=== PATIENT | female | born 1950 | race Caucasian/White ===

== ENCOUNTER 2022-01-10 15:55 | Outpatient (CLI) | payer MEDICARE, OTHER | END 2022-01-10 23:59 | disposition left against medical advice (07) | LOC: EMS 15:55 | DX: R07.81 Pleurodynia (principal); W18.30XA Fall on same level, unspecified, initial encounter; Y92.009 Unspecified place in unspecified non-institutional (private) residence as the place of occurrence of the external cause; Z72.89 Other problems related to lifestyle ==

== ENCOUNTER 2022-01-13 14:35 | Outpatient (CLI) | payer MEDICARE, OTHER ==
--- NOTE | 2022-01-13 16:19 | XRAY Report ---
PROCEDURE: Ribs w/PA Chest LT INDICATIONS: CHEST PAIN TECHNIQUE: 2 views of the left ribs were acquired, along with a single view chest. COMPARISON: None FINDINGS: Surgical changes and devices: None. Bones and chest wall: There may be a minimal displaced fracture of the posterior left eighth rib. No other displaced fractures visualized. Lungs and pleura: Ending at the left costophrenic sulcus suggests small pleural effusion. No pneumoth orax. Lungs appear clear. Mediastinum: Mediastinal contours appear normal. Heart size is normal. IMPRESSION: Questionable displaced posterior left eighth rib fracture. Questionable small left pleural effusion. Reviewed by: Cece Dela Cruz MD on 01/13/2022 4:18 PM PST Approved by: Cece Dela Cruz MD on 01/13/2022 4:18 PM PST Station ID: [id number]
== END 2022-01-13 14:36 | disposition home or self-care (01) ==
LOC: DI 14:35
PROVIDERS: ATTEND Internal Medicine
DX: R07.9 Chest pain, unspecified (principal)

== ENCOUNTER 2023-01-29 22:50 | Outpatient (CLI) | payer MEDICARE, OTHER | END 2023-01-29 23:59 | disposition critical access hospital (66) | LOC: EMS 22:50 | DX: R06.02 Shortness of breath (principal); R53.1 Weakness; R50.9 Fever, unspecified; R53.83 Other fatigue; R41.0 Disorientation, unspecified | CPT/HCPCS: A0425; A0427 ==

== ENCOUNTER 2023-01-29 23:05 | Inpatient (IN) | payer MEDICARE, OTHER ==
--- NOTE | 2023-01-29 23:13 | ED Physician Documentation ---
PD HPI DYSPNEA - Stated complaint Stated Complaint: SOA - History obtained from History obtained from: Patient, Family, EMS - Additional information Additional information: BIBA. Patient complains of dyspnea, coughing, malaise x 5 days. She also c/o midline upper back pain but denies chest pain. Denies injury. She says she had (+) COVID test approximately 2 weeks ago. She also says her LLE has been swollen for nearly a week although she feels this has improved over the past 1-2 days. She denies h/o similar symptoms and she does not have any pulmonary diagnoses such as COPD. Given duoneb en route by EMS. Review of Systems Constitutional: denies: Fever, Chills, Sweats Cardiac: reports: Pedal edema. denies: Chest pain / pressure, Palpitations Respiratory: reports: Dyspnea, Cough. denies: Hemoptysis, Wheezing GI: reports: Reviewed and negative Musculoskeletal: reports: Extremity swelling (LLE) PD PAST MEDICAL HISTORY - Past Medical History Past Medical History: Yes Cardiovascular: Hypertension - Present Medications Home Medications: Ambulatory Orders Medication Instructions Recorded Confirmed No Known Home Medications 01/29/23 01/29/23 - Allergies Allergies/Adverse Reactions: Allergies Allergy/AdvReac Type Severity Reaction Status Date / Time No Known Drug Allergies Allergy Verified 01/29/23 23:09 PD ED PE NORMAL - Vitals Vital signs reviewed: Yes - General General: Alert and oriented X 3, No acute distress, Well developed/nourished - Neck Neck: Supple, no meningeal sign, No JVD - Cardiac Cardiac: No murmur - Respiratory Respiratory: No respiratory distress, Clear bilaterally - Abdomen Abdomen: Soft, Non tender - Back Back: No spinal TTP - Derm Derm: Normal color, Warm and dry PD ED PE EXPANDED - Cardiac Cardiac: Tachy, Regular Rhythm - Extremities Extremities: Swelling, Pedal edema L (circumferential LLE edema from toes to mid/upper thigh) Results - Vitals Vitals: Vital Signs - 24 hr 01/29/23 01/29/23 01/30/23 23:09 23:30 00:00 Temperature 36.8 C Heart Rate 115 H 119 H 121 H Respiratory 24 32 H 26 H Rate Blood Pressure 162/94 H 156/76 H O2 Saturation 100 95 96 If not protocol 2 : Oxygen Flow, liters/minute 01/30/23 01/30/2323 00:13 00:30 01:00 Temperature Heart Rate 113 H 114 H 113 H Respiratory 27 H 30 H 25 H Rate Blood Pressure 146/84 H 156/83 H O2 Saturation 100 96 98 If not protocol 2 2 : Oxygen Flow, liters/minute 01/30/23 01/30/23 01/30/23 01:30 02:00 03:30 Temperature Heart Rate 111 H 113 H 105 H Respiratory 29 H 22 29 H Rate Blood Pressure 157/89 H 149/76 H 147/78 H O2 Saturation 95 99 98 If not protocol 2 2 2 : Oxygen Flow, liters/minute 01/30/23 01/30/23 01/30/23 04:00 04:30 05:00 Temperature Heart Rate 106 H 102 H 106 H Respiratory 27 H 20 25 H Rate Blood Pressure 157/80 H 157/85 H 143/76 H O2 Saturation 98 98 99 If not protocol 2 2 2 : Oxygen Flow, liters/minute 01/30/23 01/30/23 01/30/23 05:30 06:00 06:30 Temperature Heart Rate 103 H 104 H 100 Respiratory 26 H 23 31 H Rate Blood Pressure 158/90 H 152/79 H 153/79 H O2 Saturation 99 98 99 If not protocol 2 2 2 : Oxygen Flow, liters/minute 01/30/23 01/30/23 01/30/23 07:00 07:30 08:00 Temperature Heart Rate 96 98 95 Respiratory 23 23 22 Rate Blood Pressure 150/67 H 148/65 H 155/68 H O2 Saturation 95 97 95 If not protocol 2 2 2 : Oxygen Flow, liters/minute 01/30/23 01/30/23 01/30/23 08:30 09:00 09:30 Temperature Heart Rate 96 93 95 Respiratory 23 20 Rate Blood Pressure 150/67 H 152/65 H 155/68 H O2 Saturation 100 100 98 If not protocol 2 2 2 : Oxygen Flow, liters/minute 01/30/23 01/30/23 01/30/23 10:00 10:30 11:00 Temperature Heart Rate 88 98 92 Respiratory 22 20 Rate Blood Pressure 150/62 H 145/66 H 152/66 H O2 Saturation 100 85 L 95 If not protocol 2 2 : Oxygen Flow, liters/minute 01/30/23 01/30/23 01/30/23 11:29 12:00 12:30 Temperature 36.8 C Heart Rate 87 89 88 Respiratory 21 22 20 Rate Blood Pressure 150/68 H 150/64 H 148/62 H O2 Saturation 97 96 98 If not protocol 2 3 3 : Oxygen Flow, liters/minute 01/30/23 01/30/23 01/30/23 13:00 13:30 14:00 Temperature Heart Rate 86 88 86 Respiratory 22 20 22 Rate Blood Pressure 157/68 H 155/82 H 151/86 H O2 Saturation 97 98 100 If not protocol 2 2 2 : Oxygen Flow, liters/minute 01/30/23 01/30/23 01/30/23 14:30 15:00 15:30 Temperature Heart Rate 88 91 86 Respiratory 22 22 29 H Rate Blood Pressure 147/84 H 173/78 H 170/72 H O2 Saturation 98 93 99 If not protocol 2 2 : Oxygen Flow, liters/minute Oxygen O2 Source Nasal cannula Oxygen Flow Rate 2 - EKG (time done) No standard instances EKG releavant findings:: EKG personally interpreted by author of this note. Relevant findings are: Rate: Rate (enter#) (120), Tachy Rhythm: Sinus tachycardia [place]: RAD Intervals: Normal OR QRS: LVH Ischemia: Normal ST segments - Labs Labs: Laboratory Tests 01/30/23 01/30/23 01/30/23 00:01 00:01 00:01 WBC 14.4 H RBC 4.11 L Hgb 11.3 L Hct 36.3 L MCV 88.3 MCH 27.5 MCHC 31.1 L RDW 14.4 Plt Count 341 MPV 10.9 H Neut # (Auto) 11.4 H Lymph # (Auto) 2.0 [place] # (Auto) 0.9 Eos # (Auto) 0.1 Baso # (Auto) 0.0 Absolute Nucleated RBC 0.00 Nucleated RBC % 0.0 PT 16.8 H INR 1.6 H APTT 31.3 Sodium 139 Potassium 2.6 L Chloride 94 L Carbon Dioxide 29 Anion Gap 16.0 H BUN 16 Creatinine 0.6 Estimated GFR (MDRD) 98 Glucose 143 H Calcium 11.2 H Magnesium Total Bilirubin 1.5 H AST 22 ALT 7 L Alkaline Phosphatase 228 H Troponin I High Sens 65.7 H* B-Natriuretic Peptide Total Protein 7.0 Albumin 3.3 Globulin 3.7 Albumin/Globulin Ratio 0.9 L Lipase 23 Nasal Adenovirus (PCR) Nasal B. parapertussis DNA (PCR) Nasal Coronavir 229E PCR Nasal Coronavir HKU1 PCR Nasal Coronavir NL63 PCR Nasal Coronavir OC43 PCR Nasal Enterovir/Rhinovir PCR Nasal Influenza B PCR Nasal Influenza A PCR Nasal Parainfluen 1 PCR Nasal Parainfluen 2 PCR Nasal Parainfluen 3 PCR Nasal Parainfluen 4 PCR Nasal RSV (PCR) Nasal B.pertussis DNA PCR Nasal C.pneumoniae (PCR) Song Human Metapneumo PCR Nasal M.pneumoniae (PCR) Nasal SARS-CoV-2 (PCR) 01/30/23 01/30/23 01/30/23 03:34 07:36 07:36 WBC RBC Hgb Hct MCV MCH MCHC RDW Plt Count MPV Neut # (Auto) Lymph # (Auto) [place] # (Auto) Eos # (Auto) Baso # (Auto) Absolute Nucleated RBC Nucleated RBC % PT INR APTT Sodium Potassium Chloride Carbon Dioxide Anion Gap BUN Creatinine Estimated GFR (MDRD) Glucose Calcium Magnesium 1.4 L Total Bilirubin AST ALT Alkaline Phosphatase Troponin I High Sens B-Natriuretic Peptide 75 Total Protein Albumin Globulin Albumin/Globulin Ratio Lipase Nasal Adenovirus (PCR) NOT DETECTED Nasal B. parapertussis DNA (PCR) NOT DETECTED Nasal Coronavir 229E PCR NOT DETECTED Nasal Coronavir HKU1 PCR NOT DETECTED Nasal Coronavir NL63 PCR NOT DETECTED Nasal Coronavir OC43 PCR NOT DETECTED Nasal Enterovir/Rhinovir PCR NOT DETECTED Nasal Influenza B PCR NOT DETECTED Nasal Influenza A PCR NOT DETECTED Nasal Parainfluen 1 PCR NOT DETECTED Nasal Parainfluen 2 PCR NOT DETECTED Nasal Parainfluen 3 PCR NOT DETECTED Nasal Parainfluen 4 PCR NOT DETECTED Nasal RSV (PCR) NOT DETECTED Nasal B.pertussis DNA PCR NOT DETECTED Nasal C.pneumoniae (PCR) NOT DETECTED Song Human Metapneumo PCR NOT DETECTED Nasal M.pneumoniae (PCR) NOT DETECTED Nasal SARS-CoV-2 (PCR) DETECTED A 01/30/23 11:17 WBC RBC Hgb Hct MCV MCH MCHC RDW Plt Count MPV Neut # (Auto) Lymph # (Auto) [place] # (Auto) Eos # (Auto) Baso # (Auto) Absolute Nucleated RBC Nucleated RBC % PT INR APTT 102.0 H* Sodium Potassium Chloride Carbon Dioxide Anion Gap BUN Creatinine Estimated GFR (MDRD) Glucose Calcium Magnesium Total Bilirubin AST ALT Alkaline Phosphatase Troponin I High Sens B-Natriuretic Peptide Total Protein Albumin Globulin Albumin/Globulin Ratio Lipase Nasal Adenovirus (PCR) Nasal B. parapertussis DNA (PCR) Nasal Coronavir 229E PCR Nasal Coronavir HKU1 PCR Nasal Coronavir NL63 PCR Nasal Coronavir OC43 PCR Nasal Enterovir/Rhinovir PCR Nasal Influenza B PCR Nasal Influenza A PCR Nasal Parainfluen 1 PCR Nasal Parainfluen 2 PCR Nasal Parainfluen 3 PCR Nasal Parainfluen 4 PCR Nasal RSV (PCR) Nasal B.pertussis DNA PCR Nasal C.pneumoniae (PCR) Song Human Metapneumo PCR Nasal M.pneumoniae (PCR) Nasal SARS-CoV-2 (PCR) - Rads (name of study) CTA chest Relevant Findings:: Prelim report reviewed, Critical result, See rad report PD Medical Decision Making - ED course Complexity details: reviewed results, re-evaluated patient, considered differential, d/w patient, d/w family ED course: H&P are highly suggestive of pulmonary embolism and CTA of the chest confirms this diagnosis (bilateral pulmonary emboli with equivocal CT signs of right heart strain); also noted are "pulmonary nodules/masses, largest at the right costophrenic angle, and multiple liver masses. These are concerning for metastatic disease" (per radiologist's interpretation). She is hemodynamically stable during ED stay. Heparin bolus/drip per VTE protocol. I discussed these results with the patient and plan is to admit to appropriate facility with bed availability. No beds available at [facility] and, unfortunately, [facility] was unable to find any available beds at regional facilities. [facility] notified. Care of patient is turned over to oncoming ED physician (Dr. Titus). Patient is COVID positive on respiratory PCR panel. - Critical Care Time(min): 60 Time Includes: Direct patient care, Review records, Reassess patient, Document care, See progress note Data interpretation: See progress note Procedures included in critical care time: See progress note Procedures excluded from critical care time: See progress note Departure - Departure Disposition: 66 [facility] DC/Xfer Clinical Impression: Pulmonary embolism Qualifiers: Pulmonary embolism type: single subsegmental (without acute cor pulmonale) Qualified Code(s): I26.93 - Single subsegmental pulmonary embolism without acute cor pulmonale Condition: Stable Discharge Date/Time: 01/30/23 16:22
[2023-01-30 00:07] LABS: BASOPHILS % (AUTO) 0.3 %; EOSINOPHILS # (AUTO) 0.1 10^3/uL (0.0-0.7); EOSINOPHILS % (AUTO) 0.6 %; HCT - HEMATOCRIT 36.3 % (37.0-47.0); HGB - HEMOGLOBIN 11.3 g/dL (12.0-16.0); LYMPHOCYTES % (AUTO) 13.7 %; MEAN CORPUSCULAR HEMOGLOBIN 27.5 pg (27.0-31.0); MEAN CORPUSCULAR HGB CONC 31.1 g/dL (32.0-36.0); MEAN CORPUSCULAR VOLUME 88.3 fL (81.0-99.0); MEAN PLATELET VOLUME 10.9 fL (7.9-10.8); MONOCYTES # (AUTO) 0.9 10^3/uL (0.0-1.0); MONOCYTES % (AUTO) 6.2 %; NEUTROPHILS # (AUTO) 11.4 10^3/uL (1.5-6.6); NEUTROPHILS % (AUTO) 78.8 %; PLT - PLATELET COUNT 341 10^3/uL (130-450); RED BLOOD COUNT 4.11 10^6/uL (4.20-5.40); RED CELL DISTRIBUTION WIDTH 14.4 % (12.0-15.0); WHITE BLOOD COUNT 14.4 x10^3/uL (4.8-10.8)
[2023-01-30 00:17] LABS: PARTIAL THROMBOPLASTIN TIME 31.3 secs (24.9-33.3)
[2023-01-30 00:22] LABS: INR 1.6 (0.8-1.2); PT - PROTHROMBIN TIME 16.8 secs (9.9-12.6)
[2023-01-30 00:25] LABS: ALBUMIN 3.3 g/dL (3.2-5.5)
[2023-01-30 00:27] LABS: ALBUMIN/GLOBULIN RATIO 0.9 (1.0-2.2); BILIRUBIN,TOTAL 1.5 mg/dL (0.2-1.0); CALCIUM 11.2 mg/dL (8.5-10.3); CREATININE 0.6 mg/dL (0.6-1.3); POTASSIUM 2.6 mmol/L (3.5-4.5)
[2023-01-30 01:06] LABS: TROPONIN I HIGH SENSITIVITY 65.7 ng/L (2.3-14.8)
[2023-01-30] MEDS ORDERED: iohexoL-300 100 ML VIAL IVP ONE (03:37)
[2023-01-30 04:49] LABS: CORONAVIRUS 229E-RESP PCR NOT DETECTED; CORONAVIRUS HKU1-RESP PCR NOT DETECTED; CORONAVIRUS NL63-RESP PCR NOT DETECTED; CORONAVIRUS OC43-RESP PCR NOT DETECTED
[2023-01-30 04:57] LABS: B. PARAPERTUSSIS- RESP PCR PAN NOT DETECTED; B. PERTUSSIS- RESP PCR PANEL NOT DETECTED; C. PNEUMONIAE- RESP PCR PANEL NOT DETECTED; HUMAN METAPNEUMOVIRUS NOT DETECTED; INFLUENZA A- RESP PCR PANEL NOT DETECTED; INFLUENZA B - RESP PCR PANEL NOT DETECTED; M. PNEUMONIAE- RESP PCR PANEL NOT DETECTED; PARAINFLUENZA VIRUS 1 NOT DETECTED; PARAINFLUENZA VIRUS 2 NOT DETECTED; PARAINFLUENZA VIRUS 3 NOT DETECTED; PARAINFLUENZA VIRUS 4 NOT DETECTED; RHINOVIRUS/ENTEROVIRUS NOT DETECTED; RSV- RESP PCR PANEL NOT DETECTED; SARS-CoV-2 -RESP PCR PANEL DETECTED
[2023-01-30] MEDS ORDERED: HEPARIN 25000UNITS/500ML (D5W) 25,000 UNIT/500 ML BAG IV SCH (05:00)
[2023-01-30] MEDS ORDERED: POTASSIUM CHLOR 10 MEQ/100 ML 10 MEQ/100 ML BAG IV STA (07:23)
[2023-01-30] MEDS ORDERED: SODIUM CHLORIDE 0.9% 1,000 ML IV STA ×2 (07:25→14:11)
--- NOTE | 2023-01-30 08:03 | CT Report ---
PROCEDURE: ANGIO CHEST W/WO INDICATIONS: dyspnea, tachycardia, leg swelling CONTRAST: 100 ML OMNI 300 TECHNIQUE: After the administration of intravenous contrast, 2 mm axial images were acquired from the pulmonary apices to the posterior costophrenic angles during the arterial phase. In addition, 1 mm lung kernel and 5 mm soft tissue kernel reconstructions were performed. 3-dimensional coronal oblique maximum int ensity projection (MIP) reformats, 8 mm axial MIP, and 5 mm coronal and sagittal MPR reformats were t hen performed through the thorax. For radiation dose reduction, the following was used: automated exp osure control, adjustment of mA and/or kV according to patient size. COMPARISON: None FINDINGS: Image quality: Mildly motion degraded Lungs and pleura:Scattered areas of scarring and atelectasis. Multiple nodules are seen, most notably in the right costophrenic angle measuring up to 3.2 cm on series 4 image 201. No pleural effusions. No dense airspace disease otherwise. Mediastinum, heart, and esophagus: Bilateral pulmonary emboli, involving the interlobar artery on the right and multiple segmental vessels.. Equivocal CT evidence of right heart strain, consider correla tion with echocardiogram. No hiatal hernia. Coronary calcifications are present. Normal heart size. No pathologic lymph nodes b y size criteria. Chest wall and thyroid: No actionable thyroid nodule identified. Chest wall is unremarkable. Upper abdomen: Multiple liver masses are partially seen on this arterial phase CT. Bones: Degenerative changes are present. Nonacute appearing rib fractures are present. IMPRESSION: Bilateral pulmonary emboli. Equivocal CT signs of right heart strain. Pulmonary nodules/masses, largest at the right costophrenic angle, and multiple liver masses. These a re concerning for metastatic disease. Other findings as above. Agree with preliminary report. Reviewed by: Russell Hickman MD on 01/30/2023 8:02 AM PST Approved by: Russell Hickman MD on 01/30/2023 8:02 AM PST Station ID: [id number]
--- NOTE | 2023-01-30 13:13 | ED Physician Documentation ---
ED Addendum - Addendum Addendum: 01/30/23 13:11 The patient has maintained good oxygenation on nasal cannula. She was trialed off of oxygen approximately 1030 and went down to 85%.. She remains on just low flow nasal cannula with good oxygenation again. Her BNP was not elevated and her lung sounds are clear at the bases. No obvious heart strain or CHF. She remains on the heparin drip at this point but could certainly change to DOAC or Lovenox. Given the persisting hypoxia, she will presumably still need to be hospitalized initially for assessment and further treatment. At this point we are waiting for bed availability for him discharges in our hospital. They are anticipating several and I will talk with the hospitalist as soon as 1 freeze up. Diagnoses: 1. Acute hypoxia and dyspnea 2. Pulmonary emboli 3. Hypoxia Disposition: Patient is placed in the hospital for further care.
[2023-01-30] MEDS ORDERED: ACETAMINOPHEN 325 MG TABLET PO STA (13:14)
[2023-01-30] MEDS ORDERED: KETOROLAC 15 MG/ML VIAL IVP STA (13:14)
--- NOTE | 2023-01-30 15:50 | HISTORY & PHYSICAL EXAMINATION ---
Chief Complaint - Chief Complaint Chief Complaint: SOA History of Present Illness - Admitted From Admitted From:: ED - History Obtained From History obtained from: ED provider - History of Present Illness HPI Comment/Other: This is a 72-year-old female with an essentially negative past medical history who takes no medicines. She tested positive for COVID 2 weeks ago. She presents to the ER today with worsening shortness of breath and cough. She was found to have O2 saturation of 85% on room air. Her COVID test is positive. She also had complaints of chest pain in her mid back and underwent CT angio and was found to have bilateral pulmonary emboli and probable right heart strain. Also on chest CT findings, there are several lung nodules/masses. Patient was started on IV heparin drip in the ER. There were no hospital beds available until this afternoon and the ED provider spoke to me about this patient. She will be admitted for treating hypoxia, bilateral pulmonary emboli with possible right heart strain and also positive COVID. Code status was not discussed, as she was seen remotely. History - Past Medical History Cardiovascular: reports: Hypertension MRSA Hx?: No - Family & Social History Living arrangement: At home Meds/Allgy - Home Medications Home Medications: Ambulatory Orders Medication Instructions Recorded Confirmed No Known Home Medications 01/29/23 01/29/23 - Allergies Allergies/Adverse Reactions: Allergies Allergy/AdvReac Type Severity Reaction Status Date / Time No Known Drug Allergies Allergy Verified 01/29/23 23:09 Review of Systems - Cardiovascular Cariovascular: reports: Chest pain (in mid-back) - Respiratory Respiratory: reports: Cough, SOB at rest, SOB with exertion Exam - Vital Signs Vital Signs: Vital Signs x48h Temp Pulse Resp BP Pulse Ox O2 Flow Rate 01/30/23 15:00 91 22 173/78 H 93 01/30/23 14:30 88 22 147/84 H 98 2 01/30/23 14:00 86 22 151/86 H 100 2 01/30/23 13:30 88 20 155/82 H 98 2 01/30/23 13:00 86 22 157/68 H 97 2 01/30/23 12:30 36.8 C 88 20 148/62 H 98 3 01/30/23 12:00 89 22 150/64 H 96 3 01/30/23 11:29 87 21 150/68 H 97 2 01/30/23 11:00 92 20 152/66 H 95 2 01/30/23 10:30 98 22 145/66 H 85 L 01/30/23 10:00 88 150/62 H 100 2 01/30/23 09:30 95 155/68 H 98 2 01/30/23 09:00 93 20 152/65 H 100 2 01/30/23 08:30 96 23 150/67 H 100 2 01/30/23 08:00 95 22 155/68 H 95 2 - Physical Exam General Appearance: positive: Alert (Patient seen remotely) ENT: positive: No signs of dehydration Respiratory: positive: Rhonchi Cardiovascular: positive: Regular rate & rhythm Abdomen: positive: Non-tender Skin: positive: Warm, Dry Conclusion/Plan - Problem List (1) Acute respiratory failure with hypoxia Conclusion/Plan: This patient has 2 reasons to be hypoxic: COVID infection and pulmonary emboli Plan: Give supplemental O2 with target saturation 92% or above Treat the underlying abnormal findings (2) COVID-19 Conclusion/Plan: Plan: Order respiratory isolation She qualifies for Remdesivir. This was reviewed with our pharmacist. Will order Mucinex as expectorant (3) Bilateral pulmonary embolism Conclusion/Plan: COVID may give this patient risk for clots as well as possible cancer may give her risk of hypercoagulability. Plan: Order Eliquis 10 mg p.o. twice daily starting this evening, this would be her dose for 7 days Run the IV heparin drip until receiving her first Eliquis dose Following that 1st week, then Eliquis 5 mg po BID for at least 3 ms, unless no provokable cause is found then poss lifelong anticoag (4) Right heart enlargement Conclusion/Plan: Her CT chest was read as having probable right heart strain. Her EKG is also abnormal showing right axis deviation and tachycardia consistent with cor pulmonale Plan: Obtain Echo (we have no Echo service here today, Monday, not until tomorrow, ) Start treating the underlying COVID, the pulmonary emboli and administer supplemental O2 for hypoxia (5) Lung mass Conclusion/Plan: Several lung masses are seen on CT chest. These could be reactive nodes from possibly 2 weeks of a COVID infection or could be malignant Plan: She will need outpatient workup after discharge (6) Hypokalemia Conclusion/Plan: Plan: Will replace with K riders Follow BMP daily (7) Hypomagnesemia Conclusion/Plan: Plan: Will replace with Mg rider Follow Mg daily - Lab Results Fish Bones: 01/30/23 00:01 01/30/23 00:01 - Diagnostic Imaging Results Diagnostic Imaging Results: positive: Final report reviewed - EKG Results EKG Interpreted Independently: Yes EKG Findings: Sinus tachycardia, right axis deviation, late R wave progression, diffuse ST segment depressions. - Other Other Results/Comments: Attestation: This patient is expected to be hospitalized for greater than 2 midnights and is expected to be discharged or transferred to another facility within 96 hours: Yes.
[2023-01-30] MEDS ORDERED: REMDESIVIR 200 MG in SODIUM CHLORIDE 0.9% 250 ML IV ONE (18:00)
[2023-01-30] MEDS: SODIUM CHLORIDE FLUSH 0.9% 10 ML SYRINGE IVP SCH ×2 (21:09→23:50)
[2023-01-30] MEDS: guaiFENesin 600 MG TABLET PO SCH (21:09)
[2023-01-30] MEDS: APIXABAN 5 MG TABLET PO SCH (21:09)
[2023-01-30] MEDS ORDERED: MAGNESIUM SULFATE 2 GRAM 2 GM/50 ML BAG IV ONE (22:08)
[2023-01-30] MEDS: ACETAMINOPHEN 325 MG TABLET PO PRN (23:53)
[2023-01-31 05:33] LABS: BASOPHILS # (AUTO) 0.1 10^3/uL (0.0-0.1); BASOPHILS % (AUTO) 0.4 %; EOSINOPHILS # (AUTO) 0.2 10^3/uL (0.0-0.7); EOSINOPHILS % (AUTO) 1.4 %; HCT - HEMATOCRIT 30.5 % (37.0-47.0); HGB - HEMOGLOBIN 9.6 g/dL (12.0-16.0); LYMPHOCYTES # (AUTO) 1.7 10^3/uL (1.5-3.5); LYMPHOCYTES % (AUTO) 9.8 %; MEAN CORPUSCULAR HEMOGLOBIN 27.9 pg (27.0-31.0); MEAN CORPUSCULAR HGB CONC 31.5 g/dL (32.0-36.0); MEAN CORPUSCULAR VOLUME 88.7 fL (81.0-99.0); MEAN PLATELET VOLUME 11.8 fL (7.9-10.8); MONOCYTES # (AUTO) 0.9 10^3/uL (0.0-1.0); MONOCYTES % (AUTO) 5.6 %; NEUTROPHILS # (AUTO) 13.9 10^3/uL (1.5-6.6); NEUTROPHILS % (AUTO) 82.4 %; PLT - PLATELET COUNT 292 10^3/uL (130-450); RED BLOOD COUNT 3.44 10^6/uL (4.20-5.40); RED CELL DISTRIBUTION WIDTH 14.6 % (12.0-15.0); WHITE BLOOD COUNT 16.9 x10^3/uL (4.8-10.8)
[2023-01-31 05:52] LABS: ALBUMIN 3.1 g/dL (3.2-5.5); BILIRUBIN,DIRECT 0.77 mg/dL (0.03-0.18); BILIRUBIN,TOTAL 1.5 mg/dL (0.2-1.0); CALCIUM 9.8 mg/dL (8.5-10.3); CREATININE 0.7 mg/dL (0.6-1.3); MAGNESIUM 2.2 mg/dL (1.7-2.3); POTASSIUM 2.6 mmol/L (3.5-4.5); TOTAL PROTEIN 6.6 g/dL (6.4-8.9)
[2023-01-31 06:10] LABS: TROPONIN I HIGH SENSITIVITY 28.5 ng/L (2.3-14.8)
[2023-01-31] MEDS ORDERED: REMDESIVIR 100 MG in SODIUM CHLORIDE 0.9% 100ML 100 ML IV SCH (09:00)
[2023-01-31] MEDS: guaiFENesin 600 MG TABLET PO SCH ×2 (10:56→20:18)
[2023-01-31] MEDS: APIXABAN 5 MG TABLET PO SCH ×2 (10:56→20:18)
[2023-01-31] MEDS: dexAMETHasone 4 MG TABLET PO SCH (10:56)
[2023-01-31] MEDS: SODIUM CHLORIDE FLUSH 0.9% 10 ML SYRINGE IVP SCH ×2 (10:56→17:15)
--- NOTE | 2023-01-31 11:06 | PHARMACY PROGRESS NOTE ---
- Best Possible Medication History Admit Date and Time: 01/30/23 1556 Processed by: Pharmacy Medication History completed: Yes Secondary Source(s): Pharmacy records As the person ultimately responsible for medication therapy, providers are able to order a medication from an existing home medication list in [facility] via the "Reconcile Routine" prior to Confirmation of that medication by desktop support consultant. Such practice is discouraged except when the physician, in their clinical judgment, deems that a medical need exists for a medication without regard to previous use.
[2023-01-31] MEDS: POTASSIUM CHLOR 10 MEQ/100 ML 10 MEQ/100 ML BAG IV SCH ×4 (11:12→17:14)
[2023-01-31] MEDS: ACETAMINOPHEN 325 MG TABLET PO PRN (12:25)
[2023-01-31] MEDS: POTASSIUM CHLORIDE 20 MEQ TABLET PO SCH (12:51)
--- NOTE | 2023-01-31 14:23 | PROVIDER PROGRESS NOTE ---
Assessment/Plan - Problem List (1) Acute respiratory failure with hypoxia Assessment/Plan: (1) Acute respiratory failure with hypoxia Conclusion/Plan: -- Hypoxia secondary to COVID-19 pneumonia and pulmonary embolus. -- Continue supplemental oxygen. She is currently on 1 L via nasal cannula. (2) COVID-19 Conclusion/Plan: -- Patient does not want remdesivir. This was discontinued. --Started on dexamethasone 6 mg daily for 10 days. (3) Bilateral pulmonary embolism Conclusion/Plan: -- Possibly provoked by COVID-19 or underlying malignancy. --Continue Eliquis 10 mg twice daily for 7 days followed by Eliquis 5 mg p.o. twice daily for 3 to 6 months. --Concern for right ventricular strain. A TTE is currently pending. (4) Right heart enlargement Conclusion/Plan: -- TTE as above. -- Troponin is elevated however downtrending. (5) Lung mass Conclusion/Plan: -- Several lung masses seen on CT chest. This will need outpatient follow-up. --Multiple liver masses. (6) Hypokalemia Conclusion/Plan: Plan: Will replace with K riders Follow BMP daily (7) Hypomagnesemia Conclusion/Plan: Plan: Will replace with Mg rider Follow Mg daily (4) Pulmonary embolism Qualifiers: Pulmonary embolism type: single subsegmental (without acute cor pulmonale) Qualified Code(s): I26.93 - Single subsegmental pulmonary embolism without acute cor pulmonale - Current Meds Current Meds: Current Medications Generic Name Dose Route Start Last Admin Trade Name Freq PRN Reason Stop Dose Admin Acetaminophen 650 mg 01/30/23 15:42 01/30/23 23:53 Acetaminophen 325 Mg Tablet PO 650 mg Q4HR PRN Administration Pain 1 to 4, or Fever Apixaban 10 mg 01/30/23 21:00 01/31/23 10:56 Apixaban 5 Mg Tablet PO 02/06/23 09:01 10 mg BID BRANDY Administration Dexamethasone 6 mg 01/31/23 09:00 01/31/23 10:56 Dexamethasone 4 Mg Tablet PO 02/09/23 09:01 6 mg DAILY BRANDY Administration Guaifenesin 600 mg 01/30/23 21:00 01/31/23 10:56 Guaifenesin 600 Mg Tablet PO 600 mg BID BRANDY Administration Potassium Chloride 10 meq in 100 mls @ 100 mls/hr 01/31/23 11:00 01/31/23 14:01 Potassium Chloride IV 01/31/23 14:59 100 mls/hr Q1H BRANDY Administration Potassium Chloride 20 meq 01/31/23 09:00 01/31/23 12:51 Potassium Chloride 20 Meq Tablet PO Not Given DAILYWM BRANDY Sodium Chloride 10 ml 01/30/23 17:00 01/31/23 10:56 Sodium Chloride Flush 0.9% 10 Ml Syringe IVP 10 ml 0100,0900,1700 BRANDY Administration - Lab Result Fish Bone Diagrams: 01/31/23 05:09 01/31/23 05:09 - Additional Planning My Orders: My Active Orders 01/31/23 08:21 Echo Transthoracic Complete [ECHO] Routine 01/31/23 09:00 Potassium Chloride [K-Dur] 20 meq PO DAILYWM dexAMETHasone [Decadron] 6 mg PO DAILY 01/31/23 11:00 Potassium Chlor 10 Meq/100 ml [Potassium Chloride] 10 meq in 100 ml IV Q1H 02/01/23 05:00 BMP - BASIC METABOLIC PANEL [CHEM] DAILYLAB CBC [CBC - COMP BLD CT W/AUTO DIFF] [HEME] DAILYLAB 02/02/23 05:00 BMP - BASIC METABOLIC PANEL [CHEM] DAILYLAB CBC [CBC - COMP BLD CT W/AUTO DIFF] [HEME] DAILYLAB 02/03/23 05:00 BMP - BASIC METABOLIC PANEL [CHEM] DAILYLAB CBC [CBC - COMP BLD CT W/AUTO DIFF] [HEME] DAILYLAB 02/04/23 05:00 BMP - BASIC METABOLIC PANEL [CHEM] DAILYLAB CBC [CBC - COMP BLD CT W/AUTO DIFF] [HEME] DAILYLAB Subjective - Subjective Patient Reports: Feeling Better (Family is at bedside. Reports that she has been more confused lately. She is on 1L via NC.) Objective Vital Signs: Vital Signs - 24 hr 01/30/23 01/30/23 01/30/23 14:30 15:00 15:30 Temperature Heart Rate 88 91 86 Heart Rate [ Brachial] Respiratory 22 22 29 H Rate Blood Pressure 147/84 H 173/78 H 170/72 H Blood Pressure [Brachial artery] Blood Pressure [Left Brachial artery] O2 Saturation 98 93 99 If not protocol 2 2 : Oxygen Flow, liters/minute 01/30/23 01/30/23 01/30/23 16:30 16:51 22:00 Temperature 36.3 C L 36.7 C Heart Rate 85 Heart Rate [ 87 97 Brachial] Respiratory 20 20 Rate Blood Pressure 170/72 H Blood Pressure [Brachial artery] Blood Pressure 159/90 H 176/81 H [Left Brachial artery] O2 Saturation 97 95 If not protocol 2 2 2 : Oxygen Flow, liters/minute 01/30/23 01/31/23 01/31/23 22:15 00:07 03:00 Temperature 36.2 C L Heart Rate Heart Rate [ 94 73 Brachial] Respiratory 18 16 Rate Blood Pressure Blood Pressure 159/96 H [Brachial artery] Blood Pressure [Left Brachial artery] O2 Saturation 94 96 If not protocol 2 3 2 : Oxygen Flow, liters/minute 01/31/23 01/31/23 01/31/23 03:49 05:15 06:12 Temperature 36.7 C Heart Rate Heart Rate [ 76 70 70 Brachial] Respiratory 20 20 16 Rate Blood Pressure Blood Pressure 169/82 H [Brachial artery] Blood Pressure [Left Brachial artery] O2 Saturation 96 93 99 If not protocol 2 3 1 : Oxygen Flow, liters/minute 01/31/23 01/31/23 07:00 11:15 Temperature Heart Rate Heart Rate [ Brachial] Respiratory 18 Rate Blood Pressure Blood Pressure [Brachial artery] Blood Pressure [Left Brachial artery] O2 Saturation 92 If not protocol 1 3 : Oxygen Flow, liters/minute Oxygen O2 Source Nasal cannula Oxygen Flow Rate 2 I&O (Last 24 Hrs): Intake and Output Totals x24h 01/29/23 01/30/23 01/31/23 23:59 23:59 23:59 Intake Total 3688.151 7026.000 Output Total 100 Balance 7260.899 2238.000 General: Alert, Oriented x3 Neuro: Alert Cardiovascular: Regular rate, Normal S1 Respiratory: Chest non-tender - Results Results: Laboratory Results WBC 16.9 x10^3/uL (4.8-10.8) H 01/31/23 05:09 RBC 3.44 10^6/uL (4.20-5.40) L 01/31/23 05:09 Hgb 9.6 g/dL (12.0-16.0) L 01/31/23 05:09 Hct 30.5 % (37.0-47.0) L 01/31/23 05:09 MCV 88.7 fL (81.0-99.0) 01/31/23 05:09 MCH 27.9 pg (27.0-31.0) 01/31/23 05:09 MCHC 31.5 g/dL (32.0-36.0) L 01/31/23 05:09 RDW 14.6 % (12.0-15.0) 01/31/23 05:09 Plt Count 292 10^3/uL (130-450) 01/31/23 05:09 MPV 11.8 fL (7.9-10.8) H 01/31/23 05:09 Neut # (Auto) 13.9 10^3/uL (1.5-6.6) H 01/31/23 05:09 Lymph # (Auto) 1.7 10^3/uL (1.5-3.5) 01/31/23 05:09 [place] # (Auto) 0.9 10^3/uL (0.0-1.0) 01/31/23 05:09 Eos # (Auto) 0.2 10^3/uL (0.0-0.7) 01/31/23 05:09 Baso # (Auto) 0.1 10^3/uL (0.0-0.1) 01/31/23 05:09 Absolute Nucleated RBC 0.00 x10^3/uL 01/31/23 05:09 Nucleated RBC % 0.0 /100WBC 01/31/23 05:09 PT 16.8 secs (9.9-12.6) H 01/30/23 00:01 INR 1.6 (0.8-1.2) H 01/30/23 00:01 APTT 102.0 secs (24.9-33.3) H* 01/30/23 11:17 Sodium 140 mmol/L (135-145) 01/31/23 05:09 Potassium 2.6 mmol/L (3.5-4.5) L 01/31/23 05:09 Chloride 99 mmol/L (101-111) L 01/31/23 05:09 Carbon Dioxide 31 mmol/L (21-32) 01/31/23 05:09 Anion Gap 10.0 (6-13) 01/31/23 05:09 BUN 21 mg/dL (6-20) H 01/31/23 05:09 Creatinine 0.7 mg/dL (0.6-1.3) 01/31/23 05:09 Estimated GFR (MDRD) 82 (>89) L 01/31/23 05:09 Glucose 127 mg/dL (74-104) H 01/31/23 05:09 Calcium 9.8 mg/dL (8.5-10.3) 01/31/23 05:09 Magnesium 2.2 mg/dL (1.7-2.3) 01/31/23 05:09 Total Bilirubin 1.5 mg/dL (0.2-1.0) H 01/31/23 05:09 Direct Bilirubin 0.77 mg/dL (0.03-0.18) H 01/31/23 05:09 AST 29 IU/L (10-42) 01/31/23 05:09 ALT 6 IU/L (10-60) L 01/31/23 05:09 Alkaline Phosphatase 233 IU/L (42-121) H 01/31/23 05:09 Troponin I High Sens 28.5 ng/L (2.3-14.8) H* 01/31/23 05:09 B-Natriuretic Peptide 75 pg/mL (5-100) 01/30/23 07:36 Total Protein 6.6 g/dL (6.4-8.9) 01/31/23 05:09 Albumin 3.1 g/dL (3.2-5.5) L 01/31/23 05:09 Globulin 3.5 g/dL (2.1-4.2) 01/31/23 05:09 Albumin/Globulin Ratio 0.9 (1.0-2.2) L 01/30/23 00:01 Lipase 23 U/L (11-82) 01/30/23 00:01 Nasal Adenovirus (PCR) NOT DETECTED 01/30/23 03:34 Nasal B. parapertussis DNA (PCR) NOT DETECTED 01/30/23 03:34 Nasal Coronavir 229E PCR NOT DETECTED 01/30/23 03:34 Nasal Coronavir HKU1 PCR NOT DETECTED 01/30/23 03:34 Nasal Coronavir NL63 PCR NOT DETECTED 01/30/23 03:34 Nasal Coronavir OC43 PCR NOT DETECTED 01/30/23 03:34 Nasal Enterovir/Rhinovir PCR NOT DETECTED 01/30/23 03:34 Nasal Influenza B PCR NOT DETECTED 01/30/23 03:34 Nasal Influenza A PCR NOT DETECTED 01/30/23 03:34 Nasal Parainfluen 1 PCR NOT DETECTED 01/30/23 03:34 Nasal Parainfluen 2 PCR NOT DETECTED 01/30/23 03:34 Nasal Parainfluen 3 PCR NOT DETECTED 01/30/23 03:34 Nasal Parainfluen 4 PCR NOT DETECTED 01/30/23 03:34 Nasal RSV (PCR) NOT DETECTED 01/30/23 03:34 Nasal B.pertussis DNA PCR NOT DETECTED 01/30/23 03:34 Nasal C.pneumoniae (PCR) NOT DETECTED 01/30/23 03:34 Song Human Metapneumo PCR NOT DETECTED 01/30/23 03:34 Nasal M.pneumoniae (PCR) NOT DETECTED 01/30/23 03:34 Nasal SARS-CoV-2 (PCR) DETECTED A 01/30/23 03:34 Current Medications - Current Medications Current Medications: Active Medications Generic Name Dose Route Start Last Admin Trade Name Freq PRN Reason Stop Dose Admin Acetaminophen 650 mg 01/30/23 15:42 01/30/23 23:53 Acetaminophen 325 Mg Tablet PO 650 mg Q4HR PRN Administration Pain 1 to 4, or Fever Apixaban 10 mg 01/30/23 21:00 01/31/23 10:56 Apixaban 5 Mg Tablet PO 02/06/23 09:01 10 mg BID BRANDY Administration Dexamethasone 6 mg 01/31/23 09:00 01/31/23 10:56 Dexamethasone 4 Mg Tablet PO 02/09/23 09:01 6 mg DAILY BRANDY Administration Guaifenesin 600 mg 01/30/23 21:00 01/31/23 10:56 Guaifenesin 600 Mg Tablet PO 600 mg BID BRANDY Administration Potassium Chloride 10 meq in 100 mls @ 100 mls/hr 01/31/23 11:00 01/31/23 14:01 Potassium Chloride IV 01/31/23 14:59 100 mls/hr Q1H BRANDY Administration Ondansetron HCl 4 mg 01/30/23 15:42 Ondansetron 4 Mg/2 Ml Vial IVP Q6HR PRN Nausea / Vomiting Potassium Chloride 20 meq 01/31/23 09:00 01/31/23 12:51 Potassium Chloride 20 Meq Tablet PO Not Given DAILYWM BRANDY Sodium Chloride 10 ml 01/30/23 15:42 Sodium Chloride Flush 0.9% 10 Ml Syringe IVP PRN PRN NEEDED PER PROVIDER ORDERS Sodium Chloride 10 ml 01/30/23 17:00 01/31/23 10:56 Sodium Chloride Flush 0.9% 10 Ml Syringe IVP 10 ml 0100,0900,1700 [facility] Administration No Known Home Medications 01/29/23
[2023-02-01] MEDS: SODIUM CHLORIDE FLUSH 0.9% 10 ML SYRINGE IVP SCH ×3 (02:14→16:17)
[2023-02-01 05:58] LABS: BASOPHILS % (AUTO) 0.1 %; EOSINOPHILS % (AUTO) 0.1 %; HCT - HEMATOCRIT 36.6 % (37.0-47.0); HGB - HEMOGLOBIN 11.6 g/dL (12.0-16.0); LYMPHOCYTES # (AUTO) 1.4 10^3/uL (1.5-3.5); LYMPHOCYTES % (AUTO) 7.5 %; MEAN CORPUSCULAR HGB CONC 31.7 g/dL (32.0-36.0); MEAN CORPUSCULAR VOLUME 88.2 fL (81.0-99.0); MEAN PLATELET VOLUME 11.2 fL (7.9-10.8); MONOCYTES # (AUTO) 0.7 10^3/uL (0.0-1.0); MONOCYTES % (AUTO) 3.9 %; NEUTROPHILS # (AUTO) 16.3 10^3/uL (1.5-6.6); PLT - PLATELET COUNT 337 10^3/uL (130-450); RED BLOOD COUNT 4.15 10^6/uL (4.20-5.40); RED CELL DISTRIBUTION WIDTH 14.6 % (12.0-15.0); WHITE BLOOD COUNT 18.5 x10^3/uL (4.8-10.8)
[2023-02-01 06:09] LABS: CALCIUM 9.6 mg/dL (8.5-10.3); CREATININE 0.6 mg/dL (0.6-1.3); POTASSIUM 3.5 mmol/L (3.5-4.5)
[2023-02-01] MEDS ORDERED: amLODIPine 5 MG TABLET PO SCH (09:00)
[2023-02-01] MEDS: APIXABAN 5 MG TABLET PO SCH ×2 (11:05→20:27)
[2023-02-01] MEDS: POTASSIUM CHLORIDE 20 MEQ TABLET PO SCH (11:05)
[2023-02-01] MEDS: guaiFENesin 600 MG TABLET PO SCH ×2 (11:05→20:27)
[2023-02-01] MEDS: dexAMETHasone 4 MG TABLET PO SCH (11:06)
[2023-02-01] MEDS: INSULIN LISPRO 300 UNIT/3 ML PEN SUBQ SCH ×3 (12:45→20:27)
[2023-02-01] MEDS: SENNA 8.6 MG TABLET PO SCH (13:45)
[2023-02-01] MEDS: DOCUSATE SODIUM 250 MG CAPSULE PO SCH (13:45)
[2023-02-01] MEDS ORDERED: BISACODYL 10 MG SUPP PR ONE (14:00)
--- NOTE | 2023-02-01 15:39 | PROVIDER PROGRESS NOTE ---
Assessment/Plan - Problem List (1) Acute respiratory failure with hypoxia Assessment/Plan: (1) Acute respiratory failure with hypoxia Conclusion/Plan: -- Hypoxia secondary to COVID-19 pneumonia and pulmonary embolus. -- Continue supplemental oxygen. She is currently on 1 L via nasal cannula. (2) COVID-19 Conclusion/Plan: -- Patient does not want remdesivir. This was discontinued. --Started on dexamethasone 6 mg daily for 10 days. (3) Bilateral pulmonary embolism Conclusion/Plan: -- Possibly provoked by COVID-19 or underlying malignancy. --Continue Eliquis 10 mg twice daily for 7 days followed by Eliquis 5 mg p.o. twice daily for 3 to 6 months. (4) Right heart enlargement Conclusion/Plan: -- TTE showing no evidence of RHS or enlargement. (5) Lung mass Conclusion/Plan: -- Several lung masses seen on CT chest. This will need outpatient follow-up. --Multiple liver masses. (6) Hypokalemia Conclusion/Plan: Plan: Will replace with K riders Follow BMP daily (7) Hypomagnesemia Conclusion/Plan: Plan: Will replace with Mg rider Follow Mg daily (4) Pulmonary embolism Qualifiers: Pulmonary embolism type: single subsegmental (without acute cor pulmonale) Qualified Code(s): I26.93 - Single subsegmental pulmonary embolism without acute cor pulmonale - Current Meds Current Meds: Current Medications Generic Name Dose Route Start Last Admin Trade Name Freq PRN Reason Stop Dose Admin Acetaminophen 650 mg 01/30/23 15:42 01/31/23 12:25 Acetaminophen 325 Mg Tablet PO 650 mg Q4HR PRN Administration Pain 1 to 4, or Fever Amlodipine Besylate 5 mg 02/01/23 09:00 02/01/23 11:05 Amlodipine 5 Mg Tablet PO 5 mg DAILY BRANDY Administration Apixaban 10 mg 01/30/23 21:00 02/01/23 11:05 Apixaban 5 Mg Tablet PO 02/06/23 09:01 10 mg BID BRANDY Administration Dexamethasone 6 mg 01/31/23 09:00 02/01/23 11:06 Dexamethasone 4 Mg Tablet PO 02/09/23 09:01 6 mg DAILY BRANDY Administration Docusate Sodium 250 - 500 mg 02/01/23 13:00 02/01/23 13:45 Docusate Sodium 250 Mg Capsule PO 500 mg DAILY BRANDY Administration Guaifenesin 600 mg 01/30/23 21:00 02/01/23 11:05 Guaifenesin 600 Mg Tablet PO 600 mg BID BRANDY Administration Insulin Human Lispro 1 - 5 unit 02/01/23 12:00 02/01/23 12:45 Insulin Lispro 300 Unit/3 Ml Pen SUBQ 2 unit 0800,1200,1700,2100 BRANDY Administration Protocol Potassium Chloride 20 meq 01/31/23 09:00 02/01/23 11:05 Potassium Chloride 20 Meq Tablet PO 20 meq DAILYWM BRANDY Administration Senna 8.6 - 17.2 mg 02/01/23 13:00 02/01/23 13:45 Senna 8.6 Mg Tablet PO 17.2 mg DAILY BRANDY Administration Sodium Chloride 10 ml 01/30/23 17:00 02/01/23 11:06 Sodium Chloride Flush 0.9% 10 Ml Syringe IVP 10 ml 0100,0900,1700 BRANDY Administration - Lab Result Fish Bone Diagrams: 02/01/23 05:50 02/01/23 05:50 - Additional Planning My Orders: My Active Orders 02/01/23 Evaluate and Treat OT [OT] Routine Evaluate and Treat PT [PT] Routine 02/01/23 09:00 amLODIPine [Norvasc] 5 mg PO DAILY 02/01/23 09:56 Blood Glucose Checks - Eating [RC] 0800,1200,1700,2100 Initiate Hypoglycemia Protocol [RC] .protocol 02/01/23 12:00 Insulin Lispro [Humalog Kwikpen U-100] 1 - 5 unit SUBQ 0800,1200,1700,2100 02/01/23 13:00 Docusate Sodium 250Mg Capsule [Colace 250Mg Capsule] 250 - 500 mg PO DAILY Senna [Senokot] 8.6 - 17.2 mg PO DAILY 02/02/23 05:00 BMP - BASIC METABOLIC PANEL [CHEM] DAILYLAB CBC [CBC - COMP BLD CT W/AUTO DIFF] [HEME] DAILYLAB 02/02/23 09:00 polyethylene glycoL 3350 [Miralax] 17 gm PO DAILY 02/03/23 05:00 BMP - BASIC METABOLIC PANEL [CHEM] DAILYLAB CBC [CBC - COMP BLD CT W/AUTO DIFF] [HEME] DAILYLAB 02/04/23 05:00 BMP - BASIC METABOLIC PANEL [CHEM] DAILYLAB CBC [CBC - COMP BLD CT W/AUTO DIFF] [HEME] DAILYLAB Subjective - Subjective Patient Reports: Feeling Better, Resting Comfortably, No Complaints Objective Vital Signs: Vital Signs - 24 hr 01/31/23 01/31/23 01/31/23 16:57 19:55 20:04 Temperature 37.5 C Heart Rate [ Activity] Heart Rate [ 103 H Brachial] Heart Rate [ Sitting] Heart Rate [ Supine] Respiratory 24 Rate Blood Pressure [Activity] Blood Pressure 170/85 H [Brachial artery] Blood Pressure [Sitting] Blood Pressure [Supine] O2 Saturation 93 90 L 93 If not protocol 3 3 5 : Oxygen Flow, liters/minute 01/31/23 01/31/23 02/01/23 20:14 20:24 02:15 Temperature 36.5 C 36.5 C Heart Rate [ Activity] Heart Rate [ 85 71 Brachial] Heart Rate [ Sitting] Heart Rate [ Supine] Respiratory 18 16 Rate Blood Pressure [Activity] Blood Pressure 167/89 H 165/92 H 175/90 H [Brachial artery] Blood Pressure [Sitting] Blood Pressure [Supine] O2 Saturation 93 98 If not protocol 3 2 : Oxygen Flow, liters/minute 02/01/23 02/01/23 02/01/23 05:14 08:00 09:00 Temperature 36.5 C 37.1 C Heart Rate [ Activity] Heart Rate [ 73 91 Brachial] Heart Rate [ Sitting] Heart Rate [ Supine] Respiratory 16 16 Rate Blood Pressure [Activity] Blood Pressure 172/90 H 153/94 H [Brachial artery] Blood Pressure [Sitting] Blood Pressure [Supine] O2 Saturation 99 95 If not protocol 2 2 3 : Oxygen Flow, liters/minute 02/01/23 02/01/23 12:07 13:20 Temperature 36.8 C Heart Rate [ 116 H Activity] Heart Rate [ 94 Brachial] Heart Rate [ 108 H Sitting] Heart Rate [ 94 Supine] Respiratory 18 Rate Blood Pressure 152/100 H [Activity] Blood Pressure 158/89 H [Brachial artery] Blood Pressure 149/89 H [Sitting] Blood Pressure 152/83 H [Supine] O2 Saturation 91 L If not protocol 3 : Oxygen Flow, liters/minute Oxygen O2 Source Nasal cannula Oxygen Flow Rate 2 I&O (Last 24 Hrs): Intake and Output Totals x24h 1201/31/23 02/01/23 23:59 23:59 23:59 Intake Total 1902.842 4028.000 880 Output Total 100 250 450 Balance 7167.639 9809.000 430 General: Alert, Cooperative, No acute distress Neuro: Alert, CN 2-12 Grossly Intact, Oriented Times 3 Cardiovascular: Regular rate, Normal S1, Normal S2, No murmurs Respiratory: Chest non-tender, No respiratory distress, Breath sounds nml Abdomen: Normal bowel sounds, Soft - Results Results: Laboratory Results WBC 18.5 x10^3/uL (4.8-10.8) H 02/01/23 05:50 RBC 4.15 10^6/uL (4.20-5.40) L 02/01/23 05:50 Hgb 11.6 g/dL (12.0-16.0) L 02/01/23 05:50 Hct 36.6 % (37.0-47.0) L 02/01/23 05:50 MCV 88.2 fL (81.0-99.0) 02/01/23 05:50 MCH 28.0 pg (27.0-31.0) 02/01/23 05:50 MCHC 31.7 g/dL (32.0-36.0) L 02/01/23 05:50 RDW 14.6 % (12.0-15.0) 02/01/23 05:50 Plt Count 337 10^3/uL (130-450) 02/01/23 05:50 MPV 11.2 fL (7.9-10.8) H 02/01/23 05:50 Neut # (Auto) 16.3 10^3/uL (1.5-6.6) H 02/01/23 05:50 Lymph # (Auto) 1.4 10^3/uL (1.5-3.5) L 02/01/23 05:50 [place] # (Auto) 0.7 10^3/uL (0.0-1.0) 02/01/23 05:50 Eos # (Auto) 0.0 10^3/uL (0.0-0.7) 02/01/23 05:50 Baso # (Auto) 0.0 10^3/uL (0.0-0.1) 02/01/23 05:50 Absolute Nucleated RBC 0.00 x10^3/uL 02/01/23 05:50 Nucleated RBC % 0.0 /100WBC 02/01/23 05:50 PT 16.8 secs (9.9-12.6) H 01/30/23 00:01 INR 1.6 (0.8-1.2) H 01/30/23 00:01 APTT 102.0 secs (24.9-33.3) H* 01/30/23 11:17 Sodium 136 mmol/L (135-145) 02/01/23 05:50 Potassium 3.5 mmol/L (3.5-4.5) 02/01/23 05:50 Chloride 99 mmol/L (101-111) L 02/01/23 05:50 Carbon Dioxide 28 mmol/L (21-32) 02/01/23 05:50 Anion Gap 9.0 (6-13) 02/01/23 05:50 BUN 20 mg/dL (6-20) 02/01/23 05:50 Creatinine 0.6 mg/dL (0.6-1.3) 02/01/23 05:50 Estimated GFR (MDRD) 98 (>89) 02/01/23 05:50 Glucose 209 mg/dL (74-104) H 02/01/23 05:50 POC Whole Bld Glucose 216 mg/dL (70 - 100) H 02/01/23 11:59 Calcium 9.6 mg/dL (8.5-10.3) 02/01/23 05:50 Magnesium 2.2 mg/dL (1.7-2.3) 01/31/23 05:09 Total Bilirubin 1.5 mg/dL (0.2-1.0) H 01/31/23 05:09 Direct Bilirubin 0.77 mg/dL (0.03-0.18) H 01/31/23 05:09 AST 29 IU/L (10-42) 01/31/23 05:09 ALT 6 IU/L (10-60) L 01/31/23 05:09 Alkaline Phosphatase 233 IU/L (42-121) H 01/31/23 05:09 Troponin I High Sens 28.5 ng/L (2.3-14.8) H* 01/31/23 05:09 B-Natriuretic Peptide 75 pg/mL (5-100) 01/30/23 07:36 Total Protein 6.6 g/dL (6.4-8.9) 01/31/23 05:09 Albumin 3.1 g/dL (3.2-5.5) L 01/31/23 05:09 Globulin 3.5 g/dL (2.1-4.2) 01/31/23 05:09 Albumin/Globulin Ratio 0.9 (1.0-2.2) L 01/30/23 00:01 Lipase 23 U/L (11-82) 01/30/23 00:01 Nasal Adenovirus (PCR) NOT DETECTED 01/30/23 03:34 Nasal B. parapertussis DNA (PCR) NOT DETECTED 01/30/23 03:34 Nasal Coronavir 229E PCR NOT DETECTED 01/30/23 03:34 Nasal Coronavir HKU1 PCR NOT DETECTED 01/30/23 03:34 Nasal Coronavir NL63 PCR NOT DETECTED 01/30/23 03:34 Nasal Coronavir OC43 PCR NOT DETECTED 01/30/23 03:34 Nasal Enterovir/Rhinovir PCR NOT DETECTED 01/30/23 03:34 Nasal Influenza B PCR NOT DETECTED 01/30/23 03:34 Nasal Influenza A PCR NOT DETECTED 01/30/23 03:34 Nasal Parainfluen 1 PCR NOT DETECTED 01/30/23 03:34 Nasal Parainfluen 2 PCR NOT DETECTED 01/30/23 03:34 Nasal Parainfluen 3 PCR NOT DETECTED 01/30/23 03:34 Nasal Parainfluen 4 PCR NOT DETECTED 01/30/23 03:34 Nasal RSV (PCR) NOT DETECTED 01/30/23 03:34 Nasal B.pertussis DNA PCR NOT DETECTED 01/30/23 03:34 Nasal C.pneumoniae (PCR) NOT DETECTED 01/30/23 03:34 Song Human Metapneumo PCR NOT DETECTED 01/30/23 03:34 Nasal M.pneumoniae (PCR) NOT DETECTED 01/30/23 03:34 Nasal SARS-CoV-2 (PCR) DETECTED A 01/30/23 03:34 Current Medications - Current Medications Current Medications: Active Medications Generic Name Dose Route Start Last Admin Trade Name Freq PRN Reason Stop Dose Admin Acetaminophen 650 mg 01/30/23 15:42 01/31/23 12:25 Acetaminophen 325 Mg Tablet PO 650 mg Q4HR PRN Administration Pain 1 to 4, or Fever Amlodipine Besylate 5 mg 02/01/23 09:00 02/01/23 11:05 Amlodipine 5 Mg Tablet PO 5 mg DAILY BRANDY Administration Apixaban 10 mg 01/30/23 21:00 02/01/23 11:05 Apixaban 5 Mg Tablet PO 02/06/23 09:01 10 mg BID BRANDY Administration Dexamethasone 6 mg 01/31/23 09:00 02/01/23 11:06 Dexamethasone 4 Mg Tablet PO 02/09/23 09:01 6 mg DAILY BRANDY Administration Docusate Sodium 250 - 500 mg 02/01/23 13:00 02/01/23 13:45 Docusate Sodium 250 Mg Capsule PO 500 mg DAILY BRANDY Administration Guaifenesin 600 mg 01/30/23 21:00 02/01/23 11:05 Guaifenesin 600 Mg Tablet PO 600 mg BID BRANDY Administration Insulin Human Lispro 1 - 5 unit 02/01/23 12:00 02/01/23 12:45 Insulin Lispro 300 Unit/3 Ml Pen SUBQ 2 unit 0800,1200,1700,2100 [facility] Administration Protocol Ondansetron HCl 4 mg 01/30/23 15:42 Ondansetron 4 Mg/2 Ml Vial IVP Q6HR PRN Nausea / Vomiting Polyethylene Glycol 17 gm 02/02/23 09:00 Polyethylene Glycol 3350 17 Gm Packet PO DAILY [facility] Potassium Chloride 20 meq 01/31/23 09:00 02/01/23 11:05 Potassium Chloride 20 Meq Tablet PO 20 meq DAILYWM BRANDY Administration Senna 8.6 - 17.2 mg 02/01/23 13:00 02/01/23 13:45 Senna 8.6 Mg Tablet PO 17.2 mg DAILY BRANDY Administration Sodium Chloride 10 ml 01/30/23 15:42 Sodium Chloride Flush 0.9% 10 Ml Syringe IVP PRN PRN NEEDED PER PROVIDER ORDERS Sodium Chloride 10 ml 01/30/23 17:00 02/01/23 11:06 Sodium Chloride Flush 0.9% 10 Ml Syringe IVP 10 ml 0100,0900,1700 [facility] Administration No Known Home Medications 01/29/23
[2023-02-01] MEDS: ACETAMINOPHEN 325 MG TABLET PO PRN (20:27)
[2023-02-02] MEDS: SODIUM CHLORIDE FLUSH 0.9% 10 ML SYRINGE IVP SCH ×3 (01:00→17:17)
[2023-02-02 05:30] LABS: BASOPHILS % (AUTO) 0.1 %; HCT - HEMATOCRIT 32.7 % (37.0-47.0); HGB - HEMOGLOBIN 10.2 g/dL (12.0-16.0); LYMPHOCYTES # (AUTO) 1.3 10^3/uL (1.5-3.5); LYMPHOCYTES % (AUTO) 6.6 %; MEAN CORPUSCULAR HEMOGLOBIN 28.3 pg (27.0-31.0); MEAN CORPUSCULAR HGB CONC 31.2 g/dL (32.0-36.0); MEAN CORPUSCULAR VOLUME 90.6 fL (81.0-99.0); MEAN PLATELET VOLUME 11.2 fL (7.9-10.8); MONOCYTES # (AUTO) 0.8 10^3/uL (0.0-1.0); MONOCYTES % (AUTO) 4.2 %; NEUTROPHILS # (AUTO) 16.9 10^3/uL (1.5-6.6); NEUTROPHILS % (AUTO) 88.5 %; PLT - PLATELET COUNT 378 10^3/uL (130-450); RED BLOOD COUNT 3.61 10^6/uL (4.20-5.40); RED CELL DISTRIBUTION WIDTH 15.1 % (12.0-15.0); WHITE BLOOD COUNT 19.1 x10^3/uL (4.8-10.8)
[2023-02-02 05:48] LABS: CREATININE 0.6 mg/dL (0.6-1.3); POTASSIUM 3.1 mmol/L (3.5-4.5)
[2023-02-02] MEDS ORDERED: POTASSIUM CHLOR 10 MEQ/100 ML 10 MEQ/100 ML BAG IV ONE (07:17)
[2023-02-02] MEDS: INSULIN GLARGINE-YFGN 300 UNIT/3 ML PEN SUBQ SCH (09:23)
[2023-02-02] MEDS: INSULIN LISPRO 300 UNIT/3 ML PEN SUBQ SCH ×4 (09:24→21:09)
[2023-02-02] MEDS: CHOLECALCIFEROL 25 MCG TABLET PO SCH (09:30)
[2023-02-02] MEDS: dexAMETHasone 4 MG TABLET PO SCH (09:31)
[2023-02-02] MEDS: APIXABAN 5 MG TABLET PO SCH ×2 (09:31→21:08)
[2023-02-02] MEDS: POTASSIUM CHLORIDE 20 MEQ TABLET PO SCH (09:34)
[2023-02-02] MEDS: guaiFENesin 600 MG TABLET PO SCH ×2 (09:34→21:08)
[2023-02-02] MEDS: SENNA 8.6 MG TABLET PO SCH (09:34)
[2023-02-02] MEDS: DOCUSATE SODIUM 250 MG CAPSULE PO SCH (09:34)
[2023-02-02] MEDS: amLODIPine 5 MG TABLET PO SCH (09:35)
[2023-02-02] MEDS: polyethylene glycoL 3350 17 GM PACKET PO SCH (09:35)
--- NOTE | 2023-02-02 11:56 | PROVIDER PROGRESS NOTE ---
Assessment/Plan - Problem List (1) Acute respiratory failure with hypoxia Assessment/Plan: (1) Acute respiratory failure with hypoxia Conclusion/Plan: -- Hypoxia secondary to COVID-19 pneumonia and pulmonary embolus. -- Continue supplemental oxygen. She is currently on 1 L via nasal cannula. (2) COVID-19 Conclusion/Plan: -- Patient does not want remdesivir. This was discontinued. --Started on dexamethasone 6 mg daily for 10 days. (3) Bilateral pulmonary embolism Conclusion/Plan: -- Possibly provoked by COVID-19 or underlying malignancy. --Continue Eliquis 10 mg twice daily for 7 days followed by Eliquis 5 mg p.o. twice daily for 3 to 6 months. (4) Right heart enlargement Conclusion/Plan: -- TTE showing no evidence of RHS or enlargement. (5) Lung mass Conclusion/Plan: -- Several lung masses seen on CT chest. This will need outpatient follow-up. --Multiple liver masses. (6) Hypokalemia Conclusion/Plan: Plan: Will replace with K riders Follow BMP daily (7) Hypomagnesemia Conclusion/Plan: Plan: Will replace with Mg rider Follow Mg daily Dispo: PT/OT recommending SNF. Anticipate she can discharge in next 24-48 hours. (4) Pulmonary embolism Qualifiers: Pulmonary embolism type: single subsegmental (without acute cor pulmonale) Qualified Code(s): I26.93 - Single subsegmental pulmonary embolism without acute cor pulmonale - Current Meds Current Meds: Current Medications Generic Name Dose Route Start Last Admin Trade Name Freq PRN Reason Stop Dose Admin Acetaminophen 650 mg 01/30/23 15:42 02/01/23 20:27 Acetaminophen 325 Mg Tablet PO 650 mg Q4HR PRN Administration Pain 1 to 4, or Fever Amlodipine Besylate 10 mg 02/02/23 09:00 02/02/23 09:35 Amlodipine 5 Mg Tablet PO 10 mg DAILY BRANDY Administration Apixaban 10 mg 01/30/23 21:00 02/02/23 09:31 Apixaban 5 Mg Tablet PO 02/06/23 09:01 10 mg BID BRANDY Administration Cholecalciferol 50 mcg 02/02/23 09:00 02/02/23 09:30 Cholecalciferol 25 Mcg Tablet PO 50 mcg DAILY BRANDY Administration Dexamethasone 6 mg 01/31/23 09:00 02/02/23 09:31 Dexamethasone 4 Mg Tablet PO 02/09/23 09:01 6 mg DAILY BRANDY Administration Docusate Sodium 250 - 500 mg 02/01/23 13:00 02/02/23 09:34 Docusate Sodium 250 Mg Capsule PO 250 mg DAILY BRANDY Administration Guaifenesin 600 mg 01/30/23 21:00 02/02/23 09:34 Guaifenesin 600 Mg Tablet PO 600 mg BID BRANDY Administration Insulin Glargine-yfgn 10 unit 02/02/23 09:00 02/02/23 09:23 Insulin Glargine-Yfgn 300 Unit/3 Ml Pen SUBQ 10 unit DAILY BRANDY Administration Insulin Human Lispro 1 - 5 unit 02/01/23 12:00 02/02/23 09:24 Insulin Lispro 300 Unit/3 Ml Pen SUBQ 2 unit 0800,1200,1700,2100 BRANDY Administration Protocol Polyethylene Glycol 17 gm 02/02/23 09:00 02/02/23 09:35 Polyethylene Glycol 3350 17 Gm Packet PO Not Given DAILY BRANDY Potassium Chloride 20 meq 01/31/23 09:00 02/02/23 09:34 Potassium Chloride 20 Meq Tablet PO 20 meq DAILYWM BRANDY Administration Senna 8.6 - 17.2 mg 02/01/23 13:00 02/02/23 09:34 Senna 8.6 Mg Tablet PO 17.2 mg DAILY BRANDY Administration Sodium Chloride 10 ml 01/30/23 17:00 02/02/23 09:23 Sodium Chloride Flush 0.9% 10 Ml Syringe IVP 10 ml 0100,0900,1700 BRANDY Administration - Lab Result Fish Bone Diagrams: 02/02/23 05:16 02/02/23 05:16 - Additional Planning My Orders: My Active Orders 02/01/23 12:00 Insulin Lispro [Humalog Kwikpen U-100] 1 - 5 unit SUBQ 0800,1200,1700,2100 02/01/23 13:00 Docusate Sodium 250Mg Capsule [Colace 250Mg Capsule] 250 - 500 mg PO DAILY Senna [Senokot] 8.6 - 17.2 mg PO DAILY 02/02/23 09:00 Cholecalciferol [Vitamin D3] 50 mcg PO DAILY Insulin Glargine-Yfgn [Semglee] 10 unit SUBQ DAILY amLODIPine [Norvasc] 10 mg PO DAILY polyethylene glycoL 3350 [Miralax] 17 gm PO DAILY 02/02/23 21:00 traZODone [Desyrel] 50 mg PO QPM 02/03/23 05:00 BMP - BASIC METABOLIC PANEL [CHEM] DAILYLAB CBC [CBC - COMP BLD CT W/AUTO DIFF] [HEME] DAILYLAB 02/04/23 05:00 BMP - BASIC METABOLIC PANEL [CHEM] DAILYLAB CBC [CBC - COMP BLD CT W/AUTO DIFF] [HEME] DAILYLAB Subjective - Subjective Patient Reports: Feeling Better, Resting Comfortably, No Complaints Objective Vital Signs: Vital Signs - 24 hr 02/01/23 02/01/23 02/01/23 12:07 13:20 13:25 Temperature 36.8 C Heart Rate [ 116 H 116 H Activity] Heart Rate [ 94 Brachial] Heart Rate [ 108 H 108 H Sitting] Heart Rate [ 94 94 Supine] Respiratory 18 Rate Blood Pressure 152/100 H 152/100 H [Activity] Blood Pressure 158/89 H [Brachial artery] Blood Pressure 149/89 H 149/89 H [Sitting] Blood Pressure 152/83 H 152/83 H [Supine] O2 Saturation 91 L If not protocol 3 : Oxygen Flow, liters/minute 02/01/23 02/01/23 02/01/23 16:42 19:15 20:29 Temperature 36.7 C 98.1 C H Heart Rate [ Activity] Heart Rate [ 96 91 Brachial] Heart Rate [ Sitting] Heart Rate [ Supine] Respiratory 24 20 Rate Blood Pressure [Activity] Blood Pressure 134/88 H 158/89 H [Brachial artery] Blood Pressure [Sitting] Blood Pressure [Supine] O2 Saturation 98 99 If not protocol 2 2 2 : Oxygen Flow, liters/minute 02/02/23 02/02/23 02/02/23 00:29 00:40 00:45 Temperature 36.7 C Heart Rate [ Activity] Heart Rate [ 91 Brachial] Heart Rate [ Sitting] Heart Rate [ Supine] Respiratory 18 18 19 Rate Blood Pressure [Activity] Blood Pressure 155/87 H [Brachial artery] Blood Pressure [Sitting] Blood Pressure [Supine] O2 Saturation 95 89 L 94 If not protocol 1 1 : Oxygen Flow, liters/minute 02/02/23 02/02/23 02/02/23 02:13 03:50 04:32 Temperature Heart Rate [ Activity] Heart Rate [ 81 78 80 Brachial] Heart Rate [ Sitting] Heart Rate [ Supine] Respiratory 18 96 H Rate Blood Pressure [Activity] Blood Pressure [Brachial artery] Blood Pressure [Sitting] Blood Pressure [Supine] O2 Saturation 96 96 If not protocol 1 1 1 : Oxygen Flow, liters/minute 02/02/23 02/02/23 02/02/23 05:58 08:09 10:35 Temperature 36.2 C L 36.6 C Heart Rate [ Activity] Heart Rate [ 89 85 Brachial] Heart Rate [ Sitting] Heart Rate [ Supine] Respiratory 18 24 Rate Blood Pressure [Activity] Blood Pressure 160/84 H 162/81 H [Brachial artery] Blood Pressure [Sitting] Blood Pressure [Supine] O2 Saturation 98 98 If not protocol 1 1 1 : Oxygen Flow, liters/minute Oxygen O2 Source Nasal cannula Oxygen Flow Rate 2 I&O (Last 24 Hrs): Intake and Output Totals x24h 01/31/23 02/01/23 02/02/23 23:59 23:59 23:59 Intake Total 2030.000 1236 540 Output Total 250 450 Balance 1780.000 786 540 General: Alert, Oriented x3, Cooperative, No acute distress Cardiovascular: Regular rate, Normal S1, Normal S2, No murmurs Respiratory: Chest non-tender, No respiratory distress, Breath sounds nml Abdomen: Normal bowel sounds, Soft, No tenderness, No hepatospenomegaly, No masses - Results Results: Laboratory Results WBC 19.1 x10^3/uL (4.8-10.8) H 02/02/23 05:16 RBC 3.61 10^6/uL (4.20-5.40) L 02/02/23 05:16 Hgb 10.2 g/dL (12.0-16.0) L 02/02/23 05:16 Hct 32.7 % (37.0-47.0) L 02/02/23 05:16 MCV 90.6 fL (81.0-99.0) 02/02/23 05:16 MCH 28.3 pg (27.0-31.0) 02/02/23 05:16 MCHC 31.2 g/dL (32.0-36.0) L 02/02/23 05:16 RDW 15.1 % (12.0-15.0) H 02/02/23 05:16 Plt Count 378 10^3/uL (130-450) 02/02/23 05:16 MPV 11.2 fL (7.9-10.8) H 02/02/23 05:16 Neut # (Auto) 16.9 10^3/uL (1.5-6.6) H 02/02/23 05:16 Lymph # (Auto) 1.3 10^3/uL (1.5-3.5) L 02/02/23 05:16 [place] # (Auto) 0.8 10^3/uL (0.0-1.0) 02/02/23 05:16 Eos # (Auto) 0.0 10^3/uL (0.0-0.7) 02/02/23 05:16 Baso # (Auto) 0.0 10^3/uL (0.0-0.1) 02/02/23 05:16 Absolute Nucleated RBC 0.00 x10^3/uL 02/02/23 05:16 Nucleated RBC % 0.0 /100WBC 02/02/23 05:16 PT 16.8 secs (9.9-12.6) H 01/30/23 00:01 INR 1.6 (0.8-1.2) H 01/30/23 00:01 APTT 102.0 secs (24.9-33.3) H* 01/30/23 11:17 Sodium 136 mmol/L (135-145) 02/02/23 05:16 Potassium 3.1 mmol/L (3.5-4.5) L 02/02/23 05:16 Chloride 97 mmol/L (101-111) L 02/02/23 05:16 Carbon Dioxide 29 mmol/L (21-32) 02/02/23 05:16 Anion Gap 10.0 (6-13) 02/02/23 05:16 BUN 23 mg/dL (6-20) H 02/02/23 05:16 Creatinine 0.6 mg/dL (0.6-1.3) 02/02/23 05:16 Estimated GFR (MDRD) 98 (>89) 02/02/23 05:16 Glucose 242 mg/dL (74-104) H 02/02/23 05:16 POC Whole Bld Glucose 215 mg/dL (70 - 100) H 02/02/23 07:56 Calcium 9.0 mg/dL (8.5-10.3) 02/02/23 05:16 Magnesium 2.2 mg/dL (1.7-2.3) 01/31/23 05:09 Total Bilirubin 1.5 mg/dL (0.2-1.0) H 01/31/23 05:09 Direct Bilirubin 0.77 mg/dL (0.03-0.18) H 01/31/23 05:09 AST 29 IU/L (10-42) 01/31/23 05:09 ALT 6 IU/L (10-60) L 01/31/23 05:09 Alkaline Phosphatase 233 IU/L (42-121) H 01/31/23 05:09 Troponin I High Sens 28.5 ng/L (2.3-14.8) H* 01/31/23 05:09 B-Natriuretic Peptide 75 pg/mL (5-100) 01/30/23 07:36 Total Protein 6.6 g/dL (6.4-8.9) 01/31/23 05:09 Albumin 3.1 g/dL (3.2-5.5) L 01/31/23 05:09 Globulin 3.5 g/dL (2.1-4.2) 01/31/23 05:09 Albumin/Globulin Ratio 0.9 (1.0-2.2) L 01/30/23 00:01 Lipase 23 U/L (11-82) 01/30/23 00:01 Nasal Adenovirus (PCR) NOT DETECTED 01/30/23 03:34 Nasal B. parapertussis DNA (PCR) NOT DETECTED 01/30/23 03:34 Nasal Coronavir 229E PCR NOT DETECTED 01/30/23 03:34 Nasal Coronavir HKU1 PCR NOT DETECTED 01/30/23 03:34 Nasal Coronavir NL63 PCR NOT DETECTED 01/30/23 03:34 Nasal Coronavir OC43 PCR NOT DETECTED 01/30/23 03:34 Nasal Enterovir/Rhinovir PCR NOT DETECTED 01/30/23 03:34 Nasal Influenza B PCR NOT DETECTED 01/30/23 03:34 Nasal Influenza A PCR NOT DETECTED 01/30/23 03:34 Nasal Parainfluen 1 PCR NOT DETECTED 01/30/23 03:34 Nasal Parainfluen 2 PCR NOT DETECTED 01/30/23 03:34 Nasal Parainfluen 3 PCR NOT DETECTED 01/30/23 03:34 Nasal Parainfluen 4 PCR NOT DETECTED 01/30/23 03:34 Nasal RSV (PCR) NOT DETECTED 01/30/23 03:34 Nasal B.pertussis DNA PCR NOT DETECTED 01/30/23 03:34 Nasal C.pneumoniae (PCR) NOT DETECTED 01/30/23 03:34 Song Human Metapneumo PCR NOT DETECTED 01/30/23 03:34 Nasal M.pneumoniae (PCR) NOT DETECTED 01/30/23 03:34 Nasal SARS-CoV-2 (PCR) DETECTED A 01/30/23 03:34 Current Medications - Current Medications Current Medications: Active Medications Generic Name Dose Route Start Last Admin Trade Name Freq PRN Reason Stop Dose Admin Acetaminophen 650 mg 01/30/23 15:42 02/01/23 20:27 Acetaminophen 325 Mg Tablet PO 650 mg Q4HR PRN Administration Pain 1 to 4, or Fever Amlodipine Besylate 10 mg 02/02/23 09:00 02/02/23 09:35 Amlodipine 5 Mg Tablet PO 10 mg DAILY BRANDY Administration Apixaban 10 mg 01/30/23 21:00 02/02/23 09:31 Apixaban 5 Mg Tablet PO 02/06/23 09:01 10 mg BID BRANDY Administration Apixaban 5 mg 02/06/23 21:00 Apixaban 5 Mg Tablet PO BID BRANDY Cholecalciferol 50 mcg 02/02/23 09:00 02/02/23 09:30 Cholecalciferol 25 Mcg Tablet PO 50 mcg DAILY BRANDY Administration Dexamethasone 6 mg 01/31/23 09:00 02/02/23 09:31 Dexamethasone 4 Mg Tablet PO 02/09/23 09:01 6 mg DAILY BRANDY Administration Docusate Sodium 250 - 500 mg 02/01/23 13:00 02/02/23 09:34 Docusate Sodium 250 Mg Capsule PO 250 mg DAILY BRANDY Administration Guaifenesin 600 mg 01/30/23 21:00 02/02/23 09:34 Guaifenesin 600 Mg Tablet PO 600 mg BID BRANDY Administration Insulin Glargine-yfgn 10 unit 02/02/23 09:00 02/02/23 09:23 Insulin Glargine-Yfgn 300 Unit/3 Ml Pen SUBQ 10 unit DAILY BRANDY Administration Insulin Human Lispro 1 - 5 unit 02/01/23 12:00 02/02/23 09:24 Insulin Lispro 300 Unit/3 Ml Pen SUBQ 2 unit 0800,1200,1700,2100 BRANDY Administration Protocol Ondansetron HCl 4 mg 01/30/23 15:42 Ondansetron 4 Mg/2 Ml Vial IVP Q6HR PRN Nausea / Vomiting Polyethylene Glycol 17 gm 02/02/23 09:00 02/02/23 09:35 Polyethylene Glycol 3350 17 Gm Packet PO Not Given DAILY BRANDY Potassium Chloride 20 meq 01/31/23 09:00 02/02/23 09:34 Potassium Chloride 20 Meq Tablet PO 20 meq DAILYWM BRANDY Administration Senna 8.6 - 17.2 mg 02/01/23 13:00 02/02/23 09:34 Senna 8.6 Mg Tablet PO 17.2 mg DAILY BRANDY Administration Sodium Chloride 10 ml 01/30/23 15:42 Sodium Chloride Flush 0.9% 10 Ml Syringe IVP PRN PRN NEEDED PER PROVIDER ORDERS Sodium Chloride 10 ml 01/30/23 17:00 02/02/23 09:23 Sodium Chloride Flush 0.9% 10 Ml Syringe IVP 10 ml 0100,0900,1700 BRANDY Administration Trazodone HCl 50 mg 02/02/23 21:00 Trazodone 50 Mg Tablet PO QPM BRANDY No Known Home Medications 01/29/23
[2023-02-02] MEDS: traZODone 50 MG TABLET PO SCH (21:08)
[2023-02-03] MEDS: SODIUM CHLORIDE FLUSH 0.9% 10 ML SYRINGE IVP SCH ×3 (01:14→16:31)
[2023-02-03] MEDS: ONDANSETRON 4 MG/2 ML VIAL IVP PRN ×2 (01:34→08:41)
[2023-02-03] MEDS: SODIUM CHLORIDE FLUSH 0.9% 10 ML SYRINGE IVP PRN (01:35)
[2023-02-03] MEDS ORDERED: hydrALAZINE INJ 20 MG/ML VIAL IVP PRN (03:21)
[2023-02-03 06:24] LABS: BASOPHILS % (AUTO) 0.1 %; EOSINOPHILS % (AUTO) 0.1 %; HCT - HEMATOCRIT 32.4 % (37.0-47.0); HGB - HEMOGLOBIN 9.9 g/dL (12.0-16.0); LYMPHOCYTES % (AUTO) 7.4 %; MEAN CORPUSCULAR HEMOGLOBIN 27.3 pg (27.0-31.0); MEAN CORPUSCULAR HGB CONC 30.6 g/dL (32.0-36.0); MEAN CORPUSCULAR VOLUME 89.3 fL (81.0-99.0); MONOCYTES % (AUTO) 6.1 %; NEUTROPHILS % (AUTO) 85.4 %; PLT - PLATELET COUNT 407 10^3/uL (130-450); RED BLOOD COUNT 3.63 10^6/uL (4.20-5.40); RED CELL DISTRIBUTION WIDTH 14.8 % (12.0-15.0); WHITE BLOOD COUNT 20.2 x10^3/uL (4.8-10.8)
[2023-02-03 06:30] LABS: ABNORMAL LYMPHS % (MANUAL) 0 %
[2023-02-03 06:40] LABS: CALCIUM 8.9 mg/dL (8.5-10.3); CREATININE 0.6 mg/dL (0.6-1.3); POTASSIUM 3.1 mmol/L (3.5-4.5)
[2023-02-03 06:50] LABS: BAND NEUTROPHILS % (MANUAL) 2 %; LYMPHOCYTES # (MANUAL) 3.4 10^3/uL (1.5-3.5); LYMPHOCYTES % (MANUAL) 17 %; MONOCYTES # (MANUAL) 1.6 10^3/uL (0.0-1.0); NEUTROPHILS # (MANUAL) 15.2 10^3/uL (1.5-6.6); PLATELET ESTIMATE, MANUAL NORMAL (130-450,000) (NORMAL); RBC MORPHOLOGY (MULTIPLE) NORMAL APPEARANCE (NORMAL)
[2023-02-03 06:51] LABS: DIFFERENTIAL COMMENT MANUAL DIFFERENTIAL
[2023-02-03] MEDS: DOCUSATE SODIUM 250 MG CAPSULE PO SCH (08:30)
[2023-02-03] MEDS: POTASSIUM CHLORIDE 20 MEQ TABLET PO SCH ×2 (08:30→11:48)
[2023-02-03] MEDS: amLODIPine 5 MG TABLET PO SCH (08:30)
[2023-02-03] MEDS: guaiFENesin 600 MG TABLET PO SCH ×2 (08:30→21:03)
[2023-02-03] MEDS: polyethylene glycoL 3350 17 GM PACKET PO SCH (08:31)
[2023-02-03] MEDS: SENNA 8.6 MG TABLET PO SCH (08:31)
[2023-02-03] MEDS: APIXABAN 5 MG TABLET PO SCH ×2 (08:31→21:03)
[2023-02-03] MEDS: dexAMETHasone 4 MG TABLET PO SCH (08:31)
[2023-02-03] MEDS: CHOLECALCIFEROL 25 MCG TABLET PO SCH (08:33)
[2023-02-03] MEDS: INSULIN GLARGINE-YFGN 300 UNIT/3 ML PEN SUBQ SCH (08:33)
[2023-02-03] MEDS: INSULIN LISPRO 300 UNIT/3 ML PEN SUBQ SCH ×4 (08:34→21:03)
--- NOTE | 2023-02-03 12:21 | PROVIDER PROGRESS NOTE ---
Assessment/Plan - Problem List (1) Acute respiratory failure with hypoxia Assessment/Plan: (1) Acute respiratory failure with hypoxia Conclusion/Plan: -- Hypoxia secondary to COVID-19 pneumonia and pulmonary embolus. -- Continue supplemental oxygen. She is currently on 1 L via nasal cannula. (2) COVID-19 Conclusion/Plan: -- Patient does not want remdesivir. This was discontinued. --Started on dexamethasone 6 mg daily for 10 days. --COVID encephalopathy is improving. (3) Bilateral pulmonary embolism Conclusion/Plan: -- Possibly provoked by COVID-19 or underlying malignancy. --Continue Eliquis 10 mg twice daily for 7 days followed by Eliquis 5 mg p.o. twice daily for 3 to 6 months. (4) Right heart enlargement Conclusion/Plan: -- TTE showing no evidence of RHS or enlargement. (5) Lung mass Conclusion/Plan: -- Several lung masses seen on CT chest. This will need outpatient follow-up. --Multiple liver masses. (6) Hypokalemia Conclusion/Plan: --Replacing potassium as needed. (7) Hypomagnesemia Conclusion/Plan: --Replacing as needed. Dispo: Medically stable. Requires 10 days for COVID-19 isolation. Can discharge on February 09. (4) Pulmonary embolism Qualifiers: Pulmonary embolism type: single subsegmental (without acute cor pulmonale) Qualified Code(s): I26.93 - Single subsegmental pulmonary embolism without acute cor pulmonale - Current Meds Current Meds: Current Medications Generic Name Dose Route Start Last Admin Trade Name Freq PRN Reason Stop Dose Admin Acetaminophen 650 mg 01/30/23 15:42 02/01/23 20:27 Acetaminophen 325 Mg Tablet PO 650 mg Q4HR PRN Administration Pain 1 to 4, or Fever Amlodipine Besylate 10 mg 02/02/23 09:00 02/03/23 08:30 Amlodipine 5 Mg Tablet PO 10 mg DAILY BRANDY Administration Apixaban 10 mg 01/30/23 21:00 02/03/23 08:31 Apixaban 5 Mg Tablet PO 02/06/23 09:01 10 mg BID BRANDY Administration Cholecalciferol 50 mcg 02/02/23 09:00 02/03/23 08:33 Cholecalciferol 25 Mcg Tablet PO 50 mcg DAILY BRANDY Administration Dexamethasone 6 mg 01/31/23 09:00 02/03/23 08:31 Dexamethasone 4 Mg Tablet PO 02/09/23 09:01 6 mg DAILY BRANDY Administration Docusate Sodium 250 - 500 mg 02/01/23 13:00 02/03/23 08:30 Docusate Sodium 250 Mg Capsule PO 250 mg DAILY BRANDY Administration Guaifenesin 600 mg 01/30/23 21:00 02/03/23 08:30 Guaifenesin 600 Mg Tablet PO 600 mg BID BRANDY Administration Insulin Human Lispro 1 - 9 unit 02/03/23 08:00 02/03/23 11:48 Insulin Lispro 300 Unit/3 Ml Pen SUBQ Not Given 0800,1200,1700,2100 [facility] Protocol Ondansetron HCl 4 mg 01/30/23 15:42 02/03/23 08:41 Ondansetron 4 Mg/2 Ml Vial IVP 4 mg Q6HR PRN Administration Nausea / Vomiting Polyethylene Glycol 17 gm 02/02/23 09:00 02/03/23 08:31 Polyethylene Glycol 3350 17 Gm Packet PO Not Given DAILY BRANDY Potassium Chloride 40 meq 02/03/23 11:00 02/03/23 11:48 Potassium Chloride 20 Meq Tablet PO Not Given DAILYWM BRANDY Senna 8.6 - 17.2 mg 02/01/23 13:00 02/03/23 08:31 Senna 8.6 Mg Tablet PO 17.2 mg DAILY BRANDY Administration Sodium Chloride 10 ml 01/30/23 15:42 02/03/23 01:35 Sodium Chloride Flush 0.9% 10 Ml Syringe IVP 10 ml PRN PRN Administration NEEDED PER PROVIDER ORDERS Sodium Chloride 10 ml 01/30/23 17:00 02/03/23 08:30 Sodium Chloride Flush 0.9% 10 Ml Syringe IVP 10 ml 0100,0900,1700 BRANDY Administration Trazodone HCl 50 mg 02/02/23 21:00 02/02/23 21:08 Trazodone 50 Mg Tablet PO 50 mg QPM BRANDY Administration - Lab Result Fish Bone Diagrams: 02/03/23 06:14 02/03/23 06:14 - Additional Planning My Orders: My Active Orders 02/02/23 21:00 traZODone [Desyrel] 50 mg PO QPM 02/03/23 08:00 Insulin Lispro [Humalog Kwikpen U-100] 1 - 9 unit SUBQ 0800,1200,1700,2100 02/03/23 11:00 Potassium Chloride [K-Dur] 40 meq PO DAILYWM 02/04/23 05:00 BMP - BASIC METABOLIC PANEL [CHEM] DAILYLAB CBC [CBC - COMP BLD CT W/AUTO DIFF] [HEME] DAILYLAB 02/04/23 09:00 Insulin Glargine-Yfgn [Semglee] 15 unit SUBQ DAILY Subjective - Subjective Patient Reports: Feeling Better, Resting Comfortably Objective Vital Signs: Vital Signs - 24 hr 02/02/23 02/02/23 02/02/23 16:29 19:00 20:53 Temperature 36.8 C 37.2 C Heart Rate [ 103 H 93 Brachial] Respiratory 20 24 Rate Blood Pressure 146/82 H 173/94 H [Brachial artery] Blood Pressure [Left Brachial artery] O2 Saturation 96 96 If not protocol 0.5 2 2 : Oxygen Flow, liters/minute 02/03/23 02/03/23 02/03/23 01:00 03:49 08:01 Temperature 36.9 C 37.1 C 36.8 C Heart Rate [ 84 89 89 Brachial] Respiratory 16 17 18 Rate Blood Pressure 152/81 H [Brachial artery] Blood Pressure 176/83 H 163/88 H [Left Brachial artery] O2 Saturation 98 97 99 If not protocol 1 1 1 : Oxygen Flow, liters/minute Oxygen O2 Source Nasal cannula Oxygen Flow Rate 2 I&O (Last 24 Hrs): Intake and Output Totals x24h 02/01/23 02/02/23 02/03/23 23:59 23:59 23:59 Intake Total 1236 1080 Output Total 450 550 200 Balance 786 530 -200 General: Alert, Oriented x3, Cooperative, No acute distress Cardiovascular: Regular rate, Normal S1, Normal S2, No murmurs Respiratory: Chest non-tender, No respiratory distress, Breath sounds nml Abdomen: Normal bowel sounds, Soft, No tenderness, No hepatospenomegaly, No masses - Results Results: Laboratory Results WBC 20.2 x10^3/uL (4.8-10.8) H 02/03/23 06:14 RBC 3.63 10^6/uL (4.20-5.40) L 02/03/23 06:14 Hgb 9.9 g/dL (12.0-16.0) L 02/03/23 06:14 Hct 32.4 % (37.0-47.0) L 02/03/23 06:14 MCV 89.3 fL (81.0-99.0) 02/03/23 06:14 MCH 27.3 pg (27.0-31.0) 02/03/23 06:14 MCHC 30.6 g/dL (32.0-36.0) L 02/03/23 06:14 RDW 14.8 % (12.0-15.0) 02/03/23 06:14 Plt Count 407 10^3/uL (130-450) 02/03/23 06:14 MPV 11.0 fL (7.9-10.8) H 02/03/23 06:14 Neut # (Auto) Not Reportable 02/03/23 06:14 Lymph # (Auto) Not Reportable 02/03/23 06:14 [place] # (Auto) Not Reportable 02/03/23 06:14 Eos # (Auto) Not Reportable 02/03/23 06:14 Baso # (Auto) Not Reportable 02/03/23 06:14 Absolute Nucleated RBC Not Reportable 02/03/23 06:14 Total Counted 100 02/03/23 06:14 Band Neuts % (Manual) 2 % (0-10) 02/03/23 06:14 Abnorm Lymph % (Manual) 0 % 02/03/23 06:14 Nucleated RBC % Not Reportable 02/03/23 06:14 Neutrophils # (Manual) 15.2 10^3/uL (1.5-6.6) H 02/03/23 06:14 Lymphocytes # (Manual) 3.4 10^3/uL (1.5-3.5) 02/03/23 06:14 Monocytes # (Manual) 1.6 10^3/uL (0.0-1.0) H 02/03/23 06:14 Eosinophils # (Manual) 0.0 10^3/uL (0-0.7) 02/03/23 06:14 Basophils # (Manual) 0.0 10^3/uL (0-0.1) 02/03/23 06:14 Differential Comment MANUAL DIFFERENTIAL 02/03/23 06:14 Platelet Estimate NORMAL (130-450,000) (NORMAL) 02/03/23 06:14 RBC Morph Micro Appear NORMAL APPEARANCE (NORMAL) 02/03/23 06:14 PT 16.8 secs (9.9-12.6) H 01/30/23 00:01 INR 1.6 (0.8-1.2) H 01/30/23 00:01 APTT 102.0 secs (24.9-33.3) H* 01/30/23 11:17 Sodium 137 mmol/L (135-145) 02/03/23 06:14 Potassium 3.1 mmol/L (3.5-4.5) L 02/03/23 06:14 Chloride 99 mmol/L (101-111) L 02/03/23 06:14 Carbon Dioxide 25 mmol/L (21-32) 02/03/23 06:14 Anion Gap 13.0 (6-13) 02/03/23 06:14 BUN 18 mg/dL (6-20) 02/03/23 06:14 Creatinine 0.6 mg/dL (0.6-1.3) 02/03/23 06:14 Estimated GFR (MDRD) 98 (>89) 02/03/23 06:14 Glucose 173 mg/dL (74-104) H 02/03/23 06:14 POC Whole Bld Glucose 143 mg/dL (70 - 100) H 02/03/23 11:28 Calcium 8.9 mg/dL (8.5-10.3) 02/03/23 06:14 Magnesium 2.2 mg/dL (1.7-2.3) 01/31/23 05:09 Total Bilirubin 1.5 mg/dL (0.2-1.0) H 01/31/23 05:09 Direct Bilirubin 0.77 mg/dL (0.03-0.18) H 01/31/23 05:09 AST 29 IU/L (10-42) 01/31/23 05:09 ALT 6 IU/L (10-60) L 01/31/23 05:09 Alkaline Phosphatase 233 IU/L (42-121) H 01/31/23 05:09 Troponin I High Sens 28.5 ng/L (2.3-14.8) H* 01/31/23 05:09 B-Natriuretic Peptide 75 pg/mL (5-100) 01/30/23 07:36 Total Protein 6.6 g/dL (6.4-8.9) 01/31/23 05:09 Albumin 3.1 g/dL (3.2-5.5) L 01/31/23 05:09 Globulin 3.5 g/dL (2.1-4.2) 01/31/23 05:09 Albumin/Globulin Ratio 0.9 (1.0-2.2) L 01/30/23 00:01 Lipase 23 U/L (11-82) 01/30/23 00:01 Nasal Adenovirus (PCR) NOT DETECTED 01/30/23 03:34 Nasal B. parapertussis DNA (PCR) NOT DETECTED 01/30/23 03:34 Nasal Coronavir 229E PCR NOT DETECTED 01/30/23 03:34 Nasal Coronavir HKU1 PCR NOT DETECTED 01/30/23 03:34 Nasal Coronavir NL63 PCR NOT DETECTED 01/30/23 03:34 Nasal Coronavir OC43 PCR NOT DETECTED 01/30/23 03:34 Nasal Enterovir/Rhinovir PCR NOT DETECTED 01/30/23 03:34 Nasal Influenza B PCR NOT DETECTED 01/30/23 03:34 Nasal Influenza A PCR NOT DETECTED 01/30/23 03:34 Nasal Parainfluen 1 PCR NOT DETECTED 01/30/23 03:34 Nasal Parainfluen 2 PCR NOT DETECTED 01/30/23 03:34 Nasal Parainfluen 3 PCR NOT DETECTED 01/30/23 03:34 Nasal Parainfluen 4 PCR NOT DETECTED 01/30/23 03:34 Nasal RSV (PCR) NOT DETECTED 01/30/23 03:34 Nasal B.pertussis DNA PCR NOT DETECTED 01/30/23 03:34 Nasal C.pneumoniae (PCR) NOT DETECTED 01/30/23 03:34 Song Human Metapneumo PCR NOT DETECTED 01/30/23 03:34 Nasal M.pneumoniae (PCR) NOT DETECTED 01/30/23 03:34 Nasal SARS-CoV-2 (PCR) DETECTED A 01/30/23 03:34
[2023-02-03] MEDS: traZODone 50 MG TABLET PO SCH (21:03)
[2023-02-04] MEDS: SODIUM CHLORIDE FLUSH 0.9% 10 ML SYRINGE IVP SCH ×3 (00:18→17:21)
[2023-02-04 06:21] LABS: BASOPHILS % (AUTO) 0.1 %; EOSINOPHILS % (AUTO) 0.1 %; HGB - HEMOGLOBIN 10.7 g/dL (12.0-16.0); LYMPHOCYTES # (AUTO) 1.2 10^3/uL (1.5-3.5); LYMPHOCYTES % (AUTO) 6.2 %; MEAN CORPUSCULAR HEMOGLOBIN 27.9 pg (27.0-31.0); MEAN CORPUSCULAR HGB CONC 30.6 g/dL (32.0-36.0); MEAN CORPUSCULAR VOLUME 91.1 fL (81.0-99.0); MEAN PLATELET VOLUME 10.9 fL (7.9-10.8); MONOCYTES # (AUTO) 1.2 10^3/uL (0.0-1.0); NEUTROPHILS # (AUTO) 17.3 10^3/uL (1.5-6.6); NEUTROPHILS % (AUTO) 86.9 %; PLT - PLATELET COUNT 376 10^3/uL (130-450); RED BLOOD COUNT 3.84 10^6/uL (4.20-5.40); RED CELL DISTRIBUTION WIDTH 15.3 % (12.0-15.0); WHITE BLOOD COUNT 19.9 x10^3/uL (4.8-10.8)
[2023-02-04 06:36] LABS: CALCIUM 8.9 mg/dL (8.5-10.3); CREATININE 0.5 mg/dL (0.6-1.3); POTASSIUM 3.9 mmol/L (3.5-4.5)
[2023-02-04] MEDS: INSULIN GLARGINE-YFGN 300 UNIT/3 ML PEN SUBQ SCH (08:23)
[2023-02-04] MEDS: INSULIN LISPRO 300 UNIT/3 ML PEN SUBQ SCH ×4 (08:24→20:55)
[2023-02-04] MEDS: POTASSIUM CHLORIDE 20 MEQ TABLET PO SCH (08:25)
[2023-02-04] MEDS: amLODIPine 5 MG TABLET PO SCH (08:25)
[2023-02-04] MEDS: dexAMETHasone 4 MG TABLET PO SCH (08:26)
[2023-02-04] MEDS: CHOLECALCIFEROL 25 MCG TABLET PO SCH (08:26)
[2023-02-04] MEDS: APIXABAN 5 MG TABLET PO SCH ×2 (08:26→20:54)
[2023-02-04] MEDS: polyethylene glycoL 3350 17 GM PACKET PO SCH (08:27)
[2023-02-04] MEDS: DOCUSATE SODIUM 250 MG CAPSULE PO SCH (08:27)
[2023-02-04] MEDS: guaiFENesin 600 MG TABLET PO SCH ×2 (08:27→20:55)
[2023-02-04] MEDS: SENNA 8.6 MG TABLET PO SCH (08:27)
--- NOTE | 2023-02-04 11:16 | PROVIDER PROGRESS NOTE ---
Assessment/Plan - Problem List (1) Acute respiratory failure with hypoxia Assessment/Plan: (1) Acute respiratory failure with hypoxia Conclusion/Plan: -- Hypoxia secondary to COVID-19 pneumonia and pulmonary embolus. -- Continue supplemental oxygen. She is currently on 1 L via nasal cannula. --Increased work of breathing, will obtain CXR. RT will place her on HFNC temporarily. (2) COVID-19 Conclusion/Plan: -- Patient does not want remdesivir. This was discontinued. --Started on dexamethasone 6 mg daily for 10 days. --COVID encephalopathy is improving. (3) Bilateral pulmonary embolism Conclusion/Plan: -- Possibly provoked by COVID-19 or underlying malignancy. --Continue Eliquis 10 mg twice daily for 7 days followed by Eliquis 5 mg p.o. twice daily for 3 to 6 months. (4) Right heart enlargement Conclusion/Plan: -- TTE showing no evidence of RHS or enlargement. (5) Lung mass Conclusion/Plan: -- Several lung masses seen on CT chest. This will need outpatient follow-up. --Multiple liver masses. (6) Hypokalemia Conclusion/Plan: --Replacing potassium as needed. (7) Hypomagnesemia Conclusion/Plan: --Replacing as needed. Dispo: Medically stable. Requires 10 days for COVID-19 isolation. Can discharge on February 09. (4) Pulmonary embolism Qualifiers: Pulmonary embolism type: single subsegmental (without acute cor pulmonale) Qualified Code(s): I26.93 - Single subsegmental pulmonary embolism without acute cor pulmonale - Current Meds Current Meds: Current Medications Generic Name Dose Route Start Last Admin Trade Name Freq PRN Reason Stop Dose Admin Acetaminophen 650 mg 01/30/23 15:42 02/01/23 20:27 Acetaminophen 325 Mg Tablet PO 650 mg Q4HR PRN Administration Pain 1 to 4, or Fever Amlodipine Besylate 10 mg 02/02/23 09:00 02/04/23 08:25 Amlodipine 5 Mg Tablet PO 10 mg DAILY BRANDY Administration Apixaban 10 mg 01/30/23 21:00 02/04/23 08:26 Apixaban 5 Mg Tablet PO 02/06/23 09:01 10 mg BID BRANDY Administration Cholecalciferol 50 mcg 02/02/23 09:00 02/04/23 08:26 Cholecalciferol 25 Mcg Tablet PO 50 mcg DAILY BRANDY Administration Dexamethasone 6 mg 01/31/23 09:00 02/04/23 08:26 Dexamethasone 4 Mg Tablet PO 02/09/23 09:01 6 mg DAILY BRANDY Administration Docusate Sodium 250 - 500 mg 02/01/23 13:00 02/04/23 08:27 Docusate Sodium 250 Mg Capsule PO 250 mg DAILY BRANDY Administration Guaifenesin 600 mg 01/30/23 21:00 02/04/23 08:27 Guaifenesin 600 Mg Tablet PO 600 mg BID BRANDY Administration Insulin Glargine-yfgn 15 unit 02/04/23 09:00 02/04/23 08:23 Insulin Glargine-Yfgn 300 Unit/3 Ml Pen SUBQ 15 unit DAILY BRANDY Administration Insulin Human Lispro 1 - 9 unit 02/03/23 08:00 02/04/23 08:24 Insulin Lispro 300 Unit/3 Ml Pen SUBQ 1 unit 0800,1200,1700,2100 BRANDY Administration Protocol Ondansetron HCl 4 mg 01/30/23 15:42 02/03/23 08:41 Ondansetron 4 Mg/2 Ml Vial IVP 4 mg Q6HR PRN Administration Nausea / Vomiting Polyethylene Glycol 17 gm 02/02/23 09:00 02/04/23 08:27 Polyethylene Glycol 3350 17 Gm Packet PO 17 gm DAILY BRANDY Administration Potassium Chloride 40 meq 02/03/23 11:00 02/04/23 08:25 Potassium Chloride 20 Meq Tablet PO 40 meq DAILYWM BRANDY Administration Senna 8.6 - 17.2 mg 02/01/23 13:00 02/04/23 08:27 Senna 8.6 Mg Tablet PO 8.6 mg DAILY BRANDY Administration Sodium Chloride 10 ml 01/30/23 15:42 02/03/23 01:35 Sodium Chloride Flush 0.9% 10 Ml Syringe IVP 10 ml PRN PRN Administration NEEDED PER PROVIDER ORDERS Sodium Chloride 10 ml 01/30/23 17:00 02/04/23 08:27 Sodium Chloride Flush 0.9% 10 Ml Syringe IVP 10 ml 0100,0900,1700 BRANDY Administration Trazodone HCl 50 mg 02/02/23 21:00 02/03/23 21:03 Trazodone 50 Mg Tablet PO 50 mg QPM BRANDY Administration - Lab Result Fish Bone Diagrams: 02/04/23 05:27 02/04/23 05:27 - Additional Planning My Orders: My Active Orders 02/03/23 11:00 Potassium Chloride [K-Dur] 40 meq PO DAILYWM 02/04/23 09:00 Insulin Glargine-Yfgn [Semglee] 15 unit SUBQ DAILY 02/05/23 09:00 hydroCHLOROthiazide [Hydrodiuril] 25 mg PO DAILY Subjective - Subjective Patient Reports: Resting Comfortably, No Complaints Objective Vital Signs: Vital Signs - 24 hr 02/03/23 02/03/23 02/03/23 12:49 15:36 19:00 Temperature 37.1 C 37.0 C Heart Rate [ 92 105 H Brachial] Respiratory 16 22 Rate Blood Pressure 143/73 H [Brachial artery] Blood Pressure 152/84 H [Left Brachial artery] O2 Saturation 94 95 If not protocol 1 1 : Oxygen Flow, liters/minute 02/03/23 02/04/23 02/04/23 20:40 01:00 04:45 Temperature 37.0 C 37.2 C 37.2 C Heart Rate [ 98 96 101 H Brachial] Respiratory 22 16 16 Rate Blood Pressure 167/92 H 168/94 H [Brachial artery] Blood Pressure 162/84 H [Left Brachial artery] O2 Saturation 92 96 95 If not protocol 1 1 1 : Oxygen Flow, liters/minute 02/04/23 02/04/23 08:17 11:00 Temperature 36.5 C Heart Rate [ 98 Brachial] Respiratory 18 Rate Blood Pressure 157/80 H [Brachial artery] Blood Pressure [Left Brachial artery] O2 Saturation 93 If not protocol 1 35 : Oxygen Flow, liters/minute Oxygen O2 Source Nasal cannula Oxygen Flow Rate 2 I&O (Last 24 Hrs): Intake and Output Totals x24h 02/02/23 02/03/23 02/04/23 23:59 23:59 23:59 Intake Total 1080 250 480 Output Total 550 800 225 Balance 530 -550 255 General: Alert, Oriented x3 HEENT: Atraumatic Cardiovascular: Regular rate, Normal S1, Normal S2 Respiratory: Chest non-tender, No respiratory distress, Breath sounds nml Abdomen: Normal bowel sounds, Soft - Results Results: Laboratory Results WBC 19.9 x10^3/uL (4.8-10.8) H 02/04/23 05:27 RBC 3.84 10^6/uL (4.20-5.40) L 02/04/23 05:27 Hgb 10.7 g/dL (12.0-16.0) L 02/04/23 05:27 Hct 35.0 % (37.0-47.0) L 02/04/23 05:27 MCV 91.1 fL (81.0-99.0) 02/04/23 05:27 MCH 27.9 pg (27.0-31.0) 02/04/23 05:27 MCHC 30.6 g/dL (32.0-36.0) L 02/04/23 05:27 RDW 15.3 % (12.0-15.0) H 02/04/23 05:27 Plt Count 376 10^3/uL (130-450) 02/04/23 05:27 MPV 10.9 fL (7.9-10.8) H 02/04/23 05:27 Neut # (Auto) 17.3 10^3/uL (1.5-6.6) H 02/04/23 05:27 Lymph # (Auto) 1.2 10^3/uL (1.5-3.5) L 02/04/23 05:27 [place] # (Auto) 1.2 10^3/uL (0.0-1.0) H 02/04/23 05:27 Eos # (Auto) 0.0 10^3/uL (0.0-0.7) 02/04/23 05:27 Baso # (Auto) 0.0 10^3/uL (0.0-0.1) 02/04/23 05:27 Absolute Nucleated RBC 0.00 x10^3/uL 02/04/23 05:27 Total Counted 100 02/03/23 06:14 Band Neuts % (Manual) 2 % (0-10) 02/03/23 06:14 Abnorm Lymph % (Manual) 0 % 02/03/23 06:14 Nucleated RBC % 0.0 /100WBC 02/04/23 05:27 Neutrophils # (Manual) 15.2 10^3/uL (1.5-6.6) H 02/03/23 06:14 Lymphocytes # (Manual) 3.4 10^3/uL (1.5-3.5) 02/03/23 06:14 Monocytes # (Manual) 1.6 10^3/uL (0.0-1.0) H 02/03/23 06:14 Eosinophils # (Manual) 0.0 10^3/uL (0-0.7) 02/03/23 06:14 Basophils # (Manual) 0.0 10^3/uL (0-0.1) 02/03/23 06:14 Differential Comment MANUAL DIFFERENTIAL 02/03/23 06:14 Platelet Estimate NORMAL (130-450,000) (NORMAL) 02/03/23 06:14 RBC Morph Micro Appear NORMAL APPEARANCE (NORMAL) 02/03/23 06:14 PT 16.8 secs (9.9-12.6) H 01/30/23 00:01 INR 1.6 (0.8-1.2) H 01/30/23 00:01 APTT 102.0 secs (24.9-33.3) H* 01/30/23 11:17 Sodium 138 mmol/L (135-145) 02/04/23 05:27 Potassium 3.9 mmol/L (3.5-4.5) 02/04/23 05:27 Chloride 98 mmol/L (101-111) L 02/04/23 05:27 Carbon Dioxide 31 mmol/L (21-32) 02/04/23 05:27 Anion Gap 9.0 (6-13) 02/04/23 05:27 BUN 21 mg/dL (6-20) H 02/04/23 05:27 Creatinine 0.5 mg/dL (0.6-1.3) L 02/04/23 05:27 Estimated GFR (MDRD) 121 (>89) 02/04/23 05:27 Glucose 161 mg/dL (74-104) H 02/04/23 05:27 POC Whole Bld Glucose 142 mg/dL (70 - 100) H 02/04/23 07:39 Calcium 8.9 mg/dL (8.5-10.3) 02/04/23 05:27 Magnesium 2.2 mg/dL (1.7-2.3) 01/31/23 05:09 Total Bilirubin 1.5 mg/dL (0.2-1.0) H 01/31/23 05:09 Direct Bilirubin 0.77 mg/dL (0.03-0.18) H 01/31/23 05:09 AST 29 IU/L (10-42) 01/31/23 05:09 ALT 6 IU/L (10-60) L 01/31/23 05:09 Alkaline Phosphatase 233 IU/L (42-121) H 01/31/23 05:09 Troponin I High Sens 28.5 ng/L (2.3-14.8) H* 01/31/23 05:09 B-Natriuretic Peptide 75 pg/mL (5-100) 01/30/23 07:36 Total Protein 6.6 g/dL (6.4-8.9) 01/31/23 05:09 Albumin 3.1 g/dL (3.2-5.5) L 01/31/23 05:09 Globulin 3.5 g/dL (2.1-4.2) 01/31/23 05:09 Albumin/Globulin Ratio 0.9 (1.0-2.2) L 01/30/23 00:01 Lipase 23 U/L (11-82) 01/30/23 00:01 Nasal Adenovirus (PCR) NOT DETECTED 01/30/23 03:34 Nasal B. parapertussis DNA (PCR) NOT DETECTED 01/30/23 03:34 Nasal Coronavir 229E PCR NOT DETECTED 01/30/23 03:34 Nasal Coronavir HKU1 PCR NOT DETECTED 01/30/23 03:34 Nasal Coronavir NL63 PCR NOT DETECTED 01/30/23 03:34 Nasal Coronavir OC43 PCR NOT DETECTED 01/30/23 03:34 Nasal Enterovir/Rhinovir PCR NOT DETECTED 01/30/23 03:34 Nasal Influenza B PCR NOT DETECTED 01/30/23 03:34 Nasal Influenza A PCR NOT DETECTED 01/30/23 03:34 Nasal Parainfluen 1 PCR NOT DETECTED 01/30/23 03:34 Nasal Parainfluen 2 PCR NOT DETECTED 01/30/23 03:34 Nasal Parainfluen 3 PCR NOT DETECTED 01/30/23 03:34 Nasal Parainfluen 4 PCR NOT DETECTED 01/30/23 03:34 Nasal RSV (PCR) NOT DETECTED 01/30/23 03:34 Nasal B.pertussis DNA PCR NOT DETECTED 01/30/23 03:34 Nasal C.pneumoniae (PCR) NOT DETECTED 01/30/23 03:34 Song Human Metapneumo PCR NOT DETECTED 01/30/23 03:34 Nasal M.pneumoniae (PCR) NOT DETECTED 01/30/23 03:34 Nasal SARS-CoV-2 (PCR) DETECTED A 01/30/23 03:34
--- NOTE | 2023-02-04 11:27 | XRAY Report ---
PROCEDURE: Chest 1V INDICATIONS: Increased work of breathing, COVID-19 TECHNIQUE: One view of the chest was acquired. COMPARISON: None. FINDINGS: Surgical changes and devices: None. Lungs and pleura: No pleural effusions or pneumothorax. Lungs are clear. Mediastinum: Mediastinal contours appear normal. Heart size is normal. Bones and chest wall: No suspicious bony lesions. Overlying soft tissues appear unremarkable. IMPRESSION: No acute cardiopulmonary process. Reviewed by: Amandeep Wolfe MD on 02/04/2023 11:26 AM [facility] Approved by: Amandeep Wolfe MD on 02/04/2023 11:26 AM [facility] Station ID: [id number]
[2023-02-04] MEDS: traZODone 50 MG TABLET PO SCH (20:55)
[2023-02-05] MEDS: SODIUM CHLORIDE FLUSH 0.9% 10 ML SYRINGE IVP SCH ×3 (01:51→17:25)
[2023-02-05] MEDS ORDERED: hydrALAZINE INJ 20 MG/ML VIAL IVP PRN (02:45)
[2023-02-05] MEDS: SODIUM CHLORIDE FLUSH 0.9% 10 ML SYRINGE IVP PRN (03:16)
[2023-02-05] MEDS ORDERED: iohexoL-300 100 ML VIAL IVP ONE (08:00)
--- NOTE | 2023-02-05 08:53 | CT Report ---
PROCEDURE: Head W/O Stroke Protocol INDICATIONS: left sided weakness TECHNIQUE: Noncontrast 4.5 mm thick angled axial sections acquired from the foramen magnum to the vertex, with c oronal reformats. For radiation dose reduction, the following was used: automated exposure control, adjustment of mA and/or kV according to patient size. COMPARISON: None. FINDINGS: Image quality: Diagnostic CSF spaces: Basal cisterns are patent. Lateral ventricles are symmetric. Volume: Vascular calcifications. Periventricular white matter disease is commonly seen with chronic m icroangiopathy. Volume loss is present. These findings are moderate. Brain: No intracranial hemorrhage. Davis-white differentiation is grossly maintained. Craniofacial structures: Partially seen partial opacification of the paranasal sinuses. IMPRESSION: No acute intracranial hemorrhage. Report called at time of signing. This study fulfills neurological imaging criteria for inclusion or exclusion of acute stroke therapie s based on available published neurological imaging guidelines. Reviewed by: Russell Hickman MD on 02/05/2023 8:52 AM PST Approved by: Russell Hickman MD on 02/05/2023 8:52 AM PST Station ID: [id number]
[2023-02-05] MEDS: INSULIN LISPRO 300 UNIT/3 ML PEN SUBQ SCH ×4 (08:59→20:59)
[2023-02-05] MEDS: POTASSIUM CHLORIDE 20 MEQ TABLET PO SCH (09:00)
[2023-02-05] MEDS: APIXABAN 5 MG TABLET PO SCH ×2 (09:02→20:58)
[2023-02-05] MEDS: amLODIPine 5 MG TABLET PO SCH (09:02)
--- NOTE | 2023-02-05 09:02 | CT Report ---
PROCEDURE: CT Angio Head/Neck INDICATIONS: left sided weakness TECHNIQUE: CT angiogram was obtained of the head and neck. Multiplanar reformats and maximum intensit y projection images were obtained. Contrast was used. IV contrast was used. COMPARISON: Same-day CT head stroke protocol CT chest 01/30/2023. FINDINGS: Image quality: Diagnostic Head angiography Anterior circulation: ICAs: Moderate bilateral cavernous carotid calcifications. ACAs: normal and symmetric MCAs: normal and symmetric AComm: no aneurysm Venous sinuses: Posterior circulation: Dominance: equal Vertebral arteries: no stenosis, occlusion, or aneurysm Basilar artery: unremarkable PComms: no aneurysm sharepoint trainer: normal and symmetric Neck angiography Aortic arch and subclavian arteries: Pulmonary emboli again seen No high-grade narrowing in the aortic arch CCAs: Incidentally noted suspicious ICA origins (by NASCET criteria): No significant narrowing ICAs: no stenosis, occlusion or aneurysm. ECAs: origins are patent. Vertebral arteries: Moderate narrowing of the right origin. Soft tissues: no significant mass, aneurysm, or lymphadenopathy Lung apices: Peripheral lung opacities may represent infarcts or infectious/inflammatory foci. Bones: no acute or suspicious abnormality. Degenerative changes. Partially seen paranasal sinus partial opacification. IMPRESSION: No large vessel occlusion or high-grade stenosis. Moderate narrowing is seen in the bilateral caverno us ICAs, right vertebral origin. If there is high concern for infarct consider MRI evaluation. Partially seen pulmonary emboli and possible small pulmonary infarcts versus infectious/inflammatory foci. Pulmonary emboli were seen on CT from 01/30/2023. Reviewed by: Russell Hickman MD on 02/05/2023 9:01 AM PST Approved by: Russell Hickman MD on 02/05/2023 9:01 AM PST Station ID: [id number]
[2023-02-05] MEDS: CHOLECALCIFEROL 25 MCG TABLET PO SCH (09:03)
[2023-02-05] MEDS: dexAMETHasone 4 MG TABLET PO SCH (09:04)
[2023-02-05] MEDS: guaiFENesin 600 MG TABLET PO SCH ×2 (09:04→20:58)
[2023-02-05] MEDS: polyethylene glycoL 3350 17 GM PACKET PO SCH (09:06)
[2023-02-05] MEDS: SENNA 8.6 MG TABLET PO SCH (09:06)
[2023-02-05] MEDS: DOCUSATE SODIUM 250 MG CAPSULE PO SCH (09:06)
[2023-02-05] MEDS: hydroCHLOROthiazide 25 MG TABLET PO SCH (09:20)
[2023-02-05] MEDS: INSULIN GLARGINE-YFGN 300 UNIT/3 ML PEN SUBQ SCH (09:21)
--- NOTE | 2023-02-05 09:26 | PROVIDER PROGRESS NOTE ---
Assessment/Plan - Problem List (1) Acute respiratory failure with hypoxia Assessment/Plan: (1) Acute respiratory failure with hypoxia Conclusion/Plan: -- Hypoxia secondary to COVID-19 pneumonia and pulmonary embolus. -- Continue supplemental oxygen. She is currently on 1 L via nasal cannula. --Increased work of breathing, will obtain CXR. RT will place her on HFNC temporarily. --Family would like to stop the dexamethasone. (2) COVID-19 Conclusion/Plan: -- Patient does not want remdesivir. This was discontinued. --Discontinue dexamethasone. --COVID encephalopathy is improving. (3) Bilateral pulmonary embolism Conclusion/Plan: -- Possibly provoked by COVID-19 or underlying malignancy. --Continue Eliquis 10 mg twice daily for 7 days followed by Eliquis 5 mg p.o. t wice daily for 3 to 6 months. (4) Right heart enlargement Conclusion/Plan: -- TTE showing no evidence of RHS or enlargement. (5) Lung mass Conclusion/Plan: -- Several lung masses seen on CT chest. This will need outpatient follow-up. --Multiple liver masses. (6) Hypokalemia Conclusion/Plan: --Replacing potassium as needed. (7) Hypomagnesemia Conclusion/Plan: --Replacing as needed. Dispo: Medically stable. Requires 10 days for COVID-19 isolation. Can discharge on February 09. (4) Pulmonary embolism Qualifiers: Pulmonary embolism type: single subsegmental (without acute cor pulmonale) Qualified Code(s): I26.93 - Single subsegmental pulmonary embolism without acute cor pulmonale (5) Left-sided weakness Assessment/Plan: --Left sided weakness noted this morning on my exam. --Stroke called and she was sent for a stat CTH. Imaging studies were negative. --She does not qualify for thrombolytics given unknown time of onset and she is on Eliquis. --Will order an MRI with and without contrast to rule out ischemia or metastatic disease. --NIHSS is 9. - Current Meds Current Meds: Current Medications Generic Name Dose Route Start Last Admin Trade Name Freq PRN Reason Stop Dose Admin Acetaminophen 650 mg 01/30/23 15:42 02/01/23 20:27 Acetaminophen 325 Mg Tablet PO 650 mg Q4HR PRN Administration Pain 1 to 4, or Fever Amlodipine Besylate 10 mg 02/02/23 09:00 02/05/23 09:02 Amlodipine 5 Mg Tablet PO 10 mg DAILY BRANDY Administration Apixaban 10 mg 01/30/23 21:00 02/05/23 09:02 Apixaban 5 Mg Tablet PO 02/06/23 09:01 10 mg BID BRANDY Administration Cholecalciferol 50 mcg 02/02/23 09:00 02/05/23 09:03 Cholecalciferol 25 Mcg Tablet PO 50 mcg DAILY BRANDY Administration Dexamethasone 6 mg 01/31/23 09:00 02/05/23 09:04 Dexamethasone 4 Mg Tablet PO 02/09/23 09:01 Not Given DAILY [facility] Docusate Sodium 250 - 500 mg 02/01/23 13:00 02/05/23 09:06 Docusate Sodium 250 Mg Capsule PO Not Given DAILY [facility] Guaifenesin 600 mg 01/30/23 21:00 02/05/23 09:04 Guaifenesin 600 Mg Tablet PO Not Given BID [facility] Hydralazine HCl 5 mg 02/05/23 02:45 02/05/23 03:15 Hydralazine Inj 20 Mg/Ml Vial IVP 5 mg Q6H PRN Administration hypertension sbp>170 Hydrochlorothiazide 25 mg 02/05/23 09:00 02/05/23 09:20 Hydrochlorothiazide 25 Mg Tablet PO Not Given DAILY [facility] Insulin Glargine-yfgn 15 unit 02/04/23 09:00 02/05/23 09:21 Insulin Glargine-Yfgn 300 Unit/3 Ml Pen SUBQ Not Given DAILY [facility] Insulin Human Lispro 1 - 9 unit 02/03/23 08:00 02/05/23 08:59 Insulin Lispro 300 Unit/3 Ml Pen SUBQ Not Given 0800,1200,1700,2100 [facility] Protocol Ondansetron HCl 4 mg 01/30/23 15:42 02/03/23 08:41 Ondansetron 4 Mg/2 Ml Vial IVP 4 mg Q6HR PRN Administration Nausea / Vomiting Polyethylene Glycol 17 gm 02/02/23 09:00 02/05/23 09:06 Polyethylene Glycol 3350 17 Gm Packet PO Not Given DAILY [facility] Potassium Chloride 40 meq 02/03/23 11:00 02/05/23 09:00 Potassium Chloride 20 Meq Tablet PO 40 meq DAILYWM [facility] Administration Senna 8.6 - 17.2 mg 02/01/23 13:00 02/05/23 09:06 Senna 8.6 Mg Tablet PO Not Given DAILY BRANDY Sodium Chloride 10 ml 01/30/23 15:42 02/05/23 03:16 Sodium Chloride Flush 0.9% 10 Ml Syringe IVP 10 ml PRN PRN Administration NEEDED PER PROVIDER ORDERS Sodium Chloride 10 ml 01/30/23 17:00 02/05/23 09:06 Sodium Chloride Flush 0.9% 10 Ml Syringe IVP 10 ml 0100,0900,1700 BRANDY Administration Trazodone HCl 50 mg 02/02/23 21:00 02/04/23 20:55 Trazodone 50 Mg Tablet PO 50 mg QPM BRANDY Administration - Lab Result Fish Bone Diagrams: 02/04/23 05:27 02/04/23 05:27 - Additional Planning My Orders: My Active Orders 02/04/23 09:00 Insulin Glargine-Yfgn [Semglee] 15 unit SUBQ DAILY 02/05/23 07:59 NPO [DIET] 02/05/23 09:00 hydroCHLOROthiazide [Hydrodiuril] 25 mg PO DAILY 02/05/23 09:18 BRAIN W/WO [MRI] Routine 02/05/23 09:20 RN MRI Screening [RC] .ONCE 02/05/23 09:22 ED Telestroke ONCE Subjective - Subjective Patient Reports: No Complaints (Left sided flaccid paralysis. Unknown time of onset.) Objective Vital Signs: Vital Signs - 24 hr 02/04/23 02/04/23 02/04/23 11:00 13:00 16:45 Temperature 37.2 C 36.7 C Heart Rate [ 97 94 Brachial] Respiratory 20 20 Rate Blood Pressure Blood Pressure 149/78 H 153/87 H [Brachial artery] O2 Saturation 99 98 If not protocol 35 : Oxygen Flow, liters/minute 02/04/23 02/04/23 02/05/23 20:49 22:50 01:47 Temperature 36.8 C 36.5 C Heart Rate [ 98 94 Brachial] Respiratory 24 24 Rate Blood Pressure Blood Pressure 165/93 H 173/92 H [Brachial artery] O2 Saturation 98 98 If not protocol 35 35 : Oxygen Flow, liters/minute 02/05/23 02/05/23 02/05/23 03:16 03:21 03:24 Temperature 36.3 C L Heart Rate [ 97 95 100 Brachial] Respiratory 20 Rate Blood Pressure Blood Pressure 176/89 H 158/84 H 156/84 H [Brachial artery] O2 Saturation 99 If not protocol 35 : Oxygen Flow, liters/minute 02/05/23 02/05/23 02/05/23 03:45 04:13 08:08 Temperature 36.9 C Heart Rate [ 95 116 H Brachial] Respiratory 20 Rate Blood Pressure 152/82 H Blood Pressure 151/80 H 150/77 H [Brachial artery] O2 Saturation 98 If not protocol 35 : Oxygen Flow, liters/minute 02/05/23 02/05/23 08:19 08:48 Temperature Heart Rate [ Brachial] Respiratory Rate Blood Pressure Blood Pressure [Brachial artery] O2 Saturation 99 If not protocol 35 35 : Oxygen Flow, liters/minute Oxygen O2 Source HHFNC Oxygen Flow Rate 2 I&O (Last 24 Hrs): Intake and Output Totals x24h 02/03/23 02/04/23 02/05/23 23:59 23:59 23:59 Intake Total 250 1160 Output Total 800 525 100 Balance -550 635 -100 General: Alert, Oriented x3, No acute distress Neuro: Alert, Focal Deficits (Left upper and lower extremity flaccid paralysis) Respiratory: No respiratory distress, Breath sounds nml Abdomen: Normal bowel sounds, No tenderness - Results Results: Laboratory Results WBC 19.9 x10^3/uL (4.8-10.8) H 02/04/23 05:27 RBC 3.84 10^6/uL (4.20-5.40) L 02/04/23 05:27 Hgb 10.7 g/dL (12.0-16.0) L 02/04/23 05:27 Hct 35.0 % (37.0-47.0) L 02/04/23 05:27 MCV 91.1 fL (81.0-99.0) 02/04/23 05:27 MCH 27.9 pg (27.0-31.0) 02/04/23 05:27 MCHC 30.6 g/dL (32.0-36.0) L 02/04/23 05:27 RDW 15.3 % (12.0-15.0) H 02/04/23 05:27 Plt Count 376 10^3/uL (130-450) 02/04/23 05:27 MPV 10.9 fL (7.9-10.8) H 02/04/23 05:27 Neut # (Auto) 17.3 10^3/uL (1.5-6.6) H 02/04/23 05:27 Lymph # (Auto) 1.2 10^3/uL (1.5-3.5) L 02/04/23 05:27 [place] # (Auto) 1.2 10^3/uL (0.0-1.0) H 02/04/23 05:27 Eos # (Auto) 0.0 10^3/uL (0.0-0.7) 02/04/23 05:27 Baso # (Auto) 0.0 10^3/uL (0.0-0.1) 02/04/23 05:27 Absolute Nucleated RBC 0.00 x10^3/uL 02/04/23 05:27 Total Counted 100 02/03/23 06:14 Band Neuts % (Manual) 2 % (0-10) 02/03/23 06:14 Abnorm Lymph % (Manual) 0 % 02/03/23 06:14 Nucleated RBC % 0.0 /100WBC 02/04/23 05:27 Neutrophils # (Manual) 15.2 10^3/uL (1.5-6.6) H 02/03/23 06:14 Lymphocytes # (Manual) 3.4 10^3/uL (1.5-3.5) 02/03/23 06:14 Monocytes # (Manual) 1.6 10^3/uL (0.0-1.0) H 02/03/23 06:14 Eosinophils # (Manual) 0.0 10^3/uL (0-0.7) 02/03/23 06:14 Basophils # (Manual) 0.0 10^3/uL (0-0.1) 02/03/23 06:14 Differential Comment MANUAL DIFFERENTIAL 02/03/23 06:14 Platelet Estimate NORMAL (130-450,000) (NORMAL) 02/03/23 06:14 RBC Morph Micro Appear NORMAL APPEARANCE (NORMAL) 02/03/23 06:14 PT 16.8 secs (9.9-12.6) H 01/30/23 00:01 INR 1.6 (0.8-1.2) H 01/30/23 00:01 APTT 102.0 secs (24.9-33.3) H* 01/30/23 11:17 Sodium 138 mmol/L (135-145) 02/04/23 05:27 Potassium 3.9 mmol/L (3.5-4.5) 02/04/23 05:27 Chloride 98 mmol/L (101-111) L 02/04/23 05:27 Carbon Dioxide 31 mmol/L (21-32) 02/04/23 05:27 Anion Gap 9.0 (6-13) 02/04/23 05:27 BUN 21 mg/dL (6-20) H 02/04/23 05:27 Creatinine 0.5 mg/dL (0.6-1.3) L 02/04/23 05:27 Estimated GFR (MDRD) 121 (>89) 02/04/23 05:27 Glucose 161 mg/dL (74-104) H 02/04/23 05:27 POC Whole Bld Glucose 137 mg/dL (70 - 100) H 02/05/23 08:01 Calcium 8.9 mg/dL (8.5-10.3) 02/04/23 05:27 Magnesium 2.2 mg/dL (1.7-2.3) 01/31/23 05:09 Total Bilirubin 1.5 mg/dL (0.2-1.0) H 01/31/23 05:09 Direct Bilirubin 0.77 mg/dL (0.03-0.18) H 01/31/23 05:09 AST 29 IU/L (10-42) 01/31/23 05:09 ALT 6 IU/L (10-60) L 01/31/23 05:09 Alkaline Phosphatase 233 IU/L (42-121) H 01/31/23 05:09 Troponin I High Sens 28.5 ng/L (2.3-14.8) H* 01/31/23 05:09 B-Natriuretic Peptide 75 pg/mL (5-100) 01/30/23 07:36 Total Protein 6.6 g/dL (6.4-8.9) 01/31/23 05:09 Albumin 3.1 g/dL (3.2-5.5) L 01/31/23 05:09 Globulin 3.5 g/dL (2.1-4.2) 01/31/23 05:09 Albumin/Globulin Ratio 0.9 (1.0-2.2) L 01/30/23 00:01 Lipase 23 U/L (11-82) 01/30/23 00:01 Nasal Adenovirus (PCR) NOT DETECTED 01/30/23 03:34 Nasal B. parapertussis DNA (PCR) NOT DETECTED 01/30/23 03:34 Nasal Coronavir 229E PCR NOT DETECTED 01/30/23 03:34 Nasal Coronavir HKU1 PCR NOT DETECTED 01/30/23 03:34 Nasal Coronavir NL63 PCR NOT DETECTED 01/30/23 03:34 Nasal Coronavir OC43 PCR NOT DETECTED 01/30/23 03:34 Nasal Enterovir/Rhinovir PCR NOT DETECTED 01/30/23 03:34 Nasal Influenza B PCR NOT DETECTED 01/30/23 03:34 Nasal Influenza A PCR NOT DETECTED 01/30/23 03:34 Nasal Parainfluen 1 PCR NOT DETECTED 01/30/23 03:34 Nasal Parainfluen 2 PCR NOT DETECTED 01/30/23 03:34 Nasal Parainfluen 3 PCR NOT DETECTED 01/30/23 03:34 Nasal Parainfluen 4 PCR NOT DETECTED 01/30/23 03:34 Nasal RSV (PCR) NOT DETECTED 01/30/23 03:34 Nasal B.pertussis DNA PCR NOT DETECTED 01/30/23 03:34 Nasal C.pneumoniae (PCR) NOT DETECTED 01/30/23 03:34 Song Human Metapneumo PCR NOT DETECTED 01/30/23 03:34 Nasal M.pneumoniae (PCR) NOT DETECTED 01/30/23 03:34 Nasal SARS-CoV-2 (PCR) DETECTED A 01/30/23 03:34
[2023-02-05] MEDS ORDERED: MAGNESIUM CITRATE 296 ML BOTTLE PO ONE (11:12)
[2023-02-05] MEDS: traZODone 50 MG TABLET PO SCH (20:58)
[2023-02-05] MEDS: ATORVASTATIN 40 MG TABLET PO SCH (20:58)
[2023-02-06] MEDS: SODIUM CHLORIDE FLUSH 0.9% 10 ML SYRINGE IVP SCH ×3 (00:44→17:12)
[2023-02-06] MEDS: ACETAMINOPHEN 325 MG TABLET PO PRN ×3 (05:28→21:40)
[2023-02-06] MEDS: INSULIN LISPRO 300 UNIT/3 ML PEN SUBQ SCH ×4 (10:04→21:51)
[2023-02-06] MEDS: POTASSIUM CHLORIDE 20 MEQ TABLET PO SCH (10:05)
[2023-02-06] MEDS: APIXABAN 5 MG TABLET PO SCH ×2 (10:06→21:40)
[2023-02-06] MEDS: ASPIRIN CHEW 81 MG TABLET PO SCH (10:06)
[2023-02-06] MEDS: CHOLECALCIFEROL 25 MCG TABLET PO SCH (10:06)
[2023-02-06] MEDS: guaiFENesin 600 MG TABLET PO SCH ×2 (10:06→21:40)
[2023-02-06] MEDS: DOCUSATE SODIUM 250 MG CAPSULE PO SCH (10:06)
[2023-02-06] MEDS: amLODIPine 5 MG TABLET PO SCH (10:06)
[2023-02-06] MEDS: hydroCHLOROthiazide 25 MG TABLET PO SCH (10:07)
[2023-02-06] MEDS: polyethylene glycoL 3350 17 GM PACKET PO SCH (10:07)
[2023-02-06] MEDS: SENNA 8.6 MG TABLET PO SCH (10:07)
--- NOTE | 2023-02-06 10:28 | CT Report ---
PROCEDURE: HEAD WO INDICATIONS: Follow up CVA TECHNIQUE: Noncontrast 4.5 mm thick angled axial sections acquired from the foramen magnum to the vertex. For r adiation dose reduction, the following was used: automated exposure control, adjustment of mA and/or kV according to patient size. COMPARISON: Correlation is made with CTs, 02/05/2023. FINDINGS: Image quality: Excellent. CSF spaces: Basal cisterns are patent. No extra-axial fluid collections. Ventricles are normal in size and shape. Brain: No midline shift. No intracranial masses or hemorrhage. Davis-white matter interface is norm al. Skull and face: Calvarium and visualized facial bones are intact, without suspicious lesions. Sinuses: Moderate mucosal thickening can be seen within the maxillary sinuses, including mucous reten tion cysts within the left maxillary sinus. There is mild to moderate mucosal thickening within the e thmoid air cells. Milder mucosal thickening can be seen elsewhere within the paranasal sinuses. IMPRESSION: No significant acute intracranial abnormality is seen. No definite change from the prior. Reviewed by: Adrian Simon MD on 02/06/2023 9:27 AM [facility] Approved by: Adrian Simon MD on 02/06/2023 9:27 AM [facility] Station ID: [id number]
--- NOTE | 2023-02-06 10:38 | PROVIDER PROGRESS NOTE ---
Assessment/Plan - Problem List (1) Acute respiratory failure with hypoxia Assessment/Plan: (1) Left-sided weakness Assessment/Plan: --Stroke with NIHSS 9 called and she was sent for a stat CT/CTA Head and Neck on 02/05. Imaging studies were negative. --Appears to have LUE and LLE flaccid paralysis with a left facial droop. --She does not qualify for thrombolytics given unknown time of onset and she is on Eliquis. --The above was discussed with tele neurology. Recommended starting asprin 81 mg and high intensity statin. Recommended continued Eliquis. --MRI is pending for tomorrow. Family requested that this be performed without contrast. I did inform them that we may not be able to see if there are metastatic lesions on a noncontrasted study. --Holding off on TTE as it was performed recently. No evidence of thrombus. She is already on anticoagulation. --Developing contracture in right wrist. --Will have PT/OT reevaluate her. --[employer] ordered. (1) Acute respiratory failure with hypoxia Conclusion/Plan: -- Hypoxia secondary to COVID-19 pneumonia and pulmonary embolus. -- Continue supplemental oxygen. She is currently on 1 L via nasal cannula. --Family would like to stop the dexamethasone. (2) COVID-19 Conclusion/Plan: -- Patient does not want remdesivir. This was discontinued. --Discontinue dexamethasone per family request. (3) Bilateral pulmonary embolism Conclusion/Plan: -- Possibly provoked by COVID-19 or underlying malignancy. --Continue Eliquis 10 mg twice daily for 7 days followed by Eliquis 5 mg p.o. twice daily for 3 to 6 months. (4) Right heart enlargement Conclusion/Plan: -- TTE showing no evidence of RHS or enlargement. (5) Lung mass Conclusion/Plan: -- Several lung masses seen on CT chest. This will need outpatient follow-up. --Multiple liver masses. (6) Hypokalemia Conclusion/Plan: --Replacing potassium as needed. (7) Hypomagnesemia Conclusion/Plan: --Replacing as needed. Dispo: MRI tomorrow to evaluate for CVA. (4) Pulmonary embolism Qualifiers: Pulmonary embolism type: single subsegmental (without acute cor pulmonale) Qualified Code(s): I26.93 - Single subsegmental pulmonary embolism without acute cor pulmonale - Current Meds Current Meds: Current Medications Generic Name Dose Route Start Last Admin Trade Name Freq PRN Reason Stop Dose Admin Acetaminophen 650 mg 01/30/23 15:42 02/06/23 05:28 Acetaminophen 325 Mg Tablet PO 650 mg Q4HR PRN Administration Pain 1 to 4, or Fever Amlodipine Besylate 10 mg 02/02/23 09:00 02/06/23 10:06 Amlodipine 5 Mg Tablet PO 10 mg DAILY BRANDY Administration Aspirin 81 mg 02/06/23 09:00 02/06/23 10:06 Aspirin Chew 81 Mg Tablet PO 81 mg DAILY BRANDY Administration Atorvastatin Calcium 40 mg 02/05/23 21:00 02/05/23 20:58 Atorvastatin 40 Mg Tablet PO 40 mg QPM BRANDY Administration Cholecalciferol 50 mcg 02/02/23 09:00 02/06/23 10:06 Cholecalciferol 25 Mcg Tablet PO 50 mcg DAILY BRANDY Administration Docusate Sodium 250 - 500 mg 02/01/23 13:00 02/06/23 10:06 Docusate Sodium 250 Mg Capsule PO Not Given DAILY [facility] Guaifenesin 600 mg 01/30/23 21:00 02/06/23 10:06 Guaifenesin 600 Mg Tablet PO Not Given BID [facility] Hydralazine HCl 5 mg 02/05/23 02:45 02/05/23 03:15 Hydralazine Inj 20 Mg/Ml Vial IVP 5 mg Q6H PRN Administration hypertension sbp>170 Hydrochlorothiazide 25 mg 02/05/23 09:00 02/06/23 10:07 Hydrochlorothiazide 25 Mg Tablet PO Not Given DAILY [facility] Insulin Human Lispro 1 - 9 unit 02/03/23 08:00 02/06/23 10:04 Insulin Lispro 300 Unit/3 Ml Pen SUBQ 3 unit 0800,1200,1700,2100 [facility] Administration Protocol Ondansetron HCl 4 mg 01/30/23 15:42 02/03/23 08:41 Ondansetron 4 Mg/2 Ml Vial IVP 4 mg Q6HR PRN Administration Nausea / Vomiting Polyethylene Glycol 17 gm 02/02/23 09:00 02/06/23 10:07 Polyethylene Glycol 3350 17 Gm Packet PO Not Given DAILY [facility] Potassium Chloride 40 meq 02/03/23 11:00 02/06/23 10:05 Potassium Chloride 20 Meq Tablet PO 40 meq DAILYWM BRANDY Administration Senna 8.6 - 17.2 mg 02/01/23 13:00 02/06/23 10:07 Senna 8.6 Mg Tablet PO Not Given DAILY BRANDY Sodium Chloride 10 ml 01/30/23 15:42 02/05/23 03:16 Sodium Chloride Flush 0.9% 10 Ml Syringe IVP 10 ml PRN PRN Administration NEEDED PER PROVIDER ORDERS Sodium Chloride 10 ml 01/30/23 17:00 02/06/23 10:07 Sodium Chloride Flush 0.9% 10 Ml Syringe IVP 10 ml 0100,0900,1700 BRANDY Administration Trazodone HCl 50 mg 02/02/23 21:00 02/05/23 20:58 Trazodone 50 Mg Tablet PO 50 mg QPM BRANDY Administration - Lab Result Fish Bone Diagrams: 02/04/23 05:27 02/04/23 05:27 - Additional Planning My Orders: My Active Orders 02/05/23 11:28 BRAIN WO [MRI] Routine 02/05/23 Dinner Dysphagia - Puree [DIET] 02/05/23 21:00 Atorvastatin [Lipitor] 40 mg PO QPM 02/06/23 09:00 Aspirin Chewable [St Raad Aspirin] 81 mg PO DAILY Subjective - Subjective Patient Reports: No Complaints, Other (Right sided contractures. She is not following directions this morning. Appears to have some movement in her left lower extremity.) Objective Vital Signs: Vital Signs - 24 hr 02/05/23 02/05/23 02/05/23 13:36 16:30 20:45 Temperature 37 C 37.1 C 36.5 C Heart Rate [ 107 H 111 H 120 H Brachial] Respiratory 20 22 21 Rate Blood Pressure [Brachial artery] Blood Pressure 165/80 H 162/74 H 191/91 H [Left Brachial artery] O2 Saturation 99 99 99 If not protocol 3 3 3 : Oxygen Flow, liters/minute 02/05/23 02/06/23 02/06/23 21:45 00:45 05:00 Temperature 37.2 C 37.1 C Heart Rate [ 124 H 108 H Brachial] Respiratory 22 20 Rate Blood Pressure 158/87 H [Brachial artery] Blood Pressure 168/91 H [Left Brachial artery] O2 Saturation 98 99 If not protocol 3 3 3 : Oxygen Flow, liters/minute 02/06/23 02/06/23 07:37 08:34 Temperature 37 C Heart Rate [ 97 Brachial] Respiratory 22 Rate Blood Pressure 155/82 H [Brachial artery] Blood Pressure [Left Brachial artery] O2 Saturation 100 If not protocol 3 3 : Oxygen Flow, liters/minute Oxygen O2 Source Nasal cannula Oxygen Flow Rate 2 I&O (Last 24 Hrs): Intake and Output Totals x24h 02/04/23 02/05/23 02/06/23 23:59 23:59 23:59 Intake Total 1160 340 90 Output Total 525 550 300 Balance 635 -210 -210 General: Alert, Other (Cannot follow directions.) Neuro: Focal Deficits Cardiovascular: Regular rate, Normal S1, Normal S2 Respiratory: Chest non-tender, No respiratory distress, Breath sounds nml Abdomen: Normal bowel sounds, No tenderness - Results Results: Laboratory Results WBC 19.9 x10^3/uL (4.8-10.8) H 02/04/23 05:27 RBC 3.84 10^6/uL (4.20-5.40) L 02/04/23 05:27 Hgb 10.7 g/dL (12.0-16.0) L 02/04/23 05:27 Hct 35.0 % (37.0-47.0) L 02/04/23 05:27 MCV 91.1 fL (81.0-99.0) 02/04/23 05:27 MCH 27.9 pg (27.0-31.0) 02/04/23 05:27 MCHC 30.6 g/dL (32.0-36.0) L 02/04/23 05:27 RDW 15.3 % (12.0-15.0) H 02/04/23 05:27 Plt Count 376 10^3/uL (130-450) 02/04/23 05:27 MPV 10.9 fL (7.9-10.8) H 02/04/23 05:27 Neut # (Auto) 17.3 10^3/uL (1.5-6.6) H 02/04/23 05:27 Lymph # (Auto) 1.2 10^3/uL (1.5-3.5) L 02/04/23 05:27 [place] # (Auto) 1.2 10^3/uL (0.0-1.0) H 02/04/23 05:27 Eos # (Auto) 0.0 10^3/uL (0.0-0.7) 02/04/23 05:27 Baso # (Auto) 0.0 10^3/uL (0.0-0.1) 02/04/23 05:27 Absolute Nucleated RBC 0.00 x10^3/uL 02/04/23 05:27 Total Counted 100 02/03/23 06:14 Band Neuts % (Manual) 2 % (0-10) 02/03/23 06:14 Abnorm Lymph % (Manual) 0 % 02/03/23 06:14 Nucleated RBC % 0.0 /100WBC 02/04/23 05:27 Neutrophils # (Manual) 15.2 10^3/uL (1.5-6.6) H 02/03/23 06:14 Lymphocytes # (Manual) 3.4 10^3/uL (1.5-3.5) 02/03/23 06:14 Monocytes # (Manual) 1.6 10^3/uL (0.0-1.0) H 02/03/23 06:14 Eosinophils # (Manual) 0.0 10^3/uL (0-0.7) 02/03/23 06:14 Basophils # (Manual) 0.0 10^3/uL (0-0.1) 02/03/23 06:14 Differential Comment MANUAL DIFFERENTIAL 02/03/23 06:14 Platelet Estimate NORMAL (130-450,000) (NORMAL) 02/03/23 06:14 RBC Morph Micro Appear NORMAL APPEARANCE (NORMAL) 02/03/23 06:14 PT 16.8 secs (9.9-12.6) H 01/30/23 00:01 INR 1.6 (0.8-1.2) H 01/30/23 00:01 APTT 102.0 secs (24.9-33.3) H* 01/30/23 11:17 Sodium 138 mmol/L (135-145) 02/04/23 05:27 Potassium 3.9 mmol/L (3.5-4.5) 02/04/23 05:27 Chloride 98 mmol/L (101-111) L 02/04/23 05:27 Carbon Dioxide 31 mmol/L (21-32) 02/04/23 05:27 Anion Gap 9.0 (6-13) 02/04/23 05:27 BUN 21 mg/dL (6-20) H 02/04/23 05:27 Creatinine 0.5 mg/dL (0.6-1.3) L 02/04/23 05:27 Estimated GFR (MDRD) 121 (>89) 02/04/23 05:27 Glucose 161 mg/dL (74-104) H 02/04/23 05:27 POC Whole Bld Glucose 213 mg/dL (70 - 100) H 02/06/23 08:05 Calcium 8.9 mg/dL (8.5-10.3) 02/04/23 05:27 Magnesium 2.2 mg/dL (1.7-2.3) 01/31/23 05:09 Total Bilirubin 1.5 mg/dL (0.2-1.0) H 01/31/23 05:09 Direct Bilirubin 0.77 mg/dL (0.03-0.18) H 01/31/23 05:09 AST 29 IU/L (10-42) 01/31/23 05:09 ALT 6 IU/L (10-60) L 01/31/23 05:09 Alkaline Phosphatase 233 IU/L (42-121) H 01/31/23 05:09 Troponin I High Sens 28.5 ng/L (2.3-14.8) H* 01/31/23 05:09 B-Natriuretic Peptide 75 pg/mL (5-100) 01/30/23 07:36 Total Protein 6.6 g/dL (6.4-8.9) 01/31/23 05:09 Albumin 3.1 g/dL (3.2-5.5) L 01/31/23 05:09 Globulin 3.5 g/dL (2.1-4.2) 01/31/23 05:09 Albumin/Globulin Ratio 0.9 (1.0-2.2) L 01/30/23 00:01 Lipase 23 U/L (11-82) 01/30/23 00:01 Nasal Adenovirus (PCR) NOT DETECTED 01/30/23 03:34 Nasal B. parapertussis DNA (PCR) NOT DETECTED 01/30/23 03:34 Nasal Coronavir 229E PCR NOT DETECTED 01/30/23 03:34 Nasal Coronavir HKU1 PCR NOT DETECTED 01/30/23 03:34 Nasal Coronavir NL63 PCR NOT DETECTED 01/30/23 03:34 Nasal Coronavir OC43 PCR NOT DETECTED 01/30/23 03:34 Nasal Enterovir/Rhinovir PCR NOT DETECTED 01/30/23 03:34 Nasal Influenza B PCR NOT DETECTED 01/30/23 03:34 Nasal Influenza A PCR NOT DETECTED 01/30/23 03:34 Nasal Parainfluen 1 PCR NOT DETECTED 01/30/23 03:34 Nasal Parainfluen 2 PCR NOT DETECTED 01/30/23 03:34 Nasal Parainfluen 3 PCR NOT DETECTED 01/30/23 03:34 Nasal Parainfluen 4 PCR NOT DETECTED 01/30/23 03:34 Nasal RSV (PCR) NOT DETECTED 01/30/23 03:34 Nasal B.pertussis DNA PCR NOT DETECTED 01/30/23 03:34 Nasal C.pneumoniae (PCR) NOT DETECTED 01/30/23 03:34 Song Human Metapneumo PCR NOT DETECTED 01/30/23 03:34 Nasal M.pneumoniae (PCR) NOT DETECTED 01/30/23 03:34 Nasal SARS-CoV-2 (PCR) DETECTED A 01/30/23 03:34
[2023-02-06 12:16] LABS: GLUCOSE, URINE (UA) NEGATIVE (NEGATIVE); KETONES,URINE (UA) NEGATIVE (NEGATIVE); LEUKOCYTE ESTERASE, URINE NEGATIVE (NEGATIVE); NITRITE,URINE POSITIVE (NEGATIVE); OCCULT BLOOD,URINE TRACE-INTA (NEGATIVE); PROTEIN,URINE 100 mg/dL (NEGATIVE); UROBILINOGEN,URINE 4 E.U./dL (NORMAL)
[2023-02-06 12:25] LABS: BACTERIA,URINE Many /HPF (None Seen); BILIRUBIN,URINE NEGATIVE (NEGATIVE); CLARITY,URINE SL. CLOUDY (CLEAR); ICTOTEST,URINE NEGATIVE; RBC,URINE 0-5 /HPF (0-5); SQUAMOUS EPITHELIAL CELL,UR NONE SEEN (<= Few)
[2023-02-06 12:26] LABS: CASTS, URINE 0-2 Fine Granular /LPF; MUCUS,URINE Few Strands
[2023-02-06] MEDS: cefTRIAXone 2 GM in SODIUM CHLORIDE 0.9% MINIBAG 100 ML IV SCH (18:55)
[2023-02-06] MEDS ORDERED: PETROLATUM WHITE 5 GM PACKET TOP PRN (20:00)
[2023-02-06] MEDS: ATORVASTATIN 40 MG TABLET PO SCH (21:40)
[2023-02-06] MEDS: traZODone 50 MG TABLET PO SCH (21:40)
[2023-02-06] MEDS ORDERED: MORPHINE 2 MG/ML CARPUJECT IVP ONE (22:00)
--- NOTE | 2023-02-06 22:48 | XRAY Report ---
PROCEDURE: Abdomen 1 V INDICATIONS: abdominal pain TECHNIQUE: One view of the abdomen acquired. COMPARISON: None. FINDINGS: Surgical changes and devices: None. Bowel: Nonobstructive bowel gas pattern. Stool in the rectum. Soft tissues: No suspicious abdominal calcifications. Visualized solid organ contours appear normal in size. Bones: No acute or suspicious bony lesions. Discogenic degenerative changes of the visualized spine . Mild symmetric bilateral hip osteoarthrosis. IMPRESSION: Non-obstructive bowel gas pattern. Reviewed by: Karly Atkins MD on 02/06/2023 10:47 PM PST Approved by: Karly Atkins MD on 02/06/2023 10:47 PM [facility] Station ID: [id number]
[2023-02-07] MEDS ORDERED: MAGNESIUM HYDROXIDE 2,400 MG/30 ML UDC PO ONE (01:00)
[2023-02-07] MEDS: SODIUM CHLORIDE FLUSH 0.9% 10 ML SYRINGE IVP SCH ×3 (01:08→16:55)
[2023-02-07] MEDS ORDERED: MAGNESIUM CITRATE 296 ML BOTTLE PO ONE (08:00)
[2023-02-07] MEDS: cefTRIAXone 2 GM in SODIUM CHLORIDE 0.9% MINIBAG 100 ML IV SCH (08:14)
[2023-02-07] MEDS: polyethylene glycoL 3350 17 GM PACKET PO SCH (08:15)
[2023-02-07] MEDS: SENNA 8.6 MG TABLET PO SCH (08:16)
[2023-02-07] MEDS: APIXABAN 5 MG TABLET PO SCH ×2 (08:16→20:54)
[2023-02-07] MEDS: amLODIPine 5 MG TABLET PO SCH (08:16)
[2023-02-07] MEDS: DOCUSATE SODIUM 250 MG CAPSULE PO SCH (08:16)
[2023-02-07] MEDS: CHOLECALCIFEROL 25 MCG TABLET PO SCH (08:16)
[2023-02-07] MEDS: guaiFENesin 600 MG TABLET PO SCH ×2 (08:16→20:54)
[2023-02-07] MEDS: ASPIRIN CHEW 81 MG TABLET PO SCH (08:16)
[2023-02-07] MEDS: POTASSIUM CHLORIDE 20 MEQ TABLET PO SCH (08:16)
[2023-02-07] MEDS: hydroCHLOROthiazide 25 MG TABLET PO SCH (08:16)
[2023-02-07] MEDS: INSULIN LISPRO 300 UNIT/3 ML PEN SUBQ SCH ×4 (08:17→20:54)
[2023-02-07] MEDS ORDERED: cefTRIAXone 2 GM in SODIUM CHLORIDE 0.9% MINIBAG 100 ML IV SCH (09:00)
[2023-02-07 11:06] LABS: BASOPHILS % (AUTO) 0.1 %; EOSINOPHILS % (AUTO) 0.1 %; HCT - HEMATOCRIT 28.2 % (37.0-47.0); HGB - HEMOGLOBIN 8.7 g/dL (12.0-16.0); MEAN CORPUSCULAR HGB CONC 30.9 g/dL (32.0-36.0); MEAN CORPUSCULAR VOLUME 90.7 fL (81.0-99.0); MEAN PLATELET VOLUME 11.3 fL (7.9-10.8); NEUTROPHILS % (AUTO) 89.9 %; PLT - PLATELET COUNT 258 10^3/uL (130-450); RED BLOOD COUNT 3.11 10^6/uL (4.20-5.40); RED CELL DISTRIBUTION WIDTH 16.5 % (12.0-15.0); WHITE BLOOD COUNT 22.5 x10^3/uL (4.8-10.8)
[2023-02-07 11:08] LABS: ABNORMAL LYMPHS % (MANUAL) 0 %
[2023-02-07 11:25] LABS: CALCIUM 9.2 mg/dL (8.5-10.3); CREATININE 0.6 mg/dL (0.6-1.3); MAGNESIUM 1.8 mg/dL (1.7-2.3); POTASSIUM 4.6 mmol/L (3.5-4.5)
[2023-02-07 11:46] LABS: BAND NEUTROPHILS % (MANUAL) 1 %; LYMPHOCYTES # (MANUAL) 1.4 10^3/uL (1.5-3.5); LYMPHOCYTES % (MANUAL) 6 %; METAMYELOCYTES % (MANUAL) 1 %; MONOCYTES # (MANUAL) 0.5 10^3/uL (0.0-1.0); NEUTROPHILS # (MANUAL) 20.5 10^3/uL (1.5-6.6)
[2023-02-07 12:07] LABS: PLATELET ESTIMATE, MANUAL NORMAL (130-450,000) (NORMAL); WBC MORPHOLOGY (MULTIPLE) 1+ HYPERSEG NEUT (NORMAL)
[2023-02-07 12:08] LABS: PLATELET MORPHOLOGY NORMAL APP (NORMAL)
--- NOTE | 2023-02-07 15:12 | MRI Report ---
PROCEDURE: BRAIN WO INDICATIONS: Stroke, left sided weakness TECHNIQUE: Noncontrast axial T1 spin echo, axial T2 fast spin echo, sagittal and axial FLAIR, coronal T2 fast sp in echo, axial gradient echo, axial diffusion and ADC through the brain. COMPARISON: CT head 02/06/2023. FINDINGS: Image quality: Excellent. CSF Spaces: Basal cisterns are patent. No extra-axial fluid collections. Ventricles are normal in size and shape. Brain: Multifocal areas of restricted diffusion throughout the cerebellum, frontal, parietal, tempora l occipital lobes. There is possibly a watershed territory component. No intracranial masses or hemor rhage. Age-related global volume loss and chronic microvascular ischemic changes. Davis/white matter interface is normal. Brainstem appears normal. No chronic ischemic insults. Normal intravascular f low voids are present. Skull and face: Calvarium has normal marrow signal. Orbits appear normal. Sinuses: Mild mucosal thickening. Sinus mucous retention cysts. Small bilateral mastoid effusions. IMPRESSION: 1.Multifocal areas of acute infarction throughout the supratentorial and infratentorial brain, possib ly within a watershed distribution. Other differentials include embolic source. 2.No evidence of hemorrhagic conversion. 3.Age-related global volume loss and chronic microvascular ischemic changes. Reviewed by: Hugo Boyer MD on 02/07/2023 3:11 PM PST Approved by: Hugo Boyer MD on 02/07/2023 3:11 PM PST Station ID: [id number]
--- NOTE | 2023-02-07 16:47 | PROVIDER PROGRESS NOTE ---
Assessment/Plan - Problem List (1) CVA (cerebral vascular accident) Assessment/Plan: A code stroke with NIHSS 9 was called and she was sent for a stat CT/CTA Head and Neck on 02/05. Imaging studies were negative except for moderate ICA stenosis She cont to have LUE and LLE flaccid paralysis with a left facial droop. The above was discussed with tele Neurology, however there is no Consult note by the Neurologist. Recommended starting asprin 81 mg and high intensity statin. Recommended continued Eliquis. She did not qualify for thrombolytics given unknown time of onset and she was already on Eliquis (for PE) Swallow eval revealed she needs pureed food and thickened liquids MRI done today. Family requested that this be performed without contrast. This showed bilateral acute CVAs Plan: Will order bubble study Limited echo, since she may need a PFO closure Start telemetry to watch for Afib Cont anticoagulation and ASA Will check fasting lipid panel and adjust statin if needed. Developing contracture in right wrist, PT/OT to reevaluate her. Cont pureed food and thickened liquids and she needs to be fed I updated the ex- at her bedside today w/ the paln (2) Acute respiratory failure with hypoxia Conclusion/Plan: Hypoxia secondary to COVID-19 pneumonia and pulmonary embolus. Plan: Will try weaning supplemental oxygen. She is currently on 1-3 L via nasal cannula. (3) COVID-19 Conclusion/Plan: Perhaps COVID made her hypercoagulable and the caused PE and multi-focal stroke Patient did not want remdesivir. The order was discontinued. Family wanted us to stop the dexamethasone. Discontinued dexamethasone per family request. Her WBC is 22 today and has been elevated, poss due to infection. Plan: Today she came out of isolation, ordered by Kamala Preston, our Infec Prev RN, however I see no note by her in chart (4) Bilateral pulmonary embolism Conclusion/Plan: Possibly provoked by COVID-19 or underlying malignancy (since lung masses were seen). Plan: She got Eliquis 10 mg twice daily for 7 days, and on 02/06 has transitioned to Eliquis 5 mg p.o. twice daily for 3 to 6 months. (5) Lung mass Conclusion/Plan: Several lung masses seen on CT chest. Multiple liver masses also seen. Plan: This will need outpatient W/U and follow-up. (6) Hypokalemia Conclusion/Plan: Replacing potassium when needed. (7) Hypomagnesemia Conclusion/Plan: Replacing as needed. (8) Right heart enlargement Conclusion/Plan: Abn EKG suggested R heart strain. but her TTE showed no evidence of Right Heart failure or enlargement. - Current Meds Current Meds: Current Medications Generic Name Dose Route Start Last Admin Trade Name Nancy PRN Reason Stop Dose Admin Acetaminophen 650 mg 01/30/23 15:42 02/06/23 21:40 Acetaminophen 325 Mg Tablet PO 650 mg Q4HR PRN Administration Pain 1 to 4, or Fever Amlodipine Besylate 10 mg 02/02/23 09:00 02/07/23 08:16 Amlodipine 5 Mg Tablet PO 10 mg DAILY BRANDY Administration Apixaban 5 mg 02/06/23 21:00 02/07/23 08:16 Apixaban 5 Mg Tablet PO 5 mg BID BRANDY Administration Aspirin 81 mg 02/06/23 09:00 02/07/23 08:16 Aspirin Chew 81 Mg Tablet PO 81 mg DAILY BRANDY Administration Atorvastatin Calcium 40 mg 02/05/23 21:00 02/06/23 21:40 Atorvastatin 40 Mg Tablet PO 40 mg QPM BRANDY Administration Cholecalciferol 50 mcg 02/02/23 09:00 02/07/23 08:16 Cholecalciferol 25 Mcg Tablet PO 50 mcg DAILY BRANDY Administration Docusate Sodium 250 - 500 mg 02/01/23 13:00 02/07/23 08:16 Docusate Sodium 250 Mg Capsule PO 250 mg DAILY BRANDY Administration Guaifenesin 600 mg 01/30/23 21:00 02/07/23 08:16 Guaifenesin 600 Mg Tablet PO 600 mg BID BRANDY Administration Hydralazine HCl 5 mg 02/05/23 02:45 02/05/23 03:15 Hydralazine Inj 20 Mg/Ml Vial IVP 5 mg Q6H PRN Administration hypertension sbp>170 Hydrochlorothiazide 25 mg 02/05/23 09:00 02/07/23 08:16 Hydrochlorothiazide 25 Mg Tablet PO 25 mg DAILY BRANDY Administration Ceftriaxone Sodium 2 gm/ 100 mls @ 200 mls/hr 02/06/23 18:02 02/07/23 08:55 Sodium Chloride IV 02/08/23 09:29 Infused DAILY BRANDY Infusion Insulin Human Lispro 1 - 9 unit 02/03/23 08:00 02/07/23 11:28 Insulin Lispro 300 Unit/3 Ml Pen SUBQ Not Given 0800,1200,1700,2100 [facility] Protocol Ondansetron HCl 4 mg 01/30/23 15:42 02/03/23 08:41 Ondansetron 4 Mg/2 Ml Vial IVP 4 mg Q6HR PRN Administration Nausea / Vomiting Petrolatum 1 applic 02/06/23 20:00 02/06/23 20:11 Petrolatum White 5 Gm Packet TOP 1 applic PRN PRN Administration Dry Lips, dry nares Polyethylene Glycol 17 gm 02/02/23 09:00 02/07/23 08:15 Polyethylene Glycol 3350 17 Gm Packet PO 17 gm DAILY BRANDY Administration Senna 8.6 - 17.2 mg 02/01/23 13:00 02/07/23 08:16 Senna 8.6 Mg Tablet PO 8.6 mg DAILY BRANDY Administration Sodium Chloride 10 ml 01/30/23 15:42 02/05/23 03:16 Sodium Chloride Flush 0.9% 10 Ml Syringe IVP 10 ml PRN PRN Administration NEEDED PER PROVIDER ORDERS Sodium Chloride 10 ml 01/30/23 17:00 02/07/23 08:17 Sodium Chloride Flush 0.9% 10 Ml Syringe IVP 10 ml 0100,0900,1700 BRANDY Administration Trazodone HCl 50 mg 02/02/23 21:00 02/06/23 21:40 Trazodone 50 Mg Tablet PO 50 mg QPM BRANDY Administration - Lab Result Fish Bone Diagrams: 02/07/23 10:49 02/07/23 10:49 - Additional Planning My Orders: My Active Orders 02/06/23 20:00 Petrolatum White [Vaseline] 1 applic TOP PRN PRN 02/06/23 21:00 Apixaban [Eliquis] 5 mg PO BID 02/07/23 16:24 Telemetry- [RC] Q4HR 02/08/23 05:00 LIPID Panel [CHEM] DAILYLAB 02/08/23 07:00 Echo [Echo Limited] [ECHO] Routine Subjective - Subjective Patient Reports: Resting Comfortably, No Complaints Objective Vital Signs: Vital Signs - 24 hr 02/06/23 02/07/23 02/07/23 20:32 01:00 05:00 Temperature 37.1 C 36.6 C 37.0 C Heart Rate [ 114 H 95 114 H Brachial] Respiratory 26 H 16 18 Rate Blood Pressure 158/78 H [Brachial artery] Blood Pressure [Left Brachial artery] Blood Pressure 135/69 H 165/78 H [Right Brachial artery] O2 Saturation 92 95 95 If not protocol 3 : Oxygen Flow, liters/minute 02/07/23 02/07/23 02/07/23 08:08 12:40 15:24 Temperature 36.8 C 36.7 C 37.3 C Heart Rate [ 127 H 115 H 110 H Brachial] Respiratory 20 22 22 Rate Blood Pressure [Brachial artery] Blood Pressure 177/89 H [Left Brachial artery] Blood Pressure 156/82 H 142/71 H [Right Brachial artery] O2 Saturation 94 91 L 93 If not protocol : Oxygen Flow, liters/minute Oxygen O2 Source Room air Oxygen Flow Rate 2 I&O (Last 24 Hrs): Intake and Output Totals x24h 02/05/23 02/06/23 02/07/23 23:59 23:59 23:59 Intake Total 340 450 280 Output Total 550 450 650 Balance -210 0 -370 General: Other (Weak, was somnolent most of day) HEENT: Other (Dry mucosa) Neck: Supple, No JVD Neuro: Other (R side hand and arm contracture, R leg weak, has R gaze preference) Cardiovascular: Regular rate, No murmurs Respiratory: No respiratory distress, Breath sounds nml Abdomen: Normal bowel sounds, Soft, No tenderness Extremities: No clubbing, No edema - Results Results: Laboratory Results WBC 22.5 x10^3/uL (4.8-10.8) H 02/07/23 10:49 RBC 3.11 10^6/uL (4.20-5.40) L 02/07/23 10:49 Hgb 8.7 g/dL (12.0-16.0) L 02/07/23 10:49 Hct 28.2 % (37.0-47.0) L 02/07/23 10:49 MCV 90.7 fL (81.0-99.0) 02/07/23 10:49 MCH 28.0 pg (27.0-31.0) 02/07/23 10:49 MCHC 30.9 g/dL (32.0-36.0) L 02/07/23 10:49 RDW 16.5 % (12.0-15.0) H 02/07/23 10:49 Plt Count 258 10^3/uL (130-450) 02/07/23 10:49 MPV 11.3 fL (7.9-10.8) H 02/07/23 10:49 Neut # (Auto) Not Reportable 02/07/23 10:49 Lymph # (Auto) Not Reportable 02/07/23 10:49 [place] # (Auto) Not Reportable 02/07/23 10:49 Eos # (Auto) Not Reportable 02/07/23 10:49 Baso # (Auto) Not Reportable 02/07/23 10:49 Absolute Nucleated RBC Not Reportable 02/07/23 10:49 Total Counted 100 02/07/23 10:49 Band Neuts % (Manual) 1 % (0-10) 02/07/23 10:49 Abnorm Lymph % (Manual) 0 % 02/07/23 10:49 Metamyelocytes % 1 % (-0) H 02/07/23 10:49 Nucleated RBC % Not Reportable 02/07/23 10:49 Neutrophils # (Manual) 20.5 10^3/uL (1.5-6.6) H 02/07/23 10:49 Lymphocytes # (Manual) 1.4 10^3/uL (1.5-3.5) L 02/07/23 10:49 Monocytes # (Manual) 0.5 10^3/uL (0.0-1.0) 02/07/23 10:49 Eosinophils # (Manual) 0.0 10^3/uL (0-0.7) 02/07/23 10:49 Basophils # (Manual) 0.0 10^3/uL (0-0.1) 02/07/23 10:49 Differential Comment MANUAL DIFFERENTIAL 02/03/23 06:14 WBC Morphology 1+ HYPERSEG NEUT (NORMAL) 02/07/23 10:49 Platelet Estimate NORMAL (130-450,000) (NORMAL) 02/07/23 10:49 Platelet Morphology NORMAL KAREN (NORMAL) 02/07/23 10:49 RBC Morph Micro Appear 1+ HYPOCHROMASIA (NORMAL) 1+ TARGET CELLS (NORMAL) 02/07/23 10:49 RBC Morph Micro Appear 1+ HYPOCHROMASIA (NORMAL) 1+ TARGET CELLS (NORMAL) 02/07/23 10:49 PT 16.8 secs (9.9-12.6) H 01/30/23 00:01 INR 1.6 (0.8-1.2) H 01/30/23 00:01 APTT 102.0 secs (24.9-33.3) H* 01/30/23 11:17 Sodium 144 mmol/L (135-145) 02/07/23 10:49 Potassium 4.6 mmol/L (3.5-4.5) H 02/07/23 10:49 Chloride 105 mmol/L (101-111) 02/07/23 10:49 Carbon Dioxide 27 mmol/L (21-32) 02/07/23 10:49 Anion Gap 12.0 (6-13) 02/07/23 10:49 BUN 28 mg/dL (6-20) H 02/07/23 10:49 Creatinine 0.6 mg/dL (0.6-1.3) 02/07/23 10:49 Estimated GFR (MDRD) 98 (>89) 02/07/23 10:49 Glucose 144 mg/dL (74-104) H 02/07/23 10:49 POC Whole Bld Glucose 129 mg/dL (70 - 100) H 02/07/23 11:21 Calcium 9.2 mg/dL (8.5-10.3) 02/07/23 10:49 Magnesium 1.8 mg/dL (1.7-2.3) 02/07/23 10:49 Total Bilirubin 1.5 mg/dL (0.2-1.0) H 01/31/23 05:09 Direct Bilirubin 0.77 mg/dL (0.03-0.18) H 01/31/23 05:09 AST 29 IU/L (10-42) 01/31/23 05:09 ALT 6 IU/L (10-60) L 01/31/23 05:09 Alkaline Phosphatase 233 IU/L (42-121) H 01/31/23 05:09 Troponin I High Sens 28.5 ng/L (2.3-14.8) H* 01/31/23 05:09 B-Natriuretic Peptide 75 pg/mL (5-100) 01/30/23 07:36 Total Protein 6.6 g/dL (6.4-8.9) 01/31/23 05:09 Albumin 3.1 g/dL (3.2-5.5) L 01/31/23 05:09 Globulin 3.5 g/dL (2.1-4.2) 01/31/23 05:09 Albumin/Globulin Ratio 0.9 (1.0-2.2) L 01/30/23 00:01 Lipase 23 U/L (11-82) 01/30/23 00:01 Urine Color YELLOW 02/06/23 11:55 Urine Clarity SL. CLOUDY (CLEAR) 02/06/23 11:55 Urine pH 6.0 PH (5.0-7.5) 02/06/23 11:55 Ur Specific [place] 1.020 (1.002-1.030) 02/06/23 11:55 Urine Protein 100 mg/dL (NEGATIVE) H 02/06/23 11:55 Urine Glucose (UA) NEGATIVE mg/dL (NEGATIVE) 02/06/23 11:55 Urine Ketones NEGATIVE mg/dL (NEGATIVE) 02/06/23 11:55 Urine Occult Blood TRACE-INTA (NEGATIVE) 02/06/23 11:55 Urine Nitrite POSITIVE (NEGATIVE) H 02/06/23 11:55 Urine Bilirubin NEGATIVE (NEGATIVE) 02/06/23 11:55 Urine Urobilinogen 4 E.U./dL (NORMAL) H 02/06/23 11:55 Ur Leukocyte Esterase NEGATIVE (NEGATIVE) 02/06/23 11:55 Urine RBC 0-5 /HPF (0-5) 02/06/23 11:55 Urine WBC 4-5 /HPF (0-5) 02/06/23 11:55 Ur Squamous Epith Cells NONE SEEN (<= Few) 02/06/23 11:55 Urine Bacteria Many /HPF (None Seen) H 02/06/23 11:55 Urine Casts 0-2 Fine Granular /LPF 02/06/23 11:55 Urine Mucus Few Strands 02/06/23 11:55 Urine Culture Comments INDICATED 02/06/23 11:55 Nasal Adenovirus (PCR) NOT DETECTED 01/30/23 03:34 Nasal B. parapertussis DNA (PCR) NOT DETECTED 01/30/23 03:34 Nasal Coronavir 229E PCR NOT DETECTED 01/30/23 03:34 Nasal Coronavir HKU1 PCR NOT DETECTED 01/30/23 03:34 Nasal Coronavir NL63 PCR NOT DETECTED 01/30/23 03:34 Nasal Coronavir OC43 PCR NOT DETECTED 01/30/23 03:34 Nasal Enterovir/Rhinovir PCR NOT DETECTED 01/30/23 03:34 Nasal Influenza B PCR NOT DETECTED 01/30/23 03:34 Nasal Influenza A PCR NOT DETECTED 01/30/23 03:34 Nasal Parainfluen 1 PCR NOT DETECTED 01/30/23 03:34 Nasal Parainfluen 2 PCR NOT DETECTED 01/30/23 03:34 Nasal Parainfluen 3 PCR NOT DETECTED 01/30/23 03:34 Nasal Parainfluen 4 PCR NOT DETECTED 01/30/23 03:34 Nasal RSV (PCR) NOT DETECTED 01/30/23 03:34 Nasal B.pertussis DNA PCR NOT DETECTED 01/30/23 03:34 Nasal C.pneumoniae (PCR) NOT DETECTED 01/30/23 03:34 Song Human Metapneumo PCR NOT DETECTED 01/30/23 03:34 Nasal M.pneumoniae (PCR) NOT DETECTED 01/30/23 03:34 Nasal SARS-CoV-2 (PCR) DETECTED A 01/30/23 03:34
[2023-02-07] MEDS: traZODone 50 MG TABLET PO SCH (20:54)
[2023-02-07] MEDS: ATORVASTATIN 40 MG TABLET PO SCH (20:54)
[2023-02-08] MEDS: SODIUM CHLORIDE FLUSH 0.9% 10 ML SYRINGE IVP SCH ×3 (00:52→16:55)
[2023-02-08] MEDS ORDERED: LACTATED RINGERS 1,000 ML IV ONE (01:47)
[2023-02-08] MEDS: SODIUM CHLORIDE FLUSH 0.9% 10 ML SYRINGE IVP PRN (02:45)
[2023-02-08 06:05] LABS: CHOL/HDL RATIO 8.7 (<4.4); CHOLESTEROL 148 mg/dL; HDL CHOLESTEROL 17 mg/dL; LDL CHOLESTEROL,CALCULATED 71 mg/dL; LDL/HDL RATIO 4.2 (<4.4); TRIGLYCERIDES 298 mg/dL (48-352); VLDL CHOLESTEROL 60 mg/dL
--- NOTE | 2023-02-08 07:54 | XRAY Report ---
PROCEDURE: Chest 1V INDICATIONS: sob, pna TECHNIQUE: One view of the chest was acquired. COMPARISON: 02/04/2023 FINDINGS: Surgical changes and devices: None. Lungs and pleura: Low lung volumes. Possible left lung base mild opacity. No pleural effusions. Mediastinum: Normal heart size Bones and chest wall: Suspected old left rib fractures. IMPRESSION: Possible left lung base mild opacity, representing early airspace disease or atelectasis. Consider future imaging surveillance to assess for resolution. Low lung volumes on single view radiograph. Reviewed by: Russell Hicmkan MD on 02/08/2023 7:53 AM PST Approved by: Russell Hickman MD on 02/08/2023 7:53 AM PST Station ID: [id number]
[2023-02-08 07:59] LABS: BASOPHILS % (AUTO) 0.1 %; EOSINOPHILS # (AUTO) 0.2 10^3/uL (0.0-0.7); EOSINOPHILS % (AUTO) 0.8 %; HCT - HEMATOCRIT 24.5 % (37.0-47.0); HGB - HEMOGLOBIN 7.6 g/dL (12.0-16.0); LYMPHOCYTES # (AUTO) 1.5 10^3/uL (1.5-3.5); LYMPHOCYTES % (AUTO) 7.6 %; MEAN CORPUSCULAR HEMOGLOBIN 27.5 pg (27.0-31.0); MEAN CORPUSCULAR VOLUME 88.8 fL (81.0-99.0); MONOCYTES % (AUTO) 5.1 %; NEUTROPHILS % (AUTO) 85.5 %; NRBC ABSOLUTE COUNT (AUTO) 0.04 x10^3/uL; NUCLEATED RED BLOOD CELLS AUTO 0.2 /100WBC; PLT - PLATELET COUNT 307 10^3/uL (130-450); RED BLOOD COUNT 2.76 10^6/uL (4.20-5.40); RED CELL DISTRIBUTION WIDTH 16.6 % (12.0-15.0); WHITE BLOOD COUNT 19.8 x10^3/uL (4.8-10.8)
[2023-02-08 08:10] LABS: ALBUMIN 2.8 g/dL (3.2-5.5); ALBUMIN/GLOBULIN RATIO 0.9 (1.0-2.2); BILIRUBIN,TOTAL 1.1 mg/dL (0.2-1.0); CALCIUM 8.8 mg/dL (8.5-10.3); CREATININE 0.6 mg/dL (0.6-1.3); MAGNESIUM 1.7 mg/dL (1.7-2.3); POTASSIUM 3.5 mmol/L (3.5-4.5)
[2023-02-08] MEDS: INSULIN LISPRO 300 UNIT/3 ML PEN SUBQ SCH ×4 (08:12→21:25)
[2023-02-08] MEDS: ASPIRIN CHEW 81 MG TABLET PO SCH (08:13)
[2023-02-08] MEDS: SENNA 8.6 MG TABLET PO SCH (08:13)
[2023-02-08] MEDS: DOCUSATE SODIUM 250 MG CAPSULE PO SCH (08:13)
[2023-02-08] MEDS: APIXABAN 5 MG TABLET PO SCH ×2 (08:13→21:24)
[2023-02-08] MEDS: CHOLECALCIFEROL 25 MCG TABLET PO SCH (08:13)
[2023-02-08] MEDS: amLODIPine 5 MG TABLET PO SCH (08:13)
[2023-02-08] MEDS: hydroCHLOROthiazide 25 MG TABLET PO SCH (08:13)
[2023-02-08] MEDS: guaiFENesin 600 MG TABLET PO SCH ×2 (08:13→21:24)
[2023-02-08] MEDS: cefTRIAXone 2 GM in SODIUM CHLORIDE 0.9% MINIBAG 100 ML IV SCH (08:13)
[2023-02-08] MEDS: polyethylene glycoL 3350 17 GM PACKET PO SCH (08:14)
[2023-02-08] MEDS ORDERED: VANCOMYCIN INJ 1 GM, VANCOMYCIN INJ 250 MG in SODIUM CHLORIDE 0.9% 250 ML IV ONE (10:00)
--- NOTE | 2023-02-08 11:41 | PROVIDER PROGRESS NOTE ---
Assessment/Plan - Problem List (1) Aspiration pneumonia Assessment/Plan: Since 02/06/2023 she has had trouble handling food and her diet. She did have aspiration events. Her diet was de-escalated to pured and honey thick liquids. This morning she spiked a fever of 38 3 C. Respiratory rate burke to 40, heart rate 114 Blood cultures were ordered by telemedicine night doctor. Chest x-ray was done this morning and shows a new infiltrate in the left lung base. Plan: I will start empiric IV antibiotics for the potential of an aspiration pneumonia which will also cover HCAP, using Vanco and Zosyn. I will stop the Ceftriaxone. Order respiratory culture and adjust medications if needed Follow WBC daily (2) Acute respiratory failure with hypoxia Conclusion/Plan: Hypoxia secondary to COVID-19 pneumonia, a new infiltrate (probable bacterial PNA) and pulmonary embolus. Plan: Will try weaning supplemental oxygen. She is currently on 1-3 L via nasal cannula. If needed will order Morphine for air hunger (3) CVA (cerebral vascular accident) Assessment/Plan: On 02/05, a code stroke with NIHSS 9 was called and she was sent for a stat CT/CTA Head and Neck. Imaging studies were negative except for moderate ICA stenosis She cont to have LUE and LLE flaccid paralysis with a left facial droop. The above was discussed with tele Neurology, however there is no Consult note by the Neurologist. Recommended starting asprin 81 mg and high intensity statin. Recommended continued Eliquis. She did not qualify for thrombolytics given unknown time of onset and she was already on Eliquis (for PE) Swallow eval revealed she needs pureed food and thickened liquids MRI done today. Family requested that this be performed without contrast. This showed bilateral acute CVAs Plan: Will order bubble study Limited echo, since she may need a PFO closure Start telemetry to watch for Afib Cont anticoagulation and ASA Will check fasting lipid panel and adjust statin if needed. Developing contracture in right wrist, PT/OT to reevaluate her. Cont pureed food and thickened liquids and she needs to be fed both w/ a spoon I updated daughter Pam by phone today, discussed that this was a big stroke, she has alot of deficit (4) COVID-19 Conclusion/Plan: Perhaps COVID made her hypercoagulable and the caused PE and multi-focal stroke Patient did not want remdesivir. The order was discontinued. Family wanted us to stop the dexamethasone. Discontinued dexamethasone per family request. Her WBC is 22 today and has been elevated, poss due to infection. Plan: On 02/07, she came out of isolation, ordered by Kamala Preston, our Infec Prev RN (5) Bilateral pulmonary embolism Conclusion/Plan: Possibly provoked by COVID-19 or underlying malignancy (since lung masses were seen). Plan: She got Eliquis 10 mg twice daily for 7 days, and on 02/06 has transitioned to Eliquis 5 mg p.o. twice daily for 3 to 6 months. (6) Elevated LFTs Etiology could be shock liver or secondary to COVID, but she did not get remdesivir so this was not the cause. It could be from R heart failure or from her liver masses affecting liver function Plan: I discussed her multi-organ failure with NISREEN, daughter Pam today to determine goals of care; W/U will be w/ abd/pelvis CT or US (7) Lung mass Conclusion/Plan: Several lung masses seen on CT chest. Multiple liver masses also seen. Plan: I discussed this w/ Pam today by phone This will need outpatient W/U and follow-up. (8) Hypokalemia Conclusion/Plan: Replacing potassium when needed. (9) Hypomagnesemia Conclusion/Plan: Replacing as needed. (10) Right heart enlargement Conclusion/Plan: Abn EKG suggested R heart strain. but her TTE showed no evidence of Right Heart failure or enlargement. - Current Meds Current Meds: Current Medications Generic Name Dose Route Start Last Admin Trade Name Nancy PRN Reason Stop Dose Admin Acetaminophen 650 mg 01/30/23 15:42 02/06/23 21:40 Acetaminophen 325 Mg Tablet PO 650 mg Q4HR PRN Administration Pain 1 to 4, or Fever Amlodipine Besylate 10 mg 02/02/23 09:00 02/08/23 08:13 Amlodipine 5 Mg Tablet PO 10 mg DAILY BRANDY Administration Apixaban 5 mg 02/06/23 21:00 02/08/23 08:13 Apixaban 5 Mg Tablet PO 5 mg BID BRANDY Administration Aspirin 81 mg 02/06/23 09:00 02/08/23 08:13 Aspirin Chew 81 Mg Tablet PO 81 mg DAILY BRANDY Administration Atorvastatin Calcium 40 mg 02/05/23 21:00 02/07/23 20:54 Atorvastatin 40 Mg Tablet PO 40 mg QPM BRANDY Administration Cholecalciferol 50 mcg 02/02/23 09:00 02/08/23 08:13 Cholecalciferol 25 Mcg Tablet PO 50 mcg DAILY BRANDY Administration Docusate Sodium 250 - 500 mg 02/01/23 13:00 02/08/23 08:13 Docusate Sodium 250 Mg Capsule PO 250 mg DAILY BRANDY Administration Guaifenesin 600 mg 01/30/23 21:00 02/08/23 08:13 Guaifenesin 600 Mg Tablet PO 600 mg BID BRANDY Administration Hydralazine HCl 5 mg 02/05/23 02:45 02/05/23 03:15 Hydralazine Inj 20 Mg/Ml Vial IVP 5 mg Q6H PRN Administration hypertension sbp>170 Hydrochlorothiazide 25 mg 02/05/23 09:00 02/08/23 08:13 Hydrochlorothiazide 25 Mg Tablet PO 25 mg DAILY BRANDY Administration Insulin Human Lispro 1 - 9 unit 02/03/23 08:00 02/08/23 08:12 Insulin Lispro 300 Unit/3 Ml Pen SUBQ 1 unit 0800,1200,1700,2100 BRANDY Administration Protocol Ondansetron HCl 4 mg 01/30/23 15:42 02/03/23 08:41 Ondansetron 4 Mg/2 Ml Vial IVP 4 mg Q6HR PRN Administration Nausea / Vomiting Petrolatum 1 applic 02/06/23 20:00 02/06/23 20:11 Petrolatum White 5 Gm Packet TOP 1 applic PRN PRN Administration Dry Lips, dry nares Polyethylene Glycol 17 gm 02/02/23 09:00 02/08/23 08:14 Polyethylene Glycol 3350 17 Gm Packet PO 17 gm DAILY BRANDY Administration Senna 8.6 - 17.2 mg 02/01/23 13:00 02/08/23 08:13 Senna 8.6 Mg Tablet PO 8.6 mg DAILY BRANDY Administration Sodium Chloride 10 ml 01/30/23 15:42 02/08/23 02:45 Sodium Chloride Flush 0.9% 10 Ml Syringe IVP 10 ml PRN PRN Administration NEEDED PER PROVIDER ORDERS Sodium Chloride 10 ml 01/30/23 17:00 02/08/23 08:14 Sodium Chloride Flush 0.9% 10 Ml Syringe IVP 10 ml 0100,0900,1700 BRANDY Administration Trazodone HCl 50 mg 02/02/23 21:00 02/07/23 20:54 Trazodone 50 Mg Tablet PO 50 mg QPM BRANDY Administration - Lab Result Fish Bone Diagrams: 02/08/23 07:46 02/08/23 07:46 - Additional Planning My Orders: My Active Orders 02/07/23 16:24 Telemetry- [RC] Q4HR 02/08/23 CUL, RESPIRATORY [RM] Stat 02/08/23 07:00 Echo [Echo Limited] [ECHO] Routine 02/08/23 12:00 Piperacillin/Tazobactam [Zosyn] 3.375 gm Sodium Chloride 0.9% Minibag [Normal Saline 0.9% Minibag] 100 ml IV ONCE 02/08/23 15:00 Piperacillin/Tazobactam [Zosyn] 3.375 gm Sodium Chloride 0.9% Minibag [Normal Saline 0.9% Minibag] 100 ml IV Q8H 02/08/23 22:00 Vancomycin Inj [Vancomycin] 1 gm Sodium Chloride 0.9% [Normal Saline 0.9%] 250 ml IV Q12H Subjective - Subjective Nursing Reports: Other (Fatigued during fever this morning) Objective Vital Signs: Vital Signs - 24 hr 02/07/23 02/07/23 02/07/23 12:40 15:24 20:29 Temperature 36.7 C 37.3 C 37.6 C Heart Rate [ 115 H 110 H 121 H Brachial] Respiratory 22 22 22 Rate Blood Pressure 156/82 H 142/71 H 152/78 H [Right Brachial artery] O2 Saturation 91 L 93 93 If not protocol : Oxygen Flow, liters/minute 02/08/23 02/08/23 02/08/23 01:00 06:04 07:00 Temperature 36.5 C 38.3 C H Heart Rate [ 123 H 114 H Brachial] Respiratory 32 H 40 H Rate Blood Pressure 157/92 H 152/70 H [Right Brachial artery] O2 Saturation 94 90 L If not protocol 2 : Oxygen Flow, liters/minute 02/08/23 02/08/23 02/08/23 07:27 07:40 08:26 Temperature 37.4 C Heart Rate [ 111 H Brachial] Respiratory 36 H Rate Blood Pressure 147/73 H [Right Brachial artery] O2 Saturation 94 99 94 If not protocol : Oxygen Flow, liters/minute 02/08/23 02/08/23 02/08/23 09:30 10:45 11:23 Temperature 37.0 C Heart Rate [ 114 H Brachial] Respiratory 32 H Rate Blood Pressure 163/79 H [Right Brachial artery] O2 Saturation 94 96 If not protocol 2 : Oxygen Flow, liters/minute Oxygen O2 Source Nasal cannula Oxygen Flow Rate 2 I&O (Last 24 Hrs): Intake and Output Totals x24h 02/06/23 02/07/23 02/08/23 23:59 23:59 23:59 Intake Total 195 967 0025 Output Total 450 1100 200 Balance 0 -580 1230 General: Other (Somnolent, difficult to arouse) HEENT: Mucous membr. moist/pink Neuro: Other (Obtunded, responds to pain. R arm and R hand are in contracture.) Cardiovascular: Regular rate Respiratory: No respiratory distress Abdomen: Soft Extremities: No clubbing, No edema - Results Results: Laboratory Results WBC 19.8 x10^3/uL (4.8-10.8) H 02/08/23 07:46 RBC 2.76 10^6/uL (4.20-5.40) L 02/08/23 07:46 Hgb 7.6 g/dL (12.0-16.0) L 02/08/23 07:46 Hct 24.5 % (37.0-47.0) L 02/08/23 07:46 MCV 88.8 fL (81.0-99.0) 02/08/23 07:46 MCH 27.5 pg (27.0-31.0) 02/08/23 07:46 MCHC 31.0 g/dL (32.0-36.0) L 02/08/23 07:46 RDW 16.6 % (12.0-15.0) H 02/08/23 07:46 Plt Count 307 10^3/uL (130-450) 02/08/23 07:46 MPV 11.0 fL (7.9-10.8) H 02/08/23 07:46 Neut # (Auto) 17.0 10^3/uL (1.5-6.6) H 02/08/23 07:46 Lymph # (Auto) 1.5 10^3/uL (1.5-3.5) 02/08/23 07:46 [place] # (Auto) 1.0 10^3/uL (0.0-1.0) 02/08/23 07:46 Eos # (Auto) 0.2 10^3/uL (0.0-0.7) 02/08/23 07:46 Baso # (Auto) 0.0 10^3/uL (0.0-0.1) 02/08/23 07:46 Absolute Nucleated RBC 0.04 x10^3/uL 02/08/23 07:46 Total Counted 100 02/07/23 10:49 Band Neuts % (Manual) 1 % (0-10) 02/07/23 10:49 Abnorm Lymph % (Manual) 0 % 02/07/23 10:49 Metamyelocytes % 1 % (-0) H 02/07/23 10:49 Nucleated RBC % 0.2 /100WBC 02/08/23 07:46 Neutrophils # (Manual) 20.5 10^3/uL (1.5-6.6) H 02/07/23 10:49 Lymphocytes # (Manual) 1.4 10^3/uL (1.5-3.5) L 02/07/23 10:49 Monocytes # (Manual) 0.5 10^3/uL (0.0-1.0) 02/07/23 10:49 Eosinophils # (Manual) 0.0 10^3/uL (0-0.7) 02/07/23 10:49 Basophils # (Manual) 0.0 10^3/uL (0-0.1) 02/07/23 10:49 Differential Comment MANUAL DIFFERENTIAL 02/03/23 06:14 WBC Morphology 1+ HYPERSEG NEUT (NORMAL) 02/07/23 10:49 Platelet Estimate NORMAL (130-450,000) (NORMAL) 02/07/23 10:49 Platelet Morphology NORMAL KAREN (NORMAL) 02/07/23 10:49 RBC Morph Micro Appear 1+ HYPOCHROMASIA (NORMAL) 1+ TARGET CELLS (NORMAL) 02/07/23 10:49 RBC Morph Micro Appear 1+ HYPOCHROMASIA (NORMAL) 1+ TARGET CELLS (NORMAL) 02/07/23 10:49 PT 16.8 secs (9.9-12.6) H 01/30/23 00:01 INR 1.6 (0.8-1.2) H 01/30/23 00:01 APTT 102.0 secs (24.9-33.3) H* 01/30/23 11:17 Sodium 141 mmol/L (135-145) 02/08/23 07:46 Potassium 3.5 mmol/L (3.5-4.5) 02/08/23 07:46 Chloride 103 mmol/L (101-111) 02/08/23 07:46 Carbon Dioxide 31 mmol/L (21-32) 02/08/23 07:46 Anion Gap 7.0 (6-13) 02/08/23 07:46 BUN 28 mg/dL (6-20) H 02/08/23 07:46 Creatinine 0.6 mg/dL (0.6-1.3) 02/08/23 07:46 Estimated GFR (MDRD) 98 (>89) 02/08/23 07:46 Glucose 176 mg/dL (74-104) H 02/08/23 07:46 POC Whole Bld Glucose 194 mg/dL (70 - 100) H 02/08/23 11:15 Lactic Acid 1.1 mmol/L (0.5-2.2) 02/08/23 07:50 Calcium 8.8 mg/dL (8.5-10.3) 02/08/23 07:46 Magnesium 1.7 mg/dL (1.7-2.3) 02/08/23 07:46 Total Bilirubin 1.1 mg/dL (0.2-1.0) H 02/08/23 07:46 Direct Bilirubin 0.77 mg/dL (0.03-0.18) H 01/31/23 05:09 AST 148 IU/L (10-42) H 02/08/23 07:46 ALT 119 IU/L (10-60) H 02/08/23 07:46 Alkaline Phosphatase 701 IU/L (42-121) H 02/08/23 07:46 Troponin I High Sens 28.5 ng/L (2.3-14.8) H* 01/31/23 05:09 B-Natriuretic Peptide 75 pg/mL (5-100) 01/30/23 07:36 Total Protein 6.0 g/dL (6.4-8.9) L 02/08/23 07:46 Albumin 2.8 g/dL (3.2-5.5) L 02/08/23 07:46 Globulin 3.2 g/dL (2.1-4.2) 02/08/23 07:46 Albumin/Globulin Ratio 0.9 (1.0-2.2) L 02/08/23 07:46 Triglycerides 298 mg/dL (48-352) 02/08/23 05:11 Cholesterol 148 mg/dL (-200) 02/08/23 05:11 LDL Cholesterol, Calc 71 mg/dL (-129) 02/08/23 05:11 VLDL Cholesterol 60 mg/dL 02/08/23 05:11 HDL Cholesterol 17 mg/dL (60-) L 02/08/23 05:11 LDL/HDL Ratio 4.2 (<4.4) 02/08/23 05:11 Cholesterol/HDL Ratio 8.7 (<4.4) 02/08/23 05:11 Lipase 23 U/L (11-82) 01/30/23 00:01 Urine Color YELLOW 02/06/23 11:55 Urine Clarity SL. CLOUDY (CLEAR) 02/06/23 11:55 Urine pH 6.0 PH (5.0-7.5) 02/06/23 11:55 Ur Specific [place] 1.020 (1.002-1.030) 02/06/23 11:55 Urine Protein 100 mg/dL (NEGATIVE) H 02/06/23 11:55 Urine Glucose (UA) NEGATIVE mg/dL (NEGATIVE) 02/06/23 11:55 Urine Ketones NEGATIVE mg/dL (NEGATIVE) 02/06/23 11:55 Urine Occult Blood TRACE-INTA (NEGATIVE) 02/06/23 11:55 Urine Nitrite POSITIVE (NEGATIVE) H 02/06/23 11:55 Urine Bilirubin NEGATIVE (NEGATIVE) 02/06/23 11:55 Urine Urobilinogen 4 E.U./dL (NORMAL) H 02/06/23 11:55 Ur Leukocyte Esterase NEGATIVE (NEGATIVE) 02/06/23 11:55 Urine RBC 0-5 /HPF (0-5) 02/06/23 11:55 Urine WBC 4-5 /HPF (0-5) 02/06/23 11:55 Ur Squamous Epith Cells NONE SEEN (<= Few) 02/06/23 11:55 Urine Bacteria Many /HPF (None Seen) H 02/06/23 11:55 Urine Casts 0-2 Fine Granular /LPF 02/06/23 11:55 Urine Mucus Few Strands 02/06/23 11:55 Urine Culture Comments INDICATED 02/06/23 11:55 Nasal Adenovirus (PCR) NOT DETECTED 01/30/23 03:34 Nasal B. parapertussis DNA (PCR) NOT DETECTED 01/30/23 03:34 Nasal Coronavir 229E PCR NOT DETECTED 01/30/23 03:34 Nasal Coronavir HKU1 PCR NOT DETECTED 01/30/23 03:34 Nasal Coronavir NL63 PCR NOT DETECTED 01/30/23 03:34 Nasal Coronavir OC43 PCR NOT DETECTED 01/30/23 03:34 Nasal Enterovir/Rhinovir PCR NOT DETECTED 01/30/23 03:34 Nasal Influenza B PCR NOT DETECTED 01/30/23 03:34 Nasal Influenza A PCR NOT DETECTED 01/30/23 03:34 Nasal Parainfluen 1 PCR NOT DETECTED 01/30/23 03:34 Nasal Parainfluen 2 PCR NOT DETECTED 01/30/23 03:34 Nasal Parainfluen 3 PCR NOT DETECTED 01/30/23 03:34 Nasal Parainfluen 4 PCR NOT DETECTED 01/30/23 03:34 Nasal RSV (PCR) NOT DETECTED 01/30/23 03:34 Nasal B.pertussis DNA PCR NOT DETECTED 01/30/23 03:34 Nasal C.pneumoniae (PCR) NOT DETECTED 01/30/23 03:34 Song Human Metapneumo PCR NOT DETECTED 01/30/23 03:34 Nasal M.pneumoniae (PCR) NOT DETECTED 01/30/23 03:34 Nasal SARS-CoV-2 (PCR) DETECTED A 01/30/23 03:34
[2023-02-08] MEDS ORDERED: PIPERACILLIN/TAZOBACTAM 3.375 GM in SODIUM CHLORIDE 0.9% MINIBAG 100 ML IV ONE (12:00)
[2023-02-08] MEDS ORDERED: MORPHINE 2 MG/ML CARPUJECT IVP ONE (14:18)
[2023-02-08] MEDS: PIPERACILLIN/TAZOBACTAM 3.375 GM in SODIUM CHLORIDE 0.9% MINIBAG 100 ML IV SCH (14:25)
--- NOTE | 2023-02-08 14:46 | ADVANCE CARE PLANNING NOTE ---
Advance Care Planning - Planning Encounter Date: 02/08/23 Time: 13:00 Purpose: To establish DPNEERAJ's wishes re: goals of care To re-address CODE BLUE status, given multiple diagnoses and worsening clinical status Parties in Attendance: I spoke to the daughter and DPOAPam by phone Decisional Capacity of the Patient: She is obtunded after a stroke plus from a fever, and does not have decisional capacity. - Diagnosis for Encounter (1) CVA (cerebral vascular accident) Summary: MRI done 02/07/23 did Dx a CVA. The patient now has right arm and right hand co ntracture and weakness, right leg weakness, right facial droop, inability to swallow and aspirates and is mostly obtunded. - Encounter Subjective/Patient's Story: Patient has a history of alcohol abuse per what Pam told me. Patient is from her but they lived together to protect her assets. The pt caught COVID first, then past it on to the ex- and he has healed from that. Objective/Medical Story: Patient admitted with COVID, hypoxic and weak. Several days into her course she suffered a stroke while here. Now she is aspirating and needs modified diet. Today she had a fever and chest x-ray shows a lobar pneumonia and today LFTs are increased. Goals of Care: Pam says she wants everything done for her mother including a workup of the new LFT elevation, giving antibiotics, keeping her full code, giving her CPR and defibrillation if needed during CODE BLUE, putting her on a ventilator if needed for her respiratory status. She wants her to have rehab for the new stroke. Plan: Remains full code. Okay to do CPR, defibrillation and intubation and placed on a ventilator Pam wants me to read about olive leaf extract and whether this could be added for the patient for treating an infection Pam wants to give me the name of herb for liver health to determine if that should also be used while the patient is here Code Status: Attempt Resuscitation Time spent on advance care plannin min
[2023-02-08] MEDS: ATORVASTATIN 40 MG TABLET PO SCH (21:24)
[2023-02-08] MEDS: VANCOMYCIN INJ 1 GM in SODIUM CHLORIDE 0.9% 250 ML IV SCH (21:24)
[2023-02-08] MEDS: traZODone 50 MG TABLET PO SCH (21:24)
--- NOTE | 2023-02-08 21:33 | CT Report ---
PROCEDURE: ABDOMEN/PELVIS WO INDICATIONS: Elevated LFTs TECHNIQUE: A CT scan of the abdomen and pelvis was performed without the use of intravenous contrast. Images we re recorded and evaluated at appropriate window settings. Reformats: coronal and sagittal. For radiat ion dose reduction, the following was used: automated exposure control, adjustment of mA and/or kV ac cording to patient size. COMPARISON: CT chest angiogram 01/30/2023. FINDINGS: Image quality: Diagnostic. Lung bases and heart: Bibasilar atelectasis. Redemonstration of right lower lobe nodules measuring ap proximately 3.3 cm (3/103) and 0.8 cm (3/8). Liver: Hepatomegaly measuring up to 26.0 cm in cranial caudal dimension. There are numerous ill-defin ed hypodense masses throughout the liver. Gallbladder and biliary tree: Spleen: No splenomegaly. Pancreas: No pancreatic ductal dilation. Adrenals: No adrenal nodule. Kidneys and ureters: No hydronephrosis. No renal cystic lesion which requires follow up. No solid mas s. Bowel and peritoneum: No small bowel obstruction. Scattered sigmoid diverticula without CT evidence o f acute diverticulitis.. No pathologic free fluid. Lymph nodes: No central or retroperitoneal adenopathy. Vessels: No infrarenal aortic aneurysm. Catheters, calcifications. PELVIS Reproductive organs: Round hyperdensity at the anterior aspect of the uterus measuring 1.5 cm (2/60), possible fibroid.. Bladder: No wall thickness, accounting for underdistention. Pelvic lymph nodes: No pelvic adenopathy by size criteria. Bones: No acute or suspicious osseous abnormality. Other: No significant ventral or inguinal hernia. IMPRESSION: Hepatomegaly with numerous ill-defined hypodensities seen throughout the liver. Redemonstration of ri ght lower lobe pulmonary nodules/masses with the largest at the right costophrenic angle measuring 3. 3 cm. Findings are concerning for metastatic disease. Anterior uterine 1.5 cm round hyperdensity, possible fibroid. Consider evaluation with nonemergent pe lvic ultrasound. Reviewed by: Karly Atkins MD on 02/08/2023 9:32 PM PST Approved by: Karly Atkins MD on 02/08/2023 9:32 PM PST Station ID: [id number]
[2023-02-09] MEDS: PIPERACILLIN/TAZOBACTAM 3.375 GM in SODIUM CHLORIDE 0.9% MINIBAG 100 ML IV SCH ×3 (00:31→15:57)
[2023-02-09] MEDS: SODIUM CHLORIDE FLUSH 0.9% 10 ML SYRINGE IVP SCH ×3 (06:59→15:57)
[2023-02-09 08:12] LABS: BASOPHILS % (AUTO) 0.1 %; EOSINOPHILS # (AUTO) 0.4 10^3/uL (0.0-0.7); EOSINOPHILS % (AUTO) 2.1 %; HCT - HEMATOCRIT 23.9 % (37.0-47.0); HGB - HEMOGLOBIN 7.5 g/dL (12.0-16.0); LYMPHOCYTES # (AUTO) 1.6 10^3/uL (1.5-3.5); LYMPHOCYTES % (AUTO) 7.8 %; MEAN CORPUSCULAR HGB CONC 31.4 g/dL (32.0-36.0); MEAN CORPUSCULAR VOLUME 89.2 fL (81.0-99.0); MONOCYTES # (AUTO) 1.1 10^3/uL (0.0-1.0); MONOCYTES % (AUTO) 5.7 %; NEUTROPHILS # (AUTO) 16.6 10^3/uL (1.5-6.6); NEUTROPHILS % (AUTO) 83.4 %; NRBC ABSOLUTE COUNT (AUTO) 0.03 x10^3/uL; NUCLEATED RED BLOOD CELLS AUTO 0.2 /100WBC; PLT - PLATELET COUNT 273 10^3/uL (130-450); RED BLOOD COUNT 2.68 10^6/uL (4.20-5.40); RED CELL DISTRIBUTION WIDTH 16.4 % (12.0-15.0); WHITE BLOOD COUNT 19.9 x10^3/uL (4.8-10.8)
[2023-02-09] MEDS: INSULIN LISPRO 300 UNIT/3 ML PEN SUBQ SCH ×4 (08:15→21:41)
[2023-02-09] MEDS: guaiFENesin 600 MG TABLET PO SCH ×2 (08:16→21:43)
[2023-02-09] MEDS: APIXABAN 5 MG TABLET PO SCH ×2 (08:16→21:43)
[2023-02-09] MEDS: amLODIPine 5 MG TABLET PO SCH (08:16)
[2023-02-09] MEDS: CHOLECALCIFEROL 25 MCG TABLET PO SCH (08:16)
[2023-02-09] MEDS: DOCUSATE SODIUM 250 MG CAPSULE PO SCH (08:16)
[2023-02-09] MEDS: SENNA 8.6 MG TABLET PO SCH (08:16)
[2023-02-09] MEDS: polyethylene glycoL 3350 17 GM PACKET PO SCH (08:17)
[2023-02-09] MEDS: hydroCHLOROthiazide 25 MG TABLET PO SCH (08:17)
[2023-02-09] MEDS: ASPIRIN CHEW 81 MG TABLET PO SCH (08:17)
[2023-02-09 08:26] LABS: ALBUMIN 2.7 g/dL (3.2-5.5); ALBUMIN/GLOBULIN RATIO 0.9 (1.0-2.2); BILIRUBIN,TOTAL 1.2 mg/dL (0.2-1.0); CALCIUM 8.4 mg/dL (8.5-10.3); CREATININE 0.7 mg/dL (0.6-1.3); POTASSIUM 2.9 mmol/L (3.5-4.5); TOTAL PROTEIN 5.8 g/dL (6.4-8.9)
--- NOTE | 2023-02-09 11:20 | PROVIDER PROGRESS NOTE ---
Assessment/Plan - Problem List (1) V-tach Assessment/Plan: At 10:55 AM the patient had a 17-beat run of monomorphic V. tach at a rate of 100. The patient was asymptomatic at that time w/ BP 138/75 and saturation 93% on 1 L supplemental O2. The patient had just had an Echo this admission which showed normal LVEF and normal RVEF Her K today is 2.8 Plan: Remain on telemetry Replace the hypokalemia Assure her Mg is also normal (2) Hypokalemia Conclusion/Plan: K is 2.8 today (all labs were reviewed). This is likely the cause of today's V. tach Plan: Replacing potassium po and iv Follow K later today and BMP daily (3) Acute respiratory failure with hypoxia Conclusion/Plan: Hypoxia is secondary to COVID-19 pneumonia, a new infiltrate (probable bacterial PNA) and pulmonary embolus. Plan: Will try weaning supplemental oxygen. She is currently on 1-2 L via nasal cannula. If needed will order Morphine for air hunger (4) Aspiration pneumonia Assessment/Plan: Since 02/06/2023 she has had trouble handling food and her diet. She did have aspiration events. Her diet was de-escalated to pured and honey thick liquids. On 02/08 she spiked a fever of 38 3 C, respiratory rate burke to 40, heart rate 114. Chest x-ray on 02/08 showed a new infiltrate in the left lung base. Blood cultures and spt ordered. Pt started on Vanco and Zosyn and Cefrtriaxone was stopped Plan: Cont iv antibx Await cx results to tailor antibx I will order a Chest PT vest to mobilize her infiltrate, since she is too weak from her stroke to cough effectively, and will order deep suctioning prn by RT. Follow WBC daily I updated daughter Pam in room today and Pam wants pt to get (pt's own med) Riga leaf extract, which I will investigate. (5) CVA (cerebral vascular accident) Assessment/Plan: On 02/05, a code stroke with NIHSS 9 was called and she was sent for a stat CT/CTA Head and Neck. Imaging studies were negative except for moderate ICA stenosis She cont to have flaccid paralysis with a facial droop. The above was discussed with tele Neurology, however there is no Consult note by the Neurologist. Recommended starting asprin 81 mg and high intensity statin. Recommended continued Eliquis. She did not qualify for thrombolytics given unknown time of onset and she was already on Eliquis (for PE) Swallow eval revealed she needs pureed food and thickened liquids. Her nutritional intake has been poor this adm, and BMI is 19. MRI done (Family requested that this be performed without contrast) and it showed bilateral acute CVAs I ordered bubble study (Limited Echo), since she may need a PFO closure, since DPOA wanted everything done. It showed no PFO. Plan: Cont telemetry to watch for Afib Cont anticoagulation and ASA I will decrease statin dose due to elevated LFTs Developing contracture in right wrist, PT/OT to reevaluate her. I told Pam that pt will need PT and OT and ST rehab at a SNF. Cont pureed food and thickened liquids and she needs to be fed both w/ a spoon. Her nutritional intake has been poor this adm, and BMI is 19. I was going to ask Pam (the DPOA) about starting ng feeds, but today pt ate from a spoon I updated daughter Pam at bedside today, reiterating this was a large stroke. (6) Bilateral pulmonary embolism Conclusion/Plan: Possibly provoked by COVID-19 or underlying suspected malignancy (since lung masses were seen on CXR at adm). Plan: She got Eliquis 10 mg twice daily for 7 days, and on 02/06 has transitioned to Eliquis 5 mg p.o. twice daily for 3 to 6 months. (7) COVID-19 Conclusion/Plan: Perhaps COVID made her hypercoagulable and the caused PE and multi-focal stroke Patient did not want remdesivir. The order was discontinued. Family wanted us to stop the dexamethasone. Discontinued dexamethasone per family request. Her WBC is 22 today and has been elevated, poss due to infection. Plan: On 02/07, she came out of isolation, ordered by Kamala Preston, our Infec Prev RN (8) Elevated LFTs New LFT elevation was seen on labs 02/08, today they have decreased somewhat. Etiology could have been shock liver or secondary to COVID, but she did not get remdesivir so this was not the cause. It could be from R heart failure or from her liver masses affecting liver function. Pam also described that the patient has a history of alcohol abuse. She underwent CT abdomen/pelvis last night and this showed no pancreatic or gallbladder problems, the liver was enlarged and had findings of cirrhosis plus had areas suggesting mets. I updated Pam today about result. Plan: Follow LFTs daily Avoid hepatotoxins. I will decrease Lipitor from 40 mg to 10 mg (9) Lung mass Conclusion/Plan: Several lung masses seen on CT chest. Multiple liver masses also seen. I discussed this w/ Pam today by phone on 02/08 Plan: This will need outpatient W/U and follow-up. (10) Hypomagnesemia Conclusion/Plan: Replacing as needed. (11) Abnormal EKG Conclusion/Plan: Abn EKG at admission, suggested R heart strain. but her TTE showed no evidence of Right Heart failure or RV enlargement. Possibly the abnormal EKG was as a result of the acute PE at admission - Current Meds Current Meds: Current Medications Generic Name Dose Route Start Last Admin Trade Name Freq PRN Reason Stop Dose Admin Acetaminophen 650 mg 01/30/23 15:42 02/06/23 21:40 Acetaminophen 325 Mg Tablet PO 650 mg Q4HR PRN Administration Pain 1 to 4, or Fever Amlodipine Besylate 10 mg 02/02/23 09:00 02/09/23 08:16 Amlodipine 5 Mg Tablet PO 10 mg DAILY BRANDY Administration Apixaban 5 mg 02/06/23 21:00 02/09/23 08:16 Apixaban 5 Mg Tablet PO 5 mg BID BRANDY Administration Aspirin 81 mg 02/06/23 09:00 02/09/23 08:17 Aspirin Chew 81 Mg Tablet PO 81 mg DAILY BRANDY Administration Atorvastatin Calcium 40 mg 02/05/23 21:00 02/08/23 21:24 Atorvastatin 40 Mg Tablet PO 40 mg QPM BRANDY Administration Cholecalciferol 50 mcg 02/02/23 09:00 02/09/23 08:16 Cholecalciferol 25 Mcg Tablet PO 50 mcg DAILY BRANDY Administration Docusate Sodium 250 - 500 mg 02/01/23 13:00 02/09/23 08:16 Docusate Sodium 250 Mg Capsule PO 250 mg DAILY BRANDY Administration Guaifenesin 600 mg 01/30/23 21:00 02/09/23 08:16 Guaifenesin 600 Mg Tablet PO 600 mg BID BRANDY Administration Hydralazine HCl 5 mg 02/05/23 02:45 02/05/23 03:15 Hydralazine Inj 20 Mg/Ml Vial IVP 5 mg Q6H PRN Administration hypertension sbp>170 Hydrochlorothiazide 25 mg 02/05/23 09:00 02/09/23 08:17 Hydrochlorothiazide 25 Mg Tablet PO 25 mg DAILY BRANDY Administration Piperacillin Sod/Tazobactam 100 mls @ 25 mls/hr 02/08/23 15:00 02/09/23 08:16 Sod 3.375 gm/ Sodium Chloride IV 25 mls/hr Q8H BRANDY Administration Vancomycin HCl 1 gm/ Sodium 250 mls @ 167 mls/hr 02/08/23 22:00 02/09/23 00:30 Chloride IV Infused Q12H BRANDY Infusion Insulin Human Lispro 1 - 9 unit 02/03/23 08:00 02/09/23 08:15 Insulin Lispro 300 Unit/3 Ml Pen SUBQ 1 unit 0800,1200,1700,2100 BRANDY Administration Protocol Ondansetron HCl 4 mg 01/30/23 15:42 02/03/23 08:41 Ondansetron 4 Mg/2 Ml Vial IVP 4 mg Q6HR PRN Administration Nausea / Vomiting Petrolatum 1 applic 02/06/23 20:00 02/06/23 20:11 Petrolatum White 5 Gm Packet TOP 1 applic PRN PRN Administration Dry Lips, dry nares Polyethylene Glycol 17 gm 02/02/23 09:00 02/09/23 08:17 Polyethylene Glycol 3350 17 Gm Packet PO 17 gm DAILY BRANDY Administration Senna 8.6 - 17.2 mg 02/01/23 13:00 02/09/23 08:16 Senna 8.6 Mg Tablet PO 8.6 mg DAILY BRANDY Administration Sodium Chloride 10 ml 01/30/23 15:42 02/08/23 02:45 Sodium Chloride Flush 0.9% 10 Ml Syringe IVP 10 ml PRN PRN Administration NEEDED PER PROVIDER ORDERS Sodium Chloride 10 ml 01/30/23 17:00 02/09/23 08:17 Sodium Chloride Flush 0.9% 10 Ml Syringe IVP 10 ml 0100,0900,1700 BRANDY Administration Trazodone HCl 50 mg 02/02/23 21:00 02/08/23 21:24 Trazodone 50 Mg Tablet PO 50 mg QPM BRANDY Administration - Lab Result Fish Bone Diagrams: 02/09/23 07:55 02/09/23 07:55 - Additional Planning My Orders: My Active Orders 02/08/23 15:00 Piperacillin/Tazobactam [Zosyn] 3.375 gm Sodium Chloride 0.9% Minibag [Normal Saline 0.9% Minibag] 100 ml IV Q8H 02/08/23 22:00 Vancomycin Inj [Vancomycin] 1 gm Sodium Chloride 0.9% [Normal Saline 0.9%] 250 ml IV Q12H 02/09/23 Lunch Dysphagia - Puree [DIET] 02/09/23 17:00 Multivitamin W/Minerals [Theragran M] 1 tab PO DAILYWM 02/10/23 05:00 BMP - BASIC METABOLIC PANEL [CHEM] DAILYLAB CBC - COMP BLD CT W/AUTO DIFF [HEME] DAILYLAB 02/11/23 05:00 BMP - BASIC METABOLIC PANEL [CHEM] DAILYLAB CBC - COMP BLD CT W/AUTO DIFF [HEME] DAILYLAB 02/12/23 05:00 BMP - BASIC METABOLIC PANEL [CHEM] DAILYLAB CBC - COMP BLD CT W/AUTO DIFF [HEME] DAILYLAB Subjective - Subjective Patient Reports: Feeling Better (Able to eat, was fed. Spoke and interacted with family.) Objective Vital Signs: Vital Signs - 24 hr 02/08/23 02/08/23 02/08/23 11:23 15:22 19:40 Temperature 37.0 C 36.9 C Heart Rate [ 114 H 115 H Brachial] Respiratory 32 H 32 H Rate Blood Pressure [Left Brachial artery] Blood Pressure 163/79 H 152/77 H [Right Brachial artery] O2 Saturation 96 97 If not protocol 1 : Oxygen Flow, liters/minute 02/08/23 02/09/23 02/09/23 20:29 01:07 06:45 Temperature 37.1 C 37.2 C 37.8 C Heart Rate [ 106 H 115 H 112 H Brachial] Respiratory 20 20 38 H Rate Blood Pressure 155/76 H [Left Brachial artery] Blood Pressure 150/81 H 148/77 H [Right Brachial artery] O2 Saturation 94 97 96 If not protocol 1 1 : Oxygen Flow, liters/minute 02/09/23 02/09/23 02/09/23 07:30 07:32 11:06 Temperature 37 C 37.3 C Heart Rate [ 113 H 108 H Brachial] Respiratory 28 H 25 H Rate Blood Pressure [Left Brachial artery] Blood Pressure 149/79 H 138/75 H [Right Brachial artery] O2 Saturation 92 93 If not protocol 1 1 : Oxygen Flow, liters/minute Oxygen O2 Source Nasal cannula Oxygen Flow Rate 2 I&O (Last 24 Hrs): Intake and Output Totals x24h 02/07/23 02/08/23 02/09/23 23:59 23:59 23:59 Intake Total 520 2712 470 Output Total 1100 450 100 Balance -580 2262 370 General: Alert, Mild distress (Has a very weak cough, falls asleep in mid-snete nce), Other (Cachectic (BMI 19)) HEENT: Mucous membr. moist/pink Neck: Supple Neuro: Other (Lethargic, awakens, swallows, 1-3 word sentences, R arm and jand contracted and weak, R leg weak) Cardiovascular: Regular rate Respiratory: Rales, Rhonchi Abdomen: Soft, No tenderness Extremities: No clubbing, No edema, No tenderness/swelling - Results Results: Laboratory Results WBC 19.9 x10^3/uL (4.8-10.8) H 02/09/23 07:55 RBC 2.68 10^6/uL (4.20-5.40) L 02/09/23 07:55 Hgb 7.5 g/dL (12.0-16.0) L 02/09/23 07:55 Hct 23.9 % (37.0-47.0) L 02/09/23 07:55 MCV 89.2 fL (81.0-99.0) 02/09/23 07:55 MCH 28.0 pg (27.0-31.0) 02/09/23 07:55 MCHC 31.4 g/dL (32.0-36.0) L 02/09/23 07:55 RDW 16.4 % (12.0-15.0) H 02/09/23 07:55 Plt Count 273 10^3/uL (130-450) 02/09/23 07:55 MPV 11.0 fL (7.9-10.8) H 02/09/23 07:55 Neut # (Auto) 16.6 10^3/uL (1.5-6.6) H 02/09/23 07:55 Lymph # (Auto) 1.6 10^3/uL (1.5-3.5) 02/09/23 07:55 [place] # (Auto) 1.1 10^3/uL (0.0-1.0) H 02/09/23 07:55 Eos # (Auto) 0.4 10^3/uL (0.0-0.7) 02/09/23 07:55 Baso # (Auto) 0.0 10^3/uL (0.0-0.1) 02/09/23 07:55 Absolute Nucleated RBC 0.03 x10^3/uL 02/09/23 07:55 Total Counted 100 02/07/23 10:49 Band Neuts % (Manual) 1 % (0-10) 02/07/23 10:49 Abnorm Lymph % (Manual) 0 % 02/07/23 10:49 Metamyelocytes % 1 % (-0) H 02/07/23 10:49 Nucleated RBC % 0.2 /100WBC 02/09/23 07:55 Neutrophils # (Manual) 20.5 10^3/uL (1.5-6.6) H 02/07/23 10:49 Lymphocytes # (Manual) 1.4 10^3/uL (1.5-3.5) L 02/07/23 10:49 Monocytes # (Manual) 0.5 10^3/uL (0.0-1.0) 02/07/23 10:49 Eosinophils # (Manual) 0.0 10^3/uL (0-0.7) 02/07/23 10:49 Basophils # (Manual) 0.0 10^3/uL (0-0.1) 02/07/23 10:49 Differential Comment MANUAL DIFFERENTIAL 02/03/23 06:14 WBC Morphology 1+ HYPERSEG NEUT (NORMAL) 02/07/23 10:49 Platelet Estimate NORMAL (130-450,000) (NORMAL) 02/07/23 10:49 Platelet Morphology NORMAL KAREN (NORMAL) 02/07/23 10:49 RBC Morph Micro Appear 1+ HYPOCHROMASIA (NORMAL) 1+ TARGET CELLS (NORMAL) 02/07/23 10:49 RBC Morph Micro Appear 1+ HYPOCHROMASIA (NORMAL) 1+ TARGET CELLS (NORMAL) 02/07/23 10:49 PT 16.8 secs (9.9-12.6) H 01/30/23 00:01 INR 1.6 (0.8-1.2) H 01/30/23 00:01 APTT 102.0 secs (24.9-33.3) H* 01/30/23 11:17 Sodium 144 mmol/L (135-145) 02/09/23 07:55 Potassium 2.9 mmol/L (3.5-4.5) L 02/09/23 07:55 Chloride 104 mmol/L (101-111) 02/09/23 07:55 Carbon Dioxide 29 mmol/L (21-32) 02/09/23 07:55 Anion Gap 11.0 (6-13) 02/09/23 07:55 BUN 23 mg/dL (6-20) H 02/09/23 07:55 Creatinine 0.7 mg/dL (0.6-1.3) 02/09/23 07:55 Estimated GFR (MDRD) 82 (>89) L 02/09/23 07:55 Glucose 143 mg/dL (74-104) H 02/09/23 07:55 POC Whole Bld Glucose 138 mg/dL (70 - 100) H 02/09/23 11:06 Lactic Acid 1.1 mmol/L (0.5-2.2) 02/08/23 07:50 Calcium 8.4 mg/dL (8.5-10.3) L 02/09/23 07:55 Magnesium 1.7 mg/dL (1.7-2.3) 02/08/23 07:46 Total Bilirubin 1.2 mg/dL (0.2-1.0) H 02/09/23 07:55 Direct Bilirubin 0.77 mg/dL (0.03-0.18) H 01/31/23 05:09 AST 87 IU/L (10-42) H 02/09/23 07:55 ALT 83 IU/L (10-60) H 02/09/23 07:55 Alkaline Phosphatase 878 IU/L (42-121) H 02/09/23 07:55 Troponin I High Sens 28.5 ng/L (2.3-14.8) H* 01/31/23 05:09 B-Natriuretic Peptide 75 pg/mL (5-100) 01/30/23 07:36 Total Protein 5.8 g/dL (6.4-8.9) L 02/09/23 07:55 Albumin 2.7 g/dL (3.2-5.5) L 02/09/23 07:55 Globulin 3.1 g/dL (2.1-4.2) 02/09/23 07:55 Albumin/Globulin Ratio 0.9 (1.0-2.2) L 02/09/23 07:55 Triglycerides 298 mg/dL (48-352) 02/08/23 05:11 Cholesterol 148 mg/dL (-200) 02/08/23 05:11 LDL Cholesterol, Calc 71 mg/dL (-129) 02/08/23 05:11 VLDL Cholesterol 60 mg/dL 02/08/23 05:11 HDL Cholesterol 17 mg/dL (60-) L 02/08/23 05:11 LDL/HDL Ratio 4.2 (<4.4) 02/08/23 05:11 Cholesterol/HDL Ratio 8.7 (<4.4) 02/08/23 05:11 Lipase 23 U/L (11-82) 01/30/23 00:01 Urine Color YELLOW 02/06/23 11:55 Urine Clarity SL. CLOUDY (CLEAR) 02/06/23 11:55 Urine pH 6.0 PH (5.0-7.5) 02/06/23 11:55 Ur Specific [place] 1.020 (1.002-1.030) 02/06/23 11:55 Urine Protein 100 mg/dL (NEGATIVE) H 02/06/23 11:55 Urine Glucose (UA) NEGATIVE mg/dL (NEGATIVE) 02/06/23 11:55 Urine Ketones NEGATIVE mg/dL (NEGATIVE) 02/06/23 11:55 Urine Occult Blood TRACE-INTA (NEGATIVE) 02/06/23 11:55 Urine Nitrite POSITIVE (NEGATIVE) H 02/06/23 11:55 Urine Bilirubin NEGATIVE (NEGATIVE) 02/06/23 11:55 Urine Urobilinogen 4 E.U./dL (NORMAL) H 02/06/23 11:55 Ur Leukocyte Esterase NEGATIVE (NEGATIVE) 02/06/23 11:55 Urine RBC 0-5 /HPF (0-5) 02/06/23 11:55 Urine WBC 4-5 /HPF (0-5) 02/06/23 11:55 Ur Squamous Epith Cells NONE SEEN (<= Few) 02/06/23 11:55 Urine Bacteria Many /HPF (None Seen) H 02/06/23 11:55 Urine Casts 0-2 Fine Granular /LPF 02/06/23 11:55 Urine Mucus Few Strands 02/06/23 11:55 Urine Culture Comments INDICATED 02/06/23 11:55 Nasal Adenovirus (PCR) NOT DETECTED 01/30/23 03:34 Nasal B. parapertussis DNA (PCR) NOT DETECTED 01/30/23 03:34 Nasal Coronavir 229E PCR NOT DETECTED 01/30/23 03:34 Nasal Coronavir HKU1 PCR NOT DETECTED 01/30/23 03:34 Nasal Coronavir NL63 PCR NOT DETECTED 01/30/23 03:34 Nasal Coronavir OC43 PCR NOT DETECTED 01/30/23 03:34 Nasal Enterovir/Rhinovir PCR NOT DETECTED 01/30/23 03:34 Nasal Influenza B PCR NOT DETECTED 01/30/23 03:34 Nasal Influenza A PCR NOT DETECTED 01/30/23 03:34 Nasal Parainfluen 1 PCR NOT DETECTED 01/30/23 03:34 Nasal Parainfluen 2 PCR NOT DETECTED 01/30/23 03:34 Nasal Parainfluen 3 PCR NOT DETECTED 01/30/23 03:34 Nasal Parainfluen 4 PCR NOT DETECTED 01/30/23 03:34 Nasal RSV (PCR) NOT DETECTED 01/30/23 03:34 Nasal B.pertussis DNA PCR NOT DETECTED 01/30/23 03:34 Nasal C.pneumoniae (PCR) NOT DETECTED 01/30/23 03:34 Song Human Metapneumo PCR NOT DETECTED 01/30/23 03:34 Nasal M.pneumoniae (PCR) NOT DETECTED 01/30/23 03:34 Nasal SARS-CoV-2 (PCR) DETECTED A 01/30/23 03:34
[2023-02-09] MEDS: VANCOMYCIN INJ 1 GM in SODIUM CHLORIDE 0.9% 250 ML IV SCH (12:47)
[2023-02-09] MEDS ORDERED: LACTULOSE 10 GM /15 ML UDC PO ONE (17:00)
[2023-02-09] MEDS: MULTIVITAMIN W/MINERALS TABLET PO SCH (17:42)
[2023-02-09] MEDS ORDERED: ATORVASTATIN 40 MG TABLET PO SCH (21:00)
[2023-02-09] MEDS ORDERED: MAGNESIUM SULFATE 1 GM/2 ML VIAL IVP STA (21:00)
[2023-02-09] MEDS ORDERED: POTASSIUM CHLORIDE 20 MEQ TABLET PO STA (21:00)
[2023-02-09] MEDS: ACETAMINOPHEN 325 MG TABLET PO PRN (21:41)
[2023-02-09] MEDS: traZODone 50 MG TABLET PO SCH (21:42)
[2023-02-09] MEDS: ATORVASTATIN 10 MG TABLET PO SCH (21:59)
[2023-02-09] MEDS ORDERED: MAGNESIUM SULFATE 1 GM/2 ML VIAL ONE (22:41)
[2023-02-09] MEDS ORDERED: SODIUM CHLORIDE 0.9% IV ONE (23:00)
[2023-02-09] MEDS ORDERED: MAGNESIUM SULFATE IV ONE (23:00)
[2023-02-10] MEDS: PIPERACILLIN/TAZOBACTAM 3.375 GM in SODIUM CHLORIDE 0.9% MINIBAG 100 ML IV SCH ×3 (01:10→15:46)
[2023-02-10] MEDS: VANCOMYCIN INJ 1 GM in SODIUM CHLORIDE 0.9% 250 ML IV SCH ×2 (01:27→12:38)
[2023-02-10] MEDS: SODIUM CHLORIDE FLUSH 0.9% 10 ML SYRINGE IVP SCH ×3 (01:28→15:47)
[2023-02-10 05:41] LABS: BASOPHILS % (AUTO) 0.1 %; HCT - HEMATOCRIT 23.2 % (37.0-47.0); HGB - HEMOGLOBIN 7.2 g/dL (12.0-16.0); MEAN CORPUSCULAR HEMOGLOBIN 27.7 pg (27.0-31.0); MEAN CORPUSCULAR VOLUME 89.2 fL (81.0-99.0); MEAN PLATELET VOLUME 11.4 fL (7.9-10.8); MONOCYTES % (AUTO) 5.8 %; NEUTROPHILS % (AUTO) 86.4 %; PLT - PLATELET COUNT 282 10^3/uL (130-450); RED CELL DISTRIBUTION WIDTH 16.4 % (12.0-15.0); WHITE BLOOD COUNT 25.1 x10^3/uL (4.8-10.8)
[2023-02-10 05:44] LABS: ABNORMAL LYMPHS % (MANUAL) 0 %
[2023-02-10 05:53] LABS: CALCIUM 8.4 mg/dL (8.5-10.3); CREATININE 0.7 mg/dL (0.6-1.3); POTASSIUM 2.9 mmol/L (3.5-4.5)
[2023-02-10 06:34] LABS: BAND NEUTROPHILS % (MANUAL) 1 %; DIFFERENTIAL COMMENT MANUAL DIFFERENTIAL; EOSINOPHILS # (MANUAL) 0.3 10^3/uL (0-0.7); LYMPHOCYTES # (MANUAL) 2.8 10^3/uL (1.5-3.5); LYMPHOCYTES % (MANUAL) 11 %; NEUTROPHILS # (MANUAL) 21.1 10^3/uL (1.5-6.6); PLATELET ESTIMATE, MANUAL NORMAL (130-450,000) (NORMAL); RBC MORPHOLOGY (MULTIPLE) 2+ HYPOCHROMASIA (NORMAL)
[2023-02-10] MEDS: ASPIRIN CHEW 81 MG TABLET PO SCH (08:11)
[2023-02-10] MEDS: APIXABAN 5 MG TABLET PO SCH ×2 (08:11→21:26)
[2023-02-10] MEDS: DOCUSATE SODIUM 250 MG CAPSULE PO SCH (08:11)
[2023-02-10] MEDS: INSULIN LISPRO 300 UNIT/3 ML PEN SUBQ SCH ×4 (08:11→21:24)
[2023-02-10] MEDS: MULTIVITAMIN W/MINERALS TABLET PO SCH (08:11)
[2023-02-10] MEDS: polyethylene glycoL 3350 17 GM PACKET PO SCH (08:11)
[2023-02-10] MEDS: guaiFENesin 600 MG TABLET PO SCH ×2 (08:11→21:26)
[2023-02-10] MEDS: amLODIPine 5 MG TABLET PO SCH (08:11)
[2023-02-10] MEDS: SENNA 8.6 MG TABLET PO SCH (08:12)
[2023-02-10] MEDS: CHOLECALCIFEROL 25 MCG TABLET PO SCH (08:12)
[2023-02-10] MEDS: hydroCHLOROthiazide 25 MG TABLET PO SCH (08:12)
[2023-02-10 09:55] LABS: ALBUMIN 2.7 g/dL (3.2-5.5); BILIRUBIN,DIRECT 0.72 mg/dL (0.03-0.18); BILIRUBIN,TOTAL 1.3 mg/dL (0.2-1.0); TOTAL PROTEIN 6.1 g/dL (6.4-8.9)
[2023-02-10] MEDS ORDERED: DEXTROSE 5% 1,000 ML IV SCH (10:00)
--- NOTE | 2023-02-10 11:08 | PROVIDER PROGRESS NOTE ---
Assessment/Plan - Problem List (1) AMS (altered mental status) Assessment/Plan: She has been more somnolent ever since the stroke. Also she is eating poorly due to sleeping. Since yesterday evening 02/09 she is more awake, especially when family in room. Plan: I will decrease the scheduled Trazodone at hs from 50mg to 25mg and will try to taper it to off over several days Order that pt needs to be fed Add D5W iv for 1L, due to hypernatremia today Avoid narcotics that would add to sedation (2) Hypokalemia Conclusion/Plan: K is 2.9 today (all labs were reviewed). Plan: Replacing potassium po and iv Follow BMP daily (3) Acute respiratory failure with hypoxia Conclusion/Plan: Hypoxia is secondary to COVID-19 pneumonia, a new infiltrate (probable bacterial PNA) and pulmonary embolus. Plan: Will try weaning supplemental oxygen. She is currently on 1-2 L via nasal cannula. If needed will order Morphine for air hunger (4) Aspiration pneumonia Assessment/Plan: Since 02/06/2023 she has had trouble handling food and her diet. She did have aspiration events. Her diet was de-escalated to pured and honey thick liquids. On 02/08 she spiked a fever of 38 3 C, respiratory rate burke to 40, heart rate 114. Chest x-ray on 02/08 showed a new infiltrate in the left lung base. Blood cultures and spt ordered. Pt started on Vanco and Zosyn and Cefrtriaxone was stopped WBC has been rising, which is of concern (all labs were reviewed) Plan: Cont iv antibx Await cx results to tailor antibx I ordered Chest PT vest TID to mobilize her infiltrate, since she is too weak from her stroke to cough effectively, and deep suctioning prn by RT. Follow WBC daily (5) CVA (cerebral vascular accident) Assessment/Plan: On 02/05, a code stroke with NIHSS 9 was called and she was sent for a stat CT/CTA Head and Neck. Imaging studies were negative except for moderate ICA stenosis She cont to have flaccid paralysis with a facial droop. The above was discussed with tele Neurology, however there is no Consult note by the Neurologist. Recommended starting asprin 81 mg and high intensity statin. Recommended continued Eliquis. She did not qualify for thrombolytics given unknown time of onset and she was already on Eliquis (for PE) Swallow eval revealed she needs pureed food and thickened liquids. Her nutritional intake has been poor this adm, and BMI is 19. MRI done (Family requested that this be performed without contrast) and it showed bilateral acute CVAs I ordered bubble study (Limited Echo), since she may need a PFO closure, since DPOA wanted everything done. It showed no PFO. Plan: Cont telemetry to watch for Afib Cont anticoagulation and ASA I decreased her statin dose due to elevated LFTs Developing contracture in right wrist, PT/OT to reevaluate her. I told Pam that pt will need PT and OT and ST rehab at a SNF. Cont pureed food and thickened liquids and she needs to be fed both w/ a spoon. Her nutritional intake has been poor this adm, and BMI is 19. I was going to ask Pam (the DPOA) about starting ng feeds, but since yesterday 02/09 pt ate well from a spoon (6) Bilateral pulmonary embolism Conclusion/Plan: Possibly provoked by COVID-19 or underlying suspected malignancy (since lung masses were seen on CXR at adm). Plan: She got Eliquis 10 mg twice daily for 7 days, and on 02/06 has transitioned to Eliquis 5 mg p.o. twice daily for 3 to 6 months. (7) COVID-19 Conclusion/Plan: Perhaps COVID made her hypercoagulable and the caused PE and multi-focal stroke Patient did not want remdesivir. The order was discontinued. Family wanted us to stop the dexamethasone. Discontinued dexamethasone per family request. Her WBC is 22 today and has been elevated, poss due to infection. Plan: On 02/07, she came out of isolation, ordered by Kamala Prestno, our Infec Prev RN (8) Elevated LFTs New LFT elevation was seen on labs 02/08, they decreased somewhat then ar up again (all labs were reviewed). Etiology could have been shock liver or secondary to COVID, but she did not get remdesivir so this was not the cause. It could be from R heart failure or from her liver masses affecting liver function. Pam also described that the patient has a history of alcohol abuse. She underwent CT abdomen/pelvis and this showed no pancreatic or gallbladder problems, the liver was enlarged and had findings of cirrhosis plus had areas suggesting mets. Plan: Follow LFTs daily Avoid hepatotoxins. I will decrease Lipitor from 40 mg to 10 mg (9) Lung mass Conclusion/Plan: Several lung masses seen on CT chest. Multiple liver masses also seen. I discussed this w/ Pam today by phone on 02/08 Plan: This will need outpatient W/U and follow-up. (10) Hypomagnesemia Conclusion/Plan: Replacing as needed. (11) Abnormal EKG Conclusion/Plan: Abn EKG at admission, suggested R heart strain. but her TTE showed no evidence of Right Heart failure or RV enlargement. Possibly the abnormal EKG was as a result of the acute PE at admission (12) V-tach Assessment/Plan: RESOLVED At 10:55 AM the patient had a 17-beat run of monomorphic V. tach at a rate of 100. The patient was asymptomatic at that time w/ BP 138/75 and saturation 93% on 1 L supplemental O2. The patient had just had an Echo this admission which showed normal LVEF and normal RVEF Her K was 2.8 on the day of the VTach, which was liekey the cause Plan: Remain on telemetry Follow and replace the hypokalemia Assure her Mg is also normal - Current Meds Current Meds: Current Medications Generic Name Dose Route Start Last Admin Trade Name Jarethq PRN Reason Stop Dose Admin Acetaminophen 650 mg 01/30/23 15:42 02/09/23 21:41 Acetaminophen 325 Mg Tablet PO 650 mg Q4HR PRN Administration Pain 1 to 4, or Fever Amlodipine Besylate 10 mg 02/02/23 09:00 02/10/23 08:11 Amlodipine 5 Mg Tablet PO 10 mg DAILY BRANDY Administration Apixaban 5 mg 02/06/23 21:00 02/10/23 08:11 Apixaban 5 Mg Tablet PO 5 mg BID BRANDY Administration Aspirin 81 mg 02/06/23 09:00 02/10/23 08:11 Aspirin Chew 81 Mg Tablet PO 81 mg DAILY BRANDY Administration Atorvastatin Calcium 10 mg 02/09/23 22:00 02/09/23 21:59 Atorvastatin 10 Mg Tablet PO 10 mg QPM BRANDY Administration Cholecalciferol 50 mcg 02/02/23 09:00 02/10/23 08:12 Cholecalciferol 25 Mcg Tablet PO 50 mcg DAILY BRANDY Administration Docusate Sodium 250 - 500 mg 02/01/23 13:00 02/10/23 08:11 Docusate Sodium 250 Mg Capsule PO 250 mg DAILY BRANDY Administration Guaifenesin 600 mg 01/30/23 21:00 02/10/23 08:11 Guaifenesin 600 Mg Tablet PO 600 mg BID BRANDY Administration Hydralazine HCl 5 mg 02/05/23 02:45 02/05/23 03:15 Hydralazine Inj 20 Mg/Ml Vial IVP 5 mg Q6H PRN Administration hypertension sbp>170 Piperacillin Sod/Tazobactam 100 mls @ 25 mls/hr 02/08/23 15:00 02/10/23 08:12 Sod 3.375 gm/ Sodium Chloride IV 25 mls/hr Q8H BRANDY Administration Vancomycin HCl 1 gm/ Sodium 250 mls @ 167 mls/hr 02/08/23 22:00 02/10/23 03:00 Chloride IV Infused Q12H BRANDY Infusion Dextrose 1,000 mls @ 70 mls/hr 02/10/23 10:00 02/10/23 09:46 D5w IV 02/11/23 00:17 70 mls/hr .[id number] BRANDY Administration Insulin Human Lispro 1 - 9 unit 02/03/23 08:00 02/10/23 08:11 Insulin Lispro 300 Unit/3 Ml Pen SUBQ 1 unit 0800,1200,1700,2100 BRANDY Administration Protocol Multivitamins/Minerals 1 tab 02/09/23 17:00 02/10/23 08:11 Multivitamin W/Minerals Tablet PO 1 tab DAILYWM BRANDY Administration Ondansetron HCl 4 mg 01/30/23 15:42 02/03/23 08:41 Ondansetron 4 Mg/2 Ml Vial IVP 4 mg Q6HR PRN Administration Nausea / Vomiting Petrolatum 1 applic 02/06/23 20:00 02/06/23 20:11 Petrolatum White 5 Gm Packet TOP 1 applic PRN PRN Administration Dry Lips, dry nares Polyethylene Glycol 17 gm 02/02/23 09:00 02/10/23 08:11 Polyethylene Glycol 3350 17 Gm Packet PO 17 gm DAILY BRANDY Administration Senna 8.6 - 17.2 mg 02/01/23 13:00 02/10/23 08:12 Senna 8.6 Mg Tablet PO 8.6 mg DAILY BRANDY Administration Sodium Chloride 10 ml 01/30/23 15:42 02/08/23 02:45 Sodium Chloride Flush 0.9% 10 Ml Syringe IVP 10 ml PRN PRN Administration NEEDED PER PROVIDER ORDERS Sodium Chloride 10 ml 01/30/23 17:00 02/10/23 08:13 Sodium Chloride Flush 0.9% 10 Ml Syringe IVP Not Given 0100,0900,1700 BRANDY - Lab Result Fish Bone Diagrams: 02/11/23 05:00 02/11/23 05:00 - Additional Planning My Orders: My Active Orders 02/09/23 Lunch Dysphagia - Puree [DIET] 02/09/23 16:18 Chest [CPT - Chest Physical Therapy] [RC] .tid 02/09/23 17:00 Multivitamin W/Minerals [Theragran M] 1 tab PO DAILYWM 02/09/23 17:05 Airway Suctioning [Suction] [RC] PRN 02/09/23 22:00 Atorvastatin [Lipitor] 10 mg PO QPM 02/10/23 10:00 Dextrose 5% [D5w] 1,000 ml IV 70 mls/hr 02/10/23 12:00 VANCOMYCIN TROUGH [CHEM] Timed 02/10/23 21:00 traZODone [Desyrel] 25 mg PO QPM 02/11/23 05:00 BMP - BASIC METABOLIC PANEL [CHEM] DAILYLAB CBC - COMP BLD CT W/AUTO DIFF [HEME] DAILYLAB LIVER PANEL [CHEM] DAILYLAB 02/12/23 05:00 BMP - BASIC METABOLIC PANEL [CHEM] DAILYLAB CBC - COMP BLD CT W/AUTO DIFF [HEME] DAILYLAB Subjective - Subjective Patient Reports: Resting Comfortably Nursing Reports: Other (RN reports she ate but needed to be fed. Interacted w/ family.) Objective Vital Signs: Vital Signs - 24 hr 02/09/23 02/09/23 02/09/23 11:06 17:00 21:00 Temperature 37.3 C 37.6 C 37.2 C Heart Rate [ 108 H 105 H 104 H Brachial] Respiratory 25 H 22 22 Rate Blood Pressure 138/75 H 149/70 H 155/70 H [Right Brachial artery] O2 Saturation 93 97 96 If not protocol 1 2 1 : Oxygen Flow, liters/minute 02/09/23 02/10/23 02/10/23 23:44 05:00 07:30 Temperature 36.9 C 37.2 C Heart Rate [ 105 H 107 H Brachial] Respiratory 20 16 Rate Blood Pressure 146/72 H 150/70 H [Right Brachial artery] O2 Saturation 96 94 If not protocol 1 1 1 : Oxygen Flow, liters/minute 02/10/23 08:26 Temperature 37.2 C Heart Rate [ 107 H Brachial] Respiratory 20 Rate Blood Pressure 159/75 H [Right Brachial artery] O2 Saturation 96 If not protocol 1 : Oxygen Flow, liters/minute Oxygen O2 Source Nasal cannula Oxygen Flow Rate 2 I&O (Last 24 Hrs): Intake and Output Totals x24h 02/08/23 02/09/23 02/10/23 23:59 23:59 23:59 Intake Total 2712 1516 572 Output Total 450 800 200 Balance 2262 716 372 General: Other (Lethargic but awakens slowly) HEENT: Mucous membr. moist/pink, Other (Disheveled) Neck: Supple Neuro: Other (Lethargic, speech is better but R face drooped. R arm & R hand contracted. R legg weak.) Cardiovascular: Regular rate Respiratory: No respiratory distress, Rhonchi Abdomen: Soft, No tenderness Extremities: No clubbing, No edema - Results Results: Laboratory Results WBC 25.1 x10^3/uL (4.8-10.8) H 02/10/23 05:19 RBC 2.60 10^6/uL (4.20-5.40) L 02/10/23 05:19 Hgb 7.2 g/dL (12.0-16.0) L 02/10/23 05:19 Hct 23.2 % (37.0-47.0) L 02/10/23 05:19 MCV 89.2 fL (81.0-99.0) 02/10/23 05:19 MCH 27.7 pg (27.0-31.0) 02/10/23 05:19 MCHC 31.0 g/dL (32.0-36.0) L 02/10/23 05:19 RDW 16.4 % (12.0-15.0) H 02/10/23 05:19 Plt Count 282 10^3/uL (130-450) 02/10/23 05:19 MPV 11.4 fL (7.9-10.8) H 02/10/23 05:19 Neut # (Auto) Not Reportable 02/10/23 05:19 Lymph # (Auto) Not Reportable 02/10/23 05:19 [place] # (Auto) Not Reportable 02/10/23 05:19 Eos # (Auto) Not Reportable 02/10/23 05:19 Baso # (Auto) Not Reportable 02/10/23 05:19 Absolute Nucleated RBC Not Reportable 02/10/23 05:19 Total Counted 100 02/10/23 05:19 Band Neuts % (Manual) 1 % (0-10) 02/10/23 05:19 Abnorm Lymph % (Manual) 0 % 02/10/23 05:19 Metamyelocytes % 1 % (-0) H 02/07/23 10:49 Nucleated RBC % Not Reportable 02/10/23 05:19 Neutrophils # (Manual) 21.1 10^3/uL (1.5-6.6) H 02/10/23 05:19 Lymphocytes # (Manual) 2.8 10^3/uL (1.5-3.5) 02/10/23 05:19 Monocytes # (Manual) 1.0 10^3/uL (0.0-1.0) 02/10/23 05:19 Eosinophils # (Manual) 0.3 10^3/uL (0-0.7) 02/10/23 05:19 Basophils # (Manual) 0.0 10^3/uL (0-0.1) 02/10/23 05:19 Differential Comment MANUAL DIFFERENTIAL 02/10/23 05:19 WBC Morphology 1+ HYPERSEG NEUT (NORMAL) 02/07/23 10:49 Platelet Estimate NORMAL (130-450,000) (NORMAL) 02/10/23 05:19 Platelet Morphology NORMAL KAREN (NORMAL) 02/07/23 10:49 RBC Morph Micro Appear 2+ HYPOCHROMASIA (NORMAL) 02/10/23 05:19 PT 16.8 secs (9.9-12.6) H 01/30/23 00:01 INR 1.6 (0.8-1.2) H 01/30/23 00:01 APTT 102.0 secs (24.9-33.3) H* 01/30/23 11:17 Sodium 147 mmol/L (135-145) H 02/10/23 05:19 Potassium 2.9 mmol/L (3.5-4.5) L 02/10/23 05:19 Chloride 108 mmol/L (101-111) 02/10/23 05:19 Carbon Dioxide 29 mmol/L (21-32) 02/10/23 05:19 Anion Gap 10.0 (6-13) 02/10/23 05:19 BUN 23 mg/dL (6-20) H 02/10/23 05:19 Creatinine 0.7 mg/dL (0.6-1.3) 02/10/23 05:19 Estimated GFR (MDRD) 82 (>89) L 02/10/23 05:19 Glucose 158 mg/dL (74-104) H 02/10/23 05:19 POC Whole Bld Glucose 152 mg/dL (70 - 100) H 02/10/23 07:59 Lactic Acid 1.1 mmol/L (0.5-2.2) 02/08/23 07:50 Calcium 8.4 mg/dL (8.5-10.3) L 02/10/23 05:19 Magnesium 1.6 mg/dL (1.7-2.3) L 02/09/23 07:55 Total Bilirubin 1.3 mg/dL (0.2-1.0) H 02/10/23 05:19 Direct Bilirubin 0.72 mg/dL (0.03-0.18) H 02/10/23 05:19 AST 122 IU/L (10-42) H 02/10/23 05:19 ALT 73 IU/L (10-60) H 02/10/23 05:19 Alkaline Phosphatase 1021 IU/L (42-121) H 02/10/23 05:19 Troponin I High Sens 28.5 ng/L (2.3-14.8) H* 01/31/23 05:09 B-Natriuretic Peptide 75 pg/mL (5-100) 01/30/23 07:36 Total Protein 6.1 g/dL (6.4-8.9) L 02/10/23 05:19 Albumin 2.7 g/dL (3.2-5.5) L 02/10/23 05:19 Globulin 3.4 g/dL (2.1-4.2) 02/10/23 05:19 Albumin/Globulin Ratio 0.9 (1.0-2.2) L 02/09/23 07:55 Triglycerides 298 mg/dL (48-352) 02/08/23 05:11 Cholesterol 148 mg/dL (-200) 02/08/23 05:11 LDL Cholesterol, Calc 71 mg/dL (-129) 02/08/23 05:11 VLDL Cholesterol 60 mg/dL 02/08/23 05:11 HDL Cholesterol 17 mg/dL (60-) L 02/08/23 05:11 LDL/HDL Ratio 4.2 (<4.4) 02/08/23 05:11 Cholesterol/HDL Ratio 8.7 (<4.4) 02/08/23 05:11 Lipase 23 U/L (11-82) 01/30/23 00:01 Urine Color YELLOW 02/06/23 11:55 Urine Clarity SL. CLOUDY (CLEAR) 02/06/23 11:55 Urine pH 6.0 PH (5.0-7.5) 02/06/23 11:55 Ur Specific [place] 1.020 (1.002-1.030) 02/06/23 11:55 Urine Protein 100 mg/dL (NEGATIVE) H 02/06/23 11:55 Urine Glucose (UA) NEGATIVE mg/dL (NEGATIVE) 02/06/23 11:55 Urine Ketones NEGATIVE mg/dL (NEGATIVE) 02/06/23 11:55 Urine Occult Blood TRACE-INTA (NEGATIVE) 02/06/23 11:55 Urine Nitrite POSITIVE (NEGATIVE) H 02/06/23 11:55 Urine Bilirubin NEGATIVE (NEGATIVE) 02/06/23 11:55 Urine Urobilinogen 4 E.U./dL (NORMAL) H 02/06/23 11:55 Ur Leukocyte Esterase NEGATIVE (NEGATIVE) 02/06/23 11:55 Urine RBC 0-5 /HPF (0-5) 02/06/23 11:55 Urine WBC 4-5 /HPF (0-5) 02/06/23 11:55 Ur Squamous Epith Cells NONE SEEN (<= Few) 02/06/23 11:55 Urine Bacteria Many /HPF (None Seen) H 02/06/23 11:55 Urine Casts 0-2 Fine Granular /LPF 02/06/23 11:55 Urine Mucus Few Strands 02/06/23 11:55 Urine Culture Comments INDICATED 02/06/23 11:55 Nasal Adenovirus (PCR) NOT DETECTED 01/30/23 03:34 Nasal B. parapertussis DNA (PCR) NOT DETECTED 01/30/23 03:34 Nasal Coronavir 229E PCR NOT DETECTED 01/30/23 03:34 Nasal Coronavir HKU1 PCR NOT DETECTED 01/30/23 03:34 Nasal Coronavir NL63 PCR NOT DETECTED 01/30/23 03:34 Nasal Coronavir OC43 PCR NOT DETECTED 01/30/23 03:34 Nasal Enterovir/Rhinovir PCR NOT DETECTED 01/30/23 03:34 Nasal Influenza B PCR NOT DETECTED 01/30/23 03:34 Nasal Influenza A PCR NOT DETECTED 01/30/23 03:34 Nasal Parainfluen 1 PCR NOT DETECTED 01/30/23 03:34 Nasal Parainfluen 2 PCR NOT DETECTED 01/30/23 03:34 Nasal Parainfluen 3 PCR NOT DETECTED 01/30/23 03:34 Nasal Parainfluen 4 PCR NOT DETECTED 01/30/23 03:34 Nasal RSV (PCR) NOT DETECTED 01/30/23 03:34 Nasal B.pertussis DNA PCR NOT DETECTED 01/30/23 03:34 Nasal C.pneumoniae (PCR) NOT DETECTED 01/30/23 03:34 Song Human Metapneumo PCR NOT DETECTED 01/30/23 03:34 Nasal M.pneumoniae (PCR) NOT DETECTED 01/30/23 03:34 Nasal SARS-CoV-2 (PCR) DETECTED A 01/30/23 03:34
[2023-02-10 12:25] LABS: VANCOMYCIN,TROUGH 17.5 ug/mL
[2023-02-10] MEDS: POTASSIUM CHLORIDE 10 MEQ CAPSULE PO SCH (12:38)
[2023-02-10] MEDS: POTASSIUM CHLOR 10 MEQ/100 ML 10 MEQ/100 ML BAG IV SCH ×4 (12:40→16:50)
[2023-02-10] MEDS: ATORVASTATIN 10 MG TABLET PO SCH (21:26)
[2023-02-10] MEDS: traZODone 50 MG TABLET PO SCH (21:26)
[2023-02-11] MEDS: PIPERACILLIN/TAZOBACTAM 3.375 GM in SODIUM CHLORIDE 0.9% MINIBAG 100 ML IV SCH ×3 (00:09→17:39)
[2023-02-11] MEDS: VANCOMYCIN INJ 1 GM in SODIUM CHLORIDE 0.9% 250 ML IV SCH ×3 (00:15→22:29)
[2023-02-11] MEDS: SODIUM CHLORIDE FLUSH 0.9% 10 ML SYRINGE IVP SCH ×3 (00:17→17:40)
[2023-02-11 05:23] LABS: BASOPHILS % (AUTO) 0.1 %; EOSINOPHILS # (AUTO) 0.5 10^3/uL (0.0-0.7); EOSINOPHILS % (AUTO) 1.7 %; HCT - HEMATOCRIT 22.5 % (37.0-47.0); LYMPHOCYTES # (AUTO) 2.2 10^3/uL (1.5-3.5); LYMPHOCYTES % (AUTO) 8.1 %; MEAN CORPUSCULAR HEMOGLOBIN 27.4 pg (27.0-31.0); MEAN CORPUSCULAR HGB CONC 30.7 g/dL (32.0-36.0); MEAN CORPUSCULAR VOLUME 89.3 fL (81.0-99.0); MEAN PLATELET VOLUME 11.8 fL (7.9-10.8); MONOCYTES # (AUTO) 1.5 10^3/uL (0.0-1.0); MONOCYTES % (AUTO) 5.3 %; NEUTROPHILS # (AUTO) 23.1 10^3/uL (1.5-6.6); NRBC ABSOLUTE COUNT (AUTO) 0.03 x10^3/uL; NUCLEATED RED BLOOD CELLS AUTO 0.1 /100WBC; PLT - PLATELET COUNT 282 10^3/uL (130-450); RED BLOOD COUNT 2.52 10^6/uL (4.20-5.40); RED CELL DISTRIBUTION WIDTH 16.6 % (12.0-15.0); WHITE BLOOD COUNT 27.5 x10^3/uL (4.8-10.8)
[2023-02-11 05:35] LABS: HGB - HEMOGLOBIN 6.9 g/dL (12.0-16.0)
[2023-02-11 05:56] LABS: ALBUMIN 2.6 g/dL (3.2-5.5); BILIRUBIN,DIRECT 0.73 mg/dL (0.03-0.18); BILIRUBIN,TOTAL 1.4 mg/dL (0.2-1.0); CALCIUM 8.2 mg/dL (8.5-10.3); CREATININE 0.8 mg/dL (0.6-1.3); MAGNESIUM 1.8 mg/dL (1.7-2.3); POTASSIUM 2.9 mmol/L (3.5-4.5); TOTAL PROTEIN 5.9 g/dL (6.4-8.9)
--- NOTE | 2023-02-11 09:16 | PROVIDER PROGRESS NOTE ---
Assessment/Plan - Problem List (1) Leukocytosis Assessment/Plan: Patient spiked another fever today of 39 C Her WBC has been rising the last 3 days (all labs were reviewed), despite being on antibx for an aspiration PNA I got a CT of head, chest and abd/pelvis today, looking for a source of infection and these showed 1) a new L-sided stroke, 2) worsening pneumonia w/ pleural effusion 3) new colitis 4) Multiple lung nodules-probably malignant, and 5) multiple liver masses-probably metastases. I updated the daughter Pam at bedside in the morning and the ex- at bedside in the afternoon about these results Since colitis is the newest finding, this may be the source of the worsening WBC and fever today. Also her mildly dostended abd is consistent Plan: The patient is already on antibiotics that would cover anaerobes, gram- negative's and MRSA. I will add Zithro iv to cover Atypical bacteria I discussed the plan and her overall poor condition w/ multiple morbidiy=ties, with both ex- and daughter and asked if they wanted to change goals of care or pt's CODE status and I was told they want to all discuss it (2) Anemia Assessment/Plan: Her Hgb has been running ~9, felt to be largely hemodilutional from all her iv meds and iv fluids she has received. Today Hgb is 6.9 Plan: 1U PRBCs ordered to be transfused today (3) AMS (altered mental status) Assessment/Plan: She has been more somnolent ever since the stroke. Also she is eating poorly due to sleeping. Since evening of 02/09 she is more awake, especially when family in room. Today with a fever spike, she is again somnolent and minimally commu nicative. Plan: I decreased the scheduled Trazodone at hs from 50mg to 25mg and will try to taper it to off over several days I ordered that pt needs to be fed Cont iv fluids Avoid narcotics that would add to sedation (4) Acute respiratory failure with hypoxia Conclusion/Plan: Hypoxia is secondary to COVID-19 pneumonia, a new infiltrate (probable bacterial PNA) and pulmonary embolus. Plan: Will try weaning supplemental oxygen. She is currently on 1-2 L via nasal cannula. If needed will order Morphine for air hunger (5) Aspiration pneumonia Assessment/Plan: Since 02/06/2023 she has had trouble handling food and her diet. She did have aspiration events. Her diet was de-escalated to pured and honey thick liquids. On 02/08 she spiked a fever of 38 3 C, respiratory rate burke to 40, heart rate 114. Chest x-ray on 02/08 showed a new infiltrate in the left lung base. Blood cultures and spt ordered. Pt started on Vanco and Zosyn and Cefrtriaxone was stopped WBC has been rising, which is of concern (all labs were reviewed). CT chest done today showed worsening pneumonia w/ pleural effusion Plan: The patient is already on antibiotics that would cover anaerobes, gram- negative's and MRSA. I will add Zithro iv to cover Atypical bacteria Await cx results to tailor antibx I ordered Chest PT vest TID to mobilize her infiltrate, since she is too weak from her stroke to cough effectively, and deep suctioning prn by RT. Follow WBC daily (6) CVA (cerebral vascular accident) Assessment/Plan: On 02/05, a code stroke was called and imaging showed bilat stroke and moderate ICA stenosis The above was discussed with tele Neurology, however there is no Consult note by the Neurologist. Recommended starting asprin 81 mg and high intensity statin. Recommended continued Eliquis. She did not qualify for thrombolytics given unknown time of onset and she was already on Eliquis (for PE). Brain MRI done (Family requested that this be performed without contrast) and it showed bilateral acute CVAs She continues to have flaccid paralysis R>L and a facial droop. I ordered a repeat Echo w/ bubble study, since NISREEN wanted everything done. It showed no clot, no PFO. Swallow eval revealed she needs pureed food and thickened liquids. Her nutritional intake has been poor this adm, and BMI is 19. Plan: Cont telemetry to watch for Afib Cont anticoagulation and ASA I decreased her statin dose due to elevated LFTs Developing contracture in right wrist, PT/OT to reevaluate her. I told Pam the daughter NISREEN, that pt will need PT and OT and ST rehab at a SNF. Cont pureed food and thickened liquids and she needs to be fed both w/ a spoon. Her nutritional intake has been poor this adm, and BMI is 19. I was going to ask Pam (the DPOA) about starting ng feeds, but since yesterday 02/09 pt ate well from a spoon (7) Hypokalemia Conclusion/Plan: K is 2.9 today (all labs were reviewed). Plan: Replacing potassium po and iv Follow BMP daily (8) Bilateral pulmonary embolism Conclusion/Plan: This was reason for admission. Possibly provoked by COVID-19 or underlying suspected malignancy (since lung masses were seen on CXR at adm). She first had an Echo to check for R heart strain and there was none. (The next Echo, see #5, was a limited Echo w/ saline study to check for PFO, after she had a stroke) Plan: She got Eliquis 10 mg twice daily for 7 days, and on 02/06 has transitioned to Eliquis 5 mg p.o. twice daily for 3 to 6 months. (9) Elevated LFTs New LFT elevation was seen on labs 02/08, they decreased somewhat then ar up again (all labs were reviewed). Etiology could have been shock liver or secondary to COVID, but she did not get remdesivir so this was not the cause. It could be from R heart failure or from her liver masses affecting liver function. Pam also described that the patient has a history of alcohol abuse. She underwent CT abdomen/pelvis and this showed no pancreatic or gallbladder problems, the liver was enlarged and had findings of cirrhosis plus had areas suggesting mets. Plan: Follow LFTs daily Avoid hepatotoxins. I will decrease Lipitor from 40 mg to 10 mg (10) Lung mass Conclusion/Plan: Several lung masses seen on CT chest. Multiple liver masses also seen. I discussed this w/ Pam by phone on 02/08 Plan: This will need outpatient oncology W/U and follow-up. (11) Liver masses Conclusion/Plan: Pam was told these results These suggest she has mets and she will need oncology W/U as an Outpt (12) Hypomagnesemia Conclusion/Plan: Replacing as needed. (13) Abnormal EKG Conclusion/Plan: Abn EKG at admission, suggested R heart strain. but her TTE showed no evidence of Right Heart failure or RV enlargement. Possibly the abnormal EKG was as a result of the acute PE at admission (14) V-tach Assessment/Plan: RESOLVED The patient had a 17-beat run of monomorphic V. tach at a rate of 100. The patient was asymptomatic at that time w/ BP 138/75 and saturation 93% on 1 L supplemental O2. The patient had just had an Echo this admission which showed normal LVEF and normal RVEF Her K was 2.8 on the day of the VTach, which was liekey the cause Plan: Remain on telemetry Follow and replace the hypokalemia Assure her Mg is also normal (15) COVID-19 Conclusion/Plan: She presented with this and the pulm embolism. Perhaps COVID made her hypercoagulable and the caused PE and multi-focal stroke Patient did not want remdesivir. The order was discontinued. Family wanted us to stop the dexamethasone. Discontinued dexamethasone per family request. On 02/07, she came out of isolation, ordered by Kamala Preston, our Infec Prev RN - Current Meds Current Meds: Current Medications Generic Name Dose Route Start Last Admin Trade Name Freq PRN Reason Stop Dose Admin Acetaminophen 650 mg 01/30/23 15:42 02/09/23 21:41 Acetaminophen 325 Mg Tablet PO 650 mg Q4HR PRN Administration Pain 1 to 4, or Fever Amlodipine Besylate 10 mg 02/02/23 09:00 02/10/23 08:11 Amlodipine 5 Mg Tablet PO 10 mg DAILY BRANDY Administration Apixaban 5 mg 02/06/23 21:00 02/10/23 21:26 Apixaban 5 Mg Tablet PO 5 mg BID BRANDY Administration Aspirin 81 mg 02/06/23 09:00 02/10/23 08:11 Aspirin Chew 81 Mg Tablet PO 81 mg DAILY BRANDY Administration Atorvastatin Calcium 10 mg 02/09/23 22:00 02/10/23 21:26 Atorvastatin 10 Mg Tablet PO 10 mg QPM BRANDY Administration Cholecalciferol 50 mcg 02/02/23 09:00 02/10/23 08:12 Cholecalciferol 25 Mcg Tablet PO 50 mcg DAILY BRANDY Administration Docusate Sodium 250 - 500 mg 02/01/23 13:00 02/10/23 08:11 Docusate Sodium 250 Mg Capsule PO 250 mg DAILY BRANDY Administration Guaifenesin 600 mg 01/30/23 21:00 02/10/23 21:26 Guaifenesin 600 Mg Tablet PO 600 mg BID BRANDY Administration Hydralazine HCl 5 mg 02/05/23 02:45 02/05/23 03:15 Hydralazine Inj 20 Mg/Ml Vial IVP 5 mg Q6H PRN Administration hypertension sbp>170 Piperacillin Sod/Tazobactam 100 mls @ 25 mls/hr 02/08/23 15:00 02/11/23 00:09 Sod 3.375 gm/ Sodium Chloride IV 25 mls/hr Q8H BRANDY Administration Vancomycin HCl 1 gm/ Sodium 250 mls @ 167 mls/hr 02/08/23 22:00 02/11/23 00:15 Chloride IV 167 mls/hr Q12H BRANDY Administration Insulin Human Lispro 1 - 9 unit 02/03/23 08:00 02/10/23 21:24 Insulin Lispro 300 Unit/3 Ml Pen SUBQ 1 unit 0800,1200,1700,2100 BRANDY Administration Protocol Multivitamins/Minerals 1 tab 02/09/23 17:00 02/10/23 08:11 Multivitamin W/Minerals Tablet PO 1 tab DAILYWM BRANDY Administration Ondansetron HCl 4 mg 01/30/23 15:42 02/03/23 08:41 Ondansetron 4 Mg/2 Ml Vial IVP 4 mg Q6HR PRN Administration Nausea / Vomiting Petrolatum 1 applic 02/06/23 20:00 02/06/23 20:11 Petrolatum White 5 Gm Packet TOP 1 applic PRN PRN Administration Dry Lips, dry nares Polyethylene Glycol 17 gm 02/02/23 09:00 02/10/23 08:11 Polyethylene Glycol 3350 17 Gm Packet PO 17 gm DAILY BRANDY Administration Potassium Chloride 20 meq 02/10/23 13:00 02/10/23 12:38 Potassium Chloride 10 Meq Capsule PO 20 meq DAILYWM BRANDY Administration Senna 8.6 - 17.2 mg 02/01/23 13:00 02/10/23 08:12 Senna 8.6 Mg Tablet PO 8.6 mg DAILY BRANDY Administration Sodium Chloride 10 ml 01/30/23 15:42 02/08/23 02:45 Sodium Chloride Flush 0.9% 10 Ml Syringe IVP 10 ml PRN PRN Administration NEEDED PER PROVIDER ORDERS Sodium Chloride 10 ml 01/30/23 17:00 02/11/23 00:17 Sodium Chloride Flush 0.9% 10 Ml Syringe IVP 10 ml 0100,0900,1700 BRANDY Administration Trazodone HCl 25 mg 02/10/23 21:00 02/10/23 21:26 Trazodone 50 Mg Tablet PO 25 mg QPM BRANDY Administration - Lab Result Fish Bone Diagrams: 02/13/23 05:22 02/13/23 12:55 - Additional Planning My Orders: My Active Orders 02/10/23 13:00 Potassium Chloride [Micro-K] 20 meq PO DAILYWM 02/10/23 21:00 traZODone [Desyrel] 25 mg PO QPM 02/11/23 08:02 Transfuse RBCs Leukoreduced [RC] .ONCE 02/11/23 08:03 CHEST WO [CT] Stat 02/11/23 08:04 HEAD WO [CT] Stat 02/11/23 08:05 ABDOMEN/PELVIS WO [CT] Stat 02/11/23 08:35 RBC, LEUKOREDUCED Stat TYPE AND SCREEN Stat 02/12/23 05:00 BMP - BASIC METABOLIC PANEL [CHEM] DAILYLAB CBC - COMP BLD CT W/AUTO DIFF [HEME] DAILYLAB Subjective - Subjective Nursing Reports: Confused (and somnolent), Other (Febrile) Objective Vital Signs: Vital Signs - 24 hr 02/10/23 02/10/23 02/10/23 13:00 15:40 19:30 Temperature 37.7 C 37.1 C Heart Rate [ 103 H 101 H Brachial] Respiratory 20 20 Rate Blood Pressure [Left Brachial artery] Blood Pressure 149/69 H 146/80 H [Right Brachial artery] O2 Saturation 97 95 If not protocol 1 1 1 : Oxygen Flow, liters/minute 02/10/23 02/10/23 02/11/23 20:45 23:58 05:00 Temperature 37.4 C 37.2 C 37.2 C Heart Rate [ 114 H 107 H 102 H Brachial] Respiratory 20 16 18 Rate Blood Pressure 135/68 H 133/67 H [Left Brachial artery] Blood Pressure 146/79 H [Right Brachial artery] O2 Saturation 98 96 97 If not protocol 1 1 1 : Oxygen Flow, liters/minute 02/11/23 08:01 Temperature 37.6 C Heart Rate [ 101 H Brachial] Respiratory 20 Rate Blood Pressure 140/63 H [Left Brachial artery] Blood Pressure [Right Brachial artery] O2 Saturation 91 L If not protocol : Oxygen Flow, liters/minute Oxygen O2 Source Room air Oxygen Flow Rate 2 I&O (Last 24 Hrs): Intake and Output Totals x24h 12/28/23 12/29/23 12/30/23 23:59 23:59 23:59 Intake Total 1516 4681.212 3626 Output Total 800 300 200 Balance 716 1586.167 800 General: Mild distress (is lethargic and weak), Other (cachectic) HEENT: Mucous membr. moist/pink, Other (on O2 via n.c.) Neck: Supple Neuro: Other (B arm weakness, R>L, facial droop R, both legs moder weak) Cardiovascular: Regular rate, No murmurs Respiratory: Wheezes, Rhonchi Abdomen: No tenderness, Other (Midly distended, diminished bowel sounds) Extremities: Other (1+ edema pretibial) - Results Results: Laboratory Results WBC 27.5 x10^3/uL (4.8-10.8) H 02/11/23 05:00 RBC 2.52 10^6/uL (4.20-5.40) L 02/11/23 05:00 Hgb 6.9 g/dL (12.0-16.0) L* 02/11/23 05:00 Hct 22.5 % (37.0-47.0) L 02/11/23 05:00 MCV 89.3 fL (81.0-99.0) 02/11/23 05:00 MCH 27.4 pg (27.0-31.0) 02/11/23 05:00 MCHC 30.7 g/dL (32.0-36.0) L 02/11/23 05:00 RDW 16.6 % (12.0-15.0) H 02/11/23 05:00 Plt Count 282 10^3/uL (130-450) 02/11/23 05:00 MPV 11.8 fL (7.9-10.8) H 02/11/23 05:00 Neut # (Auto) 23.1 10^3/uL (1.5-6.6) H 02/11/23 05:00 Lymph # (Auto) 2.2 10^3/uL (1.5-3.5) 02/11/23 05:00 [place] # (Auto) 1.5 10^3/uL (0.0-1.0) H 02/11/23 05:00 Eos # (Auto) 0.5 10^3/uL (0.0-0.7) 02/11/23 05:00 Baso # (Auto) 0.0 10^3/uL (0.0-0.1) 02/11/23 05:00 Absolute Nucleated RBC 0.03 x10^3/uL 02/11/23 05:00 Total Counted 100 02/10/23 05:19 Band Neuts % (Manual) 1 % (0-10) 02/10/23 05:19 Abnorm Lymph % (Manual) 0 % 02/10/23 05:19 Metamyelocytes % 1 % (-0) H 02/07/23 10:49 Nucleated RBC % 0.1 /100WBC 02/11/23 05:00 Neutrophils # (Manual) 21.1 10^3/uL (1.5-6.6) H 02/10/23 05:19 Lymphocytes # (Manual) 2.8 10^3/uL (1.5-3.5) 02/10/23 05:19 Monocytes # (Manual) 1.0 10^3/uL (0.0-1.0) 02/10/23 05:19 Eosinophils # (Manual) 0.3 10^3/uL (0-0.7) 02/10/23 05:19 Basophils # (Manual) 0.0 10^3/uL (0-0.1) 02/10/23 05:19 Differential Comment MANUAL DIFFERENTIAL 02/10/23 05:19 WBC Morphology 1+ HYPERSEG NEUT (NORMAL) 02/07/23 10:49 Platelet Estimate NORMAL (130-450,000) (NORMAL) 02/10/23 05:19 Platelet Morphology NORMAL KAREN (NORMAL) 02/07/23 10:49 RBC Morph Micro Appear 2+ HYPOCHROMASIA (NORMAL) 02/10/23 05:19 PT 16.8 secs (9.9-12.6) H 01/30/23 00:01 INR 1.6 (0.8-1.2) H 01/30/23 00:01 APTT 102.0 secs (24.9-33.3) H* 01/30/23 11:17 Sodium 144 mmol/L (135-145) 02/11/23 05:00 Potassium 2.9 mmol/L (3.5-4.5) L 02/11/23 05:00 Chloride 106 mmol/L (101-111) 02/11/23 05:00 Carbon Dioxide 28 mmol/L (21-32) 02/11/23 05:00 Anion Gap 10.0 (6-13) 02/11/23 05:00 BUN 25 mg/dL (6-20) H 02/11/23 05:00 Creatinine 0.8 mg/dL (0.6-1.3) 02/11/23 05:00 Estimated GFR (MDRD) 70 (>89) L 02/11/23 05:00 Glucose 129 mg/dL (74-104) H 02/11/23 05:00 POC Whole Bld Glucose 141 mg/dL (70 - 100) H 02/10/23 20:44 Lactic Acid 1.1 mmol/L (0.5-2.2) 02/08/23 07:50 Calcium 8.2 mg/dL (8.5-10.3) L 02/11/23 05:00 Magnesium 1.8 mg/dL (1.7-2.3) 02/11/23 05:00 Total Bilirubin 1.4 mg/dL (0.2-1.0) H 02/11/23 05:00 Direct Bilirubin 0.73 mg/dL (0.03-0.18) H 02/11/23 05:00 AST 77 IU/L (10-42) H 02/11/23 05:00 ALT 55 IU/L (10-60) 02/11/23 05:00 Alkaline Phosphatase 826 IU/L (42-121) H 02/11/23 05:00 Troponin I High Sens 28.5 ng/L (2.3-14.8) H* 01/31/23 05:09 B-Natriuretic Peptide 75 pg/mL (5-100) 01/30/23 07:36 Total Protein 5.9 g/dL (6.4-8.9) L 02/11/23 05:00 Albumin 2.6 g/dL (3.2-5.5) L 02/11/23 05:00 Globulin 3.3 g/dL (2.1-4.2) 02/11/23 05:00 Albumin/Globulin Ratio 0.9 (1.0-2.2) L 02/09/23 07:55 Triglycerides 298 mg/dL (48-352) 02/08/23 05:11 Cholesterol 148 mg/dL (-200) 02/08/23 05:11 LDL Cholesterol, Calc 71 mg/dL (-129) 02/08/23 05:11 VLDL Cholesterol 60 mg/dL 02/08/23 05:11 HDL Cholesterol 17 mg/dL (60-) L 02/08/23 05:11 LDL/HDL Ratio 4.2 (<4.4) 02/08/23 05:11 Cholesterol/HDL Ratio 8.7 (<4.4) 02/08/23 05:11 Lipase 23 U/L (11-82) 01/30/23 00:01 Urine Color YELLOW 02/06/23 11:55 Urine Clarity SL. CLOUDY (CLEAR) 02/06/23 11:55 Urine pH 6.0 PH (5.0-7.5) 02/06/23 11:55 Ur Specific [place] 1.020 (1.002-1.030) 02/06/23 11:55 Urine Protein 100 mg/dL (NEGATIVE) H 02/06/23 11:55 Urine Glucose (UA) NEGATIVE mg/dL (NEGATIVE) 02/06/23 11:55 Urine Ketones NEGATIVE mg/dL (NEGATIVE) 02/06/23 11:55 Urine Occult Blood TRACE-INTA (NEGATIVE) 02/06/23 11:55 Urine Nitrite POSITIVE (NEGATIVE) H 02/06/23 11:55 Urine Bilirubin NEGATIVE (NEGATIVE) 02/06/23 11:55 Urine Urobilinogen 4 E.U./dL (NORMAL) H 02/06/23 11:55 Ur Leukocyte Esterase NEGATIVE (NEGATIVE) 02/06/23 11:55 Urine RBC 0-5 /HPF (0-5) 02/06/23 11:55 Urine WBC 4-5 /HPF (0-5) 02/06/23 11:55 Ur Squamous Epith Cells NONE SEEN (<= Few) 02/06/23 11:55 Urine Bacteria Many /HPF (None Seen) H 02/06/23 11:55 Urine Casts 0-2 Fine Granular /LPF 02/06/23 11:55 Urine Mucus Few Strands 02/06/23 11:55 Urine Culture Comments INDICATED 02/06/23 11:55 Nasal Adenovirus (PCR) NOT DETECTED 01/30/23 03:34 Nasal B. parapertussis DNA (PCR) NOT DETECTED 01/30/23 03:34 Nasal Coronavir 229E PCR NOT DETECTED 01/30/23 03:34 Nasal Coronavir HKU1 PCR NOT DETECTED 01/30/23 03:34 Nasal Coronavir NL63 PCR NOT DETECTED 01/30/23 03:34 Nasal Coronavir OC43 PCR NOT DETECTED 01/30/23 03:34 Nasal Enterovir/Rhinovir PCR NOT DETECTED 01/30/23 03:34 Nasal Influenza B PCR NOT DETECTED 01/30/23 03:34 Nasal Influenza A PCR NOT DETECTED 01/30/23 03:34 Nasal Parainfluen 1 PCR NOT DETECTED 01/30/23 03:34 Nasal Parainfluen 2 PCR NOT DETECTED 01/30/23 03:34 Nasal Parainfluen 3 PCR NOT DETECTED 01/30/23 03:34 Nasal Parainfluen 4 PCR NOT DETECTED 01/30/23 03:34 Nasal RSV (PCR) NOT DETECTED 01/30/23 03:34 Nasal B.pertussis DNA PCR NOT DETECTED 01/30/23 03:34 Nasal C.pneumoniae (PCR) NOT DETECTED 01/30/23 03:34 Song Human Metapneumo PCR NOT DETECTED 01/30/23 03:34 Nasal M.pneumoniae (PCR) NOT DETECTED 01/30/23 03:34 Nasal SARS-CoV-2 (PCR) DETECTED A 01/30/23 03:34 Last Dose Date UNK 02/10/23 11:59 Last Dose Time UNK 02/10/23 11:59 Vancomycin Trough 17.5 ug/mL 02/10/23 11:59 Crossmatch IS Only See Detail 02/11/23 08:35
[2023-02-11] MEDS: INSULIN LISPRO 300 UNIT/3 ML PEN SUBQ SCH ×4 (09:45→21:30)
[2023-02-11] MEDS ORDERED: OLIVE LEAF PO SCH ×2 (11:00→17:00)
[2023-02-11] MEDS: ACETAMINOPHEN 325 MG TABLET PO PRN (11:16)
--- NOTE | 2023-02-11 12:26 | CT Report ---
PROCEDURE: HEAD WO INDICATIONS: Recent stroke, rising WBC TECHNIQUE: Noncontrast 4.5 mm thick angled axial sections acquired from the foramen magnum to the vertex. For r adiation dose reduction, the following was used: automated exposure control, adjustment of mA and/or kV according to patient size. COMPARISON: 02/07/2023, 02/06/2023 FINDINGS: Image quality: Good CSF spaces: Basal cisterns are patent. Lateral ventricles are symmetric. Volume: Vascular calcifications. Periventricular white matter disease is commonly seen with chronic m icroangiopathy. Volume loss is present. These findings are moderate. Brain: Evolving hypoattenuation in both hemispheres, most significantly affecting the left occipital region. This area is larger than the diffusion restriction demonstrated on recent prior MRI. No macro scopic hemorrhagic transformation. Craniofacial structures: Partial paranasal sinus opacification. IMPRESSION: Evolving infarcts in both hemispheres. This particularly involves the left occipital lobe. The area o f hypoattenuation is larger than the diffusion restriction demonstrated on recent MRI, suggestive of additional new infarction. If further imaging is desired, consider MRI surveillance. No macroscopic h emorrhagic transformation. Reviewed by: Russell Hickman MD on 02/11/2023 12:25 PM PST Approved by: Russell Hickman MD on 02/11/2023 12:25 PM PST Station ID: [id number]
--- NOTE | 2023-02-11 12:30 | CT Report ---
PROCEDURE: CHEST WO INDICATIONS: Hypoxia, rising WBC TECHNIQUE: Noncontrast 1mm axial images acquired from the pulmonary apex to the posterior costophrenic angles in the supine end-inspiration, supine end-expiration, and prone end-inspiration positions. Axial 5 mm soft tissue kernel reconstructions were performed as well as 8 mm axial MIP and coronal and sagittal 5 mm reformations. For radiation dose reduction, the following was used: automated exposure control , adjustment of mA and/or kV according to patient size. COMPARISON: 01/30/2023 FINDINGS: Image quality: Good Lungs and pleura:Increased pulmonary consolidations, most confluent in the posterior right upper lobe . Small right pleural effusion. Superimposed lung nodules and masses are suspected to be present, for example the right costophrenic angle. Mediastinum, heart, and esophagus: No hiatal hernia. Coronary calcifications. No pathologic lymph nod es by size criteria on this noncontrast study. Chest wall and thyroid: Unremarkable. No suspicious thyroid nodules. Upper abdomen: Partially seen liver masses as noted previously. Bones: Rib fractures of different ages. Degenerative changes. IMPRESSION: Increased pulmonary consolidations most confluent in the right upper lobe, suspicious for infection. Additional pulmonary nodules and masses are present. Consider future surveillance. Small right pleura l effusion. Partially seen liver masses suspicious for metastatic disease. Reviewed by: Russell Hickman MD on 02/11/2023 12:29 PM PST Approved by: Russell Hickman MD on 02/11/2023 12:29 PM PST Station ID: [id number]
--- NOTE | 2023-02-11 12:37 | CT Report ---
PROCEDURE: ABDOMEN/PELVIS WO INDICATIONS: Rising WBC, Hx of alcohol abuse TECHNIQUE: A CT scan of the abdomen and pelvis was performed without the use of intravenous contrast. Images we re recorded and evaluated at appropriate window settings. Reformats: coronal and sagittal. For radiat ion dose reduction, the following was used: automated exposure control, adjustment of mA and/or kV ac cording to patient size. COMPARISON: 02/08/2023 FINDINGS: Image quality: Diagnostic on this limited noncontrast study however. Lower chest: Separately dictated Liver: Multiple liver masses suspicious for metastatic disease. Gallbladder and biliary system: Pericholecystic mild fluid is nonspecific. Possible sludge versus sma ll stones. No significant biliary ductal dilation. Pancreas: No ductal dilation Spleen: Nonenlarged Adrenals: Possible small left nodule versus thickening Kidneys: No hydronephrosis. Left-sided cyst at the inferior pole Vessels and lymph nodes: Borderline enlarged upper abdominal lymph nodes not well evaluated on noncon trast imaging. No abdominal aortic aneurysm. Atherosclerotic calcifications. Bowel and peritoneum: No evidence of small bowel obstruction. Small amount of peritoneal free fluid a nd mild fat stranding is nonspecific. No discrete drainable abscess. Small amount of right pericapsul ar fluid around the liver. Body wall: Unremarkable Pelvis: Bladder is unremarkable. Possible fibroid. Consider sonographic correlation. Senescent calcif ications in the pelvis. Bones: Partially seen fat stranding in the left lower extremity. No additional acute or suspicious fi nding. Degenerative changes. IMPRESSION: No drainable abscess in the abdomen. There is nonspecific small free fluid, hepatic pericapsular flui d, and mild diffuse fat stranding. Possibility related to diffuse volume overload, malignancy and/or abdominopelvic inflammation such as enterocolitis. Multiple liver masses are suspicious for metastatic disease. Other findings as above. Limited noncontrast CT. Reviewed by: Russell Hickman MD on 02/11/2023 12:36 PM PST Approved by: Russell Hickman MD on 02/11/2023 12:36 PM PST Station ID: [id number]
[2023-02-11] MEDS: MULTIVITAMIN W/MINERALS TABLET PO SCH (13:20)
[2023-02-11] MEDS: POTASSIUM CHLORIDE 10 MEQ CAPSULE PO SCH (13:20)
[2023-02-11] MEDS: SENNA 8.6 MG TABLET PO SCH (13:21)
[2023-02-11] MEDS: DOCUSATE SODIUM 250 MG CAPSULE PO SCH (13:21)
[2023-02-11] MEDS: ASPIRIN CHEW 81 MG TABLET PO SCH (13:21)
[2023-02-11] MEDS: CHOLECALCIFEROL 25 MCG TABLET PO SCH (13:21)
[2023-02-11] MEDS: APIXABAN 5 MG TABLET PO SCH ×2 (13:21→21:30)
[2023-02-11] MEDS: amLODIPine 5 MG TABLET PO SCH (13:21)
[2023-02-11] MEDS: polyethylene glycoL 3350 17 GM PACKET PO SCH (13:21)
[2023-02-11] MEDS: guaiFENesin 600 MG TABLET PO SCH ×2 (13:21→21:30)
[2023-02-11] MEDS: OLIVE LEAF PO SCH (17:40)
[2023-02-11] MEDS: ATORVASTATIN 10 MG TABLET PO SCH (21:30)
[2023-02-11] MEDS: traZODone 50 MG TABLET PO SCH (21:30)
[2023-02-12] MEDS: PIPERACILLIN/TAZOBACTAM 3.375 GM in SODIUM CHLORIDE 0.9% MINIBAG 100 ML IV SCH ×3 (00:36→17:23)
[2023-02-12] MEDS: SODIUM CHLORIDE FLUSH 0.9% 10 ML SYRINGE IVP SCH ×3 (00:36→17:27)
[2023-02-12] MEDS: ACETAMINOPHEN 325 MG TABLET PO PRN (00:55)
[2023-02-12 06:07] LABS: BASOPHILS # (AUTO) 0.1 10^3/uL (0.0-0.1); BASOPHILS % (AUTO) 0.2 %; EOSINOPHILS # (AUTO) 0.4 10^3/uL (0.0-0.7); EOSINOPHILS % (AUTO) 1.6 %; HCT - HEMATOCRIT 26.7 % (37.0-47.0); HGB - HEMOGLOBIN 8.4 g/dL (12.0-16.0); LYMPHOCYTES # (AUTO) 1.8 10^3/uL (1.5-3.5); LYMPHOCYTES % (AUTO) 6.9 %; MEAN CORPUSCULAR HEMOGLOBIN 27.9 pg (27.0-31.0); MEAN CORPUSCULAR HGB CONC 31.5 g/dL (32.0-36.0); MEAN CORPUSCULAR VOLUME 88.7 fL (81.0-99.0); MEAN PLATELET VOLUME 11.7 fL (7.9-10.8); MONOCYTES # (AUTO) 1.2 10^3/uL (0.0-1.0); MONOCYTES % (AUTO) 4.5 %; NEUTROPHILS # (AUTO) 22.3 10^3/uL (1.5-6.6); NRBC ABSOLUTE COUNT (AUTO) 0.04 x10^3/uL; NUCLEATED RED BLOOD CELLS AUTO 0.2 /100WBC; PLT - PLATELET COUNT 261 10^3/uL (130-450); RED BLOOD COUNT 3.01 10^6/uL (4.20-5.40); RED CELL DISTRIBUTION WIDTH 15.9 % (12.0-15.0)
[2023-02-12 06:38] LABS: CALCIUM 8.1 mg/dL (8.5-10.3); CREATININE 0.9 mg/dL (0.6-1.3); POTASSIUM 2.9 mmol/L (3.5-4.5)
[2023-02-12 06:56] LABS: SLIDE REVIEW? Indicated
[2023-02-12 07:15] LABS: PLATELET ESTIMATE, MANUAL INCREASED (>450,000) (NORMAL); PLATELET MORPHOLOGY NORMAL APPEARANCE (NORMAL)
[2023-02-12] MEDS: INSULIN LISPRO 300 UNIT/3 ML PEN SUBQ SCH ×4 (09:13→20:53)
[2023-02-12] MEDS: CHOLECALCIFEROL 25 MCG TABLET PO SCH (09:16)
[2023-02-12] MEDS: POTASSIUM CHLORIDE 10 MEQ CAPSULE PO SCH (09:17)
[2023-02-12] MEDS: ASPIRIN CHEW 81 MG TABLET PO SCH (09:17)
[2023-02-12] MEDS: MULTIVITAMIN W/MINERALS TABLET PO SCH (09:17)
[2023-02-12] MEDS: guaiFENesin 600 MG TABLET PO SCH ×2 (09:17→20:49)
[2023-02-12] MEDS: DOCUSATE SODIUM 250 MG CAPSULE PO SCH (09:17)
[2023-02-12] MEDS: SENNA 8.6 MG TABLET PO SCH (09:17)
[2023-02-12] MEDS: APIXABAN 5 MG TABLET PO SCH ×2 (09:17→20:49)
[2023-02-12] MEDS: amLODIPine 5 MG TABLET PO SCH (09:18)
[2023-02-12] MEDS: polyethylene glycoL 3350 17 GM PACKET PO SCH (09:18)
[2023-02-12] MEDS ORDERED: AZITHROMYCIN INJ 500 MG in SODIUM CHLORIDE 0.9% 250 ML IV ONE (11:00)
[2023-02-12] MEDS: POTASSIUM CHLOR 10 MEQ/100 ML 10 MEQ/100 ML BAG IV SCH ×4 (11:21→14:52)
[2023-02-12] MEDS: VANCOMYCIN INJ 1 GM in SODIUM CHLORIDE 0.9% 250 ML IV SCH (13:31)
[2023-02-12] MEDS: OLIVE LEAF PO SCH (17:30)
--- NOTE | 2023-02-12 18:40 | PROVIDER PROGRESS NOTE ---
Assessment/Plan - Problem List (1) Colitis Assessment/Plan: She had a fever yesterday and white count was 27.5. She underwent CT scanning from head down to pelvis. The results were that pneumonia persists and she has new colitis She was put on clear liquids thickened and antibiotics continued Plan: Since there is improvement today, we could try switching to oral antibiotics after we are sure that blood cultures are negative, that would be tomorrow The daughter is interested in =duration of antibx because she thinks she wants to hire caregivers and have in-home PT for her stroke rehab and take her home and not have her go to SNF (2) Anemia Hemoglobin had dropped to 6.9 yesterday. After her fever yesterday and workup and starting antibiotics, she did get 1 unit of blood yesterday. The hemoglobin burke to 8.4 Plan: Follow CBC daily Will check b12, folate levels and iron stores and replace if low (3) Acute respiratory failure with hypoxia Conclusion/Plan: Hypoxia is secondary to COVID-19 pneumonia, a new infiltrate (probable bacterial PNA) and pulmonary embolus. Plan: Will try weaning supplemental oxygen. She is currently on 1-2 L via nasal cannula. If needed will order Morphine for air hunger (4) Aspiration pneumonia Assessment/Plan: Since 02/06/2023 she has had trouble handling food and her diet. She did have aspiration events. Her diet was de-escalated to pured and honey thick liquids. On 02/08 she spiked a fever and CXR showed a new infiltrate in the left lung base. Blood cultures and spt ordered. Pt started on Vanco and Zosyn and Cefrtriaxone was stopped 02/08. On 02/11 she spiked a fever and CXR showed worsened PNA. Zithromax started to cover Atypicals Plan: Cont iv antibx Await cx results to tailor antibx I ordered Chest PT vest TID to mobilize her infiltrate, since she was too weak from her stroke to cough effectively. She tolerated 1-2 min eacgh time, wanted it stopped today. I will cancel Follow WBC daily (5) CVA (cerebral vascular accident) Assessment/Plan: She had a stroke on 02/05/23 She had R sided flaccid paralysis with a R sided facial droop. The tele Neurologist, did not enter a note but recommended starting asprin 81 mg and high intensity statin. he recommended continued Eliquis. She did not qualify for thrombolytics given unknown time of onset and she was already on Eliquis (for PE) Swallow eval revealed she needs pureed food and thickened liquids. Her nutritional intake has been poor this adm, and BMI is 19. MRI done (Family requested that this be performed without contrast) and it showed bilateral acute CVAs Her Echo w/ bubble study showed no clot and no PFO. Because of the fever yesterday 02/11, CT scanning was repeated from head to pelvis. The head CT yesterday showed she had a new stroke near the old stroke Her R sided flaccidity is improving, she is moving the arm and hand but not the fingers Plan: Cont anticoagulation and ASA I decreased her statin dose due to elevated LFTs PT/OT tried to work with her but she was too somnolent for many days She needs pureed food and thickened liquids and she needs to be fed both w/ a spoon. Her nutritional intake has been poor this adm, and BMI is 19. I was going to ask Pam (the DPOA) about starting ng feeds, but since yesterday 02/09 pt ate well from a spoon Since the patient is the most alert that she has been since her stroke, today I asked the patient directly what her wishes are if she has a CODE BLUE and she quickly responded "let nature take its course". The son and daughter were in the room and witnessed this discussion. I will make her a DNR/DNI. Telemetry will be stopped The daughter thinks she wants to hire caregivers and have in-home PT for her stroke rehab, and take her home and not have her go to SNF (6) Hypokalemia Conclusion/Plan: K is 2.9 today (all labs were reviewed). Plan: Replacing potassium po and iv Follow BMP daily (7) Bilateral pulmonary embolism Conclusion/Plan: Possibly provoked by COVID-19 or underlying suspected malignancy (since lung masses were seen on CXR at adm). Plan: She got Eliquis 10 mg twice daily for 7 days, and on 02/06 has transitioned to Eliquis 5 mg p.o. twice daily for 3 to 6 months. (8) Elevated LFTs New LFT elevation was seen on labs 02/08, they decreased somewhat then ar up again (all labs were reviewed). Etiology could have been shock liver or secondary to COVID, but she did not get remdesivir so this was not the cause. It could be from R heart failure or from her liver masses affecting liver function. Pam also described that the patient has a history of alcohol abuse. She underwent CT abdomen/pelvis and this showed no pancreatic or gallbladder problems, the liver was enlarged and had findings of cirrhosis plus had areas suggesting mets. I decreased Lipitor from 40 mg to 10 mg Plan: Follow LFTs intermittently Avoid hepatotoxins. (9) Lung mass Conclusion/Plan: Several lung masses seen on CT chest. Multiple liver masses also seen. I discussed this w/ Pam today by phone on 02/08 Plan: This will need outpatient W/U and follow-up. (10) Liver masses Suspicious for mets. These have been discussed with Pam, daughter and NISREEN (11) AMS (altered mental status) Assessment/Plan: IMPROVED She became somnolent ever since the stroke. Since evening of 02/09 she is more awake, especially when family in room. I decreased the scheduled Trazodone at hs from 50mg to 25mg and will try to taper it to off over several days Ordered: pt needs to be fed She got D5W iv for 1L, due to hypernatremia on 02/11 Plan: Avoid narcotics that would add to sedation (12) Hypomagnesemia Conclusion/Plan: Replacing as needed. (13) V-tach Assessment/Plan: RESOLVED At 10:55 AM the patient had a 17-beat run of monomorphic V. tach at a rate of 100. The patient was asymptomatic at that time w/ BP 138/75 and saturation 93% on 1 L supplemental O2. The patient had just had an Echo this admission which showed normal LVEF and normal RVEF Her K was 2.8 on the day of the VTach, which was liekey the cause Plan: Remain on telemetry Follow and replace the hypokalemia Assure her Mg is also normal (14) Abnormal EKG Conclusion/Plan: Abn EKG at admission, suggested R heart strain. but her TTE showed no evidence of Right Heart failure or RV enlargement. Possibly the abnormal EKG was as a result of the acute PE at admission (15) COVID-19 Conclusion/Plan: She presented COVID (+) and the pulm embolism. I suspect COVID made her hypercoagulable and caused the PE and multi-focal strokes and repeat stroke Patient did not want remdesivir. The order was discontinued. Family wanted us to stop the dexamethasone. We discontinued dexamethasone per family request. On 02/07, she came out of isolation, ordered by Kamala Preston, our Infec Prev RN - Current Meds Current Meds: Current Medications Generic Name Dose Route Start Last Admin Trade Name Freq PRN Reason Stop Dose Admin Acetaminophen 650 mg 01/30/23 15:42 02/12/23 00:55 Acetaminophen 325 Mg Tablet PO 650 mg Q4HR PRN Administration Pain 1 to 4, or Fever Amlodipine Besylate 10 mg 02/02/23 09:00 02/12/23 09:18 Amlodipine 5 Mg Tablet PO 10 mg DAILY BRANDY Administration Apixaban 5 mg 02/06/23 21:00 02/12/23 09:17 Apixaban 5 Mg Tablet PO 5 mg BID BRANDY Administration Aspirin 81 mg 02/06/23 09:00 02/12/23 09:17 Aspirin Chew 81 Mg Tablet PO 81 mg DAILY BRANDY Administration Atorvastatin Calcium 10 mg 02/09/23 22:00 02/11/23 21:30 Atorvastatin 10 Mg Tablet PO 10 mg QPM BRANDY Administration Cholecalciferol 50 mcg 02/02/23 09:00 02/12/23 09:16 Cholecalciferol 25 Mcg Tablet PO 50 mcg DAILY BRANDY Administration Docusate Sodium 250 - 500 mg 02/01/23 13:00 02/12/23 09:17 Docusate Sodium 250 Mg Capsule PO 250 mg DAILY BRANDY Administration Guaifenesin 600 mg 01/30/23 21:00 02/12/23 09:17 Guaifenesin 600 Mg Tablet PO 600 mg BID BRANDY Administration Hydralazine HCl 5 mg 02/05/23 02:45 02/05/23 03:15 Hydralazine Inj 20 Mg/Ml Vial IVP 5 mg Q6H PRN Administration hypertension sbp>170 Piperacillin Sod/Tazobactam 100 mls @ 25 mls/hr 02/08/23 15:00 02/12/23 17:23 Sod 3.375 gm/ Sodium Chloride IV 25 mls/hr Q8H BRANDY Administration Vancomycin HCl 1 gm/ Sodium 250 mls @ 167 mls/hr 02/08/23 22:00 02/12/23 16:05 Chloride IV Infused Q12H BRANDY Infusion Insulin Human Lispro 1 - 9 unit 02/03/23 08:00 02/12/23 17:14 Insulin Lispro 300 Unit/3 Ml Pen SUBQ Not Given 0800,1200,1700,2100 [facility] Protocol Multivitamins/Minerals 1 tab 02/09/23 17:00 02/12/23 09:17 Multivitamin W/Minerals Tablet PO 1 tab DAILYWM BRANDY Administration Ondansetron HCl 4 mg 01/30/23 15:42 02/03/23 08:41 Ondansetron 4 Mg/2 Ml Vial IVP 4 mg Q6HR PRN Administration Nausea / Vomiting Petrolatum 1 applic 02/06/23 20:00 02/06/23 20:11 Petrolatum White 5 Gm Packet TOP 1 applic PRN PRN Administration Dry Lips, dry nares Polyethylene Glycol 17 gm 02/02/23 09:00 02/12/23 09:18 Polyethylene Glycol 3350 17 Gm Packet PO Not Given DAILY [facility] Potassium Chloride 20 meq 02/10/23 13:00 02/12/23 09:17 Potassium Chloride 10 Meq Capsule PO 20 meq DAILYWM BRANDY Administration Senna 8.6 - 17.2 mg 02/01/23 13:00 02/12/23 09:17 Senna 8.6 Mg Tablet PO 17.2 mg DAILY BRANDY Administration Sodium Chloride 10 ml 01/30/23 15:42 02/08/23 02:45 Sodium Chloride Flush 0.9% 10 Ml Syringe IVP 10 ml PRN PRN Administration NEEDED PER PROVIDER ORDERS Sodium Chloride 10 ml 01/30/23 17:00 02/12/23 17:27 Sodium Chloride Flush 0.9% 10 Ml Syringe IVP 10 ml 0100,0900,1700 BRANDY Administration - Lab Result Fish Bone Diagrams: 02/12/23 05:50 02/12/23 05:50 - Additional Planning My Orders: My Active Orders 02/13/23 05:00 BMP - BASIC METABOLIC PANEL [CHEM] DAILYLAB CALCIUM [CHEM] DAILYLAB CBC - COMP BLD CT W/AUTO DIFF [HEME] DAILYLAB MAGNESIUM [CHEM] DAILYLAB PHOSPHORUS [CHEM] DAILYLAB 02/13/23 08:00 Patient Own Med 1 each PO 0800,1700 02/13/23 09:00 Azithromycin Inj [Zithromax Inj] 500 mg Sodium Chloride 0.9% [Normal Saline 0.9%] 250 ml IV DAILY 02/14/23 05:00 BMP - BASIC METABOLIC PANEL [CHEM] DAILYLAB CBC - COMP BLD CT W/AUTO DIFF [HEME] DAILYLAB 02/15/23 05:00 BMP - BASIC METABOLIC PANEL [CHEM] DAILYLAB CBC - COMP BLD CT W/AUTO DIFF [HEME] DAILYLAB Subjective - Subjective Patient Reports: Feeling Better, Other (speaking in long sentences) Objective Vital Signs: Vital Signs - 24 hr 02/11/23 02/11/23 02/11/23 19:00 20:03 20:47 Temperature 36.8 C 36.7 C 36.8 C Heart Rate [ 103 H 101 H 101 H Brachial] Respiratory 24 24 24 Rate Blood Pressure [Left Brachial artery] Blood Pressure 146/74 H 139/68 H 150/86 H [Right Brachial artery] O2 Saturation 95 94 93 If not protocol : Oxygen Flow, liters/minute 02/11/23 02/12/23 02/12/23 23:01 00:39 01:25 Temperature 37.4 C 37.9 C 37.3 C Heart Rate [ 107 H 104 H Brachial] Respiratory 30 H 16 Rate Blood Pressure 149/71 H [Left Brachial artery] Blood Pressure 134/59 H [Right Brachial artery] O2 Saturation 93 93 If not protocol 2 : Oxygen Flow, liters/minute 02/12/23 02/12/23 02/12/23 03:05 05:00 06:54 Temperature 36.5 C 36.7 C 37.0 C Heart Rate [ 91 79 84 Brachial] Respiratory 18 18 18 Rate Blood Pressure 139/72 H 124/60 129/66 [Left Brachial artery] Blood Pressure [Right Brachial artery] O2 Saturation 95 96 95 If not protocol 1 1 1 : Oxygen Flow, liters/minute 02/12/23 02/12/23 02/12/23 08:28 09:15 11:00 Temperature 38.7 C H 37.2 C Heart Rate [ 89 95 Brachial] Respiratory 20 20 Rate Blood Pressure 141/68 H 132/62 H [Left Brachial artery] Blood Pressure [Right Brachial artery] O2 Saturation 91 L 96 If not protocol 1 1 1 : Oxygen Flow, liters/minute 02/12/23 02/12/23 02/12/23 13:00 14:56 17:00 Temperature 36.8 C 37.3 C 36.5 C Heart Rate [ 95 97 101 H Brachial] Respiratory 20 20 24 Rate Blood Pressure 123/64 134/67 H 138/66 H [Left Brachial artery] Blood Pressure [Right Brachial artery] O2 Saturation 98 998 H 96 If not protocol 1 1 1 : Oxygen Flow, liters/minute Oxygen O2 Source Nasal cannula Oxygen Flow Rate 2 I&O (Last 24 Hrs): Intake and Output Totals x24h 02/10/23 02/11/23 02/12/23 23:59 23:59 23:59 Intake Total 5738.705 0476 1400 Output Total 300 550 75 Balance 1706.823 4844 1325 General: Alert, No acute distress HEENT: Mucous membr. moist/pink, Other (Has L sided neglect) Neck: Supple Neuro: Alert, Other (R arm 4/5, L arm 4/5, sentences longer and voice is stronger. Legs were not checked) Cardiovascular: Regular rate Respiratory: No respiratory distress, Wheezes (scattered) Abdomen: Soft, No tenderness Extremities: No clubbing, Other (Trace pretibial edema) - Results Results: Laboratory Results WBC 26.0 x10^3/uL (4.8-10.8) H 02/12/23 05:50 RBC 3.01 10^6/uL (4.20-5.40) L 02/12/23 05:50 Hgb 8.4 g/dL (12.0-16.0) L 02/12/23 05:50 Hct 26.7 % (37.0-47.0) L 02/12/23 05:50 MCV 88.7 fL (81.0-99.0) 02/12/23 05:50 MCH 27.9 pg (27.0-31.0) 02/12/23 05:50 MCHC 31.5 g/dL (32.0-36.0) L 02/12/23 05:50 RDW 15.9 % (12.0-15.0) H 02/12/23 05:50 Plt Count 261 10^3/uL (130-450) 02/12/23 05:50 MPV 11.7 fL (7.9-10.8) H 02/12/23 05:50 Neut # (Auto) 22.3 10^3/uL (1.5-6.6) H 02/12/23 05:50 Lymph # (Auto) 1.8 10^3/uL (1.5-3.5) 02/12/23 05:50 [place] # (Auto) 1.2 10^3/uL (0.0-1.0) H 02/12/23 05:50 Eos # (Auto) 0.4 10^3/uL (0.0-0.7) 02/12/23 05:50 Baso # (Auto) 0.1 10^3/uL (0.0-0.1) 02/12/23 05:50 Absolute Nucleated RBC 0.04 x10^3/uL 02/12/23 05:50 Total Counted 100 02/10/23 05:19 Band Neuts % (Manual) 1 % (0-10) 02/10/23 05:19 Abnorm Lymph % (Manual) 0 % 02/10/23 05:19 Metamyelocytes % 1 % (-0) H 02/07/23 10:49 Nucleated RBC % 0.2 /100WBC 02/12/23 05:50 Neutrophils # (Manual) 21.1 10^3/uL (1.5-6.6) H 02/10/23 05:19 Lymphocytes # (Manual) 2.8 10^3/uL (1.5-3.5) 02/10/23 05:19 Monocytes # (Manual) 1.0 10^3/uL (0.0-1.0) 02/10/23 05:19 Eosinophils # (Manual) 0.3 10^3/uL (0-0.7) 02/10/23 05:19 Basophils # (Manual) 0.0 10^3/uL (0-0.1) 02/10/23 05:19 Differential Comment MANUAL DIFFERENTIAL 02/10/23 05:19 Manual Slide Review Indicated 02/12/23 05:50 WBC Morphology 1+ HYPERSEG NEUT (NORMAL) 02/07/23 10:49 Platelet Estimate INCREASED (>450,000) (NORMAL) 02/12/23 05:50 Platelet Morphology NORMAL APPEARANCE (NORMAL) 02/12/23 05:50 RBC Morph Micro Appear 2+ HYPOCHROMASIA (NORMAL) 02/10/23 05:19 PT 16.8 secs (9.9-12.6) H 01/30/23 00:01 INR 1.6 (0.8-1.2) H 01/30/23 00:01 APTT 102.0 secs (24.9-33.3) H* 01/30/23 11:17 Sodium 146 mmol/L (135-145) H 02/12/23 05:50 Potassium 2.9 mmol/L (3.5-4.5) L 02/12/23 05:50 Chloride 109 mmol/L (101-111) 02/12/23 05:50 Carbon Dioxide 27 mmol/L (21-32) 02/12/23 05:50 Anion Gap 10.0 (6-13) 02/12/23 05:50 BUN 32 mg/dL (6-20) H 02/12/23 05:50 Creatinine 0.9 mg/dL (0.6-1.3) 02/12/23 05:50 Estimated GFR (MDRD) 61 (>89) L 02/12/23 05:50 Glucose 153 mg/dL (74-104) H 02/12/23 05:50 POC Whole Bld Glucose 120 mg/dL (70 - 100) H 02/12/23 17:02 Lactic Acid 1.1 mmol/L (0.5-2.2) 02/11/23 11:29 Calcium 8.1 mg/dL (8.5-10.3) L 02/12/23 05:50 Magnesium 1.8 mg/dL (1.7-2.3) 02/11/23 05:00 Total Bilirubin 1.4 mg/dL (0.2-1.0) H 02/11/23 05:00 Direct Bilirubin 0.73 mg/dL (0.03-0.18) H 02/11/23 05:00 AST 77 IU/L (10-42) H 02/11/23 05:00 ALT 55 IU/L (10-60) 02/11/23 05:00 Alkaline Phosphatase 826 IU/L (42-121) H 02/11/23 05:00 Troponin I High Sens 28.5 ng/L (2.3-14.8) H* 01/31/23 05:09 B-Natriuretic Peptide 75 pg/mL (5-100) 01/30/23 07:36 Total Protein 5.9 g/dL (6.4-8.9) L 02/11/23 05:00 Albumin 2.6 g/dL (3.2-5.5) L 02/11/23 05:00 Globulin 3.3 g/dL (2.1-4.2) 02/11/23 05:00 Albumin/Globulin Ratio 0.9 (1.0-2.2) L 02/09/23 07:55 Triglycerides 298 mg/dL (48-352) 02/08/23 05:11 Cholesterol 148 mg/dL (-200) 02/08/23 05:11 LDL Cholesterol, Calc 71 mg/dL (-129) 02/08/23 05:11 VLDL Cholesterol 60 mg/dL 02/08/23 05:11 HDL Cholesterol 17 mg/dL (60-) L 02/08/23 05:11 LDL/HDL Ratio 4.2 (<4.4) 02/08/23 05:11 Cholesterol/HDL Ratio 8.7 (<4.4) 02/08/23 05:11 Lipase 23 U/L (11-82) 01/30/23 00:01 Urine Color YELLOW 02/06/23 11:55 Urine Clarity SL. CLOUDY (CLEAR) 02/06/23 11:55 Urine pH 6.0 PH (5.0-7.5) 02/06/23 11:55 Ur Specific [place] 1.020 (1.002-1.030) 02/06/23 11:55 Urine Protein 100 mg/dL (NEGATIVE) H 02/06/23 11:55 Urine Glucose (UA) NEGATIVE mg/dL (NEGATIVE) 02/06/23 11:55 Urine Ketones NEGATIVE mg/dL (NEGATIVE) 02/06/23 11:55 Urine Occult Blood TRACE-INTA (NEGATIVE) 02/06/23 11:55 Urine Nitrite POSITIVE (NEGATIVE) H 02/06/23 11:55 Urine Bilirubin NEGATIVE (NEGATIVE) 02/06/23 11:55 Urine Urobilinogen 4 E.U./dL (NORMAL) H 02/06/23 11:55 Ur Leukocyte Esterase NEGATIVE (NEGATIVE) 02/06/23 11:55 Urine RBC 0-5 /HPF (0-5) 02/06/23 11:55 Urine WBC 4-5 /HPF (0-5) 02/06/23 11:55 Ur Squamous Epith Cells NONE SEEN (<= Few) 02/06/23 11:55 Urine Bacteria Many /HPF (None Seen) H 02/06/23 11:55 Urine Casts 0-2 Fine Granular /LPF 02/06/23 11:55 Urine Mucus Few Strands 02/06/23 11:55 Urine Culture Comments INDICATED 02/06/23 11:55 Nasal Adenovirus (PCR) NOT DETECTED 01/30/23 03:34 Nasal B. parapertussis DNA (PCR) NOT DETECTED 01/30/23 03:34 Nasal Coronavir 229E PCR NOT DETECTED 01/30/23 03:34 Nasal Coronavir HKU1 PCR NOT DETECTED 01/30/23 03:34 Nasal Coronavir NL63 PCR NOT DETECTED 01/30/23 03:34 Nasal Coronavir OC43 PCR NOT DETECTED 01/30/23 03:34 Nasal Enterovir/Rhinovir PCR NOT DETECTED 01/30/23 03:34 Nasal Influenza B PCR NOT DETECTED 01/30/23 03:34 Nasal Influenza A PCR NOT DETECTED 01/30/23 03:34 Nasal Parainfluen 1 PCR NOT DETECTED 01/30/23 03:34 Nasal Parainfluen 2 PCR NOT DETECTED 01/30/23 03:34 Nasal Parainfluen 3 PCR NOT DETECTED 01/30/23 03:34 Nasal Parainfluen 4 PCR NOT DETECTED 01/30/23 03:34 Nasal RSV (PCR) NOT DETECTED 01/30/23 03:34 Nasal B.pertussis DNA PCR NOT DETECTED 01/30/23 03:34 Nasal C.pneumoniae (PCR) NOT DETECTED 01/30/23 03:34 Song Human Metapneumo PCR NOT DETECTED 01/30/23 03:34 Nasal M.pneumoniae (PCR) NOT DETECTED 01/30/23 03:34 Nasal SARS-CoV-2 (PCR) DETECTED A 01/30/23 03:34 Last Dose Date UNK 02/10/23 11:59 Last Dose Time UNK 02/10/23 11:59 Vancomycin Trough 17.5 ug/mL 02/10/23 11:59 Blood Type B POSITIVE 02/11/23 08:35 Blood Type Recheck B POSITIVE 02/11/23 05:00 Antibody Screen NEGATIVE 02/11/23 08:35 Crossmatch IS Only See Detail 02/11/23 08:35
[2023-02-12] MEDS: ATORVASTATIN 10 MG TABLET PO SCH (20:49)
[2023-02-13] MEDS: VANCOMYCIN INJ 1 GM in SODIUM CHLORIDE 0.9% 250 ML IV SCH ×2 (00:56→13:13)
[2023-02-13] MEDS: PIPERACILLIN/TAZOBACTAM 3.375 GM in SODIUM CHLORIDE 0.9% MINIBAG 100 ML IV SCH ×3 (01:05→16:39)
[2023-02-13] MEDS: SODIUM CHLORIDE FLUSH 0.9% 10 ML SYRINGE IVP SCH ×3 (01:05→17:35)
[2023-02-13 05:50] LABS: BASOPHILS % (AUTO) 0.2 %; EOSINOPHILS # (AUTO) 0.4 10^3/uL (0.0-0.7); EOSINOPHILS % (AUTO) 1.7 %; HCT - HEMATOCRIT 28.5 % (37.0-47.0); HGB - HEMOGLOBIN 9.1 g/dL (12.0-16.0); LYMPHOCYTES # (AUTO) 1.6 10^3/uL (1.5-3.5); LYMPHOCYTES % (AUTO) 6.1 %; MEAN CORPUSCULAR HEMOGLOBIN 28.7 pg (27.0-31.0); MEAN CORPUSCULAR HGB CONC 31.9 g/dL (32.0-36.0); MEAN CORPUSCULAR VOLUME 89.9 fL (81.0-99.0); MEAN PLATELET VOLUME 11.3 fL (7.9-10.8); MONOCYTES % (AUTO) 3.7 %; NEUTROPHILS # (AUTO) 22.8 10^3/uL (1.5-6.6); NEUTROPHILS % (AUTO) 87.2 %; NRBC ABSOLUTE COUNT (AUTO) 0.03 x10^3/uL; NUCLEATED RED BLOOD CELLS AUTO 0.1 /100WBC; PLT - PLATELET COUNT 266 10^3/uL (130-450); RED BLOOD COUNT 3.17 10^6/uL (4.20-5.40); RED CELL DISTRIBUTION WIDTH 16.5 % (12.0-15.0); WHITE BLOOD COUNT 26.2 x10^3/uL (4.8-10.8)
[2023-02-13 06:20] LABS: CALCIUM 8.2 mg/dL (8.5-10.3); CREATININE 0.9 mg/dL (0.6-1.3); MAGNESIUM 1.9 mg/dL (1.7-2.3); PHOSPHORUS 3.2 mg/dL (2.5-5.0); POTASSIUM 3.4 mmol/L (3.5-4.5)
[2023-02-13 07:03] LABS: SLIDE REVIEW? Indicated
[2023-02-13 07:22] LABS: PLATELET ESTIMATE, MANUAL NORMAL (130-450,000) (NORMAL); PLATELET MORPHOLOGY NORMAL APPEARANCE (NORMAL)
[2023-02-13] MEDS ORDERED: DEXTROSE 5% 1,000 ML IV SCH (08:00)
--- NOTE | 2023-02-13 08:05 | PROVIDER PROGRESS NOTE ---
Assessment/Plan - Problem List (1) Hypernatremia Assessment/Plan: Today Na is 150 (all labs were reviewed). Possibly from poor overall po intake and getting NS with her iv meds, vs from the Honey thickening compound, vs from the new Harvey [place] Extract capsules that family requested we give her BID as Pt's own med (she has received that for 2.5 days) Plan: I will order 1L D5, as free water, which may increase her fingerstick glu levels today Recheck serum sodium every 8 hours today RN to re-check swallow screen today, using plain water, and if she does not aspirate, I will change Honey-thickened liquids to thin liquids in her diet If Na still elevated later today, will also stop the pt's own med: [place] Extract capsules (2) Colitis Assessment/Plan: With the fever spike 02/11 and elev WBC that day of 27.5, she underwent CT scanning from head down to pelvis. The results were that her pneumonia persists and she has new colitis She was put on clear liquids (thickened) and antibiotics continued Plan: Since there is improvement in her WBC, we could try switching to oral antibiotics after we are sure that blood cultures are negative The daughter was asking about duration of antibx, because she is considering taking py home, hiring caregivers and having in-home PT for her stroke rehab, rather than to have her go to SNF. Daughter said the reason for this is to give her Mom "as much naturopathy treatment as possible" (3) Iron deficiency anemia Hemoglobin dropped to 6.9 on 02/11 and she did get 1 unit of blood, then hemogl obin burke to 8.4 on 02/12 (yesterday), and is 9.1 today. Part of the cause is hemodilutional,from many days of getting iv meds and iv fluids Her B12 level is actually excessively high at 3516 , folate level is normal, and iron stores were very low. Plan I will order iv Iron Dextran x1,then start po iron daily Follow CBC daily (4) Acute respiratory failure with hypoxia Conclusion/Plan: Hypoxia is secondary to presenting with acute pulmonary embolus and COVID-19, plus developing new infiltrates from repeat aspiration (after having a stroke while here) Plan: Will try weaning supplemental oxygen. She is currently on 1-2 L via nasal cannula. Dangling and getting OOB to chair ordered. She may need Home O2 ordered. (5) Aspiration pneumonia Assessment/Plan: Since 02/06/2023 she has had trouble handling food and had aspiration events. Her diet was de-escalated to pured and honey thick liquids. On 02/08 she spiked a fever and CXR showed a new infiltrate in the left lung base. Blood cultures and spt ordered. Pt started on Vanco and Zosyn. On 02/11 she spiked a fever and CXR showed worsened PNA. Zithromax started to cover Atypicals. Her WBC is elevated at 25-27, without being on systemic steroids. Today WBC 26. I ordered Chest physical therapy vest TID, to mobilize her phlegm, since she was too weak from her stroke to cough effectively. She tolerated only 1-2 min of the percussion vest each time, and wanted it stopped. I cancelled it Plan: Cont iv antibx Await cx results to tailor antibx Follow WBC daily She may need Home O2 ordered, she would nbeed an oximetry walk test on day of DCh (6) CVA (cerebral vascular accident) Assessment/Plan: She had a stroke on 02/05/23 She had R sided flaccid paralysis with a R sided facial droop. The tele Neurologist, did not enter a note but recommended starting asprin 81 mg and high intensity statin. He recommended continued Eliquis. She did not qualify for thrombolytics given unknown time of onset and she was already on Eliquis (for PE). Swallow eval revealed she aspurates thin liquids, and needs pureed food and thickened liquids. Her nutritional intake has been poor this adm, and BMI is 19. MRI brain showed bilateral acute CVAs Her Echo w/ bubble study showed no clot and no PFO. Because of the fever on 02/11, CT scanning was repeated from head to pelvis. The head CT showed she had a new stroke near the old stroke. After that CT head on 02/11/23, I updated the family that she has a poor prognosis, given her multiple organ morbidities, and asked if they wanted to change her CODE status and possibly change goals of care, and they wanted to think about everything. On 02/12/23, pt was the most alert that she has been since her stroke, and I asked the patient directly what her wishes are if she has a cardiac arrest/CODE BLUE and she quickly responded she wants to "let nature take its course". The son and daughter were in the room and witnessed this discussion. I ordered a DNR/DNI on 02/12/23. Plan: Telemetry can be stopped Cont anticoagulation and cont baby ASA I decreased her statin dose due to elevated LFTs PT/OT tried to work with her but she was too somnolent for many days, and has not been OOB or dangled yet. She needs pureed food and thickened liquids and she needs to be fed both w/ a spoon. Today she passed her swallow re-eval and will change to thin liquids today. The daughter told me on 02/12 that she thinks she wants to hire caregivers and have in-home PT for her stroke rehab, and take her home and not have her go to SNF. Today I have placed a referral for Home Health services (PT, OT, RN, Bath Aide and Steamship Agent). (7) Bilateral pulmonary embolism Conclusion/Plan: This was reason for admission. Possibly provoked by COVID-19 or underlying suspected malignancy (since lung masses were seen on CXR at adm). She first had an Echo to check for R heart strain and there was none. (The next Echo, see #6, was a limited Echo w/ saline study to check for PFO, after she had a stroke) Plan: She got Eliquis 10 mg twice daily for 7 days, and on 02/06 has transitioned to Eliquis 5 mg p.o. BID (8) Elevated LFTs New LFT elevation was seen on labs 02/08, they decreased somewhat (all labs were reviewed). Etiology could have been secondary to COVID, but she did not get remdesivir so this was not the cause. It could be from R heart failure or from her liver mas ses affecting liver function. Pam also described that the patient has a history of alcohol abuse. She underwent CT abdomen/pelvis and this showed no pancreatic or gallbladder problems, the liver was enlarged and had findings of cirrhosis plus had areas suggesting mets. I decreased Lipitor from 40 mg to 10 mg Plan: Follow LFTs intermittently Avoid hepatotoxins. (9) Lung mass Conclusion/Plan: Several lung masses seen on CT chest. Multiple liver masses also seen. Also her BMI is 19 I discussed w/ Pam that cancer with mets is suspected Plan: If she and family want, this will need outpatient W/U and follow-up. (10) Liver masses Suspicious for mets. These have been discussed with Pam, the daughter and NISREEN (11) AMS (altered mental status) Assessment/Plan: IMPROVED She became somnolent ever since the stroke. Since evening of 02/09 she is more awake, especially when family in room. I decreased the scheduled Trazodone at hs from 50mg to 25mg and will try to tape r it to off over several days Due to her stroke, pt needs to be fed Plan: Avoid narcotics that would add to over-sedation (12) Hypomagnesemia Conclusion/Plan: Replacing as needed. (13) Hypokalemia Conclusion/Plan: K had been very low for marva days and replacement given Today K is 3.4 (all labs were reviewed). Plan: Replacing potassium po and iv when needed Follow BMP daily (14) V-tach Assessment/Plan: RESOLVED Several days ago, she had a 17-beat run of monomorphic V. tach at a rate of 100. The patient was asymptomatic at that time w/ BP 138/75 and saturation 93% on 1 L supplemental O2. The patient had just had an Echo this admission which showed normal LVEF and normal RVEF Her K was 2.8 on the day of the VTach, which was likely the cause Plan: Monitor BMP daily and Mg intermittently Telemetry stopped 02/13/23, since pt is a DNR as of 02/12/23, and pt is already on Eliquis, so no change in management if she did get Afib (15) Abnormal EKG Conclusion/Plan: Abn EKG at admission, suggested R heart strain. but her Echo showed no evidence of Right Heart failure or RV enlargement. Possibly the abnormal EKG was as a result of the acute PE at admission (16) COVID-19 Conclusion/Plan: She presented COVID (+) and with the pulm embolism. I suspect COVID made her hypercoagulable and caused the PE and multi-focal strokes and repeat stroke Patient did not want remdesivir. The order was discontinued. Family wanted us to stop the dexamethasone. We discontinued dexamethasone per family request. On 02/07, she came out of isolation, ordered by Kamala Preston, our Infec Prev RN - Current Meds Current Meds: Current Medications Generic Name Dose Route Start Last Admin Trade Name Jarethq PRN Reason Stop Dose Admin Acetaminophen 650 mg 01/30/23 15:42 02/12/23 00:55 Acetaminophen 325 Mg Tablet PO 650 mg Q4HR PRN Administration Pain 1 to 4, or Fever Amlodipine Besylate 10 mg 02/02/23 09:00 02/12/23 09:18 Amlodipine 5 Mg Tablet PO 10 mg DAILY BRANDY Administration Apixaban 5 mg 02/06/23 21:00 02/12/23 20:49 Apixaban 5 Mg Tablet PO 5 mg BID BRANDY Administration Aspirin 81 mg 02/06/23 09:00 02/12/23 09:17 Aspirin Chew 81 Mg Tablet PO 81 mg DAILY BRANDY Administration Atorvastatin Calcium 10 mg 02/09/23 22:00 02/12/23 20:49 Atorvastatin 10 Mg Tablet PO 10 mg QPM BRANDY Administration Cholecalciferol 50 mcg 02/02/23 09:00 02/12/23 09:16 Cholecalciferol 25 Mcg Tablet PO 50 mcg DAILY BRANDY Administration Docusate Sodium 250 - 500 mg 02/01/23 13:00 02/12/23 09:17 Docusate Sodium 250 Mg Capsule PO 250 mg DAILY BRANDY Administration Guaifenesin 600 mg 01/30/23 21:00 02/12/23 20:49 Guaifenesin 600 Mg Tablet PO 600 mg BID BRANDY Administration Hydralazine HCl 5 mg 02/05/23 02:45 02/05/23 03:15 Hydralazine Inj 20 Mg/Ml Vial IVP 5 mg Q6H PRN Administration hypertension sbp>170 Piperacillin Sod/Tazobactam 100 mls @ 25 mls/hr 02/08/23 15:00 02/13/23 05:05 Sod 3.375 gm/ Sodium Chloride IV Infused Q8H BRANDY Infusion Vancomycin HCl 1 gm/ Sodium 250 mls @ 167 mls/hr 02/08/23 22:00 02/13/23 02:26 Chloride IV Infused Q12H BRANDY Infusion Insulin Human Lispro 1 - 9 unit 02/03/23 08:00 02/12/23 20:53 Insulin Lispro 300 Unit/3 Ml Pen SUBQ 1 unit 0800,1200,1700,2100 BRANDY Administration Protocol Multivitamins/Minerals 1 tab 02/09/23 17:00 02/12/23 09:17 Multivitamin W/Minerals Tablet PO 1 tab DAILYWM BRANDY Administration Ondansetron HCl 4 mg 01/30/23 15:42 02/03/23 08:41 Ondansetron 4 Mg/2 Ml Vial IVP 4 mg Q6HR PRN Administration Nausea / Vomiting Petrolatum 1 applic 02/06/23 20:00 02/06/23 20:11 Petrolatum White 5 Gm Packet TOP 1 applic PRN PRN Administration Dry Lips, dry nares Polyethylene Glycol 17 gm 02/02/23 09:00 02/12/23 09:18 Polyethylene Glycol 3350 17 Gm Packet PO Not Given DAILY BRANDY Potassium Chloride 20 meq 02/10/23 13:00 02/12/23 09:17 Potassium Chloride 10 Meq Capsule PO 20 meq DAILYWM BRANDY Administration Senna 8.6 - 17.2 mg 02/01/23 13:00 02/12/23 09:17 Senna 8.6 Mg Tablet PO 17.2 mg DAILY BRANDY Administration Sodium Chloride 10 ml 01/30/23 15:42 02/08/23 02:45 Sodium Chloride Flush 0.9% 10 Ml Syringe IVP 10 ml PRN PRN Administration NEEDED PER PROVIDER ORDERS Sodium Chloride 10 ml 01/30/23 17:00 02/13/23 01:05 Sodium Chloride Flush 0.9% 10 Ml Syringe IVP 10 ml 0100,0900,1700 BRANDY Administration - Lab Result Fish Bone Diagrams: 02/13/23 05:22 02/13/23 12:55 - Additional Planning My Orders: My Active Orders 02/13/23 07:48 Miscellaenous Nursing Order [RC] ONCE Swallow Screen - Nursing [RC] ONCE 02/13/23 08:00 D5W @ 83.333 mls/hr Dextrose 5% [D5w] 1,000 ml IV 83.333 mls/hr Patient Own Med 1 each PO 0800,1700 02/13/23 09:00 Azithromycin Inj [Zithromax Inj] 500 mg Sodium Chloride 0.9% [Normal Saline 0.9%] 250 ml IV DAILY 02/14/23 05:00 BMP - BASIC METABOLIC PANEL [CHEM] DAILYLAB CBC - COMP BLD CT W/AUTO DIFF [HEME] DAILYLAB 02/15/23 05:00 BMP - BASIC METABOLIC PANEL [CHEM] DAILYLAB CBC - COMP BLD CT W/AUTO DIFF [HEME] DAILYLAB Subjective - Subjective Patient Reports: Feeling Better (stronger), Other (Is afraid to get up with PT and OT) Nursing Reports: Other (Patient more awake yesterday and today and passed her swallow screen of thin liquids) Objective Vital Signs: Vital Signs - 24 hr 02/12/23 02/12/23 02/12/23 08:28 09:15 11:00 Temperature 38.7 C H 37.2 C Heart Rate [ 89 95 Brachial] Respiratory 20 20 Rate Blood Pressure 141/68 H 132/62 H [Left Brachial artery] Blood Pressure [Right Brachial artery] O2 Saturation 91 L 96 If not protocol 1 1 1 : Oxygen Flow, liters/minute 02/12/23 02/12/23 02/12/23 13:00 14:56 17:00 Temperature 36.8 C 37.3 C 36.5 C Heart Rate [ 95 97 101 H Brachial] Respiratory 20 20 24 Rate Blood Pressure 123/64 134/67 H 138/66 H [Left Brachial artery] Blood Pressure [Right Brachial artery] O2 Saturation 98 998 H 96 If not protocol 1 1 1 : Oxygen Flow, liters/minute 02/12/23 02/12/23 02/13/23 19:00 19:51 00:16 Temperature 36.7 C 36.5 C Heart Rate [ 110 H 92 Brachial] Respiratory 30 H 24 Rate Blood Pressure 144/70 H [Left Brachial artery] Blood Pressure 138/71 H [Right Brachial artery] O2 Saturation 95 96 If not protocol 1 1 1 : Oxygen Flow, liters/minute 02/13/23 02/13/23 02/13/23 05:05 07:37 07:38 Temperature 36.6 C 36.3 C L Heart Rate [ 97 97 Brachial] Respiratory 22 24 Rate Blood Pressure 139/75 H [Left Brachial artery] Blood Pressure 141/77 H [Right Brachial artery] O2 Saturation 97 99 If not protocol 1 1 2 : Oxygen Flow, liters/minute Oxygen O2 Source Nasal cannula Oxygen Flow Rate 2 I&O (Last 24 Hrs): Intake and Output Totals x24h 02/11/23 02/12/23 02/13/23 23:59 23:59 23:59 Intake Total 2650 1620 590 Output Total 550 75 Balance 2100 1545 590 General: Alert, Oriented x3 HEENT: Mucous membr. moist/pink, Other (wearing O2 via n.c.) Neck: Supple Neuro: Alert, Other (Bialt arm and hand weakness R>L, no facial droop, B weak legs) Cardiovascular: Regular rate Respiratory: Wheezes, Rhonchi Abdomen: Soft, No tenderness, Other (Mildly distened, diminished bowel sounds) Extremities: No clubbing, Other (1+ pretibial edema) - Results Results: Laboratory Results WBC 26.2 x10^3/uL (4.8-10.8) H 02/13/23 05:22 RBC 3.17 10^6/uL (4.20-5.40) L 02/13/23 05:22 Hgb 9.1 g/dL (12.0-16.0) L 02/13/23 05:22 Hct 28.5 % (37.0-47.0) L 02/13/23 05:22 MCV 89.9 fL (81.0-99.0) 02/13/23 05:22 MCH 28.7 pg (27.0-31.0) 02/13/23 05:22 MCHC 31.9 g/dL (32.0-36.0) L 02/13/23 05:22 RDW 16.5 % (12.0-15.0) H 02/13/23 05:22 Plt Count 266 10^3/uL (130-450) 02/13/23 05:22 MPV 11.3 fL (7.9-10.8) H 02/13/23 05:22 Neut # (Auto) 22.8 10^3/uL (1.5-6.6) H 02/13/23 05:22 Lymph # (Auto) 1.6 10^3/uL (1.5-3.5) 02/13/23 05:22 [place] # (Auto) 1.0 10^3/uL (0.0-1.0) 02/13/23 05:22 Eos # (Auto) 0.4 10^3/uL (0.0-0.7) 02/13/23 05:22 Baso # (Auto) 0.0 10^3/uL (0.0-0.1) 02/13/23 05:22 Absolute Nucleated RBC 0.03 x10^3/uL 02/13/23 05:22 Total Counted 100 02/10/23 05:19 Band Neuts % (Manual) 1 % (0-10) 02/10/23 05:19 Abnorm Lymph % (Manual) 0 % 02/10/23 05:19 Metamyelocytes % 1 % (-0) H 02/07/23 10:49 Nucleated RBC % 0.1 /100WBC 02/13/23 05:22 Neutrophils # (Manual) 21.1 10^3/uL (1.5-6.6) H 02/10/23 05:19 Lymphocytes # (Manual) 2.8 10^3/uL (1.5-3.5) 02/10/23 05:19 Monocytes # (Manual) 1.0 10^3/uL (0.0-1.0) 02/10/23 05:19 Eosinophils # (Manual) 0.3 10^3/uL (0-0.7) 02/10/23 05:19 Basophils # (Manual) 0.0 10^3/uL (0-0.1) 02/10/23 05:19 Differential Comment MANUAL DIFFERENTIAL 02/10/23 05:19 Manual Slide Review Indicated 02/13/23 05:22 WBC Morphology 1+ HYPERSEG NEUT (NORMAL) 02/07/23 10:49 Platelet Estimate NORMAL (130-450,000) (NORMAL) 02/13/23 05:22 Platelet Morphology NORMAL APPEARANCE (NORMAL) 02/13/23 05:22 RBC Morph Micro Appear 2+ HYPOCHROMASIA (NORMAL) 02/10/23 05:19 PT 16.8 secs (9.9-12.6) H 01/30/23 00:01 INR 1.6 (0.8-1.2) H 01/30/23 00:01 APTT 102.0 secs (24.9-33.3) H* 01/30/23 11:17 Sodium 150 mmol/L (135-145) H 02/13/23 05:22 Potassium 3.4 mmol/L (3.5-4.5) L 02/13/23 05:22 Chloride 113 mmol/L (101-111) H 02/13/23 05:22 Carbon Dioxide 28 mmol/L (21-32) 02/13/23 05:22 Anion Gap 9.0 (6-13) 02/13/23 05:22 BUN 31 mg/dL (6-20) H 02/13/23 05:22 Creatinine 0.9 mg/dL (0.6-1.3) 02/13/23 05:22 Estimated GFR (MDRD) 61 (>89) L 02/13/23 05:22 Glucose 153 mg/dL (74-104) H 02/13/23 05:22 POC Whole Bld Glucose 185 mg/dL (70 - 100) H 02/13/23 07:31 Lactic Acid 1.1 mmol/L (0.5-2.2) 02/11/23 11:29 Calcium 8.2 mg/dL (8.5-10.3) L 02/13/23 05:22 Phosphorus 3.2 mg/dL (2.5-5.0) 02/13/23 05:22 Magnesium 1.9 mg/dL (1.7-2.3) 02/13/23 05:22 Total Bilirubin 1.4 mg/dL (0.2-1.0) H 02/11/23 05:00 Direct Bilirubin 0.73 mg/dL (0.03-0.18) H 02/11/23 05:00 AST 77 IU/L (10-42) H 02/11/23 05:00 ALT 55 IU/L (10-60) 02/11/23 05:00 Alkaline Phosphatase 826 IU/L (42-121) H 02/11/23 05:00 Troponin I High Sens 28.5 ng/L (2.3-14.8) H* 01/31/23 05:09 B-Natriuretic Peptide 75 pg/mL (5-100) 01/30/23 07:36 Total Protein 5.9 g/dL (6.4-8.9) L 02/11/23 05:00 Albumin 2.6 g/dL (3.2-5.5) L 02/11/23 05:00 Globulin 3.3 g/dL (2.1-4.2) 02/11/23 05:00 Albumin/Globulin Ratio 0.9 (1.0-2.2) L 02/09/23 07:55 Triglycerides 298 mg/dL (48-352) 02/08/23 05:11 Cholesterol 148 mg/dL (-200) 02/08/23 05:11 LDL Cholesterol, Calc 71 mg/dL (-129) 02/08/23 05:11 VLDL Cholesterol 60 mg/dL 02/08/23 05:11 HDL Cholesterol 17 mg/dL (60-) L 02/08/23 05:11 LDL/HDL Ratio 4.2 (<4.4) 02/08/23 05:11 Cholesterol/HDL Ratio 8.7 (<4.4) 02/08/23 05:11 Lipase 23 U/L (11-82) 01/30/23 00:01 Urine Color YELLOW 02/06/23 11:55 Urine Clarity SL. CLOUDY (CLEAR) 02/06/23 11:55 Urine pH 6.0 PH (5.0-7.5) 02/06/23 11:55 Ur Specific [place] 1.020 (1.002-1.030) 02/06/23 11:55 Urine Protein 100 mg/dL (NEGATIVE) H 02/06/23 11:55 Urine Glucose (UA) NEGATIVE mg/dL (NEGATIVE) 02/06/23 11:55 Urine Ketones NEGATIVE mg/dL (NEGATIVE) 02/06/23 11:55 Urine Occult Blood TRACE-INTA (NEGATIVE) 02/06/23 11:55 Urine Nitrite POSITIVE (NEGATIVE) H 02/06/23 11:55 Urine Bilirubin NEGATIVE (NEGATIVE) 02/06/23 11:55 Urine Urobilinogen 4 E.U./dL (NORMAL) H 02/06/23 11:55 Ur Leukocyte Esterase NEGATIVE (NEGATIVE) 02/06/23 11:55 Urine RBC 0-5 /HPF (0-5) 02/06/23 11:55 Urine WBC 4-5 /HPF (0-5) 02/06/23 11:55 Ur Squamous Epith Cells NONE SEEN (<= Few) 02/06/23 11:55 Urine Bacteria Many /HPF (None Seen) H 02/06/23 11:55 Urine Casts 0-2 Fine Granular /LPF 02/06/23 11:55 Urine Mucus Few Strands 02/06/23 11:55 Urine Culture Comments INDICATED 02/06/23 11:55 Nasal Adenovirus (PCR) NOT DETECTED 01/30/23 03:34 Nasal B. parapertussis DNA (PCR) NOT DETECTED 01/30/23 03:34 Nasal Coronavir 229E PCR NOT DETECTED 01/30/23 03:34 Nasal Coronavir HKU1 PCR NOT DETECTED 01/30/23 03:34 Nasal Coronavir NL63 PCR NOT DETECTED 01/30/23 03:34 Nasal Coronavir OC43 PCR NOT DETECTED 01/30/23 03:34 Nasal Enterovir/Rhinovir PCR NOT DETECTED 01/30/23 03:34 Nasal Influenza B PCR NOT DETECTED 01/30/23 03:34 Nasal Influenza A PCR NOT DETECTED 01/30/23 03:34 Nasal Parainfluen 1 PCR NOT DETECTED 01/30/23 03:34 Nasal Parainfluen 2 PCR NOT DETECTED 01/30/23 03:34 Nasal Parainfluen 3 PCR NOT DETECTED 01/30/23 03:34 Nasal Parainfluen 4 PCR NOT DETECTED 01/30/23 03:34 Nasal RSV (PCR) NOT DETECTED 01/30/23 03:34 Nasal B.pertussis DNA PCR NOT DETECTED 01/30/23 03:34 Nasal C.pneumoniae (PCR) NOT DETECTED 01/30/23 03:34 Song Human Metapneumo PCR NOT DETECTED 01/30/23 03:34 Nasal M.pneumoniae (PCR) NOT DETECTED 01/30/23 03:34 Nasal SARS-CoV-2 (PCR) DETECTED A 01/30/23 03:34 Last Dose Date UNK 02/10/23 11:59 Last Dose Time UNK 02/10/23 11:59 Vancomycin Trough 17.5 ug/mL 02/10/23 11:59 Blood Type B POSITIVE 02/11/23 08:35 Blood Type Recheck B POSITIVE 02/11/23 05:00 Antibody Screen NEGATIVE 02/11/23 08:35 Crossmatch IS Only See Detail 02/11/23 08:35
[2023-02-13] MEDS: INSULIN LISPRO 300 UNIT/3 ML PEN SUBQ SCH ×4 (08:06→21:13)
[2023-02-13] MEDS: CHOLECALCIFEROL 25 MCG TABLET PO SCH (10:11)
[2023-02-13] MEDS: POTASSIUM CHLORIDE 10 MEQ CAPSULE PO SCH (10:11)
[2023-02-13] MEDS: OLIVE LEAF PO SCH ×2 (10:11→17:34)
[2023-02-13] MEDS: ASPIRIN CHEW 81 MG TABLET PO SCH (10:11)
[2023-02-13] MEDS: amLODIPine 5 MG TABLET PO SCH (10:12)
[2023-02-13] MEDS: MULTIVITAMIN W/MINERALS TABLET PO SCH (10:12)
[2023-02-13] MEDS: APIXABAN 5 MG TABLET PO SCH ×2 (10:12→21:13)
[2023-02-13] MEDS: guaiFENesin 600 MG TABLET PO SCH ×2 (10:12→21:13)
[2023-02-13] MEDS: SENNA 8.6 MG TABLET PO SCH (10:13)
[2023-02-13] MEDS: polyethylene glycoL 3350 17 GM PACKET PO SCH (10:13)
[2023-02-13] MEDS: DOCUSATE SODIUM 250 MG CAPSULE PO SCH (10:13)
[2023-02-13] MEDS: AZITHROMYCIN INJ 500 MG in SODIUM CHLORIDE 0.9% 250 ML IV SCH (10:14)
[2023-02-13] MEDS ORDERED: IRON DEXTRAN 1,000 MG in SODIUM CHLORIDE 0.9% 250 ML IV ONE (14:00)
[2023-02-13] MEDS: ATORVASTATIN 10 MG TABLET PO SCH (21:13)
[2023-02-13] MEDS ORDERED: COD LIVER OIL/ZINC OXIDE 113 GM TUBE TOP PRN (22:33)
[2023-02-14] MEDS: VANCOMYCIN INJ 1 GM in SODIUM CHLORIDE 0.9% 250 ML IV SCH ×2 (00:27→13:20)
[2023-02-14] MEDS: PIPERACILLIN/TAZOBACTAM 3.375 GM in SODIUM CHLORIDE 0.9% MINIBAG 100 ML IV SCH ×3 (00:33→16:27)
[2023-02-14] MEDS: SODIUM CHLORIDE FLUSH 0.9% 10 ML SYRINGE IVP SCH ×3 (00:42→17:13)
[2023-02-14 05:50] LABS: BASOPHILS % (AUTO) 0.2 %; EOSINOPHILS % (AUTO) 2.2 %; HCT - HEMATOCRIT 27.1 % (37.0-47.0); HGB - HEMOGLOBIN 8.6 g/dL (12.0-16.0); LYMPHOCYTES % (AUTO) 8.5 %; MEAN CORPUSCULAR HEMOGLOBIN 28.6 pg (27.0-31.0); MEAN CORPUSCULAR HGB CONC 31.7 g/dL (32.0-36.0); MEAN PLATELET VOLUME 11.9 fL (7.9-10.8); MONOCYTES % (AUTO) 3.8 %; NEUTROPHILS % (AUTO) 84.4 %; PLT - PLATELET COUNT 277 10^3/uL (130-450); RED BLOOD COUNT 3.01 10^6/uL (4.20-5.40); RED CELL DISTRIBUTION WIDTH 16.6 % (12.0-15.0); WHITE BLOOD COUNT 26.3 x10^3/uL (4.8-10.8)
[2023-02-14 06:04] LABS: ABNORMAL LYMPHS % (MANUAL) 0 %
[2023-02-14 06:07] LABS: CALCIUM 8.1 mg/dL (8.5-10.3); MAGNESIUM 1.9 mg/dL (1.7-2.3); POTASSIUM 3.3 mmol/L (3.5-4.5)
[2023-02-14 06:43] LABS: BAND NEUTROPHILS % (MANUAL) 5 %; DIFFERENTIAL COMMENT MANUAL DIFFERENTIAL; EOSINOPHILS # (MANUAL) 0.8 10^3/uL (0-0.7); LYMPHOCYTES # (MANUAL) 2.1 10^3/uL (1.5-3.5); LYMPHOCYTES % (MANUAL) 8 %; MONOCYTES # (MANUAL) 1.1 10^3/uL (0.0-1.0); NEUTROPHILS # (MANUAL) 22.4 10^3/uL (1.5-6.6); PLATELET ESTIMATE, MANUAL NORMAL (130-450,000) (NORMAL); RBC MORPHOLOGY (MULTIPLE) NORMAL APPEARANCE (NORMAL)
[2023-02-14] MEDS: INSULIN LISPRO 300 UNIT/3 ML PEN SUBQ SCH ×4 (08:25→21:36)
[2023-02-14] MEDS: ASPIRIN CHEW 81 MG TABLET PO SCH (11:52)
[2023-02-14] MEDS: FERROUS SULFATE 300 MG/5 ML UDC PO SCH (12:07)
[2023-02-14] MEDS: APIXABAN 5 MG TABLET PO SCH ×2 (12:18→21:37)
[2023-02-14] MEDS: OLIVE LEAF PO SCH ×2 (13:23→17:12)
[2023-02-14] MEDS: MULTIVITAMIN W/MINERALS TABLET PO SCH (13:23)
[2023-02-14] MEDS: POTASSIUM CHLORIDE 10 MEQ CAPSULE PO SCH (13:24)
[2023-02-14] MEDS: DOCUSATE SODIUM 250 MG CAPSULE PO SCH (13:24)
[2023-02-14] MEDS: polyethylene glycoL 3350 17 GM PACKET PO SCH (13:24)
[2023-02-14] MEDS: amLODIPine 5 MG TABLET PO SCH (13:24)
[2023-02-14] MEDS: CHOLECALCIFEROL 25 MCG TABLET PO SCH (13:24)
[2023-02-14] MEDS: guaiFENesin 600 MG TABLET PO SCH ×2 (13:24→21:37)
[2023-02-14] MEDS: SENNA 8.6 MG TABLET PO SCH (13:24)
[2023-02-14] MEDS: ACETAMINOPHEN 325 MG TABLET PO PRN (14:42)
--- NOTE | 2023-02-14 14:59 | PROVIDER PROGRESS NOTE ---
Assessment/Plan - Problem List (1) Hypernatremia Assessment/Plan: Assessment/Plan: Na is 146 today Today Na is 150 (all labs were reviewed). Start 1/2 NS with 20 mEq of KCL (2) Colitis Assessment/Plan: Continue Zosyn for broad spectrum empiric antibiotic coverage (3) Iron deficiency anemia -Continue Ferrous Sulfate (4) Acute respiratory failure with hypoxia Conclusion/Plan: Resolving. 96% on room air (5) Aspiration pneumonia Assessment/Plan: Continue Zosyn for empiric coverage for aspiration pneumonia. (6) CVA (cerebral vascular accident) Assessment/Plan: CVA: 02/05/23 Continue Eliquis, aspirin and statin Echo revealed not clot or PFO. MRI of brain peformed 02/07/2023 multiforcal areas of restricted diffusion throughout brain Her Echo w/ bubble study showed no clot and no PFO. Because of the fever on 02/11, CT scanning was repeated from head to pelvis. The head CT showed she had a new stroke near the old stroke. (7) Bilateral pulmonary embolism Conclusion/Plan: Continue Eliquis (8) Elevated LFTs Avoid hepatotoxins. Follow LFTs intermittently (9) Lung mass Conclusion/Plan: Etiology of opacities unclear. Differential diagnosis would include aspiration and malignancy. (10) Liver masses Discussed with jerald. Continue to follow. (11) AMS (altered mental status) Assessment/Plan: Moste likely related to stroke. (12) Hypomagnesemia Conclusion/Plan: Replace as needed. (13) Hypokalemia Conclusion/Plan: Replace as needed. (14) V-tach Assessment/Plan: RESOLVED (15) Abnormal EKG Conclusion/Plan: Abn EKG at admission, suggested R heart strain. but her Echo showed no evidence of Right Heart failure or RV enlargement. Possibly the abnormal EKG was as a result of the acute PE at admission (16) COVID-19 Conclusion/Plan: She presented COVID (+) and with the pulm embolism. I suspect COVID made her hypercoagulable and caused the PE and multi-focal strokes and repeat stroke Patient did not want remdesivir. The order was discontinued. Family wanted us to stop the dexamethasone. We discontinued dexamethasone per family request. On 02/07, she came out of isolation, ordered by Kamala Preston, our Infec Prev RN Code Status: DNR - Current Meds Current Meds: Current Medications Generic Name Dose Route Start Last Admin Trade Name Nancy PRN Reason Stop Dose Admin Acetaminophen 650 mg 01/30/23 15:42 02/14/23 14:42 Acetaminophen 325 Mg Tablet PO 650 mg Q4HR PRN Administration Pain 1 to 4, or Fever Amlodipine Besylate 10 mg 02/02/23 09:00 02/14/23 13:24 Amlodipine 5 Mg Tablet PO Not Given DAILY [facility] Apixaban 5 mg 02/06/23 21:00 02/14/23 12:18 Apixaban 5 Mg Tablet PO 5 mg BID BRANDY Administration Aspirin 81 mg 02/06/23 09:00 02/14/23 11:52 Aspirin Chew 81 Mg Tablet PO 81 mg DAILY BRANDY Administration Atorvastatin Calcium 10 mg 02/09/23 22:00 02/13/23 21:13 Atorvastatin 10 Mg Tablet PO 10 mg QPM BRANDY Administration Cholecalciferol 50 mcg 02/02/23 09:00 02/14/23 13:24 Cholecalciferol 25 Mcg Tablet PO Not Given DAILY [facility] Docusate Sodium 250 - 500 mg 02/01/23 13:00 02/14/23 13:24 Docusate Sodium 250 Mg Capsule PO Not Given DAILY [facility] Ferrous Sulfate 300 mg 02/14/23 08:00 02/14/23 12:07 Ferrous Sulfate 300 Mg/5 Ml Udc PO 300 mg DAILYWM BRANDY Administration Guaifenesin 600 mg 01/30/23 21:00 02/14/23 13:24 Guaifenesin 600 Mg Tablet PO Not Given BID [facility] Hydralazine HCl 5 mg 02/05/23 02:45 02/05/23 03:15 Hydralazine Inj 20 Mg/Ml Vial IVP 5 mg Q6H PRN Administration hypertension sbp>170 Piperacillin Sod/Tazobactam 100 mls @ 25 mls/hr 02/08/23 15:00 02/14/23 12:00 Sod 3.375 gm/ Sodium Chloride IV 25 mls/hr Q8H BRANDY Administration Vancomycin HCl 1 gm/ Sodium 250 mls @ 167 mls/hr 02/08/23 22:00 02/14/23 14:54 Chloride IV 167 mls/hr Q12H BRANDY Infusion Azithromycin 500 mg/ Sodium 250 mls @ 250 mls/hr 02/13/23 09:00 02/13/23 11:45 Chloride IV Infused DAILY [facility] Infusion Insulin Human Lispro 1 - 9 unit 02/03/23 08:00 02/14/23 12:07 Insulin Lispro 300 Unit/3 Ml Pen SUBQ 1 unit 0800,1200,1700,2100 [facility] Administration Protocol Multivitamins/Minerals 1 tab 02/09/23 17:00 02/14/23 13:23 Multivitamin W/Minerals Tablet PO Not Given DAILYWM [facility] Ondansetron HCl 4 mg 01/30/23 15:42 02/03/23 08:41 Ondansetron 4 Mg/2 Ml Vial IVP 4 mg Q6HR PRN Administration Nausea / Vomiting Patient Own Med ( 1 each 02/13/23 08:00 02/14/23 13:23 [place]) PO Not Given 0800,1700 [facility] Petrolatum 1 applic 02/06/23 20:00 02/06/23 20:11 Petrolatum White 5 Gm Packet TOP 1 applic PRN PRN Administration Dry Lips, dry nares Polyethylene Glycol 17 gm 02/02/23 09:00 02/14/23 13:24 Polyethylene Glycol 3350 17 Gm Packet PO Not Given DAILY [facility] Potassium Chloride 20 meq 02/10/23 13:00 02/14/23 13:24 Potassium Chloride 10 Meq Capsule PO Not Given DAILYWM [facility] Senna 8.6 - 17.2 mg 02/01/23 13:00 02/14/23 13:24 Senna 8.6 Mg Tablet PO Not Given DAILY [facility] Sodium Chloride 10 ml 01/30/23 15:42 02/08/23 02:45 Sodium Chloride Flush 0.9% 10 Ml Syringe IVP 10 ml PRN PRN Administration NEEDED PER PROVIDER ORDERS Sodium Chloride 10 ml 01/30/23 17:00 02/14/23 11:52 Sodium Chloride Flush 0.9% 10 Ml Syringe IVP 10 ml 0100,0900,1700 [facility] Administration - Lab Result Fish Bone Diagrams: 02/14/23 04:57 02/14/23 04:57 Subjective - Subjective Patient Reports: Other (Patient somnolent but does open eyes to voice and will answer question but not appropriately. She says "yes" to all questions and requests.) Objective Vital Signs: Vital Signs - 24 hr 02/13/23 02/13/23 02/13/23 16:47 19:48 22:00 Temperature 36.4 C L 36.3 C L Heart Rate [ 99 107 H Brachial] Respiratory 22 27 H Rate Blood Pressure 139/74 H 151/77 H [Right Brachial artery] O2 Saturation 95 96 If not protocol 1 1 1 : Oxygen Flow, liters/minute 02/14/23 02/14/23 02/14/23 00:40 04:56 07:45 Temperature 36.8 C 36.9 C 36.5 C Heart Rate [ 101 H 97 96 Brachial] Respiratory 16 16 16 Rate Blood Pressure 149/76 H 149/82 H 150/87 H [Right Brachial artery] O2 Saturation 95 95 95 If not protocol 1 1 1 : Oxygen Flow, liters/minute 02/14/23 11:10 Temperature 36.5 C Heart Rate [ 97 Brachial] Respiratory 18 Rate Blood Pressure 149/72 H [Right Brachial artery] O2 Saturation 96 If not protocol : Oxygen Flow, liters/minute Oxygen O2 Source Room air Oxygen Flow Rate 2 I&O (Last 24 Hrs): Intake and Output Totals x24h 02/12/23 02/13/23 02/14/23 23:59 23:59 23:59 Intake Total 1620 2933.886 1670 Output Total 75 Balance 1545 2933.886 1670 - Results Results: Laboratory Results WBC 26.3 x10^3/uL (4.8-10.8) H 02/14/23 04:57 RBC 3.01 10^6/uL (4.20-5.40) L 02/14/23 04:57 Hgb 8.6 g/dL (12.0-16.0) L 02/14/23 04:57 Hct 27.1 % (37.0-47.0) L 02/14/23 04:57 MCV 90.0 fL (81.0-99.0) 02/14/23 04:57 MCH 28.6 pg (27.0-31.0) 02/14/23 04:57 MCHC 31.7 g/dL (32.0-36.0) L 02/14/23 04:57 RDW 16.6 % (12.0-15.0) H 02/14/23 04:57 Plt Count 277 10^3/uL (130-450) 02/14/23 04:57 MPV 11.9 fL (7.9-10.8) H 02/14/23 04:57 Neut # (Auto) Not Reportable 02/14/23 04:57 Lymph # (Auto) Not Reportable 02/14/23 04:57 Tripp # (Auto) Not Reportable 02/14/23 04:57 Eos # (Auto) Not Reportable 02/14/23 04:57 Baso # (Auto) Not Reportable 02/14/23 04:57 Absolute Nucleated RBC Not Reportable 02/14/23 04:57 Total Counted 100 02/14/23 04:57 Band Neuts % (Manual) 5 % (0-10) 02/14/23 04:57 Abnorm Lymph % (Manual) 0 % 02/14/23 04:57 Metamyelocytes % 1 % (-0) H 02/07/23 10:49 Nucleated RBC % Not Reportable 02/14/23 04:57 Neutrophils # (Manual) 22.4 10^3/uL (1.5-6.6) H 02/14/23 04:57 Lymphocytes # (Manual) 2.1 10^3/uL (1.5-3.5) 02/14/23 04:57 Monocytes # (Manual) 1.1 10^3/uL (0.0-1.0) H 02/14/23 04:57 Eosinophils # (Manual) 0.8 10^3/uL (0-0.7) H 02/14/23 04:57 Basophils # (Manual) 0.0 10^3/uL (0-0.1) 02/14/23 04:57 Differential Comment MANUAL DIFFERENTIAL 02/14/23 04:57 Manual Slide Review Indicated 02/13/23 05:22 WBC Morphology 1+ HYPERSEG NEUT (NORMAL) 02/07/23 10:49 Platelet Estimate NORMAL (130-450,000) (NORMAL) 02/14/23 04:57 Platelet Morphology NORMAL APPEARANCE (NORMAL) 02/13/23 05:22 RBC Morph Micro Appear NORMAL APPEARANCE (NORMAL) 02/14/23 04:57 PT 16.8 secs (9.9-12.6) H 01/30/23 00:01 INR 1.6 (0.8-1.2) H 01/30/23 00:01 APTT 102.0 secs (24.9-33.3) H* 01/30/23 11:17 Sodium 146 mmol/L (135-145) H 02/14/23 04:57 Potassium 3.3 mmol/L (3.5-4.5) L 02/14/23 04:57 Chloride 112 mmol/L (101-111) H 02/14/23 04:57 Carbon Dioxide 25 mmol/L (21-32) 02/14/23 04:57 Anion Gap 9.0 (6-13) 02/14/23 04:57 BUN 30 mg/dL (6-20) H 02/14/23 04:57 Creatinine 1.0 mg/dL (0.6-1.3) 02/14/23 04:57 Estimated GFR (MDRD) 54 (>89) L 02/14/23 04:57 Glucose 145 mg/dL (74-104) H 02/14/23 04:57 POC Whole Bld Glucose 144 mg/dL (70 - 100) H 02/14/23 11:07 Lactic Acid 1.1 mmol/L (0.5-2.2) 02/11/23 11:29 Calcium 8.1 mg/dL (8.5-10.3) L 02/14/23 04:57 Phosphorus 3.2 mg/dL (2.5-5.0) 02/13/23 05:22 Magnesium 1.9 mg/dL (1.7-2.3) 02/14/23 04:57 Iron 25 ug/dL (50-212) L 02/13/23 05:22 TIBC 125 ug/dL (250-450) L 02/13/23 05:22 % Saturation 20 % (20-50) 02/13/23 05:22 Transferrin 89 mg/dL (203-362) L 02/13/23 05:22 Total Bilirubin 1.4 mg/dL (0.2-1.0) H 02/11/23 05:00 Direct Bilirubin 0.73 mg/dL (0.03-0.18) H 02/11/23 05:00 AST 77 IU/L (10-42) H 02/11/23 05:00 ALT 55 IU/L (10-60) 02/11/23 05:00 Alkaline Phosphatase 826 IU/L (42-121) H 02/11/23 05:00 Troponin I High Sens 28.5 ng/L (2.3-14.8) H* 01/31/23 05:09 B-Natriuretic Peptide 75 pg/mL (5-100) 01/30/23 07:36 Total Protein 5.9 g/dL (6.4-8.9) L 02/11/23 05:00 Albumin 2.6 g/dL (3.2-5.5) L 02/11/23 05:00 Globulin 3.3 g/dL (2.1-4.2) 02/11/23 05:00 Albumin/Globulin Ratio 0.9 (1.0-2.2) L 02/09/23 07:55 Triglycerides 298 mg/dL (48-352) 02/08/23 05:11 Cholesterol 148 mg/dL (-200) 02/08/23 05:11 LDL Cholesterol, Calc 71 mg/dL (-129) 02/08/23 05:11 VLDL Cholesterol 60 mg/dL 02/08/23 05:11 HDL Cholesterol 17 mg/dL (60-) L 02/08/23 05:11 LDL/HDL Ratio 4.2 (<4.4) 02/08/23 05:11 Cholesterol/HDL Ratio 8.7 (<4.4) 02/08/23 05:11 Lipase 23 U/L (11-82) 01/30/23 00:01 Vitamin B12 3516 pg/mL (180-914) H 02/13/23 05:22 Folate 9.9 ng/mL (5.90 - >24.8) 02/13/23 05:22 Urine Color YELLOW 02/06/23 11:55 Urine Clarity SL. CLOUDY (CLEAR) 02/06/23 11:55 Urine pH 6.0 PH (5.0-7.5) 02/06/23 11:55 Ur Specific [place] 1.020 (1.002-1.030) 02/06/23 11:55 Urine Protein 100 mg/dL (NEGATIVE) H 02/06/23 11:55 Urine Glucose (UA) NEGATIVE mg/dL (NEGATIVE) 02/06/23 11:55 Urine Ketones NEGATIVE mg/dL (NEGATIVE) 02/06/23 11:55 Urine Occult Blood TRACE-INTA (NEGATIVE) 02/06/23 11:55 Urine Nitrite POSITIVE (NEGATIVE) H 02/06/23 11:55 Urine Bilirubin NEGATIVE (NEGATIVE) 02/06/23 11:55 Urine Urobilinogen 4 E.U./dL (NORMAL) H 02/06/23 11:55 Ur Leukocyte Esterase NEGATIVE (NEGATIVE) 02/06/23 11:55 Urine RBC 0-5 /HPF (0-5) 02/06/23 11:55 Urine WBC 4-5 /HPF (0-5) 02/06/23 11:55 Ur Squamous Epith Cells NONE SEEN (<= Few) 02/06/23 11:55 Urine Bacteria Many /HPF (None Seen) H 02/06/23 11:55 Urine Casts 0-2 Fine Granular /LPF 02/06/23 11:55 Urine Mucus Few Strands 02/06/23 11:55 Urine Culture Comments INDICATED 02/06/23 11:55 Nasal Adenovirus (PCR) NOT DETECTED 01/30/23 03:34 Nasal B. parapertussis DNA (PCR) NOT DETECTED 01/30/23 03:34 Nasal Coronavir 229E PCR NOT DETECTED 01/30/23 03:34 Nasal Coronavir HKU1 PCR NOT DETECTED 01/30/23 03:34 Nasal Coronavir NL63 PCR NOT DETECTED 01/30/23 03:34 Nasal Coronavir OC43 PCR NOT DETECTED 01/30/23 03:34 Nasal Enterovir/Rhinovir PCR NOT DETECTED 01/30/23 03:34 Nasal Influenza B PCR NOT DETECTED 01/30/23 03:34 Nasal Influenza A PCR NOT DETECTED 01/30/23 03:34 Nasal Parainfluen 1 PCR NOT DETECTED 01/30/23 03:34 Nasal Parainfluen 2 PCR NOT DETECTED 01/30/23 03:34 Nasal Parainfluen 3 PCR NOT DETECTED 01/30/23 03:34 Nasal Parainfluen 4 PCR NOT DETECTED 01/30/23 03:34 Nasal RSV (PCR) NOT DETECTED 01/30/23 03:34 Nasal B.pertussis DNA PCR NOT DETECTED 01/30/23 03:34 Nasal C.pneumoniae (PCR) NOT DETECTED 01/30/23 03:34 Song Human Metapneumo PCR NOT DETECTED 01/30/23 03:34 Nasal M.pneumoniae (PCR) NOT DETECTED 01/30/23 03:34 Nasal SARS-CoV-2 (PCR) DETECTED A 01/30/23 03:34 Last Dose Date UNK 02/10/23 11:59 Last Dose Time K 02/10/23 11:59 Vancomycin Trough 17.5 ug/mL 02/10/23 11:59 Blood Type B POSITIVE 02/11/23 08:35 Blood Type Recheck B POSITIVE 02/11/23 05:00 Antibody Screen NEGATIVE 02/11/23 08:35 Crossmatch IS Only See Detail 02/11/23 08:35 Current Medications - Current Medications Current Medications: Active Medications Acetaminophen (Acetaminophen 325 Mg Tablet) 650 mg PO Q4HR PRN PRN Reason: Pain 1 to 4, or Fever Last Admin: 02/14/23 14:42 Dose: 650 mg Amlodipine Besylate (Amlodipine 5 Mg Tablet) 10 mg PO DAILY [facility] Last Admin: 02/14/23 13:24 Dose: Not Given Apixaban (Apixaban 5 Mg Tablet) 5 mg PO BID [facility] Last Admin: 02/14/23 12:18 Dose: 5 mg Aspirin (Aspirin Chew 81 Mg Tablet) 81 mg PO DAILY [facility] Last Admin: 02/14/23 11:52 Dose: 81 mg Atorvastatin Calcium (Atorvastatin 10 Mg Tablet) 10 mg PO QPM [facility] Last Admin: 02/13/23 21:13 Dose: 10 mg Cholecalciferol (Cholecalciferol 25 Mcg Tablet) 50 mcg PO DAILY [facility] Last Admin: 02/14/23 13:24 Dose: Not Given Docusate Sodium (Docusate Sodium 250 Mg Capsule) 250 - 500 mg PO DAILY [facility] Last Admin: 02/14/23 13:24 Dose: Not Given Ferrous Sulfate (Ferrous Sulfate 300 Mg/5 Ml Udc) 300 mg PO DAILYWM [facility] Last Admin: 02/14/23 12:07 Dose: 300 mg Guaifenesin (Guaifenesin 600 Mg Tablet) 600 mg PO BID [facility] Last Admin: 02/14/23 13:24 Dose: Not Given Hydralazine HCl (Hydralazine Inj 20 Mg/Ml Vial) 5 mg IVP Q6H PRN PRN Reason: hypertension sbp>170 Last Admin: 02/05/23 03:15 Dose: 5 mg Piperacillin Sod/Tazobactam (Sod 3.375 gm/ Sodium Chloride) 100 mls @ 25 mls/hr IV Q8H [facility] Last Admin: 02/14/23 12:00 Dose: 25 mls/hr Vancomycin HCl 1 gm/ Sodium (Chloride) 250 mls @ 167 mls/hr IV Q12H [facility] Last Infusion: 02/14/23 14:54 Dose: 167 mls/hr Azithromycin 500 mg/ Sodium (Chloride) 250 mls @ 250 mls/hr IV DAILY [facility] Last Infusion: 02/13/23 11:45 Dose: Infused Insulin Human Lispro (Insulin Lispro 300 Unit/3 Ml Pen) 1 - 9 unit SUBQ 0800,1200,1700,2100 [facility]; Protocol Last Admin: 02/14/23 12:07 Dose: 1 unit Multivitamins/Minerals (Multivitamin W/Minerals Tablet) 1 tab PO DAILYWM [facility] Last Admin: 02/14/23 13:23 Dose: Not Given Ondansetron HCl (Ondansetron 4 Mg/2 Ml Vial) 4 mg IVP Q6HR PRN PRN Reason: Nausea / Vomiting Last Admin: 02/03/23 08:41 Dose: 4 mg Patient Own Med ( ([place])) 1 each PO 0800,1700 [facility] Last Admin: 02/14/23 13:23 Dose: Not Given Petrolatum (Petrolatum White 5 Gm Packet) 1 applic TOP PRN PRN PRN Reason: Dry Lips, dry nares Last Admin: 02/06/23 20:11 Dose: 1 applic Polyethylene Glycol (Polyethylene Glycol 3350 17 Gm Packet) 17 gm PO DAILY [facility] Last Admin: 02/14/23 13:24 Dose: Not Given Potassium Chloride (Potassium Chloride 10 Meq Capsule) 20 meq PO DAILYWM [facility] Last Admin: 02/14/23 13:24 Dose: Not Given Senna (Senna 8.6 Mg Tablet) 8.6 - 17.2 mg PO DAILY [facility] Last Admin: 02/14/23 13:24 Dose: Not Given Sodium Chloride (Sodium Chloride Flush 0.9% 10 Ml Syringe) 10 ml IVP PRN PRN PRN Reason: NEEDED PER PROVIDER ORDERS Last Admin: 02/08/23 02:45 Dose: 10 ml Sodium Chloride (Sodium Chloride Flush 0.9% 10 Ml Syringe) 10 ml IVP 0100,0900,1700 [facility] Last Admin: 02/14/23 11:52 Dose: 10 ml Zinc Oxide (Cod Liver Oil/Zinc Oxide 113 Gm Tube) 113 gm TOP PRN PRN PRN Reason: Skin Care [place] (18% Oleuropein) 1 cap PO DAILY 02/11/23
[2023-02-14] MEDS: AZITHROMYCIN INJ 500 MG in SODIUM CHLORIDE 0.9% 250 ML IV SCH (15:15)
[2023-02-14] MEDS ORDERED: NS W/20 MEQ KCL 1,000 ML IV SCH (17:00)
[2023-02-14] MEDS: POTASSIUM CHLORIDE INJ 20 MEQ in SODIUM CHLORIDE 0.45% 1,000 ML IV SCH (17:05)
--- NOTE | 2023-02-14 18:22 | CONSULTATION NOTE ---
Palliative Care Consultation - Referral Referring Provider: Dr. Mak Time of Visit: 15:30-16:45 Referral setting: Hospitalized patient Referral Reason: Goals of care/Failure to Thrive - Information Sources Records reviewed: RN notes reviewed, Previous records reviewed History/Review of Systems obtained from: Family Exam limitations: Clinical condition (Patient difficulty with wordfinding and tracking conversation) - History of Present Illness Brief History of Present Illness: This is a 72-year-old woman who was admitted on 01/30, who had tested positive for COVID 2 weeks previous. She had presented to the ED with increasing shortness of breath and cough and was found to be hypoxic, as well as COVID test positive. She had complaints of chest pain and underwent CT angio was found to have bilateral pulmonary emboli and in the workup was also found to have several lung masses on CT chest. I have not seen patient several weeks in, she has had a complicated course, which has included a stroke on 02/05/2023 with originally right-sided flaccid paralysis and right-sided facial droop, she already was on Eliquis for PE. She has had poor fluid intake and needing to be feed, has been fluctuating on ability to swallow is my understanding. She had a new CT scan on 02/[address] scans showed a new stroke near the old stroke.In her scanning, they also found liver masses suspicious for mets, and patient is a known alcoholic, had been drinking for the last 15 years, daughter reports probably about 2 bottles of wine a night. Has been less active, showing early signs of dementia and memory failure, quite sedentary, and has not been to the doctor for years and daughter reports symptoms of self neglect.. There was suspicion of possible DVT on the left foot in December, which would make sense i n the context of her overall presentation and hypercoagulable state. This would lean towards also thinking further about malignancy, if she had signs of hypercoagulability before her COVID. Palliative care has been asked to meet with daughter, regarding long-term plans. Hope would been to transition to [facility] for rehab, at this time patient continues with persistent elevated white count despite antibiotics at 26.2, remains breathless with any activity or conversation, and has been reluctant to participate in PT/OT related to her breathlessness and weakness. Patient herself perceives herself as mottled in the brain, does understand she has had some strokes, daughter is appropriately concerned how patient's needs are going to be met, as well as patient's ability to have any quality of life with her current decline and deficits. Medical/Surgical History - Past Medical History Cardiovascular: reports: Hypertension Respiratory: reports: Shortness of breath, Other (COVID) Neuro: Dementia, CVA Psych: reports: None Musculoskeletal: reports: Fatigue MRSA Hx?: No - Substance History Use: Uses substance without health or social issues: Alcohol (drinking two bottles of wine; stopped on own prior to admit when sick with COVID, concerned for withdrawals per daughter didn't seem to have much consequence) Social History - Living Situation Living arrangement: At home Living Situation: With spouse/s.o. Support System: Patient and ex had gotten together when she was 12 and he 15 and have known each other for 60 years, they are currently . Given that they are still living together, it has been the traditional marriage according to daughter. 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 Their daughter does live next-door, but she does oversee her son who has multiple disabilities, as well as homeschools her younger child and has many commitments. She is the DPOA, as a result of the divorce, she also reports her brother is a animal nutrition consultant/EMT but both have their own lives, can offer some support but not 05/09 caregiving. Medications/Allergies - Medications Active Medication List: Active Medications Acetaminophen (Acetaminophen 325 Mg Tablet) 650 mg PO Q4HR PRN PRN Reason: Pain 1 to 4, or Fever Last Admin: 02/14/23 14:42 Dose: 650 mg Amlodipine Besylate (Amlodipine 5 Mg Tablet) 10 mg PO DAILY [facility] Last Admin: 02/14/23 13:24 Dose: Not Given Apixaban (Apixaban 5 Mg Tablet) 5 mg PO BID [facility] Last Admin: 02/14/23 12:18 Dose: 5 mg Aspirin (Aspirin Chew 81 Mg Tablet) 81 mg PO DAILY [facility] Last Admin: 02/14/23 11:52 Dose: 81 mg Atorvastatin Calcium (Atorvastatin 10 Mg Tablet) 10 mg PO QPM [facility] Last Admin: 02/13/23 21:13 Dose: 10 mg Cholecalciferol (Cholecalciferol 25 Mcg Tablet) 50 mcg PO DAILY [facility] Last Admin: 02/14/23 13:24 Dose: Not Given Docusate Sodium (Docusate Sodium 250 Mg Capsule) 250 - 500 mg PO DAILY [facility] Last Admin: 02/14/23 13:24 Dose: Not Given Ferrous Sulfate (Ferrous Sulfate 300 Mg/5 Ml Udc) 300 mg PO DAILYWM [facility] Last Admin: 02/14/23 12:07 Dose: 300 mg Guaifenesin (Guaifenesin 600 Mg Tablet) 600 mg PO BID [facility] Last Admin: 02/14/23 13:24 Dose: Not Given Hydralazine HCl (Hydralazine Inj 20 Mg/Ml Vial) 5 mg IVP Q6H PRN PRN Reason: hypertension sbp>170 Last Admin: 02/05/23 03:15 Dose: 5 mg Piperacillin Sod/Tazobactam (Sod 3.375 gm/ Sodium Chloride) 100 mls @ 25 mls/hr IV Q8H [facility] Last Admin: 02/14/23 16:27 Dose: Not Given Vancomycin HCl 1 gm/ Sodium (Chloride) 250 mls @ 167 mls/hr IV Q12H [facility] Last Infusion: 02/14/23 15:14 Dose: Infused Azithromycin 500 mg/ Sodium (Chloride) 250 mls @ 250 mls/hr IV DAILY [facility] Last Infusion: 02/14/23 16:28 Dose: Infused Potassium Chloride 20 meq/ (Sodium Chloride) 1,010 mls @ 125 mls/hr IV .Q8H5M [facility] Last Admin: 02/14/23 17:05 Dose: 125 mls/hr Insulin Human Lispro (Insulin Lispro 300 Unit/3 Ml Pen) 1 - 9 unit SUBQ 0800,1200,1700,2100 [facility]; Protocol Last Admin: 02/14/23 17:05 Dose: Not Given Multivitamins/Minerals (Multivitamin W/Minerals Tablet) 1 tab PO DAILYWM [facility] Last Admin: 02/14/23 13:23 Dose: Not Given Ondansetron HCl (Ondansetron 4 Mg/2 Ml Vial) 4 mg IVP Q6HR PRN PRN Reason: Nausea / Vomiting Last Admin: 02/03/23 08:41 Dose: 4 mg Patient Own Med ( ([place])) 1 each PO 0800,1700 [facility] Last Admin: 02/14/23 17:12 Dose: 1 each Petrolatum (Petrolatum White 5 Gm Packet) 1 applic TOP PRN PRN PRN Reason: Dry Lips, dry nares Last Admin: 02/06/23 20:11 Dose: 1 applic Polyethylene Glycol (Polyethylene Glycol 3350 17 Gm Packet) 17 gm PO DAILY [facility] Last Admin: 02/14/23 13:24 Dose: Not Given Potassium Chloride (Potassium Chloride 10 Meq Capsule) 20 meq PO DAILYWM [facility] Last Admin: 02/14/23 13:24 Dose: Not Given Senna (Senna 8.6 Mg Tablet) 8.6 - 17.2 mg PO DAILY [facility] Last Admin: 02/14/23 13:24 Dose: Not Given Sodium Chloride (Sodium Chloride Flush 0.9% 10 Ml Syringe) 10 ml IVP PRN PRN PRN Reason: NEEDED PER PROVIDER ORDERS Last Admin: 02/08/23 02:45 Dose: 10 ml Sodium Chloride (Sodium Chloride Flush 0.9% 10 Ml Syringe) 10 ml IVP 0100,0900,1700 [facility] Last Admin: 02/14/23 17:13 Dose: 10 ml Zinc Oxide (Cod Liver Oil/Zinc Oxide 113 Gm Tube) 113 gm TOP PRN PRN PRN Reason: Skin Care [place] (18% Oleuropein) 1 cap PO DAILY 02/11/23 - Allergies Allergies/Adverse Reactions: Allergies Allergy/AdvReac Type Severity Reaction Status Date / Time No Known Drug Allergies Allergy Verified 01/29/23 23:09 Review of Systems - Constitutional Constitutional: reports: Fatigue, Weakness, Poor appetite, Weight loss - Cardiovascular Cardiovascular: reports: Edema - Respiratory Respiratory: reports: Cough, Wheezing, SOB at rest, SOB with exertion - Gastrointestinal Gastrointestinal: reports: Poor appetite - Genitourinary Genitourinary: reports: Incontinence - Musculoskeletal Musculoskeletal: reports: Stiffness, Muscle weakness, Transfer issues - Integumentary Integumentary: reports: Dryness - Neurological Neurological: reports: General weakness, Focal weakness, Memory problems, Other (word finding difficulty tracking conversation) - Psychiatric Psychiatric: reports: Anxiety - Hematologic/Lymphatic Hematologic/Lymph: reports: Anemia Physical Exam - Vital Signs Vital Signs: Vital Signs x48h Temp Pulse Resp BP Pulse Ox 02/14/23 16:11 36.6 C 88 20 127/65 95 02/14/23 11:10 36.5 C 97 18 149/72 H 96 - Physical Exam General Appearance: positive: Alert, Moderate distress (respiratory with conversation), Anxious Eyes Bilateral: positive: Normal inspection Neck: positive: No JVD Respiratory: positive: Wheezes. negative: No respiratory distress Abdomen: positive: Non-tender, Soft Skin: positive: Pallor Extremities: positive: Other (left arm with edema) Neurologic/Psychiatric: positive: Disoriented to time, Weakness, Depressed mood/affect, Flat affect Palliative Care - POLST Patient has POLST: No POLST Status: DNR Performance Status: Patient assigned to work with PT/OT, has been quite fatigued and weak, hypersensitive to touch. Has not been up in the chair. Patient's previous level of functioning, was quite sedentary, but was able to manage all ADLs and manage household. - Palliative Care Discussion: Met with patient, regarding her current situation to see if she had any insight. Her daughter had not arrived yet. She does report she would "like to go home" but she does not understand when. Asked her if she understood what was happening, she reports she really does not, does acknowledge she has had a stroke, and is quite resigned in the context "not much I can do about it". She is somewhat worried this she does not know at this point where she is going to land. She does perceive she is "mottled" and difficulty tracking her understanding information.I do have documented conversation regarding patient participating and daughter confirms in the context they did have a conversation about 02/12/2023 that if she were to have a cardiac arrest that she would be in no code. Met with daughter separately, she does understand patient is quite ill, had been working with director of social services to look at placement at [facility], at least until caregiving resources can be put in place, we did discuss in the context of patient unable to participate in rehab activities, would not meet criteria for t his. She does not perceive there is 24/7 care, her dad is somewhat helpless but most likely would help but they would need equipment. The other concern would be that she herself would not be able to provide 24/7 care nor her brother, I asked if they had started the Medicaid process, she did not think they would qualify. 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 We discussed what her goals are for her mom, she does perceive that her mother's quality of life moving forward will be altered in the context of returning back to her previous level of functioning, she does reflect on the context of her alcoholism, she has been having cognitive decline with signs of dementia and c onfusion, as well as functional decline, has been quite sedentary, often went to bed between 5 and 6 PM. Given patient's ongoing fragility, decreased intake, persistent elevated white count, is not responding well to antibiotics, I did introduce the concept of focusing on comfort focused care. She was interested in the concept and support hospice would be able to provide, we discussed again that sent 05/09 caregiving, but would be able to help with equipment, services, 2 things need to happen as best we know be 6 months or less, as well as comfort focused goals.She does feel like they are leaning in that direction, if she were not to improve, or be a candidate for SNF, or could be more clear and she is not going to recover, they would consider taking her home on hospice. We discussed this further as prognostically, if there is stopped antibiotics and not respond to treatment, most likely would be days to weeks, if she were to pop toe and still just remain fragile and not eating and sedentary/bedbound, most likely weeks to months.I provided her with "hard choices for loving people", encouraged her to talk to her father as well as brother, in the context of and agreement for priorities of goals. She will be available tomorrow afternoon, is hoping to get an update as far as prognostically regarding patient's response or nonresponse to treatment, and she will further discuss a decision possibly to comfort focused goals/ hospice if no improvement. Results - Lab Results Lab results reviewed: Yes Fish Bones: 02/14/23 04:57 02/14/23 04:57 Lab and Imaging Results: Lab Results x24hrs 02/14/23 02/14/23 02/14/23 Range/Units 16:49 11:07 07:44 WBC (4.8-10.8) x10^3/uL RBC (4.20-5.40) 10^6/uL Hgb (12.0-16.0) g/dL Hct (37.0-47.0) % MCV (81.0-99.0) fL MCH (27.0-31.0) pg MCHC (32.0-36.0) g/dL RDW (12.0-15.0) % Plt Count (130-450) 10^3/uL MPV (7.9-10.8) fL Neut # (Auto) Lymph # (Auto) [place] # (Auto) Eos # (Auto) Baso # (Auto) Absolute Nucleated RBC Total Counted Band Neuts % (Manual) (0 - 10) % Abnorm Lymph % (Manual) % Nucleated RBC % Neutrophils # (Manual) (1.5-6.6) 10^3/uL Lymphocytes # (Manual) (1.5-3.5) 10^3/uL Monocytes # (Manual) (0.0-1.0) 10^3/uL Eosinophils # (Manual) (0-0.7) 10^3/uL Basophils # (Manual) (0-0.1) 10^3/uL Differential Comment Platelet Estimate (NORMAL) RBC Morph Micro Appear (NORMAL) Sodium (135-145) mmol/L Potassium (3.5-4.5) mmol/L Chloride (101-111) mmol/L Carbon Dioxide (21-32) mmol/L Anion Gap (6-13) BUN (6-20) mg/dL Creatinine (0.6-1.3) mg/dL Estimated GFR (MDRD) (>89) Glucose (74-104) mg/dL POC Whole Bld Glucose 135 H 144 H 145 H (70 - 100) mg/dL Calcium (8.5-10.3) mg/dL Magnesium (1.7-2.3) mg/dL 02/14/23 02/14/23 02/13/23 Range/Units 04:57 04:57 21:04 WBC 26.3 H (4.8-10.8) x10^3/uL RBC 3.01 L (4.20-5.40) 10^6/uL Hgb 8.6 L (12.0-16.0) g/dL Hct 27.1 L (37.0-47.0) % MCV 90.0 (81.0-99.0) fL MCH 28.6 (27.0-31.0) pg MCHC 31.7 L (32.0-36.0) g/dL RDW 16.6 H (12.0-15.0) % Plt Count 277 (130-450) 10^3/uL MPV 11.9 H (7.9-10.8) fL Neut # (Auto) Not Reportable Lymph # (Auto) Not Reportable [place] # (Auto) Not Reportable Eos # (Auto) Not Reportable Baso # (Auto) Not Reportable Absolute Nucleated RBC Not Reportable Total Counted 100 Band Neuts % (Manual) 5 (0 - 10) % Abnorm Lymph % (Manual) 0 % Nucleated RBC % Not Reportable Neutrophils # (Manual) 22.4 H (1.5-6.6) 10^3/uL Lymphocytes # (Manual) 2.1 (1.5-3.5) 10^3/uL Monocytes # (Manual) 1.1 H (0.0-1.0) 10^3/uL Eosinophils # (Manual) 0.8 H (0-0.7) 10^3/uL Basophils # (Manual) 0.0 (0-0.1) 10^3/uL Differential Comment MANUAL DIFFERENTIAL Platelet Estimate NORMAL (130-450,000) (NORMAL) RBC Morph Micro Appear NORMAL APPEARANCE (NORMAL) Sodium 146 H (135-145) mmol/L Potassium 3.3 L (3.5-4.5) mmol/L Chloride 112 H (101-111) mmol/L Carbon Dioxide 25 (21-32) mmol/L Anion Gap 9.0 (6-13) BUN 30 H (6-20) mg/dL Creatinine 1.0 (0.6-1.3) mg/dL Estimated GFR (MDRD) 54 L (>89) Glucose 145 H (74-104) mg/dL POC Whole Bld Glucose 191 H (70 - 100) mg/dL Calcium 8.1 L (8.5-10.3) mg/dL Magnesium 1.9 (1.7-2.3) mg/dL 02/13/23 Range/Units 20:54 WBC (4.8-10.8) x10^3/uL RBC (4.20-5.40) 10^6/uL Hgb (12.0-16.0) g/dL Hct (37.0-47.0) % MCV (81.0-99.0) fL MCH (27.0-31.0) pg MCHC (32.0-36.0) g/dL RDW (12.0-15.0) % Plt Count (130-450) 10^3/uL MPV (7.9-10.8) fL Neut # (Auto) Lymph # (Auto) [place] # (Auto) Eos # (Auto) Baso # (Auto) Absolute Nucleated RBC Total Counted Band Neuts % (Manual) (0 - 10) % Abnorm Lymph % (Manual) % Nucleated RBC % Neutrophils # (Manual) (1.5-6.6) 10^3/uL Lymphocytes # (Manual) (1.5-3.5) 10^3/uL Monocytes # (Manual) (0.0-1.0) 10^3/uL Eosinophils # (Manual) (0-0.7) 10^3/uL Basophils # (Manual) (0-0.1) 10^3/uL Differential Comment Platelet Estimate (NORMAL) RBC Morph Micro Appear (NORMAL) Sodium 145 (135-145) mmol/L Potassium (3.5-4.5) mmol/L Chloride (101-111) mmol/L Carbon Dioxide (21-32) mmol/L Anion Gap (6-13) BUN (6-20) mg/dL Creatinine (0.6-1.3) mg/dL Estimated GFR (MDRD) (>89) Glucose (74-104) mg/dL POC Whole Bld Glucose (70 - 100) mg/dL Calcium (8.5-10.3) mg/dL Magnesium (1.7-2.3) mg/dL Impression and Recommendations - Palliative Care Impression: This is a 72-year-old woman who has had a series of unfortunate events, including COVID infection, iron deficiency anemia, aspiration pneumonia, stroke 12/06 and new stroke documented on 02/11. In her workup was also found to have bilateral pulmonary embolism, noted several lung masses on CT, as well as liver masses suspicious for mets. Patient continues with fluctuating ability participate in conversations, has been mostly bedbound secondary to fatigue and breathlessness, and continues with persistent elevated white count. Palliative care meeting with patient and daughter, daughter is DPOA for further definition and concerns regarding being plan of care. Recommendations/Counseling Done: 1. Advance care planning. Family meeting with daughter, did meet with patient unable to really participate in decision-making, though had expressed wishes previously about DNAR/DNI. Counseling provided regarding concern in the context of her failure to thrive, persistent elevated white count, high symptom burden, unclear outcomes regarding functional status and quality of life issues. Daughter leaning towards focusing on comfort focused care, depending on if patient is going to respond or not to treatment for her pneumonia, was hoping she would benefit from rehab, at this point looking at transitioning to SNF, we discussed at any point if patient not making progress, or worsens, could look at transitioning to comfort focused care/hospice but goals need to be clarified at that time. She is going to talk with her brother and father, and regroup tomorrow afternoon. She would like further information regarding patient's status tomorrow as far as if responding to antibiotics or not, and if able to participate in treatment. 2. Anorexia. Patient may benefit from low-dose mirtazapine 7.5 mg at bedtime, for appetite stimulant and mood. 75 minutes with review of chart, labs, scans, coordination of care with hospitalist and hospital staff. Counseling/family meeting with daughter regarding clarifying patient's current frail fatigue, goals of care, anticipatory guidance provided. Will reach out to hospice medical laboratory technologist, to see and confirm patient would make criteria, as part of anticipatory planning.
[2023-02-14] MEDS: ATORVASTATIN 10 MG TABLET PO SCH (21:37)
[2023-02-15] MEDS: VANCOMYCIN INJ 1 GM in SODIUM CHLORIDE 0.9% 250 ML IV SCH ×2 (00:26→11:35)
[2023-02-15] MEDS: SODIUM CHLORIDE FLUSH 0.9% 10 ML SYRINGE IVP SCH ×3 (00:27→16:34)
[2023-02-15] MEDS: PIPERACILLIN/TAZOBACTAM 3.375 GM in SODIUM CHLORIDE 0.9% MINIBAG 100 ML IV SCH ×3 (00:29→16:34)
[2023-02-15] MEDS: POTASSIUM CHLORIDE INJ 20 MEQ in SODIUM CHLORIDE 0.45% 1,000 ML IV SCH ×3 (01:11→22:31)
[2023-02-15 05:12] LABS: BASOPHILS % (AUTO) 0.2 %; EOSINOPHILS % (AUTO) 1.3 %; HCT - HEMATOCRIT 23.4 % (37.0-47.0); HGB - HEMOGLOBIN 7.6 g/dL (12.0-16.0); LYMPHOCYTES % (AUTO) 5.5 %; MEAN CORPUSCULAR HEMOGLOBIN 28.8 pg (27.0-31.0); MEAN CORPUSCULAR HGB CONC 32.5 g/dL (32.0-36.0); MEAN CORPUSCULAR VOLUME 88.6 fL (81.0-99.0); MEAN PLATELET VOLUME 11.6 fL (7.9-10.8); MONOCYTES % (AUTO) 2.9 %; NEUTROPHILS % (AUTO) 88.7 %; PLT - PLATELET COUNT 254 10^3/uL (130-450); RED BLOOD COUNT 2.64 10^6/uL (4.20-5.40); RED CELL DISTRIBUTION WIDTH 16.8 % (12.0-15.0); WHITE BLOOD COUNT 29.9 x10^3/uL (4.8-10.8)
[2023-02-15 05:16] LABS: ABNORMAL LYMPHS % (MANUAL) 0 %
[2023-02-15 05:28] LABS: CALCIUM 7.7 mg/dL (8.5-10.3); CREATININE 1.1 mg/dL (0.6-1.3); POTASSIUM 3.6 mmol/L (3.5-4.5)
[2023-02-15 05:44] LABS: BAND NEUTROPHILS % (MANUAL) 1 %; DIFFERENTIAL COMMENT MANUAL DIFFERENTIAL; EOSINOPHILS # (MANUAL) 0.9 10^3/uL (0-0.7); LYMPHOCYTES # (MANUAL) 0.9 10^3/uL (1.5-3.5); LYMPHOCYTES % (MANUAL) 3 %; MONOCYTES # (MANUAL) 1.8 10^3/uL (0.0-1.0); NEUTROPHILS # (MANUAL) 26.3 10^3/uL (1.5-6.6); PLATELET ESTIMATE, MANUAL NORMAL (130-450,000) (NORMAL); RBC MORPHOLOGY (MULTIPLE) NORMAL APPEARANCE (NORMAL)
[2023-02-15] MEDS: INSULIN LISPRO 300 UNIT/3 ML PEN SUBQ SCH ×4 (09:02→22:31)
[2023-02-15] MEDS: FERROUS SULFATE 300 MG/5 ML UDC PO SCH (09:02)
[2023-02-15] MEDS: MULTIVITAMIN W/MINERALS TABLET PO SCH (09:02)
[2023-02-15] MEDS: OLIVE LEAF PO SCH ×2 (09:03→17:57)
[2023-02-15] MEDS: POTASSIUM CHLORIDE 10 MEQ CAPSULE PO SCH (09:03)
[2023-02-15] MEDS: AZITHROMYCIN INJ 500 MG in SODIUM CHLORIDE 0.9% 250 ML IV SCH (09:50)
[2023-02-15] MEDS: polyethylene glycoL 3350 17 GM PACKET PO SCH (09:52)
[2023-02-15] MEDS: CHOLECALCIFEROL 25 MCG TABLET PO SCH (09:52)
[2023-02-15] MEDS: ASPIRIN CHEW 81 MG TABLET PO SCH (09:52)
[2023-02-15] MEDS: guaiFENesin 600 MG TABLET PO SCH ×2 (09:52→22:31)
[2023-02-15] MEDS: amLODIPine 5 MG TABLET PO SCH (09:52)
[2023-02-15] MEDS: SENNA 8.6 MG TABLET PO SCH (09:52)
[2023-02-15] MEDS: DOCUSATE SODIUM 250 MG CAPSULE PO SCH (09:52)
[2023-02-15] MEDS: APIXABAN 5 MG TABLET PO SCH ×2 (09:52→22:31)
--- NOTE | 2023-02-15 16:33 | CONSULTATION NOTE ---
Palliative Care Follow Up - Referral Referring Provider: Dr. Mak Time of Visit: [id number] Referral setting: Hospitalized patient Referral Reason: Goals of Care/Family Meeting - Information Sources Records reviewed: RN notes reviewed - History of Present Illness Update Brief HPI Update: This is a 72-year-old woman who I providing follow-up today in the context of goals of care, and family meeting. Please see HPI from 02/14/2023. Patient continues to be quite fatigued, does appear uncomfortable with any kind of movement, does demonstrate some anasarca in her upper and lower extremities. She does still have some respiratory effort and breathlessness, was a maximum two-person assist for PT/OT, and difficulty following direction and participation. She continues to eat just small amounts of bites, taking sips of fluid. She does perceive herself is slightly confused, she denies any pain at rest. She does seem somewhat a little bit more alert today, and able to interact with provider, when asked what she is worried about, she says you are more worried than I am. Social History - Living Situation Living arrangement: At home Living Situation: With spouse/s.o. Support System: Patient and ex had gotten together when she was 12 and he 15 and have known each other for 60 years, they are currently . Given that they are still living together, it has been the traditional 1950s marriage according to daughter. 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 Their daughter does live next-door, but she does oversee her son who has multiple disabilities, as well as homeschools her younger child and has many commitments. She is the DPOA, as a result of the divorce, she also reports her brother is a excelsior machine feeder/EMT but both have their own lives, can offer some support but not 05/09 caregiving. Met ex- who feels he can provide support and oversight regarding her care as she transitions home to hospice. Does have caregiving list provided by [employer]. Medications/Allergies - Medications Active Medication List: Active Medications Acetaminophen (Acetaminophen 325 Mg Tablet) 650 mg PO Q4HR PRN PRN Reason: Pain 1 to 4, or Fever Last Admin: 02/14/23 14:42 Dose: 650 mg Amlodipine Besylate (Amlodipine 5 Mg Tablet) 10 mg PO DAILY [facility] Last Admin: 02/15/23 09:52 Dose: 10 mg Apixaban (Apixaban 5 Mg Tablet) 5 mg PO BID [facility] Last Admin: 02/15/23 09:52 Dose: 5 mg Aspirin (Aspirin Chew 81 Mg Tablet) 81 mg PO DAILY [facility] Last Admin: 02/15/23 09:52 Dose: Not Given Atorvastatin Calcium (Atorvastatin 10 Mg Tablet) 10 mg PO QPM [facility] Last Admin: 02/14/23 21:37 Dose: 10 mg Cholecalciferol (Cholecalciferol 25 Mcg Tablet) 50 mcg PO DAILY [facility] Last Admin: 02/15/23 09:52 Dose: Not Given Docusate Sodium (Docusate Sodium 250 Mg Capsule) 250 - 500 mg PO DAILY [facility] Last Admin: 02/15/23 09:52 Dose: Not Given Ferrous Sulfate (Ferrous Sulfate 300 Mg/5 Ml Udc) 300 mg PO DAILYWM [facility] Last Admin: 02/15/23 09:02 Dose: 300 mg Guaifenesin (Guaifenesin 600 Mg Tablet) 600 mg PO BID [facility] Last Admin: 02/15/23 09:52 Dose: Not Given Hydralazine HCl (Hydralazine Inj 20 Mg/Ml Vial) 5 mg IVP Q6H PRN PRN Reason: hypertension sbp>170 Last Admin: 02/05/23 03:15 Dose: 5 mg Piperacillin Sod/Tazobactam (Sod 3.375 gm/ Sodium Chloride) 100 mls @ 25 mls/hr IV Q8H [facility] Last Infusion: 02/15/23 13:22 Dose: Infused Vancomycin HCl 1 gm/ Sodium (Chloride) 250 mls @ 167 mls/hr IV Q12H [facility] Last Infusion: 02/15/23 13:20 Dose: Infused Azithromycin 500 mg/ Sodium (Chloride) 250 mls @ 250 mls/hr IV DAILY [facility] Last Infusion: 02/15/23 10:50 Dose: Infused Potassium Chloride 20 meq/ (Sodium Chloride) 1,010 mls @ 125 mls/hr IV .Q8H5M [facility] Last Infusion: 02/15/23 13:21 Dose: 125 mls/hr Insulin Human Lispro (Insulin Lispro 300 Unit/3 Ml Pen) 1 - 9 unit SUBQ 0800,1200,1700,2100 [facility]; Protocol Last Admin: 02/15/23 11:58 Dose: Not Given Multivitamins/Minerals (Multivitamin W/Minerals Tablet) 1 tab PO DAILYWM [facility] Last Admin: 02/15/23 09:02 Dose: 1 tab Ondansetron HCl (Ondansetron 4 Mg/2 Ml Vial) 4 mg IVP Q6HR PRN PRN Reason: Nausea / Vomiting Last Admin: 02/03/23 08:41 Dose: 4 mg Patient Own Med ( ([place])) 1 each PO 0800,1700 [facility] Last Admin: 02/15/23 09:03 Dose: 1 each Petrolatum (Petrolatum White 5 Gm Packet) 1 applic TOP PRN PRN PRN Reason: Dry Lips, dry nares Last Admin: 02/06/23 20:11 Dose: 1 applic Polyethylene Glycol (Polyethylene Glycol 3350 17 Gm Packet) 17 gm PO DAILY [facility] Last Admin: 02/15/23 09:52 Dose: Not Given Potassium Chloride (Potassium Chloride 10 Meq Capsule) 20 meq PO DAILYWM [facility] Last Admin: 02/15/23 09:03 Dose: 20 meq Senna (Senna 8.6 Mg Tablet) 8.6 - 17.2 mg PO DAILY [facility] Last Admin: 02/15/23 09:52 Dose: Not Given Sodium Chloride (Sodium Chloride Flush 0.9% 10 Ml Syringe) 10 ml IVP PRN PRN PRN Reason: NEEDED PER PROVIDER ORDERS Last Admin: 02/08/23 02:45 Dose: 10 ml Sodium Chloride (Sodium Chloride Flush 0.9% 10 Ml Syringe) 10 ml IVP 0100,0900,1700 [facility] Last Admin: 02/15/23 09:52 Dose: 10 ml Zinc Oxide (Cod Liver Oil/Zinc Oxide 113 Gm Tube) 113 gm TOP PRN PRN PRN Reason: Skin Care [place] (18% Oleuropein) 1 cap PO DAILY 02/11/23 - Allergies Allergies/Adverse Reactions: Allergies Allergy/AdvReac Type Severity Reaction Status Date / Time No Known Drug Allergies Allergy Verified 01/29/23 23:09 Review of Systems - Constitutional Constitutional: reports: Fatigue, Weakness, Poor appetite, Weight loss - Cardiovascular Cardiovascular: reports: Edema - Respiratory Respiratory: reports: Cough, Wheezing, SOB at rest, SOB with exertion - Gastrointestinal Gastrointestinal: reports: Poor appetite - Genitourinary Genitourinary: reports: Incontinence - Musculoskeletal Musculoskeletal: reports: Stiffness, Muscle weakness, Transfer issues - Integumentary Integumentary: reports: Dryness - Neurological Neurological: reports: General weakness, Focal weakness, Memory problems, Other (word finding difficulty tracking conversation) - Psychiatric Psychiatric: reports: Anxiety - Hematologic/Lymphatic Hematologic/Lymph: reports: Anemia Physical Exam - Vital Signs Vital Signs: Vital Signs x48h Temp Pulse Resp BP Pulse Ox 02/15/23 13:43 36.5 C 94 16 134/67 H 95 02/15/23 09:00 37.0 C 18 135/78 H 94 - Physical Exam General Appearance: positive: Alert, Moderate distress (respiratory with conversation) Eyes Bilateral: positive: Normal inspection Respiratory: positive: Other (respiratory effort with conversation) Abdomen: positive: Non-tender, Soft Skin: positive: Pallor Extremities: positive: Pedal edema, Other (left arm with edema) Neurologic/Psychiatric: positive: Disoriented to time, Weakness, Depressed mood/affect, Flat affect Palliative Care - POLST Patient has POLST: Yes POLST Status: DNR, Comfort Measures - Palliative Care Discussion: Initiated family meeting, with Dr. Mak, social work x 2, ex- Sunday, son Madi, and Pam her daughter and DPOA. Dr. Mak initiated meeting with answering questions regarding patient's declining status, fragility, family had made decision to take her home with hospice. He is in agreement, recognizing patient's severe deficits from stroke, fragile status, and most li romy not expected to recover to any quality of life. Further discussion with family, regarding the role of hospice and limitations. Counseled regarding hospice services, hospice benefit, they are going to need a hospital bed and oxygen, will put the bed downstairs. Patient will need BLS transfer. We discussed in the context of practical hands-on caregiving, both son and daughter are quite clear have family obligations, but willing to provide support, we discussed having a short-term plan and long-term plan. Sunday feels he can take this on, with support of paid caregiving, does have list to access, though we did discuss it does take time to put caregivers in place. Discussed if wanted me to go talk with Jazlyn, about plan, to transition to hospice and return home, they felt as a family they would like to further have conversations themselves and talk about the decision. They will let me know if need further support regarding this.Patient without decision-making capacity regarding strokes, history of dementia, and fluctuating mental status. Pam daughter will have to sign for benefit.We did complete a POLST with DNAR/DNI and comfort measures, with goal to focus on comfort, spending time with family, and a comfortable respectful at home.Coordination with hospice team for transition, will need BLS transfer. Social work aware, will work with hospice charge nurse for transition timing. Results - Lab Results Lab results reviewed: Yes Fish Bones: 02/15/23 05:00 02/15/23 05:00 Lab and Imaging Results: Lab Results x24hrs 02/15/23 02/15/23 02/15/23 Range/Units 11:41 07:43 05:00 WBC (4.8-10.8) x10^3/uL RBC (4.20-5.40) 10^6/uL Hgb (12.0-16.0) g/dL Hct (37.0-47.0) % MCV (81.0-99.0) fL MCH (27.0-31.0) pg MCHC (32.0-36.0) g/dL RDW (12.0-15.0) % Plt Count (130-450) 10^3/uL MPV (7.9-10.8) fL Neut # (Auto) Lymph # (Auto) Phillips # (Auto) Eos # (Auto) Baso # (Auto) Absolute Nucleated RBC Total Counted Band Neuts % (Manual) (0 - 10) % Abnorm Lymph % (Manual) % Nucleated RBC % Neutrophils # (Manual) (1.5-6.6) 10^3/uL Lymphocytes # (Manual) (1.5-3.5) 10^3/uL Monocytes # (Manual) (0.0-1.0) 10^3/uL Eosinophils # (Manual) (0-0.7) 10^3/uL Basophils # (Manual) (0-0.1) 10^3/uL Differential Comment Platelet Estimate (NORMAL) RBC Morph Micro Appear (NORMAL) Sodium 141 (135-145) mmol/L Potassium 3.6 (3.5-4.5) mmol/L Chloride 110 (101-111) mmol/L Carbon Dioxide 21 (21-32) mmol/L Anion Gap 10.0 (6-13) BUN 31 H (6-20) mg/dL Creatinine 1.1 (0.6-1.3) mg/dL Estimated GFR (MDRD) 49 L (>89) Glucose 137 H (74-104) mg/dL POC Whole Bld Glucose 128 H 126 H (70 - 100) mg/dL Calcium 7.7 L (8.5-10.3) mg/dL 02/15/23 02/14/23 02/14/23 Range/Units 05:00 20:58 16:49 WBC 29.9 H (4.8-10.8) x10^3/uL RBC 2.64 L (4.20-5.40) 10^6/uL Hgb 7.6 L (12.0-16.0) g/dL Hct 23.4 L (37.0-47.0) % MCV 88.6 (81.0-99.0) fL MCH 28.8 (27.0-31.0) pg MCHC 32.5 (32.0-36.0) g/dL RDW 16.8 H (12.0-15.0) % Plt Count 254 (130-450) 10^3/uL MPV 11.6 H (7.9-10.8) fL Neut # (Auto) Not Reportable Lymph # (Auto) Not Reportable Phillips # (Auto) Not Reportable Eos # (Auto) Not Reportable Baso # (Auto) Not Reportable Absolute Nucleated RBC Not Reportable Total Counted 100 Band Neuts % (Manual) 1 (0 - 10) % Abnorm Lymph % (Manual) 0 % Nucleated RBC % Not Reportable Neutrophils # (Manual) 26.3 H (1.5-6.6) 10^3/uL Lymphocytes # (Manual) 0.9 L (1.5-3.5) 10^3/uL Monocytes # (Manual) 1.8 H (0.0-1.0) 10^3/uL Eosinophils # (Manual) 0.9 H (0-0.7) 10^3/uL Basophils # (Manual) 0.0 (0-0.1) 10^3/uL Differential Comment MANUAL DIFFERENTIAL Platelet Estimate NORMAL (130-450,000) (NORMAL) RBC Morph Micro Appear NORMAL APPEARANCE (NORMAL) Sodium (135-145) mmol/L Potassium (3.5-4.5) mmol/L Chloride (101-111) mmol/L Carbon Dioxide (21-32) mmol/L Anion Gap (6-13) BUN (6-20) mg/dL Creatinine (0.6-1.3) mg/dL Estimated GFR (MDRD) (>89) Glucose (74-104) mg/dL POC Whole Bld Glucose 120 H 135 H (70 - 100) mg/dL Calcium (8.5-10.3) mg/dL Impression and Recommendations - Palliative Care Impression: This is a 72-year-old woman has had a series of unfortunate events, including COVID infection, persistent anemia, aspiration pneumonia, stroke on 02/05 and new stroke documented on 02/11 with noted also bilateral pulmonary embolisms, several lung masses in her workup well as well as liver masses support issues of mets. Patient presents with failure to thrive, decreased intake, functional status is bedbound, continue with persistent elevated white count. Palliative care providing support and direction for family meeting, and transition to hos pice decision. Recommendations/Counseling Done: 1. Bedbound status. Hospital bed and as needed oxygen ordered to hospice, would recommend Oswald catheter placement prior to discharge, to facilitate and ease caregiving stress as well as patient comfort. Patient is incontinent, has been on though [employer] system. 2. Advance care planning. Family meeting was coordinated, with ex- Sunday, children Madi and Pam, with participants from team of social workers, palliative care [employer]ATOR's, and Dr. Mak. POLST was completed, decision to transition to hospice was made, hospice does have an opening on Monday afternoon, decision was made to follow through on this. Concern regarding caregiving resources, does have caregiving resources of list available, encouraged to start making calls [facility]. Need to focus on short-term plan as well as long-term plan. Prognosis most likely measured in weeks depending on patients response and intake when transitioning home. 75 minutes with family meeting, review of goals of care, completing POLST, introduction of hospice and transition, addressing continuum of care, and anticipatory guidance.
--- NOTE | 2023-02-15 17:19 | PROVIDER PROGRESS NOTE ---
Assessment/Plan - Problem List (1) Hypernatremia Assessment/Plan: Assessment/Plan: Na is 146 today Today Na is 150 (all labs were reviewed). Start 1/2 NS with 20 mEq of KCL at 75 mL/hour (2) Colitis Assessment/Plan: Continue Zosyn for broad spectrum empiric antibiotic coverage (3) Iron deficiency anemia -Continue Ferrous Sulfate (4) Acute respiratory failure with hypoxia Conclusion/Plan: Resolving. 96% on room air (5) Aspiration pneumonia Assessment/Plan: Continue Zosyn for empiric coverage for aspiration pneumonia. (6) CVA (cerebral vascular accident) Assessment/Plan: CVA: 02/05/23 Continue Eliquis, aspirin and statin Echo revealed not clot or PFO. MRI of brain peformed 02/07/2023 multiforcal areas of restricted diffusion throughout brain Her Echo w/ bubble study showed no clot and no PFO. Because of the fever on 02/11, CT scanning was repeated from head to pelvis. The head CT showed she had a new stroke near the old stroke. (7) Bilateral pulmonary embolism Conclusion/Plan: Continue Eliquis (8) Elevated LFTs Avoid hepatotoxins. Follow LFTs intermittently (9) Lung mass Conclusion/Plan: Etiology of opacities unclear. Differential diagnosis would include aspiration and malignancy. (10) Liver masses Discussed with jerald. Continue to follow. (11) AMS (altered mental status) Assessment/Plan: Moste likely related to stroke. (12) Hypomagnesemia Conclusion/Plan: Replace as needed. Goals of Care: Goals of care discussed with family and goal is to send patient home with hospice in place. - Current Meds Current Meds: Current Medications Generic Name Dose Route Start Last Admin Trade Name Freq PRN Reason Stop Dose Admin Acetaminophen 650 mg 01/30/23 15:42 02/14/23 14:42 Acetaminophen 325 Mg Tablet PO 650 mg Q4HR PRN Administration Pain 1 to 4, or Fever Amlodipine Besylate 10 mg 02/02/23 09:00 02/15/23 09:52 Amlodipine 5 Mg Tablet PO 10 mg DAILY BRANDY Administration Apixaban 5 mg 02/06/23 21:00 02/15/23 09:52 Apixaban 5 Mg Tablet PO 5 mg BID BRANDY Administration Aspirin 81 mg 02/06/23 09:00 02/15/23 09:52 Aspirin Chew 81 Mg Tablet PO Not Given DAILY BRANDY Atorvastatin Calcium 10 mg 02/09/23 22:00 02/14/23 21:37 Atorvastatin 10 Mg Tablet PO 10 mg QPM BRANDY Administration Cholecalciferol 50 mcg 02/02/23 09:00 02/15/23 09:52 Cholecalciferol 25 Mcg Tablet PO Not Given DAILY REPLACED BY [facility] Docusate Sodium 250 - 500 mg 02/01/23 13:00 02/15/23 09:52 Docusate Sodium 250 Mg Capsule PO Not Given DAILY REPLACED BY [facility] Ferrous Sulfate 300 mg 02/14/23 08:00 02/15/23 09:02 Ferrous Sulfate 300 Mg/5 Ml Udc PO 300 mg DAILYWM REPLACED BY [facility] Administration Guaifenesin 600 mg 01/30/23 21:00 02/15/23 09:52 Guaifenesin 600 Mg Tablet PO Not Given BID REPLACED BY [facility] Hydralazine HCl 5 mg 02/05/23 02:45 02/05/23 03:15 Hydralazine Inj 20 Mg/Ml Vial IVP 5 mg Q6H PRN Administration hypertension sbp>170 Piperacillin Sod/Tazobactam 100 mls @ 25 mls/hr 02/08/23 15:00 02/15/23 16:34 Sod 3.375 gm/ Sodium Chloride IV 25 mls/hr Q8H REPLACED BY [facility] Administration Vancomycin HCl 1 gm/ Sodium 250 mls @ 167 mls/hr 02/08/23 22:00 02/15/23 13:20 Chloride IV Infused Q12H BRANDY Infusion Azithromycin 500 mg/ Sodium 250 mls @ 250 mls/hr 02/13/23 09:00 02/15/23 10:50 Chloride IV Infused DAILY REPLACED BY [facility] Infusion Potassium Chloride 20 meq/ 1,010 mls @ 125 mls/hr 02/14/23 16:00 02/15/23 13:21 Sodium Chloride IV 125 mls/hr .Q8H5M REPLACED BY [facility] Infusion Insulin Human Lispro 1 - 9 unit 02/03/23 08:00 02/15/23 11:58 Insulin Lispro 300 Unit/3 Ml Pen SUBQ Not Given 0800,1200,1700,2100 REPLACED BY [facility] Protocol Multivitamins/Minerals 1 tab 02/09/23 17:00 02/15/23 09:02 Multivitamin W/Minerals Tablet PO 1 tab DAILYWM REPLACED BY [facility] Administration Ondansetron HCl 4 mg 01/30/23 15:42 02/03/23 08:41 Ondansetron 4 Mg/2 Ml Vial IVP 4 mg Q6HR PRN Administration Nausea / Vomiting Patient Own Med ( 1 each 02/13/23 08:00 02/15/23 09:03 [place]) PO 1 each 0800,1700 BRANDY Administration Petrolatum 1 applic 02/06/23 20:00 02/06/23 20:11 Petrolatum White 5 Gm Packet TOP 1 applic PRN PRN Administration Dry Lips, dry nares Polyethylene Glycol 17 gm 02/02/23 09:00 02/15/23 09:52 Polyethylene Glycol 3350 17 Gm Packet PO Not Given DAILY BRANDY Potassium Chloride 20 meq 02/10/23 13:00 02/15/23 09:03 Potassium Chloride 10 Meq Capsule PO 20 meq DAILYWM BRANDY Administration Senna 8.6 - 17.2 mg 02/01/23 13:00 02/15/23 09:52 Senna 8.6 Mg Tablet PO Not Given DAILY BRANDY Sodium Chloride 10 ml 01/30/23 15:42 02/08/23 02:45 Sodium Chloride Flush 0.9% 10 Ml Syringe IVP 10 ml PRN PRN Administration NEEDED PER PROVIDER ORDERS Sodium Chloride 10 ml 01/30/23 17:00 02/15/23 16:34 Sodium Chloride Flush 0.9% 10 Ml Syringe IVP 10 ml 0100,0900,1700 BRANDY Administration - Lab Result Fish Bone Diagrams: 02/15/23 05:00 02/15/23 05:00 - Additional Planning My Orders: My Active Orders 02/15/23 Lunch Dysphagia - Puree [DIET] Subjective - Subjective Patient Reports: Other (She remains somnolent. She does open eyes to voice. No significant change in mental status compared to yesterday.) Objective Vital Signs: Vital Signs - 24 hr 02/14/23 02/15/23 02/15/23 20:18 00:11 04:23 Temperature 36.7 C 36.9 C 36.8 C Heart Rate [ 90 68 108 H Brachial] Respiratory 23 Rate Blood Pressure 148/85 H 137/61 H 139/72 H [Right Brachial artery] O2 Saturation 99 93 95 02/15/23 02/15/23 02/15/23 09:00 13:43 16:40 Temperature 37.0 C 36.5 C 36.2 C L Heart Rate [ 94 98 Brachial] Respiratory 18 16 28 H Rate Blood Pressure 135/78 H 134/67 H 148/73 H [Right Brachial artery] O2 Saturation 94 95 95 Oxygen O2 Source Room air Oxygen Flow Rate 2 I&O (Last 24 Hrs): Intake and Output Totals x24h 02/13/23 02/14/23 02/15/23 23:59 23:59 23:59 Intake Total 2933.886 2917.834 2605.416 Output Total 150 Balance 2933.886 2767.834 2605.416 HEENT: Atraumatic, PERRLA, EOMI Neck: Supple, No JVD, No thyromegaly Lymphatic: no adenopathy Neuro: Other (Dense left hemiparalysis) Cardiovascular: Regular rate, Normal S1 Respiratory: Chest non-tender, No respiratory distress, Other (No wheezing, no crackles) Extremities: No clubbing, No cyanosis Skin: No rashes - Results Results: Laboratory Results WBC 29.9 x10^3/uL (4.8-10.8) H 02/15/23 05:00 RBC 2.64 10^6/uL (4.20-5.40) L 02/15/23 05:00 Hgb 7.6 g/dL (12.0-16.0) L 02/15/23 05:00 Hct 23.4 % (37.0-47.0) L 02/15/23 05:00 MCV 88.6 fL (81.0-99.0) 02/15/23 05:00 MCH 28.8 pg (27.0-31.0) 02/15/23 05:00 MCHC 32.5 g/dL (32.0-36.0) 02/15/23 05:00 RDW 16.8 % (12.0-15.0) H 02/15/23 05:00 Plt Count 254 10^3/uL (130-450) 02/15/23 05:00 MPV 11.6 fL (7.9-10.8) H 02/15/23 05:00 Neut # (Auto) Not Reportable 02/15/23 05:00 Lymph # (Auto) Not Reportable 02/15/23 05:00 [place] # (Auto) Not Reportable 02/15/23 05:00 Eos # (Auto) Not Reportable 02/15/23 05:00 Baso # (Auto) Not Reportable 02/15/23 05:00 Absolute Nucleated RBC Not Reportable 02/15/23 05:00 Total Counted 100 02/15/23 05:00 Band Neuts % (Manual) 1 % (0-10) 02/15/23 05:00 Abnorm Lymph % (Manual) 0 % 02/15/23 05:00 Metamyelocytes % 1 % (-0) H 02/07/23 10:49 Nucleated RBC % Not Reportable 02/15/23 05:00 Neutrophils # (Manual) 26.3 10^3/uL (1.5-6.6) H 02/15/23 05:00 Lymphocytes # (Manual) 0.9 10^3/uL (1.5-3.5) L 02/15/23 05:00 Monocytes # (Manual) 1.8 10^3/uL (0.0-1.0) H 02/15/23 05:00 Eosinophils # (Manual) 0.9 10^3/uL (0-0.7) H 02/15/23 05:00 Basophils # (Manual) 0.0 10^3/uL (0-0.1) 02/15/23 05:00 Differential Comment MANUAL DIFFERENTIAL 02/15/23 05:00 Manual Slide Review Indicated 02/13/23 05:22 WBC Morphology 1+ HYPERSEG NEUT (NORMAL) 02/07/23 10:49 Platelet Estimate NORMAL (130-450,000) (NORMAL) 02/15/23 05:00 Platelet Morphology NORMAL APPEARANCE (NORMAL) 02/13/23 05:22 RBC Morph Micro Appear NORMAL APPEARANCE (NORMAL) 02/15/23 05:00 PT 16.8 secs (9.9-12.6) H 01/30/23 00:01 INR 1.6 (0.8-1.2) H 01/30/23 00:01 APTT 102.0 secs (24.9-33.3) H* 01/30/23 11:17 Sodium 141 mmol/L (135-145) 02/15/23 05:00 Potassium 3.6 mmol/L (3.5-4.5) 02/15/23 05:00 Chloride 110 mmol/L (101-111) 02/15/23 05:00 Carbon Dioxide 21 mmol/L (21-32) 02/15/23 05:00 Anion Gap 10.0 (6-13) 02/15/23 05:00 BUN 31 mg/dL (6-20) H 02/15/23 05:00 Creatinine 1.1 mg/dL (0.6-1.3) 02/15/23 05:00 Estimated GFR (MDRD) 49 (>89) L 02/15/23 05:00 Glucose 137 mg/dL (74-104) H 02/15/23 05:00 POC Whole Bld Glucose 124 mg/dL (70 - 100) H 02/15/23 16:47 Lactic Acid 1.1 mmol/L (0.5-2.2) 02/11/23 11:29 Calcium 7.7 mg/dL (8.5-10.3) L 02/15/23 05:00 Phosphorus 3.2 mg/dL (2.5-5.0) 02/13/23 05:22 Magnesium 1.9 mg/dL (1.7-2.3) 02/14/23 04:57 Iron 25 ug/dL (50-212) L 02/13/23 05:22 TIBC 125 ug/dL (250-450) L 02/13/23 05:22 % Saturation 20 % (20-50) 02/13/23 05:22 Transferrin 89 mg/dL (203-362) L 02/13/23 05:22 Total Bilirubin 1.4 mg/dL (0.2-1.0) H 02/11/23 05:00 Direct Bilirubin 0.73 mg/dL (0.03-0.18) H 02/11/23 05:00 AST 77 IU/L (10-42) H 02/11/23 05:00 ALT 55 IU/L (10-60) 02/11/23 05:00 Alkaline Phosphatase 826 IU/L (42-121) H 02/11/23 05:00 Troponin I High Sens 28.5 ng/L (2.3-14.8) H* 01/31/23 05:09 B-Natriuretic Peptide 75 pg/mL (5-100) 01/30/23 07:36 Total Protein 5.9 g/dL (6.4-8.9) L 02/11/23 05:00 Albumin 2.6 g/dL (3.2-5.5) L 02/11/23 05:00 Globulin 3.3 g/dL (2.1-4.2) 02/11/23 05:00 Albumin/Globulin Ratio 0.9 (1.0-2.2) L 02/09/23 07:55 Triglycerides 298 mg/dL (48-352) 02/08/23 05:11 Cholesterol 148 mg/dL (-200) 02/08/23 05:11 LDL Cholesterol, Calc 71 mg/dL (-129) 02/08/23 05:11 VLDL Cholesterol 60 mg/dL 02/08/23 05:11 HDL Cholesterol 17 mg/dL (60-) L 02/08/23 05:11 LDL/HDL Ratio 4.2 (<4.4) 02/08/23 05:11 Cholesterol/HDL Ratio 8.7 (<4.4) 02/08/23 05:11 Lipase 23 U/L (11-82) 01/30/23 00:01 Vitamin B12 3516 pg/mL (180-914) H 02/13/23 05:22 Folate 9.9 ng/mL (5.90 - >24.8) 02/13/23 05:22 Urine Color YELLOW 02/06/23 11:55 Urine Clarity SL. CLOUDY (CLEAR) 02/06/23 11:55 Urine pH 6.0 PH (5.0-7.5) 02/06/23 11:55 Ur Specific [place] 1.020 (1.002-1.030) 02/06/23 11:55 Urine Protein 100 mg/dL (NEGATIVE) H 02/06/23 11:55 Urine Glucose (UA) NEGATIVE mg/dL (NEGATIVE) 02/06/23 11:55 Urine Ketones NEGATIVE mg/dL (NEGATIVE) 02/06/23 11:55 Urine Occult Blood TRACE-INTA (NEGATIVE) 02/06/23 11:55 Urine Nitrite POSITIVE (NEGATIVE) H 02/06/23 11:55 Urine Bilirubin NEGATIVE (NEGATIVE) 02/06/23 11:55 Urine Urobilinogen 4 E.U./dL (NORMAL) H 02/06/23 11:55 Ur Leukocyte Esterase NEGATIVE (NEGATIVE) 02/06/23 11:55 Urine RBC 0-5 /HPF (0-5) 02/06/23 11:55 Urine WBC 4-5 /HPF (0-5) 02/06/23 11:55 Ur Squamous Epith Cells NONE SEEN (<= Few) 02/06/23 11:55 Urine Bacteria Many /HPF (None Seen) H 02/06/23 11:55 Urine Casts 0-2 Fine Granular /LPF 02/06/23 11:55 Urine Mucus Few Strands 02/06/23 11:55 Urine Culture Comments INDICATED 02/06/23 11:55 Nasal Adenovirus (PCR) NOT DETECTED 01/30/23 03:34 Nasal B. parapertussis DNA (PCR) NOT DETECTED 01/30/23 03:34 Nasal Coronavir 229E PCR NOT DETECTED 01/30/23 03:34 Nasal Coronavir HKU1 PCR NOT DETECTED 01/30/23 03:34 Nasal Coronavir NL63 PCR NOT DETECTED 01/30/23 03:34 Nasal Coronavir OC43 PCR NOT DETECTED 01/30/23 03:34 Nasal Enterovir/Rhinovir PCR NOT DETECTED 01/30/23 03:34 Nasal Influenza B PCR NOT DETECTED 01/30/23 03:34 Nasal Influenza A PCR NOT DETECTED 01/30/23 03:34 Nasal Parainfluen 1 PCR NOT DETECTED 01/30/23 03:34 Nasal Parainfluen 2 PCR NOT DETECTED 01/30/23 03:34 Nasal Parainfluen 3 PCR NOT DETECTED 01/30/23 03:34 Nasal Parainfluen 4 PCR NOT DETECTED 01/30/23 03:34 Nasal RSV (PCR) NOT DETECTED 01/30/23 03:34 Nasal B.pertussis DNA PCR NOT DETECTED 01/30/23 03:34 Nasal C.pneumoniae (PCR) NOT DETECTED 01/30/23 03:34 Song Human Metapneumo PCR NOT DETECTED 01/30/23 03:34 Nasal M.pneumoniae (PCR) NOT DETECTED 01/30/23 03:34 Nasal SARS-CoV-2 (PCR) DETECTED A 01/30/23 03:34 Last Dose Date UNK 02/10/23 11:59 Last Dose Time UNK 02/10/23 11:59 Vancomycin Trough 17.5 ug/mL 02/10/23 11:59 Blood Type B POSITIVE 02/11/23 08:35 Blood Type Recheck B POSITIVE 02/11/23 05:00 Antibody Screen NEGATIVE 02/11/23 08:35 Crossmatch IS Only See Detail 02/11/23 08:35 Current Medications - Current Medications Current Medications: Active Medications Acetaminophen (Acetaminophen 325 Mg Tablet) 650 mg PO Q4HR PRN PRN Reason: Pain 1 to 4, or Fever Last Admin: 02/14/23 14:42 Dose: 650 mg Amlodipine Besylate (Amlodipine 5 Mg Tablet) 10 mg PO DAILY REPLACED BY [facility] Last Admin: 02/15/23 09:52 Dose: 10 mg Apixaban (Apixaban 5 Mg Tablet) 5 mg PO BID REPLACED BY [facility] Last Admin: 02/15/23 09:52 Dose: 5 mg Aspirin (Aspirin Chew 81 Mg Tablet) 81 mg PO DAILY REPLACED BY [facility] Last Admin: 02/15/23 09:52 Dose: Not Given Atorvastatin Calcium (Atorvastatin 10 Mg Tablet) 10 mg PO QPM REPLACED BY [facility] Last Admin: 02/14/23 21:37 Dose: 10 mg Cholecalciferol (Cholecalciferol 25 Mcg Tablet) 50 mcg PO DAILY REPLACED BY [facility] Last Admin: 02/15/23 09:52 Dose: Not Given Docusate Sodium (Docusate Sodium 250 Mg Capsule) 250 - 500 mg PO DAILY REPLACED BY [facility] Last Admin: 02/15/23 09:52 Dose: Not Given Ferrous Sulfate (Ferrous Sulfate 300 Mg/5 Ml Udc) 300 mg PO DAILYWM REPLACED BY [facility] Last Admin: 02/15/23 09:02 Dose: 300 mg Guaifenesin (Guaifenesin 600 Mg Tablet) 600 mg PO BID REPLACED BY [facility] Last Admin: 02/15/23 09:52 Dose: Not Given Hydralazine HCl (Hydralazine Inj 20 Mg/Ml Vial) 5 mg IVP Q6H PRN PRN Reason: hypertension sbp>170 Last Admin: 02/05/23 03:15 Dose: 5 mg Piperacillin Sod/Tazobactam (Sod 3.375 gm/ Sodium Chloride) 100 mls @ 25 mls/hr IV Q8H REPLACED BY [facility] Last Admin: 02/15/23 16:34 Dose: 25 mls/hr Vancomycin HCl 1 gm/ Sodium (Chloride) 250 mls @ 167 mls/hr IV Q12H REPLACED BY [facility] Last Infusion: 02/15/23 13:20 Dose: Infused Azithromycin 500 mg/ Sodium (Chloride) 250 mls @ 250 mls/hr IV DAILY REPLACED BY [facility] Last Infusion: 02/15/23 10:50 Dose: Infused Potassium Chloride 20 meq/ (Sodium Chloride) 1,010 mls @ 125 mls/hr IV .Q8H5M REPLACED BY [facility] Last Infusion: 02/15/23 13:21 Dose: 125 mls/hr Insulin Human Lispro (Insulin Lispro 300 Unit/3 Ml Pen) 1 - 9 unit SUBQ 0800,1200,1700,2100 REPLACED BY [facility]; Protocol Last Admin: 02/15/23 11:58 Dose: Not Given Multivitamins/Minerals (Multivitamin W/Minerals Tablet) 1 tab PO DAILYWM REPLACED BY [facility] Last Admin: 02/15/23 09:02 Dose: 1 tab Ondansetron HCl (Ondansetron 4 Mg/2 Ml Vial) 4 mg IVP Q6HR PRN PRN Reason: Nausea / Vomiting Last Admin: 02/03/23 08:41 Dose: 4 mg Patient Own Med ( ([place])) 1 each PO 0800,1700 REPLACED BY [facility] Last Admin: 02/15/23 09:03 Dose: 1 each Petrolatum (Petrolatum White 5 Gm Packet) 1 applic TOP PRN PRN PRN Reason: Dry Lips, dry nares Last Admin: 02/06/23 20:11 Dose: 1 applic Polyethylene Glycol (Polyethylene Glycol 3350 17 Gm Packet) 17 gm PO DAILY REPLACED BY [facility] Last Admin: 02/15/23 09:52 Dose: Not Given Potassium Chloride (Potassium Chloride 10 Meq Capsule) 20 meq PO DAILYWM REPLACED BY [facility] Last Admin: 02/15/23 09:03 Dose: 20 meq Senna (Senna 8.6 Mg Tablet) 8.6 - 17.2 mg PO DAILY REPLACED BY [facility] Last Admin: 02/15/23 09:52 Dose: Not Given Sodium Chloride (Sodium Chloride Flush 0.9% 10 Ml Syringe) 10 ml IVP PRN PRN PRN Reason: NEEDED PER PROVIDER ORDERS Last Admin: 02/08/23 02:45 Dose: 10 ml Sodium Chloride (Sodium Chloride Flush 0.9% 10 Ml Syringe) 10 ml IVP 0100,0900,1700 REPLACED BY [facility] Last Admin: 02/15/23 16:34 Dose: 10 ml Zinc Oxide (Cod Liver Oil/Zinc Oxide 113 Gm Tube) 113 gm TOP PRN PRN PRN Reason: Skin Care [place] (18% Oleuropein) 1 cap PO DAILY 02/11/23
[2023-02-15] MEDS: ATORVASTATIN 10 MG TABLET PO SCH (22:31)
[2023-02-15 23:14] LABS: FECAL OCCULT BLOOD (FIT) NEGATIVE (NEGATIVE)
[2023-02-15 23:18] LABS: HCT - HEMATOCRIT 24.9 % (37.0-47.0); HGB - HEMOGLOBIN 7.8 g/dL (12.0-16.0); MEAN CORPUSCULAR HEMOGLOBIN 28.5 pg (27.0-31.0); MEAN CORPUSCULAR HGB CONC 31.3 g/dL (32.0-36.0); MEAN CORPUSCULAR VOLUME 90.9 fL (81.0-99.0); MEAN PLATELET VOLUME 11.6 fL (7.9-10.8); RED BLOOD COUNT 2.74 10^6/uL (4.20-5.40); WHITE BLOOD COUNT 29.9 x10^3/uL (4.8-10.8)
[2023-02-15 23:36] LABS: ALBUMIN 2.4 g/dL (3.2-5.5); ALBUMIN/GLOBULIN RATIO 0.7 (1.0-2.2); BILIRUBIN,TOTAL 1.4 mg/dL (0.2-1.0); CALCIUM 7.9 mg/dL (8.5-10.3); CREATININE 1.3 mg/dL (0.6-1.3); MAGNESIUM 1.8 mg/dL (1.7-2.3); TOTAL PROTEIN 5.7 g/dL (6.4-8.9)
[2023-02-16] MEDS: PIPERACILLIN/TAZOBACTAM 3.375 GM in SODIUM CHLORIDE 0.9% MINIBAG 100 ML IV SCH ×2 (00:21→11:32)
[2023-02-16] MEDS: SODIUM CHLORIDE FLUSH 0.9% 10 ML SYRINGE IVP SCH ×3 (00:23→18:28)
[2023-02-16] MEDS: VANCOMYCIN INJ 1 GM in SODIUM CHLORIDE 0.9% 250 ML IV SCH ×2 (00:23→12:49)
[2023-02-16] MEDS: INSULIN LISPRO 300 UNIT/3 ML PEN SUBQ SCH ×4 (09:33→21:45)
[2023-02-16] MEDS: MULTIVITAMIN W/MINERALS TABLET PO SCH (09:50)
[2023-02-16] MEDS: OLIVE LEAF PO SCH (09:50)
[2023-02-16] MEDS: POTASSIUM CHLORIDE 10 MEQ CAPSULE PO SCH (09:50)
[2023-02-16] MEDS: DOCUSATE SODIUM 250 MG CAPSULE PO SCH (09:51)
[2023-02-16] MEDS: amLODIPine 5 MG TABLET PO SCH (09:51)
[2023-02-16] MEDS: SENNA 8.6 MG TABLET PO SCH (09:51)
[2023-02-16] MEDS: polyethylene glycoL 3350 17 GM PACKET PO SCH (09:51)
[2023-02-16] MEDS: APIXABAN 5 MG TABLET PO SCH (09:51)
[2023-02-16] MEDS: guaiFENesin 600 MG TABLET PO SCH (09:51)
[2023-02-16] MEDS: CHOLECALCIFEROL 25 MCG TABLET PO SCH (09:51)
[2023-02-16] MEDS: ASPIRIN CHEW 81 MG TABLET PO SCH (09:51)
[2023-02-16] MEDS: FERROUS SULFATE 300 MG/5 ML UDC PO SCH (09:52)
[2023-02-16] MEDS: AZITHROMYCIN INJ 500 MG in SODIUM CHLORIDE 0.9% 250 ML IV SCH (10:04)
[2023-02-16] MEDS: POTASSIUM CHLORIDE INJ 20 MEQ in SODIUM CHLORIDE 0.45% 1,000 ML IV SCH ×2 (11:32→21:44)
--- NOTE | 2023-02-16 14:44 | PROVIDER PROGRESS NOTE ---
Assessment/Plan - Problem List (1) Hypernatremia Assessment/Plan: Assessment/Plan: Resolved. (2) Colitis Assessment/Plan: Focus is now on comfort and not benefiting from Zosyn. Zosyn discontinued (3) Iron deficiency anemia Patient no longer able to swallow. Ferrous sulfate discontinued (4) Acute respiratory failure with hypoxia Conclusion/Plan: Resolving. 96% on room air (5) Aspiration pneumonia Assessment/Plan: Focus is now on comfort and not benefiting from Zosyn. Zosyn discontinued (6) CVA (cerebral vascular accident) Assessment/Plan: CVA: 02/05/23 Focus is now on comfort. Eliquis, aspirin and statin discontinued Echo revealed no clot or PFO. MRI of brain peformed 02/07/2023 multiforcal areas of restricted diffusion throughout brain (7) Bilateral pulmonary embolism Conclusion/Plan: Eliquis discontinued because no longer benefiting from this medication. (8) Elevated LFTs Avoid hepatotoxins. Focus is now comfort (9) Lung mass Conclusion/Plan: Etiology of opacities unclear. Differential diagnosis would include aspiration and malignancy. (10) Liver masses (11) AMS (altered mental status) Assessment/Plan: Most likely related to multiple strokes (12) Hypomagnesemia Conclusion/Plan: Goals of Care: Goals of care discussed with family and goal is to send patient home with hospice in place. - Current Meds Current Meds: Current Medications Generic Name Dose Route Start Last Admin Trade Name Freq PRN Reason Stop Dose Admin Acetaminophen 650 mg 01/30/23 15:42 02/14/23 14:42 Acetaminophen 325 Mg Tablet PO 650 mg Q4HR PRN Administration Pain 1 to 4, or Fever Amlodipine Besylate 10 mg 02/02/23 09:00 02/16/23 09:51 Amlodipine 5 Mg Tablet PO Not Given DAILY BRANDY Apixaban 5 mg 02/06/23 21:00 02/16/23 09:51 Apixaban 5 Mg Tablet PO Not Given BID BRANDY Aspirin 81 mg 02/06/23 09:00 02/16/23 09:51 Aspirin Chew 81 Mg Tablet PO Not Given DAILY BRANDY Atorvastatin Calcium 10 mg 02/09/23 22:00 02/15/23 22:31 Atorvastatin 10 Mg Tablet PO 10 mg QPM BRANDY Administration Cholecalciferol 50 mcg 02/02/23 09:00 02/16/23 09:51 Cholecalciferol 25 Mcg Tablet PO Not Given DAILY [facility] Docusate Sodium 250 - 500 mg 02/01/23 13:00 02/16/23 09:51 Docusate Sodium 250 Mg Capsule PO Not Given DAILY [facility] Ferrous Sulfate 300 mg 02/14/23 08:00 02/16/23 09:52 Ferrous Sulfate 300 Mg/5 Ml Udc PO Not Given DAILYWM [facility] Guaifenesin 600 mg 01/30/23 21:00 02/16/23 09:51 Guaifenesin 600 Mg Tablet PO Not Given BID [facility] Hydralazine HCl 5 mg 02/05/23 02:45 02/05/23 03:15 Hydralazine Inj 20 Mg/Ml Vial IVP 5 mg Q6H PRN Administration hypertension sbp>170 Piperacillin Sod/Tazobactam 100 mls @ 25 mls/hr 02/08/23 15:00 02/16/23 11:32 Sod 3.375 gm/ Sodium Chloride IV Not Given Q8H [facility] Vancomycin HCl 1 gm/ Sodium 250 mls @ 167 mls/hr 02/08/23 22:00 02/16/23 12: 49 Chloride IV Not Given Q12H [facility] Azithromycin 500 mg/ Sodium 250 mls @ 250 mls/hr 02/13/23 09:00 02/16/23 11:36 Chloride IV Infused DAILY [facility] Infusion Potassium Chloride 20 meq/ 1,010 mls @ 75 mls/hr 02/15/23 17:29 02/16/23 11:32 Sodium Chloride IV Not Given .[id number] [facility] Insulin Human Lispro 1 - 9 unit 02/03/23 08:00 02/16/23 11:32 Insulin Lispro 300 Unit/3 Ml Pen SUBQ Not Given 0800,1200,1700,2100 [facility] Protocol Multivitamins/Minerals 1 tab 02/09/23 17:00 02/16/23 09:50 Multivitamin W/Minerals Tablet PO Not Given DAILYWM [facility] Ondansetron HCl 4 mg 01/30/23 15:42 02/03/23 08:41 Ondansetron 4 Mg/2 Ml Vial IVP 4 mg Q6HR PRN Administration Nausea / Vomiting Patient Own Med ( 1 each 02/13/23 08:00 02/16/23 09:50 [place]) PO Not Given 0800,1700 BRANDY Petrolatum 1 applic 02/06/23 20:00 02/06/23 20:11 Petrolatum White 5 Gm Packet TOP 1 applic PRN PRN Administration Dry Lips, dry nares Polyethylene Glycol 17 gm 02/02/23 09:00 02/16/23 09:51 Polyethylene Glycol 3350 17 Gm Packet PO Not Given DAILY BRANDY Potassium Chloride 20 meq 02/10/23 13:00 02/16/23 09:50 Potassium Chloride 10 Meq Capsule PO Not Given DAILYWM BRANDY Senna 8.6 - 17.2 mg 02/01/23 13:00 02/16/23 09:51 Senna 8.6 Mg Tablet PO Not Given DAILY BRANDY Sodium Chloride 10 ml 01/30/23 15:42 02/08/23 02:45 Sodium Chloride Flush 0.9% 10 Ml Syringe IVP 10 ml PRN PRN Administration NEEDED PER PROVIDER ORDERS Sodium Chloride 10 ml 01/30/23 17:00 02/16/23 09:33 Sodium Chloride Flush 0.9% 10 Ml Syringe IVP Not Given 0100,0900,1700 BRANDY - Lab Result Fish Bone Diagrams: 02/15/23 23:03 02/15/23 23:03 - Additional Planning My Orders: My Active Orders 02/15/23 17:29 Sodium Chloride 0.45% [Normal Saline 0.45%] 1,000 ml Potassium Chloride Inj [Potassium Chloride] 20 meq IV 75 mls/hr Subjective - Subjective Patient Reports: Other (Somnolent. Does open eyes to voice.) Objective Vital Signs: Vital Signs - 24 hr 02/15/23 02/15/23 02/15/23 16:40 20:53 23:26 Temperature 36.2 C L 37.0 C 38.2 C H Heart Rate [ 98 97 104 H Brachial] Respiratory 28 H 20 16 Rate Blood Pressure 148/73 H 149/77 H 168/83 H [Right Brachial artery] O2 Saturation 95 94 96 02/16/23 02/16/23 02/16/23 00:20 05:00 07:43 Temperature 37.1 C 37.0 C 37.2 C Heart Rate [ 98 101 H Brachial] Respiratory 20 24 Rate Blood Pressure 150/78 H 143/76 H [Right Brachial artery] O2 Saturation 96 96 Oxygen O2 Source Room air Oxygen Flow Rate 2 I&O (Last 24 Hrs): Intake and Output Totals x24h 02/14/23 02/15/23 02/16/23 23:59 23:59 23:59 Intake Total 2917.834 3600.083 1660 Output Total 150 200 Balance 2767.834 3600.083 1460 General: No acute distress HEENT: Atraumatic, PERRLA Neck: Supple, No JVD Lymphatic: no adenopathy Neuro: Other (Left hemiparalysis) Cardiovascular: Regular rate, Normal S1, Normal S2, No murmurs Respiratory: Chest non-tender, No respiratory distress, Breath sounds nml Abdomen: Normal bowel sounds, Soft, No tenderness Extremities: No clubbing, No cyanosis Skin: No rashes - Results Results: Laboratory Results WBC 29.9 x10^3/uL (4.8-10.8) H 02/15/23 23:03 RBC 2.74 10^6/uL (4.20-5.40) L 02/15/23 23:03 Hgb 7.8 g/dL (12.0-16.0) L 02/15/23 23:03 Hct 24.9 % (37.0-47.0) L 02/15/23 23:03 MCV 90.9 fL (81.0-99.0) 02/15/23 23:03 MCH 28.5 pg (27.0-31.0) 02/15/23 23:03 MCHC 31.3 g/dL (32.0-36.0) L 02/15/23 23:03 RDW 17.0 % (12.0-15.0) H 02/15/23 23:03 Plt Count 300 10^3/uL (130-450) 02/15/23 23:03 MPV 11.6 fL (7.9-10.8) H 02/15/23 23:03 Neut # (Auto) Not Reportable 02/15/23 05:00 Lymph # (Auto) Not Reportable 02/15/23 05:00 Russell # (Auto) Not Reportable 02/15/23 05:00 Eos # (Auto) Not Reportable 02/15/23 05:00 Baso # (Auto) Not Reportable 02/15/23 05:00 Absolute Nucleated RBC Not Reportable 02/15/23 05:00 Total Counted 100 02/15/23 05:00 Band Neuts % (Manual) 1 % (0-10) 02/15/23 05:00 Abnorm Lymph % (Manual) 0 % 02/15/23 05:00 Metamyelocytes % 1 % (-0) H 02/07/23 10:49 Nucleated RBC % Not Reportable 02/15/23 05:00 Neutrophils # (Manual) 26.3 10^3/uL (1.5-6.6) H 02/15/23 05:00 Lymphocytes # (Manual) 0.9 10^3/uL (1.5-3.5) L 02/15/23 05:00 Monocytes # (Manual) 1.8 10^3/uL (0.0-1.0) H 02/15/23 05:00 Eosinophils # (Manual) 0.9 10^3/uL (0-0.7) H 02/15/23 05:00 Basophils # (Manual) 0.0 10^3/uL (0-0.1) 02/15/23 05:00 Differential Comment MANUAL DIFFERENTIAL 02/15/23 05:00 Manual Slide Review Indicated 02/13/23 05:22 WBC Morphology 1+ HYPERSEG NEUT (NORMAL) 02/07/23 10:49 Platelet Estimate NORMAL (130-450,000) (NORMAL) 02/15/23 05:00 Platelet Morphology NORMAL APPEARANCE (NORMAL) 02/13/23 05:22 RBC Morph Micro Appear NORMAL APPEARANCE (NORMAL) 02/15/23 05:00 PT 16.8 secs (9.9-12.6) H 01/30/23 00:01 INR 1.6 (0.8-1.2) H 01/30/23 00:01 APTT 102.0 secs (24.9-33.3) H* 01/30/23 11:17 Sodium 141 mmol/L (135-145) 02/15/23 23:03 Potassium 4.0 mmol/L (3.5-4.5) 02/15/23 23:03 Chloride 112 mmol/L (101-111) H 02/15/23 23:03 Carbon Dioxide 20 mmol/L (21-32) L 02/15/23 23:03 Anion Gap 9.0 (6-13) 02/15/23 23:03 BUN 29 mg/dL (6-20) H 02/15/23 23:03 Creatinine 1.3 mg/dL (0.6-1.3) 02/15/23 23:03 Estimated GFR (MDRD) 40 (>89) L 02/15/23 23:03 Glucose 124 mg/dL (74-104) H 02/15/23 23:03 POC Whole Bld Glucose 111 mg/dL (70 - 100) H 02/16/23 11:08 Lactic Acid 1.1 mmol/L (0.5-2.2) 02/11/23 11:29 Calcium 7.9 mg/dL (8.5-10.3) L 02/15/23 23:03 Phosphorus 3.2 mg/dL (2.5-5.0) 02/13/23 05:22 Magnesium 1.8 mg/dL (1.7-2.3) 02/15/23 23:03 Iron 25 ug/dL (50-212) L 02/13/23 05:22 TIBC 125 ug/dL (250-450) L 02/13/23 05:22 % Saturation 20 % (20-50) 02/13/23 05:22 Transferrin 89 mg/dL (203-362) L 02/13/23 05:22 Total Bilirubin 1.4 mg/dL (0.2-1.0) H 02/15/23 23:03 Direct Bilirubin 0.73 mg/dL (0.03-0.18) H 02/11/23 05:00 AST 55 IU/L (10-42) H 02/15/23 23:03 ALT 40 IU/L (10-60) 02/15/23 23:03 Alkaline Phosphatase 968 IU/L (42-121) H 02/15/23 23:03 Troponin I High Sens 28.5 ng/L (2.3-14.8) H* 01/31/23 05:09 B-Natriuretic Peptide 75 pg/mL (5-100) 01/30/23 07:36 Total Protein 5.7 g/dL (6.4-8.9) L 02/15/23 23:03 Albumin 2.4 g/dL (3.2-5.5) L 02/15/23 23:03 Globulin 3.3 g/dL (2.1-4.2) 02/15/23 23:03 Albumin/Globulin Ratio 0.7 (1.0-2.2) L 02/15/23 23:03 Triglycerides 298 mg/dL (48-352) 02/08/23 05:11 Cholesterol 148 mg/dL (-200) 02/08/23 05:11 LDL Cholesterol, Calc 71 mg/dL (-129) 02/08/23 05:11 VLDL Cholesterol 60 mg/dL 02/08/23 05:11 HDL Cholesterol 17 mg/dL (60-) L 02/08/23 05:11 LDL/HDL Ratio 4.2 (<4.4) 02/08/23 05:11 Cholesterol/HDL Ratio 8.7 (<4.4) 02/08/23 05:11 Lipase 23 U/L (11-82) 01/30/23 00:01 Vitamin B12 3516 pg/mL (180-914) H 02/13/23 05:22 Folate 9.9 ng/mL (5.90 - >24.8) 02/13/23 05:22 Urine Color YELLOW 02/06/23 11:55 Urine Clarity SL. CLOUDY (CLEAR) 02/06/23 11:55 Urine pH 6.0 PH (5.0-7.5) 02/06/23 11:55 Ur Specific [place] 1.020 (1.002-1.030) 02/06/23 11:55 Urine Protein 100 mg/dL (NEGATIVE) H 02/06/23 11:55 Urine Glucose (UA) NEGATIVE mg/dL (NEGATIVE) 02/06/23 11:55 Urine Ketones NEGATIVE mg/dL (NEGATIVE) 02/06/23 11:55 Urine Occult Blood TRACE-INTA (NEGATIVE) 02/06/23 11:55 Urine Nitrite POSITIVE (NEGATIVE) H 02/06/23 11:55 Urine Bilirubin NEGATIVE (NEGATIVE) 02/06/23 11:55 Urine Urobilinogen 4 E.U./dL (NORMAL) H 02/06/23 11:55 Ur Leukocyte Esterase NEGATIVE (NEGATIVE) 02/06/23 11:55 Urine RBC 0-5 /HPF (0-5) 02/06/23 11:55 Urine WBC 4-5 /HPF (0-5) 02/06/23 11:55 Ur Squamous Epith Cells NONE SEEN (<= Few) 02/06/23 11:55 Urine Bacteria Many /HPF (None Seen) H 02/06/23 11:55 Urine Casts 0-2 Fine Granular /LPF 02/06/23 11:55 Urine Mucus Few Strands 02/06/23 11:55 Urine Culture Comments INDICATED 02/06/23 11:55 Nasal Adenovirus (PCR) NOT DETECTED 01/30/23 03:34 Nasal B. parapertussis DNA (PCR) NOT DETECTED 01/30/23 03:34 Nasal Coronavir 229E PCR NOT DETECTED 01/30/23 03:34 Nasal Coronavir HKU1 PCR NOT DETECTED 01/30/23 03:34 Nasal Coronavir NL63 PCR NOT DETECTED 01/30/23 03:34 Nasal Coronavir OC43 PCR NOT DETECTED 01/30/23 03:34 Nasal Enterovir/Rhinovir PCR NOT DETECTED 01/30/23 03:34 Nasal Influenza B PCR NOT DETECTED 01/30/23 03:34 Nasal Influenza A PCR NOT DETECTED 01/30/23 03:34 Nasal Parainfluen 1 PCR NOT DETECTED 01/30/23 03:34 Nasal Parainfluen 2 PCR NOT DETECTED 01/30/23 03:34 Nasal Parainfluen 3 PCR NOT DETECTED 01/30/23 03:34 Nasal Parainfluen 4 PCR NOT DETECTED 01/30/23 03:34 Nasal RSV (PCR) NOT DETECTED 01/30/23 03:34 Nasal B.pertussis DNA PCR NOT DETECTED 01/30/23 03:34 Nasal C.pneumoniae (PCR) NOT DETECTED 01/30/23 03:34 Song Human Metapneumo PCR NOT DETECTED 01/30/23 03:34 Nasal M.pneumoniae (PCR) NOT DETECTED 01/30/23 03:34 Nasal SARS-CoV-2 (PCR) DETECTED A 01/30/23 03:34 Stl Occult Blood (IFOB) NEGATIVE (NEGATIVE) 02/15/23 22:30 Last Dose Date UNK 02/10/23 11:59 Last Dose Time UNK 02/10/23 11:59 Vancomycin Trough 17.5 ug/mL 02/10/23 11:59 Blood Type B POSITIVE 02/11/23 08:35 Blood Type Recheck B POSITIVE 02/11/23 05:00 Antibody Screen NEGATIVE 02/11/23 08:35 Crossmatch IS Only See Detail 02/11/23 08:35 Current Medications - Current Medications Current Medications: Active Medications Acetaminophen (Acetaminophen 325 Mg Tablet) 650 mg PO Q4HR PRN PRN Reason: Pain 1 to 4, or Fever Last Admin: 02/14/23 14:42 Dose: 650 mg Amlodipine Besylate (Amlodipine 5 Mg Tablet) 10 mg PO DAILY [facility] Last Admin: 02/16/23 09:51 Dose: Not Given Apixaban (Apixaban 5 Mg Tablet) 5 mg PO BID [facility] Last Admin: 02/16/23 09:51 Dose: Not Given Aspirin (Aspirin Chew 81 Mg Tablet) 81 mg PO DAILY [facility] Last Admin: 02/16/23 09:51 Dose: Not Given Atorvastatin Calcium (Atorvastatin 10 Mg Tablet) 10 mg PO QPM [facility] Last Admin: 02/15/23 22:31 Dose: 10 mg Cholecalciferol (Cholecalciferol 25 Mcg Tablet) 50 mcg PO DAILY [facility] Last Admin: 02/16/23 09:51 Dose: Not Given Docusate Sodium (Docusate Sodium 250 Mg Capsule) 250 - 500 mg PO DAILY [facility] Last Admin: 02/16/23 09:51 Dose: Not Given Ferrous Sulfate (Ferrous Sulfate 300 Mg/5 Ml Udc) 300 mg PO DAILYWM [facility] Last Admin: 02/16/23 09:52 Dose: Not Given Guaifenesin (Guaifenesin 600 Mg Tablet) 600 mg PO BID [facility] Last Admin: 02/16/23 09:51 Dose: Not Given Hydralazine HCl (Hydralazine Inj 20 Mg/Ml Vial) 5 mg IVP Q6H PRN PRN Reason: hypertension sbp>170 Last Admin: 02/05/23 03:15 Dose: 5 mg Piperacillin Sod/Tazobactam (Sod 3.375 gm/ Sodium Chloride) 100 mls @ 25 mls/hr IV Q8H [facility] Last Admin: 02/16/23 11:32 Dose: Not Given Vancomycin HCl 1 gm/ Sodium (Chloride) 250 mls @ 167 mls/hr IV Q12H [facility] Last Admin: 02/16/23 12:49 Dose: Not Given Azithromycin 500 mg/ Sodium (Chloride) 250 mls @ 250 mls/hr IV DAILY [facility] Last Infusion: 02/16/23 11:36 Dose: Infused Potassium Chloride 20 meq/ (Sodium Chloride) 1,010 mls @ 75 mls/hr IV .[id number] [facility] Last Admin: 02/16/23 11:32 Dose: Not Given Insulin Human Lispro (Insulin Lispro 300 Unit/3 Ml Pen) 1 - 9 unit SUBQ 0800,1200,1700,2100 [facility]; Protocol Last Admin: 02/16/23 11:32 Dose: Not Given Multivitamins/Minerals (Multivitamin W/Minerals Tablet) 1 tab PO DAILYWM [facility] Last Admin: 02/16/23 09:50 Dose: Not Given Ondansetron HCl (Ondansetron 4 Mg/2 Ml Vial) 4 mg IVP Q6HR PRN PRN Reason: Nausea / Vomiting Last Admin: 02/03/23 08:41 Dose: 4 mg Patient Own Med ( ([place])) 1 each PO 0800,1700 [facility] Last Admin: 02/16/23 09:50 Dose: Not Given Petrolatum (Petrolatum White 5 Gm Packet) 1 applic TOP PRN PRN PRN Reason: Dry Lips, dry nares Last Admin: 02/06/23 20:11 Dose: 1 applic Polyethylene Glycol (Polyethylene Glycol 3350 17 Gm Packet) 17 gm PO DAILY [facility] Last Admin: 02/16/23 09:51 Dose: Not Given Potassium Chloride (Potassium Chloride 10 Meq Capsule) 20 meq PO DAILYWM [facility] Last Admin: 02/16/23 09:50 Dose: Not Given Senna (Senna 8.6 Mg Tablet) 8.6 - 17.2 mg PO DAILY [facility] Last Admin: 02/16/23 09:51 Dose: Not Given Sodium Chloride (Sodium Chloride Flush 0.9% 10 Ml Syringe) 10 ml IVP PRN PRN PRN Reason: NEEDED PER PROVIDER ORDERS Last Admin: 02/08/23 02:45 Dose: 10 ml Sodium Chloride (Sodium Chloride Flush 0.9% 10 Ml Syringe) 10 ml IVP 0100,090 0,1700 [facility] Last Admin: 02/16/23 09:33 Dose: Not Given Zinc Oxide (Cod Liver Oil/Zinc Oxide 113 Gm Tube) 113 gm TOP PRN PRN PRN Reason: Skin Care [place] (18% Oleuropein) 1 cap PO DAILY 02/11/23
[2023-02-16] MEDS ORDERED: MORPHINE 2 MG/ML CARPUJECT IVP PRN (22:34)
[2023-02-17] MEDS: SODIUM CHLORIDE FLUSH 0.9% 10 ML SYRINGE IVP SCH ×2 (00:04→09:13)
--- NOTE | 2023-02-17 06:23 | Discharge Plan ---
Discharge Plan Problem Reviewed?: Yes Disposition: Home, Self Care Condition: Fair Prescriptions: LORazepam [Ativan] 0.5 mg PO Q6H PRN #10 tablet PRN Reason: Anxiety Bisacodyl Supp [Dulcolax Supp] 10 mg [place] DAILY PRN #3 supp PRN Reason: Constipation Morphine Sulfate 5 mg PO Q4H PRN #30 ml PRN Reason: Moderate to Severe pain. Senna [Senokot] 8.6 mg PO BID PRN #10 tablet PRN Reason: Constipation OLANZapine ODT [Zyprexa Odt] 5 mg TL BID PRN #10 tablet PRN Reason: Nausea / Vomiting Diet: Soft Activity Restrictions: Activity as Tolerated Shower Restrictions: No Driving Restrictions: Yes Weight Bearing: Other (Bed Bound) Health Concerns: Jazlyn Jeffries is a 72-year-old woman admitted on January 30, 2023 with no significant past medical history. She presented to the emergency room complaining of shortness of breath and was diagnosed with COVID 19 2 weeks before her admission. Patient was admitted to the hospital for hypoxemia. CT angiogram performed in the emergency room revealed bilateral pulmonary emboli. Patient was anticoagulated throughout her hospital admission. Unfortunately patient had multiple strokes during this hospitalization. She has a dense left hemiparalysis and her mental status has significantly worsened. Palliative care was consulted and after several discussions family has decided to change patient's status to focus on patient's comfort. She is discharged with hospice services. Plan of Treatment: Hospice care Care Goals: Goal of care is comfort. Assessment: (1) Hypernatremia Assessment/Plan: Resolved. (2) Colitis Assessment/Plan: Focus is now on comfort and not benefiting from Zosyn. Zosyn discontinued (3) Iron deficiency anemia Patient no longer able to swallow. Ferrous sulfate discontinued (4) Acute respiratory failure with hypoxia Conclusion/Plan: Resolving. 96% on room air (5) Aspiration pneumonia Assessment/Plan: Focus is now on comfort and not benefiting from Zosyn. Zosyn discontinued (6) CVA (cerebral vascular accident) Assessment/Plan: CVA: 02/05/23 Focus is now on comfort. Eliquis, aspirin and statin discontinued Echo revealed no clot or PFO. MRI of brain peformed 02/07/2023 multiforcal areas of restricted diffusion t hroughout brain (7) Bilateral pulmonary embolism Conclusion/Plan: Continue Eliquis (8) Elevated LFTs Avoid hepatotoxins. Follow LFTs intermittently (9) Lung mass Conclusion/Plan: Etiology of opacities unclear. Differential diagnosis would include aspiration and malignancy. Focus is now on comfort (10) Liver masses Discussed with cathyter. Continue to follow. (11) AMS (altered mental status) Assessment/Plan: Moste likely related to stroke. (12) Hypomagnesemia Conclusion/Plan: Replace as needed. (13) Hypokalemia Conclusion/Plan: Replace as needed. (14) V-tach Assessment/Plan: RESOLVED (15) Abnormal EKG Conclusion/Plan: Abn EKG at admission, suggested R heart strain. but her Echo showed no evidence of Right Heart failure or RV enlargement. Possibly the abnormal EKG was as a result of the acute PE at admission (16) COVID-19 Conclusion/Plan: She presented COVID (+) and with the pulm embolism. COVID-19 infection most likely resulted in hypercoaguable state which subsequently resulted in pulmonary embolism and multiple strokes despite anticoagulation with heparin then apixaban Follow-Up Care: Hospice No Smoking: If you smoke, Please STOP! Call for help. Follow-up with: Miles Cowart MD [Primary Care Provider] -
--- NOTE | 2023-02-17 06:41 | DISCHARGE SUMMARY ---
"Discharge Summary Admit Date: 01/30/23 Discharge Date: 02/17/23 Discharging Provider: Herminio Kuhn MD Primary Care Provider: Miles Cowart MD Code Status: Do Not Attempt Resuscitation Condition at Discharge: Fair Discharge Disposition: Home, Self Care Discharge Facility Name: Home - DIAGNOSES Admission Diagnoses: Hypernatremia-Resolved Discharge Diagnoses with Status of Each Condition: Iron deficiency anemia- Acute respiratory failure with hypoxia- Resolved Aspiration pneumonia-Chronic due to dysphagia Cerebrovascular accident-Chronic Bilateral pulmonary embolism Elevated liver function tests Lung mass most likely not a mass but due to aspiration Lung masses most likely not a mass but due to aspiration Altered mental status Hypomagnesia Hypokalemia Ventricular tachycardia Abnormal EKG COVID-19 - HPI History of Present Illness: Jazlyn Jeffries is a 72-year-old woman admitted on January 30, 2023 with no significant past medical history. She presented to the emergency room complaining of shortness of breath and was diagnosed with COVID 19 2 weeks before her admission. Patient was admitted to the hospital for hypoxemia. CT angiogram performed in the emergency room revealed bilateral pulmonary emboli. Patient was anticoagulated throughout her hospital admission. Unfortunately patient had multiple strokes during this hospitalization. She has a dense left hemiparalysis and her mental status has significantly worsened. Palliative care was consulted and after several discussions family has decided to change patient's status to focus on patient's comfort. She is discharged with hospice services. Plan of Treatment: Hospice care Care Goals: Goal of care is comfort. - CONSULTS | PROCEDURES Consultations: Palliative Care 02/14/2023 Procedures: None - HOSPITAL COURSE Hospital Course: See HPI - ALLERGIES Allergies/Adverse Reactions: Allergies Allergy/AdvReac Type Severity Reaction Status Date / Time No Known Drug Allergies Allergy Verified 01/29/23 23:09 - MEDICATIONS Home Medications: Ambulatory Orders Medication Instructions Recorded Confirmed [place] (18% Oleuropein) 1 cap PO DAILY 02/11/23 02/11/23 Bisacodyl Supp [Dulcolax Supp] 10 mg [place] DAILY PRN #3 supp 02/16/23 LORazepam [Ativan] 0.5 mg PO Q6H PRN #10 tablet 02/16/23 Morphine Sulfate 5 mg PO Q4H PRN #30 ml 02/16/23 OLANZapine ODT [Zyprexa Odt] 5 mg TL BID PRN #10 tablet 02/16/23 Senna [Senokot] 8.6 mg PO BID PRN #10 tablet 02/16/23 Home Medications Other | Comments: None - PHYSICAL EXAM AT DISCHARGE General Appearance: positive: No acute distress, Lethargic Eyes Bilateral: positive: Normal inspection, PERRL, No lid inflammation, Conjunctivae nml ENT: positive: ENT inspection nml, Pharynx nml Neck: positive: Nml inspection, No JVD, Trachea midline, Lymphadenopathy (R) Respiratory: positive: Chest non-tender, No respiratory distress, Other (No wheezing. No crackles) Cardiovascular: positive: Regular rate & rhythm, No murmur, No gallop Abdomen: positive: Nml bowel sounds, Other (Distended. Mild tenderness to palpation) Skin: positive: No rash, Warm Extremities: positive: Non-tender Neurologic/Psychiatric: positive: Other (Contracture of right upper extremity. Dense left hemiparlysis) - LABS Result Diagrams: 02/15/23 23:03 02/15/23 23:03 - DIAGNOSTIC IMAGING Diagnostic Imaging Results: See rad report - QUALITY (Female Hip Fx Only) Was patient sent home on osteoporosis medication?: No - FOLLOW UP Follow Up: Miles Cowart MD - TIME SPENT Time Spent in Discharge (Minutes): 42"
[2023-02-17] MEDS: SENNA 8.6 MG TABLET PO SCH (09:12)
[2023-02-17] MEDS: INSULIN LISPRO 300 UNIT/3 ML PEN SUBQ SCH ×2 (09:12→12:01)
[2023-02-17] MEDS: POTASSIUM CHLORIDE INJ 20 MEQ in SODIUM CHLORIDE 0.45% 1,000 ML IV SCH (10:34)
[2023-02-17 15:48] VITALS: BP 152/78; O2SAT 96
== END 2023-02-17 15:58 | disposition home or self-care (01) | DRG 189 ==
LOC: EDUNIT# → ED 23:05 → MS2 01-30 15:56
PROVIDERS: ADMIT Internal Medicine; ATTEND Internal Medicine
PROC: 30233N1 Transfusion of Nonautologous Red Blood Cells into Peripheral Vein, Percutaneous Approach (ICD-10-PCS; principal; 2023-02-11)
DX: J96.01 Acute respiratory failure with hypoxia (principal); R09.02 Hypoxemia; U07.1 COVID-19; I26.93 Single subsegmental thrombotic pulmonary embolism without acute cor pulmonale; R60.0 Localized edema; R00.0 Tachycardia, unspecified; R91.8 Other nonspecific abnormal finding of lung field; J69.0 Pneumonitis due to inhalation of food and vomit; I63.9 Cerebral infarction, unspecified; G81.94 Hemiplegia, unspecified affecting left nondominant side; E87.0 Hyperosmolality and hypernatremia; I47.20 Ventricular tachycardia, unspecified; Z68.1 Body mass index [BMI] 19.9 or less, adult; D50.9 Iron deficiency anemia, unspecified; R41.89 Other symptoms and signs involving cognitive functions and awareness; R41.82 Altered mental status, unspecified; E83.42 Hypomagnesemia; E87.6 Hypokalemia; R94.31 Abnormal electrocardiogram [ECG] [EKG]; Z51.5 Encounter for palliative care; I11.9 Hypertensive heart disease without heart failure; R62.7 Adult failure to thrive; R29.810 Facial weakness; R13.10 Dysphagia, unspecified; R16.0 Hepatomegaly, not elsewhere classified; F10.20 Alcohol dependence, uncomplicated; F03.90 Unspecified dementia, unspecified severity, without behavioral disturbance, psychotic disturbance, mood disturbance, and anxiety; R63.0 Anorexia; Z66 Do not resuscitate; R32 Unspecified urinary incontinence; Z74.01 Bed confinement status; R29.709 NIHSS score 9; R79.89 Other specified abnormal findings of blood chemistry; K52.9 Noninfective gastroenteritis and colitis, unspecified
CPT/HCPCS: 36415; 70450; 70496; 70498; 70551; 71045; 71250; 71275; 74018; 74176; 80048; 80053; 80061; 80076; 80202; 81001; 82274; 82607; 82746; 83540; 83605; 83690; 83735; 83880; 84100; 84295; 84466; 84484; 85025; 85027; 85610; 85730; 86850; 86900; 86901; 86920; 87040; 87077; 87086; 87181; 87633; 92526; 92610; 93005; 93306; 93308; 94667; 94668; 96365; 96366; 96375; 97112; 97162; 97164; 97166; 97168; 97530; 97535; 99285; 99291; A9270; J1750; J1815; J3370; J7120; J8540; P9016; Q9967; 83721

== ENCOUNTER 2023-02-17 15:57 | Outpatient (CLI) | payer MEDICARE, OTHER | END 2023-02-17 23:59 | disposition home or self-care (01) | LOC: EMS 15:57 | PROVIDERS: ATTEND Internal Medicine | DX: J96.00 Acute respiratory failure, unspecified whether with hypoxia or hypercapnia (principal); R41.82 Altered mental status, unspecified; Z74.01 Bed confinement status | CPT/HCPCS: A0425; A0428 ==